=== PATIENT | female | born 1960 | race Two or more races ===

== ENCOUNTER → 2016-12-21 | Outpatient (CLI) | payer OTHER, BC ==
[~2016-12-21] MED LIST: /BUSP5TA OR; /ESCI10TA PO; /FENT25PA; /LAMO10TA OR; /LOR25TA PO; /QUET10TA; /QUET10TA OR; /QUET25TA; AMBI10TA; AMBI10TA OR; AMBI10TA PO; AMBI12.52 PO; AMBI5TAB; AMOX250C3; ARTHROTEC; ARTHROTEC PO; BIOTPOW20 PO; BUPR300T34 PO; BUSP10TA2; BUSP15TA; BUSP30TA PO; COLA50CA; COLA50CA OR; CONC18TA PO; CONC54TA2 PO; DEPA500T; DEPA500T OR; EFFEXOR PO; EFFEXOR XR PO; EMBEDA; ETOD40ERTA PO; Effexor PO; FLUT1LOT; FOLI800T; HYDR-3719 PO; HYDRO50TAB PO; LAMI25TA; LIPI10TA PO; LODINE PO; METF500T PO; METH750T OR; MOBI7.5T10 PO; MULTIVIT; MULTIVIT PO; NABU750T OR; OLAN5TAB PO; OMEP40CA2 PO; PENNSAID; PERC7.5T3 PO; PREG100CA PO; PRIL40CA OR; PRIL40CA PO; PROBCAP4 PO; Probiotic PO; QUET20XRTB; RITA10TA PO; SEROQUEL; SKEL800T5; SOMA350T; SOMA350T PO; TIZA2CAP3 PO; TRAM50TA2 PO; TRAZ100T; TRAZ100T2 PO; TRAZ50TA2 PO; VENL37TA PO; VIACTIV CALCIUM; VICO5TAB OR; VICODINES TAB OR; VOLT1GEL2 TD; WOMECAP2 PO; ZANT150T OR; [UNRECOGNIZED DRUG - CODE] PO; [UNRECOGNIZED DRUG - REMARK] PO
--- NOTE | 2017-01-04 00:22 | ECWPNPC ---
PATIENT NAME: ROSANGELA ISAAC : 1960 GENDER: FEMALE VISIT DATE: 12/21/2016 DISCHARGE DATE: 12/21/16 174 VISIT LOCKED DATE TIME: PHYSICIAN: BLANCA RODRIGUEZ RESOURCE: BLANCA RODRIGUEZ REASON FOR APPOINTMENT 1. W/C DEPOSITION HISTORY OF PRESENT ILLNESS HISTORY OF PRESENT ILLNESS: PAIN THE PATIENT DESCRIBES THE PAIN... 56 YEAR OLD FEMALE PATIENT WITH HISTORY OF CHRONIC RIGHT WRIST, KNEE, SHOULDER, FOOT AND BACK PAIN. PATIENT DESCRIBES THE PAIN ACHING, SHARP, STABBING, TENDER, SORE, SHOOTING, AND IT COMES AND GOES WITH A PAIN SORE OF 7/10 ON TODAY'S VISIT. PATIENT WAS INJURED IN A WORK RELATED INJURED ON 05/21/2002 WORKING FOR [employer], PATIENT WAS CLEANING THE BACK OF A BUS, WHEN SHE FELL OUT THE BACK DOOR INJURING HER RIGHT WRIST, KNEE, SHOULDER, FOOT AND BACK PAIN. PATIENT STATES THAT SHE WORKS ABOUT 3 DAYS A WEEKS FOR ABOUT 5 HOURS OR LESS EACH DAY. PATIENT REPORTS THAT SOMETIMES THE PAIN AT NIGHT DOES WAKE HER UP. SOMETIMES THE PAIN IN THE BACK IS MORE PAINFUL ON THE RIGHT SIDE. PATIENT STATES THAT SOMETIMES HER MUSCLES WILL FREEZE UP AND FEEL LIKE STONES AND THAT TIZANIDINE HELPS TO LOOSEN UP HER MUSCLES. PATIENT REPORTS THAT SHE HAS TRIED PHYSICAL THERAPY IN THE PAST AND IT DID PROVIDE HER WITH SOME PAIN RELIEF. PATIENT REPORTS THAT HER DOES HELP HER WITH SOME PT EXERCISES AT HOME AND THAT SHE TRY'S TO DO SOME BASIC EXERCISES BY HERSELF. PATIENT DENIES UNEXPLAINABLE WEIGHT LOSS, FEVER, CHILLS, NEW CHANGES ON HER URINARY OR BOWEL CONTROL. FALL RISK SCREENING: SCREENING :NO FALLS IN THE PAST YEAR CURRENT MEDICATIONS TAKING RITALIN 10 MG TABLET 2 TABLETS ORALLY ONCE A DAY ([facility]) TAKING AMBIEN 12 MG TABLET 1 TAB(S) ORALLY AT BEDTIME NEEDED ([facility]) TAKING OMEPRAZOLE 40MG 40 MG TABLET 1 TABLET ORALLY TWICE DAILY TAKING LYRICA 100 MG CAPSULE 1 CAPSULE (PAIN CLINIC) ORALLY 3 TIMES DAILY MDD=3 TAKING METFORMIN HCL 1000 MG TABLET 1 TABLET WITH MEALS ORALLY TWICE A DAY TAKING LIPITOR 80 MG TABLET 1 TABLET ORALLY ONCE A DAY TAKING TIZANIDINE HCL 2 MG TABLET 1 TABLET NEEDED ORALLY EVERY 8 HRS (PAIN CLINIC) TAKING NORCO 7.5-325 MG TABLET 1 TABLET ORALLY EVERY 8-12 HRS PRN PAIN MDD=2 TAKING ONDANSETRON HCL 4 MG TABLET 1 TABLET ORALLY THREE TIMES DAILY NEEDED DISCONTINUED OMEPRAZOLE 40 MG CAPSULE DELAYED RELEASE TAKE ONE CAPSULE BY MOUTH EVERY DAY MEDICATION LIST REVIEWED AND RECONCILED WITH THE PATIENT PAST MEDICAL HISTORY FIBROMYALGIA CHRONIC BACK PAIN ICD-9 724.5 POSITIVE LYME TITER MILO ICD-9 715.00 DEPRESSION ICD-9 311.0 SLEEP APNEA/USING C-PAP AT NIGHT ACID REFLUX ENVIROMENTAL ALLERGIES MIXED HYPERLIPIDEMA? IBS CHRONIC DRY EYES HISTORY OF FIBROIDS S/P HYSTERECTOMY ASCVD 10 YR RISK: 15 ALLERGIES BANANAS: RASH SEASONAL SURGICAL HISTORY TUBALIGATION 1983 APPENDECTOMY HYSTERECTOMY/ LAP ASSISTED VAGINAL --- DUE TO ADENOMYOSIS AND FIBROID UTERUS 11/21 COLONOSCOPY 2009 RIGHT BREAST BIOPSY 2010 FAMILY HISTORY NO FAMILY HISTORY DOCUMENTED. SOCIAL HISTORY GENERAL: TOBACCO USE ARE YOU A:NONSMOKER LEARNING BARRIERS / SPECIAL NEEDS ORIENTED TO PLAN OF CARE: PATIENT, PAIN MANAGEMENT PATIENT, ORIENTED TO PLAN OF CARE: PATIENT, PAIN MANAGEMENT PATIENT. NEW PATIENT PAIN DIARY TODAY'S VISITNOTES FROM 0-10, WHAT LEVEL IS YOUR PAIN TODAY?0 PAIN CLINIC PFS, CLERGY, PUBLIC HEALTH REFERRALS PFS REFERRAL NEEDED?NO CLERGY REFERRAL NEEDED?NO PUBLIC HEALTH REFERRAL NEEDED?NO WAS THE PROVIDER NOTIFIED OF ANY PERTINENT INFO?NO PFS REFERRAL NEEDED?NO CLERGY REFERRAL NEEDED?NO PUBLIC HEALTH REFERRAL NEEDED?NO WAS THE PROVIDER NOTIFIED OF ANY PERTINENT INFO?NO , 4 ADULT KIDS. ALL LIVE TOGETHER....UNEMPLOYED...DOES NOT SMOKE OR DRINK. HOSPITALIZATION/MAJOR DIAGNOSTIC PROCEDURE [facility] - DEPRESSION 2012 REVIEW OF SYSTEMS CONSTITUTIONAL: ANY CHANGE IN YOUR MEDICAL CONDITION? NO . CHILLS NO . FEVER NO . INFECTION: DO YOU HAVE NEW INFECTIONS? NO . DO YOU HAVE HISTORY OF MRSA? NO . MUSCULOSKELETAL: ANY NEW PATTERNS OF PAIN OR NUMBNESS? NO . GASTROENTEROLOGY: ANY NEW CHANGE IN BOWEL CONTROL? NO . GENITOURINARY: ANY NEW CHANGE IN BLADDER CONTROL? NO . IS THERE A CHANCE YOU COULD BE ? NO . HEMATOLOGY/LYMPH: DO YOU TAKE ANY BLOOD THINNERS? (FOR EXAMPLE- COUMADIN, PLAVIX, AGGRENOX, PLATEL, PRADAXA, OR XARELTO) NO . WHEN WAS YOUR LAST DOSE? DATE: TIME: . NEUROLOGY: HAVE YOU FALLEN IN THE PAST 6 MONTHS? NO . ANY NEW EXTREMITY NUMBNESS OR WEAKNESS? NO . CARDIOLOGY: DO YOU HAVE A PACEMAKER OR DEFIBRILLATOR? NO . RESPIRATORY: HAVE YOU BEEN SICK IN THE PAST WEEK? YES N/V AND DIARRHEA-RESOLVED NOW . FEVER NO . FLU LIKE SYMPTOMS? NO . COUGH NO . INTEGUMENTARY: DO YOU HAVE ANY RASHES OR OPEN SORES? NO . ALLERGIC/IMMUNO: ARE YOU ALLERGIC TO SHELLFISH OR IV DYE? NO . ANY NEW ALLERGIES? NO . PSYCHIATRIC: DO YOU HAVE THOUGHTS OF HURTING YOURSELF OR SOMEONE ELSE? NO . ARE YOU ABUSED, NEGLECTED, OR IN AN UNSAFE ENVIRONMENT? NO . ENDOCRINOLOGY: ARE YOU DIABETIC? YES . OTHER: DO YOU NEED ANY PRESCRIPTIONS? NO . IF YES, PLEASE LIST: ____ . ANY NEW PROBLEMS WITH YOUR MEDICATIONS? NO . WHEN DID YOU LAST EAT? ____ . WHEN DID YOU LAST DRINK? ____ . WHAT DID YOU LAST DRINK? ____ . NAME OF PERSON DRIVING YOU HOME? ____ . DO YOU HAVE ANY OTHER QUESTIONS OR CONCERNS NO . REVIEWED BY: PROVIDER: BLANCA RODRIGUEZ MD . VITAL SIGNS WT 197.8 LBS, HT 61 IN, BMI 37.37 INDEX, BP 140/87 MM HG, HR 104 /MIN, RR 18 /MIN, TEMP 97.2 F, OXYGEN SAT % 95, NA INITIALS TL 1616, REVIEWED BY: MLF. EXAMINATION : PATIENT IS ALERT O X 3 AND COOPERATIVE. PATIENT IS ABLE TO FLEX HER BACK AT 35 DEGREES AND EXTEND AT 5 DEGREES WITH DIFFICULTIES. PATIENT IS ABLE TO ABDUCT UPPER EXTREMITIES. PATIENT RIGHT LEG IS WEAKER AT FLEXION AND EXTENSION. FOR STRAIGHT LEG RAISING PATIENT IS ONLY ABLE TO DO THE RIGHT LEG AT 60 DEGREES. THERE IS PAIN AND TENDERNESS IN THE LOW BACK AND SACROILIAC AREA. THERE IS RIGHT THORACIC PAIN AND TENDERNESS. THERE IS BANDS OF TISSUES, RESTRICTION OF MOVEMENT, AND PRESENCE OF TRIGGER POINTS IN THE LOW BACK AREA. MRI OF THE LUMBAR SPINE DONE ON 12/22/2014 SHOWS CENTRAL STENOSIS AND DISC BULGES. ASSESSMENTS SPONDYLOSIS WITHOUT MYELOPATHY OR RADICULOPATHY, LUMBAR REGION - M47.816 (PRIMARY) SPONDYLOSIS WITHOUT MYELOPATHY OR RADICULOPATHY, LUMBOSACRAL REGION - M47.817 MYALGIA - M79.1 INTERVERTEBRAL DISC DISORDERS WITH RADICULOPATHY, LUMBAR REGION - M51.16 INTERVERTEBRAL DISC DISORDERS WITH RADICULOPATHY, LUMBOSACRAL REGION - M51.17 TREATMENT SPONDYLOSIS WITHOUT MYELOPATHY OR RADICULOPATHY, LUMBAR REGION NOTES: WE DISCUSSED SEVERAL ISSUES WITH MS. ISAAC'S PAIN MANAGEMENT CASE. PATIENT WILL CONTINUE ON THE SAME MEDICATION REGIMEN BEFORE. PATIENT IS USING LYRICA FOR RADIATING AND NEUROPATHIC PAIN FROM HER BACK AND RADIATING DOWN HER LEG, NORCO FOR THE SOMATIC PAIN IN THE BACK FOR ANALGESIA AND INCREASE OF MOBILITY AND FUNCTIONALITY, AND TIZANIDINE FOR MUSCLE SPASMS. THE PATIENT UNDERSTAND THE RISK OF USING NORCO AN OPIOID. SHE REPORTS USING THIS MEDICATION FOR PAIN CONTROL AND TO INCREASE FUNCTIONALITY. THE PATIENT EXPRESSES THAT IF SHE DOES NOT USE THIS MEDICATION THE SPASTICITY IS SO SEVERE SHE CAN NOT FUNCTION. PATIENT IS A GOOD CANDIDATE FOR A BILATERAL L4-L5 AND L5-S1 FACET BLOCK THERAPEUTIC INJECTION, WE DISCUSSED THE RISK, ALTERNATIVES'S, AND BENEFITS AND THE PATIENT WOULD LIKE TO PROCEED. PATIENT WILL BE BOOKED PENDING APPROVAL. UTOX DONE ON 09/11/2016 SHOWS CONSISTENT RESULTS. INSTRUCTIONS WERE GIVEN, QUESTIONS WERE ANSWERED, PATIENT REPORTS UNDERSTANDING AND AGREES WITH THE PLAN. I, BG SHARIF, DOCUMENTED THE ABOVE INFORMATION ACTING A SCRIBE FOR DR. RODRIGUEZ. I HAVE REVIEWED THE ABOVE DOCUMENT, WRITTEN BY BG SHARIF SCRIBE AND I VERIFY THAT IT IS ACCURATE. OTHERS REFILL LYRICA CAPSULE, 100 MG, 1 CAPSULE (PAIN CLINIC), ORALLY FOR PAIN, 3 TIMES DAILY MDD=3, 30 DAY(S), 90, REFILLS 1 REFILL TIZANIDINE HCL TABLET, 4 MG, 1 TABLET NEEDED, ORALLY FOR SPASMS AND PAIN, EVERY 8 HRS (PAIN CLINIC) MDD3, 30 DAY(S), 90, REFILLS 2 REFILL NORCO TABLET, 7.5-325 MG, 1 TABLET, ORALLY, EVERY 8-12 HRS PRN PAIN MDD=2, 30 DAY(S), 60, REFILLS 0 PROCEDURES PN WORKMANS' COMP OPINION IN YOUR OPINION, WAS THE INCIDENT THAT THE PATIENT DESCRIBED THE COMPETENT MEDICAL CAUSE OF THIS INJURY/ILLNESS? YES ARE THE PATIENT'S COMPLAINTS CONSISTENT WITH HIS/HER HISTORY OF THE INJURY/ILLNESS? YES IS THE PATIENT'S HISTORY OF THE INJURY/ILLNESS CONSISTENT WITH YOUR OBJECTIVE FINDING? YES WHAT IS THE PERCENTAGE OF TEMPORARY IMPAIRMENT? MODERATE TO MARKED = 66.7% IS THE PATIENT WORKING? 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 IT IS NOT A COPY OF THE [facility] [employer] PROGRESS NOTE. MTDD
== END ==
LOC: M PAIN 16:00
PROVIDERS: ATTEND Anesthesiology
DX: Z09 Encounter for follow-up examination after completed treatment for conditions other than malignant neoplasm (principal); G89.29 Other chronic pain; M47.816 Spondylosis without myelopathy or radiculopathy, lumbar region; M47.817 Spondylosis without myelopathy or radiculopathy, lumbosacral region; M79.1 Myalgia; M51.16 Intervertebral disc disorders with radiculopathy, lumbar region; M51.17 Intervertebral disc disorders with radiculopathy, lumbosacral region; E11.9 Type 2 diabetes mellitus without complications; K21.9 Gastro-esophageal reflux disease without esophagitis; J32.9 Chronic sinusitis, unspecified; E78.1 Pure hyperglyceridemia; Z68.37 Body mass index [BMI] 37.0-37.9, adult; Z91.09 Other allergy status, other than to drugs and biological substances; Z91.018 Allergy to other foods; J30.2 Other seasonal allergic rhinitis; Z79.84 Long term (current) use of oral hypoglycemic drugs; Z79.891 Long term (current) use of opiate analgesic; Z79.899 Other long term (current) drug therapy; Z87.891 Personal history of nicotine dependence

== ENCOUNTER → 2017-02-06 | Outpatient (CLI) | payer OTHER, BC ==
[~2017-02-06] MED LIST changes: +BUPIVACAINE HCL 0.25% 30 ML VIAL As Ordered ONE; +ISOVUE-M 300 61% 15ML VIAL (Q9967) As Ordered ONE; +LIDOCAINE 1% SDV INJ 30 ML VIAL As Ordered ONE; +TRIAMCINOLONE ACETONIDE SUSP 40 MG/ML VIAL (J3301) As Ordered ONE; +diazePAM 5 MG TAB As Ordered ONE; +oxyCODONE 5MG TAB As Ordered ONE
--- NOTE | 2017-02-06 15:56 | REP ---
FLUOROSCOPIC GUIDANCE FOR FACET BLOCK: 02/06/2017: Clinical history: Low back pain. Findings: Four images from C-arm fluoroscopy provided to Dr. Webber of the pain clinic for bilateral lumbar facet block. Oblique images show needles at the L4-L5 and L5-S1 facets with contrast adjacent to them on the left side and then the similar appearance for needle tips and contrast on the right side subsequent. Fluoroscopy time: 18 seconds. Signed by Waldo Dunlap MD 02/06/2017 05:10 P
--- NOTE | 2017-02-09 00:06 | ECWPNPC ---
PATIENT NAME: ROSANGELA ISAAC : 1960 GENDER: FEMALE VISIT DATE: 02/06/2017 DISCHARGE DATE: 02/06/17 1431 VISIT LOCKED DATE TIME: PHYSICIAN: BLANCA RODRIGUEZ RESOURCE: BLANCA RODRIGUEZ REASON FOR APPOINTMENT 1. W/C-BILATERAL [id number] BLOCK THERAPEUTIC CURRENT MEDICATIONS TAKING AMBIEN 12 MG TABLET 1 TAB(S) ORALLY AT BEDTIME NEEDED ([facility]), NOTES: 02-05-17 800 TAKING OMEPRAZOLE 40MG 40 MG TABLET 1 TABLET ORALLY TWICE DAILY, NOTES: 02-04-17 TAKING METFORMIN HCL 1000 MG TABLET 1 TABLET WITH MEALS ORALLY TWICE A DAY, NOTES: 02-06-17399 TAKING LIPITOR 80 MG TABLET 1 TABLET ORALLY ONCE A DAY, NOTES: 02-06-17399 TAKING ONDANSETRON HCL 4 MG TABLET 1 TABLET ORALLY THREE TIMES DAILY NEEDED, NOTES: NONE TAKING LYRICA 100 MG CAPSULE 1 CAPSULE (PAIN CLINIC) ORALLY FOR PAIN 3 TIMES DAILY MDD=3, NOTES: 02-06-17399 TAKING TIZANIDINE HCL 4 MG TABLET 1 TABLET NEEDED ORALLY FOR SPASMS AND PAIN EVERY 8 HRS (PAIN CLINIC) MDD3, NOTES: 02-05-17 PM TAKING LOSARTAN POTASSIUM 25 MG TABLET 1 TABLET ORALLY ONCE A DAY, NOTES: 02-06-17399 TAKING PROZAC 40 MG CAPSULE 1 CAPSULE IN THE MORNING ORALLY ONCE A DAY, NOTES: 02-06-17399 TAKING BACID - TABLET DIRECTED ORALLY DAILY, NOTES: 02-06-17399 TAKING NORCO 7.5-325 MG TABLET 1 TABLET ORALLY EVERY 8-12 HRS PRN PAIN MDD=2, NOTES: 02-05-17 PM NOT-TAKING RITALIN 10 MG TABLET 2 TABLETS ORALLY ONCE A DAY ([facility]) MEDICATION LIST REVIEWED AND RECONCILED WITH THE PATIENT PAST MEDICAL HISTORY FIBROMYALGIA CHRONIC BACK PAIN ICD-9 724.5 POSITIVE LYME TITER MILO ICD-9 715.00 DEPRESSION ICD-9 311.0 SLEEP APNEA/USING C-PAP AT NIGHT ACID REFLUX ENVIROMENTAL ALLERGIES MIXED HYPERLIPIDEMA? IBS CHRONIC DRY EYES HISTORY OF FIBROIDS S/P HYSTERECTOMY ASCVD 10 YR RISK: 15 ALLERGIES SEASONAL VITAL SIGNS WT 190.0 LBS, HT 61 IN, BMI 35.90 INDEX, BP 137/66 MM HG, HR 106 /MIN, RR 18 /MIN, TEMP 97.1 F, OXYGEN SAT % 96, NA INITIALS TL 1147, REVIEWED BY: CM. ASSESSMENTS SPONDYLOSIS WITHOUT MYELOPATHY OR RADICULOPATHY, LUMBAR REGION - M47.816 (PRIMARY) SPONDYLOSIS WITHOUT MYELOPATHY OR RADICULOPATHY, LUMBOSACRAL REGION - M47.817 PROCEDURES PN LUMBAR FACET BLOCK THERAPEUTIC PRE PROCEDURE DIAGNOSIS LUMBAR SPONDYLOSIS, LUMBOSACRAL SPONDYLOSIS POST PROCEDURE DIAGNOSIS LUMBAR SPONDYLOSIS, LUMBOSACRAL SPONDYLOSIS PROCEDURE BILATERAL L4-L5 AND BILATERAL L5-S1 LUMBAR FACET THERAPEUTIC BLOCK SURGEON DR. BLANCA RODRIGUEZ REFERENCE LIBRARY ASSISTANT NONE ANESTHESIA LOCAL PRE PROCEDURE NOTE THE PATIENT HAS A HISTORY OF CHRONIC LOW BACK PAIN. I EVALUATE THE PATIENT AND REVIEWED THE CHART. I WENT OVER THE RISKS, ALTERNATIVES, AND BENEFITS ASSOCIATED WITH THIS PROCEDURE. THE PATIENT WOULD LIKE TO PROCEED AND GIVE CONSENT TO PERFORMED THE PROCEDURE. THE PATIENT DENIES UNEXPLAINABLE WEIGHT LOSS, FEVER, CHILLS, OR NEW CHANGES IN URINARY OR BOWEL CONTROL DESCRIPTION OF PROCEDURE THE PATIENT WAS BROUGHT TO THE PROCEDURE ROOM AND PLACED IN THE PRONE POSITION. THE LUMBOSACRAL AREA WAS CLEANED WITH CHLORAPREP SOLUTION AND DRAPED ASEPTICALLY. THE PROCEDURE WAS DONE UNDER STERILE CONDITIONS. I CHECKED LATERALITY AND THE LEVEL WHERE THE PROCEDURE WAS GOING TO BE PERFORMED WITH THE PATIENT AND THE SUPPORTING STAFF AT THE MOMENT OF THE TIME OUT IN THE PROCEDURE ROOM. UNDER FLUOROSCOPIC GUIDANCE, THE TARGET POINT WAS SELECTED AT THE RIGHT AND LEFT L4-L5 AND RIGHT AND LEFT L5-S1 FACET JOINT. TARGET POINT WAS SELECTED AFTER LATERAL ROTATION AND TILT OF THE MAGNIFIER OF THE C-ARM. LIDOCAINE 0.5% WAS USED TO NUMB THE SKIN AND THE SUBCUTANEOUS TISSUE BELOW IT. SPINAL NEEDLES, 22-GAUGE, WERE ADVANCED UNDER FLUOROSCOPIC GUIDANCE AND FOLLOWING PATIENT FEEDBACK UNTIL THE TARGETS WERE TOUCHED. THE POSITION OF THE NEEDLES WAS VERIFIED WITH AP AND LATERAL VIEWS. AFTER PROPER POSITION OF THE NEEDLES WAS ACHIEVED, ISOVUE-M DYE 30% 0.1 ML WAS INJECTED SHOWING ADEQUATE SPREAD OF THE DYE. THEN A SOLUTION OF 1.9 ML OF BUPIVACAINE 0.125% OF KENALOG 10 MG WAS INJECTED AT EACH SITE. THERE WAS NO EVIDENCE OF BLOOD, PARESTHESIA OR CEREBROSPINAL FLUID DURING THE PROCEDURE. THE PATIENT WAS SENT TO THE RECOVERY ROOM. THE PATIENT WAS MOVING THE EXTREMITIES AND DOING WELL. THERE WAS NO COMPLICATION DURING THE PROCEDURE. FLUOROSCOPY TIME WAS 18 SECONDS POST PROCEDURE NOTE THE PATIENT WILL BE SEEN IN A FOLLOW UP IN THE NEXT FEW WEEKS. INSTRUCTIONS WERE GIVEN, QUESTIONS WERE ANSWERED, AND THE PATIENT EXPRESSED UNDERSTANDING AND AGREES WITH THE PLAN. I, JERMAINE TORRES, DOCUMENTED THE ABOVE INFORMATION ACTING A SCRIBE FOR DR. RODRIGUEZ. I, DR. RODRIGUEZ, HAVE REVIEWED THE ABOVE DOCUMENT, SCRIBED BY JERMAINE TORRES, AND I VERIFY THAT IT IS ACCURATE DIAGNOSTIC IMAGING [facility] FACET BLOCK (PAIN)[id number] PROCEDURE CODES 21937 INJ PARAVERT F JNT L/S 1 LEV 69329 INJ PARAVERT F JNT L/S 2 LEV 6045F RADXPS IN END [id number] PXD DISPOSITION & COMMUNICATION FOLLOW UP 3 WEEKS ELECTRONICALLY SIGNED BY BLANCA RODRIGUEZ MD ON 02/08/2017 AT 01:48 PM EDT DISCLAIMER : THIS IS A VISIT SUMMARY EXTRACTED FROM THE [employer] CHART. IT IS NOT A COPY OF THE [employer] PROGRESS NOTE. MTDD
== END ==
LOC: M PAIN 11:40
PROVIDERS: ATTEND Anesthesiology
DX: G89.29 Other chronic pain (principal); M47.816 Spondylosis without myelopathy or radiculopathy, lumbar region; M47.817 Spondylosis without myelopathy or radiculopathy, lumbosacral region; M79.7 Fibromyalgia; G47.33 Obstructive sleep apnea (adult) (pediatric); M54.5 Low back pain; F32.9 Major depressive disorder, single episode, unspecified; K21.9 Gastro-esophageal reflux disease without esophagitis; J30.9 Allergic rhinitis, unspecified; K58.9 Irritable bowel syndrome, unspecified; H04.123 Dry eye syndrome of bilateral lacrimal glands; Z79.84 Long term (current) use of oral hypoglycemic drugs; Z79.891 Long term (current) use of opiate analgesic; Z79.899 Other long term (current) drug therapy
CPT/HCPCS: 64493; 64494; J3301; Q9967

== ENCOUNTER → 2017-02-06 | Outpatient (CLI) | payer OTHER, BC ==
[~2017-02-06] MED LIST changes: -BUPIVACAINE HCL 0.25% 30 ML VIAL As Ordered ONE; -ISOVUE-M 300 61% 15ML VIAL (Q9967) As Ordered ONE; -LIDOCAINE 1% SDV INJ 30 ML VIAL As Ordered ONE; -TRIAMCINOLONE ACETONIDE SUSP 40 MG/ML VIAL (J3301) As Ordered ONE; -diazePAM 5 MG TAB As Ordered ONE; -oxyCODONE 5MG TAB As Ordered ONE
--- NOTE | 2017-02-14 01:54 | ECWPNPC ---
PATIENT NAME: ROSANGELA ISAAC : 1960 GENDER: FEMALE VISIT DATE: 02/06/2017 DISCHARGE DATE: 02/06/17 1632 VISIT LOCKED DATE TIME: PHYSICIAN: BLANCA RODRIGUEZ RESOURCE: BLANCA RODRIGUEZ REASON FOR APPOINTMENT 1. W/C BACK PAIN HISTORY OF PRESENT ILLNESS HISTORY OF PRESENT ILLNESS: PAIN THE PATIENT DESCRIBES THE PAIN... 56 YEAR OLD FEMALE PATIENT WITH HISTORY OF CHRONIC LOW BACK PAIN. PATIENT STATES THAT SHE HAS NO PAIN AT THIS TIME. PATIENT RECEIVED A LUMBAR FACET BLOCK EARLIER THIS MORNING. CURRENTLY THE PATIENT IS USING LYRICA, NORCO, AND TIZANIDINE AND STATES THAT THE MEDICATION KEEPS HER MOBILE AND FUNCTIONAL. 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 PATIENT STATES THAT ANY TYPE OF ACTIVITY INCREASES THE PAIN IN HER LOWER BACK AND AT THIS TIME THE ONLY THING THAT AIDS IN RELIEF IN MEDICATION AND INTERVENTIONS. PATIENT DENIES UNEXPLAINABLE WEIGHT LOSS, FEVER, CHILLS, NEW CHANGES ON HER URINARY OR BOWEL CONTROL. FALL RISK SCREENING: SCREENING :NO FALLS IN THE PAST YEAR CURRENT MEDICATIONS TAKING RITALIN 10 MG TABLET 2 TABLETS ORALLY ONCE A DAY ([facility]) TAKING AMBIEN 12 MG TABLET 1 TAB(S) ORALLY AT BEDTIME NEEDED ([facility]) TAKING OMEPRAZOLE 40MG 40 MG TABLET 1 TABLET ORALLY TWICE DAILY TAKING METFORMIN HCL 1000 MG TABLET 1 TABLET WITH MEALS ORALLY TWICE A DAY TAKING LIPITOR 80 MG TABLET 1 TABLET ORALLY ONCE A DAY TAKING ONDANSETRON HCL 4 MG TABLET 1 TABLET ORALLY THREE TIMES DAILY NEEDED TAKING LYRICA 100 MG CAPSULE 1 CAPSULE (PAIN CLINIC) ORALLY FOR PAIN 3 TIMES DAILY MDD=3 TAKING TIZANIDINE HCL 4 MG TABLET 1 TABLET NEEDED ORALLY FOR SPASMS AND PAIN EVERY 8 HRS (PAIN CLINIC) MDD3 TAKING LOSARTAN POTASSIUM 25 MG TABLET 1 TABLET ORALLY ONCE A DAY TAKING PROZAC 40 MG CAPSULE 1 CAPSULE IN THE MORNING ORALLY ONCE A DAY TAKING BACID - TABLET DIRECTED ORALLY DAILY TAKING NORCO 7.5-325 MG TABLET 1 TABLET ORALLY EVERY 8-12 HRS PRN PAIN MDD=2 MEDICATION LIST REVIEWED AND RECONCILED WITH THE PATIENT PAST MEDICAL HISTORY FIBROMYALGIA CHRONIC BACK PAIN ICD-9 724.5 POSITIVE LYME TITER MILO ICD-9 715.00 DEPRESSION ICD-9 311.0 SLEEP APNEA/USING C-PAP AT NIGHT ACID REFLUX ENVIROMENTAL ALLERGIES MIXED HYPERLIPIDEMA? IBS CHRONIC DRY EYES HISTORY OF FIBROIDS S/P HYSTERECTOMY ASCVD 10 YR RISK: 15 ALLERGIES SEASONAL SURGICAL HISTORY TUBALIGATION 1983 APPENDECTOMY HYSTERECTOMY/ LAP ASSISTED VAGINAL --- DUE TO ADENOMYOSIS AND FIBROID UTERUS 11/21 COLONOSCOPY 2009 RIGHT BREAST BIOPSY 2010 FAMILY HISTORY NO FAMILY HISTORY DOCUMENTED. SOCIAL HISTORY GENERAL: TOBACCO USE ARE YOU A:NONSMOKER BMI CARE GOAL FOLLOW-UP ABOVE NORMAL BMI FOLLOW-UPGIVING ENCOURAGEMENT TO EXERCISE LEARNING BARRIERS / SPECIAL NEEDS BARRIERS TO LEARNING?NO HEARING IMPAIRED?NO VISION IMPAIRED?YES :CORRECTIVE LENSES COGNITIVELY IMPAIRED?NO READINESS TO LEARN?YES LEARNING PREFERENCES?NO LEARNING CAPABILITIES PRESENT?YES EMOTIONAL BARRIERS?NO SPECIAL DEVICES?NO NEW PATIENT PAIN DIARY TODAY'S VISITNOTES FROM 0-10, WHAT LEVEL IS YOUR PAIN TODAY?0 PAIN CLINIC PFS, CLERGY, PUBLIC HEALTH REFERRALS PFS REFERRAL NEEDED?NO CLERGY REFERRAL NEEDED?NO PUBLIC HEALTH REFERRAL NEEDED?NO WAS THE PROVIDER NOTIFIED OF ANY PERTINENT INFO?NO PFS REFERRAL NEEDED?NO CLERGY REFERRAL NEEDED?NO PUBLIC HEALTH REFERRAL NEEDED?NO WAS THE PROVIDER NOTIFIED OF ANY PERTINENT INFO?NO , 4 ADULT KIDS. ALL LIVE TOGETHER....UNEMPLOYED...DOES NOT SMOKE OR DRINK. HOSPITALIZATION/MAJOR DIAGNOSTIC PROCEDURE [facility] - DEPRESSION 2012 REVIEW OF SYSTEMS CONSTITUTIONAL: ANY CHANGE IN YOUR MEDICAL CONDITION? NO . CHILLS NO . FEVER NO . INFECTION: DO YOU HAVE NEW INFECTIONS? NO . DO YOU HAVE HISTORY OF MRSA? NO . MUSCULOSKELETAL: ANY NEW PATTERNS OF PAIN OR NUMBNESS? NO . GASTROENTEROLOGY: ANY NEW CHANGE IN BOWEL CONTROL? NO . GENITOURINARY: ANY NEW CHANGE IN BLADDER CONTROL? NO . IS THERE A CHANCE YOU COULD BE ? NO . HEMATOLOGY/LYMPH: DO YOU TAKE ANY BLOOD THINNERS? (FOR EXAMPLE- COUMADIN, PLAVIX, AGGRENOX, PLATEL, PRADAXA, OR XARELTO) NO . WHEN WAS YOUR LAST DOSE? DATE: TIME: . NEUROLOGY: HAVE YOU FALLEN IN THE PAST 6 MONTHS? NO . ANY NEW EXTREMITY NUMBNESS OR WEAKNESS? NO . CARDIOLOGY: DO YOU HAVE A PACEMAKER OR DEFIBRILLATOR? NO . RESPIRATORY: HAVE YOU BEEN SICK IN THE PAST WEEK? NO . FEVER NO . FLU LIKE SYMPTOMS? NO . COUGH NO . INTEGUMENTARY: DO YOU HAVE ANY RASHES OR OPEN SORES? NO . ALLERGIC/IMMUNO: ARE YOU ALLERGIC TO SHELLFISH OR IV DYE? NO . ANY NEW ALLERGIES? NO . PSYCHIATRIC: DO YOU HAVE THOUGHTS OF HURTING YOURSELF OR SOMEONE ELSE? NO . ARE YOU ABUSED, NEGLECTED, OR IN AN UNSAFE ENVIRONMENT? NO . ENDOCRINOLOGY: ARE YOU DIABETIC? YES . OTHER: DO YOU NEED ANY PRESCRIPTIONS? NO . IF YES, PLEASE LIST: ____ . ANY NEW PROBLEMS WITH YOUR MEDICATIONS? NO . WHEN DID YOU LAST EAT? 02/06/17399 . WHEN DID YOU LAST DRINK? 02-06-17399 . WHAT DID YOU LAST DRINK? COFFEE/ WATER . NAME OF PERSON DRIVING YOU HOME? KATHY . DO YOU HAVE ANY OTHER QUESTIONS OR CONCERNS NO . REVIEWED BY: PROVIDER: BLANCA RODRIGUEZ MD . VITAL SIGNS WT 190.0 LBS, HT 61 IN, BMI 35.90 INDEX, BP 137/66 MM HG, HR 106 /MIN, RR 18 /MIN, TEMP 97.1 F, OXYGEN SAT % 96, NA INITIALS TL 1444, REVIEWED BY: AD. EXAMINATION : PATIENT IS ALERT O X 3 AND COOPERATIVE. PATIENT IS ABLE TO FLEX HER BACK AT 55 DEGREES AND EXTEND AT 10 DEGREES WITH DIFFICULTIES. PATIENT RIGHT LEG IS WEAKER AT FLEXION AND EXTENSION. FOR STRAIGHT LEG RAISING PATIENT IS ONLY ABLE TO DO THE RIGHT LEG AT 60 DEGREES. PATIENT RECEIVED A FACET BLOCK EARLIER THIS MORNING AND REPORTS HAVING NO PAIN AT THIS MOMENT. THERE IS BANDS OF TISSUES, RESTRICTION OF MOVEMENT, AND PRESENCE OF TRIGGER POINTS IN THE LOW BACK AREA. MRI OF THE LUMBAR SPINE DONE ON 12/22/2014 SHOWS CENTRAL STENOSIS AND DISC BULGES. ASSESSMENTS SPONDYLOSIS WITHOUT MYELOPATHY OR RADICULOPATHY, LUMBAR REGION - M47.816 (PRIMARY) SPONDYLOSIS WITHOUT MYELOPATHY OR RADICULOPATHY, LUMBOSACRAL REGION - M47.817 TREATMENT SPONDYLOSIS WITHOUT MYELOPATHY OR RADICULOPATHY, LUMBAR REGION REFILL LYRICA CAPSULE, 100 MG, 1 CAPSULE (PAIN CLINIC), ORALLY FOR PAIN, 3 TIMES DAILY MDD=3, 30 DAY(S), 90, REFILLS 0 REFILL TIZANIDINE HCL TABLET, 4 MG, 1 TABLET NEEDED, ORALLY FOR SPASMS AND PAIN, EVERY 8 HRS (PAIN CLINIC) MDD3, 30 DAY(S), 75, REFILLS 2 REFILL NORCO TABLET, 10-325 MG, 1 TABLET, ORALLY, EVERY 8-12 HRS PRN PAIN MDD=2, 30 DAY(S), 45, REFILLS 0 START IBUPROFEN TABLET, 800 MG, 1 TABLET, ORALLY WITH FOOD, THREE TIMES A DAY PRN FOR PAIN MDD3, 30 DAY(S), 70, REFILLS 1 NOTES: WE DISCUSSED SEVERAL ISSUES WITH MRS. ISAAC'S PAIN MANAGEMENT CASE. AT THIS TIME THE PATIENT WILL START IBUPROFEN AND NORCO WILL BE INCREASED FROM 7.5 MG TO 10 MG TABLETS WITH 65 TABLETS FOR THE MONTH. I WILL PRESCRIBE THE PATIENT IBUPROFEN 800 MG AND PATIENT IS AWARE TO EAT WHEN USING THIS MEDICATION. PATIENT IS AWARE IBUPROFEN CAN CAUSE ISSUES WITH THE KIDNEYS AND THE STOMACH WELL OTHER ORGANS. PATIENT DENIES ABUSE OF ANY MEDICATION, DENIES USE OF ILLEGAL SUBSTANCES AND STATES THAT SHE IS ONLY USING THE MEDICATION FOR PAIN MANAGEMENT. PATIENT URINE TOXICOLOGY REPORT DONE ON 09/11/16 SHOWS CONSISTENT RESULTS WITH THE PATIENTS MEDICATION LIST. PATIENT IS CURRENTLY USING THE TIZANIDINE FOR THE SPASMS, NORCO FOR THE SOMATIC PAIN, AND LYRICA FOR THE NEUROPATHIC PAIN DOWN THE LEGS. PATIENT WILL RETURN TO THE CLINIC IN 3 WEEKS TO DISCUSS HOW THE MEDICATIONS AIDED IN RELIEF AND TO DISCUSS HOW THE FACET BLOCK AIDED THE PATIENT. INSTRUCTIONS WERE GIVEN, QUESTIONS WERE ANSWERED, PATIENT REPORTS UNDERSTANDING AND AGREES WITH THE PLAN. I, JERMAINE TORRES, DOCUMENTED THE ABOVE INFORMATION ACTING A SCRIBE FOR DR. RODRIGUEZ. I HAVE REVIEWED THE ABOVE DOCUMENT, WRITTEN BY JERMAINE BARR AND I VERIFY THAT IT IS ACCURATE. PROCEDURES PN WORKMANS' COMP OPINION IN YOUR OPINION, WAS THE INCIDENT THAT THE PATIENT DESCRIBED THE COMPETENT MEDICAL CAUSE OF THIS INJURY/ILLNESS? YES ARE THE PATIENT'S COMPLAINTS CONSISTENT WITH HIS/HER HISTORY OF THE INJURY/ILLNESS? YES IS THE PATIENT'S HISTORY OF THE INJURY/ILLNESS CONSISTENT WITH YOUR OBJECTIVE FINDING? YES WHAT IS THE PERCENTAGE OF TEMPORARY IMPAIRMENT? MODERATE TO MARKED = 66.7% IS THE PATIENT WORKING? YES DOCTOR ON SITE: BLANCA ALVAREZ MD PREVENT[facility] MEDICINE PAIN CLINIC TEACHING: MEDICATIONS PATIENT DECLINED PRINTED INFORMATION ON IBUPROFEN. CHANGE IN TIZANIDINE REVIEWED WITH PATIENT AND SHE VERBALIZED UNDERSTANDING. PROCEDURE CODES FA211 ESTABILISHED PATIENT [facility] FAC[facility] CHARGE G1137 DOC MEDS VERIFIED W/PT OR RE P4437 PAIN ASSESS POS TOOL F/U PLAN DOC DISPOSITION & COMMUNICATION FOLLOW UP 3 WEEKS ELECTRONICALLY SIGNED BY BLANCA RODRIGUEZ MD ON 02/13/2017 AT 12:53 PM EDT DISCLAIMER : THIS IS A VISIT SUMMARY EXTRACTED FROM THE [employer] CHART. IT IS NOT A COPY OF THE [employer] PROGRESS NOTE. ROVERTO
== END ==
LOC: M PAIN 14:40
PROVIDERS: ATTEND Anesthesiology
DX: Z09 Encounter for follow-up examination after completed treatment for conditions other than malignant neoplasm (principal); G89.29 Other chronic pain; M54.5 Low back pain; M47.816 Spondylosis without myelopathy or radiculopathy, lumbar region; M47.817 Spondylosis without myelopathy or radiculopathy, lumbosacral region; M79.7 Fibromyalgia; G47.33 Obstructive sleep apnea (adult) (pediatric); F32.9 Major depressive disorder, single episode, unspecified; K21.9 Gastro-esophageal reflux disease without esophagitis; J30.9 Allergic rhinitis, unspecified; E78.2 Mixed hyperlipidemia; K58.9 Irritable bowel syndrome, unspecified; H04.123 Dry eye syndrome of bilateral lacrimal glands; Z79.84 Long term (current) use of oral hypoglycemic drugs; Z79.891 Long term (current) use of opiate analgesic; Z79.899 Other long term (current) drug therapy

== ENCOUNTER → 2017-02-07 | Outpatient (CLI) | payer BC ==
[2017-02-07 19:00] LABS: ALKALINE PHOSPHATASE 69 U/L (45-117); ALT/SGPT 38 U/L (12-78); ANION GAP 8 MEQ/L (8-16); AST/SGOT 19 U/L (15-37); BILIRUBIN,TOTAL 0.3 MG/DL (0.2-1.0); BLOOD UREA NITROGEN 16 MG/DL (7-18); CALCIUM LEVEL 9.4 MG/DL (8.5-10.1); CARBON DIOXIDE LEVEL 28 MEQ/L (21-32); CHLORIDE LEVEL 102 MEQ/L (98-107); CHOLESTEROL LEVEL 150 MG/DL (<200); CREATININE FOR GFR 0.64 MG/DL (0.55-1.02); GLOMERULAR FILTRATION RATE > 60.0 (>51); GLUCOSE, FASTING 113 MG/DL (70-105); SODIUM LEVEL 138 MEQ/L (136-145); TRIGLYCERIDES LEVEL 110 MG/DL (<150)
[2017-02-07 19:01] LABS: ALBUMIN 4.3 GM/DL (3.2-5.2); TOTAL PROTEIN 7.6 GM/DL (6.4-8.2)
== END ==
LOC: M WUC 10:40
PROVIDERS: ATTEND Hospitalist
DX: R74.0 Nonspecific elevation of levels of transaminase and lactic acid dehydrogenase [LDH] (principal); E11.9 Type 2 diabetes mellitus without complications; E78.1 Pure hyperglyceridemia

== ENCOUNTER → 2017-03-23 | Outpatient (CLI) | payer BC ==
--- NOTE | 2017-03-31 23:45 | ECWPNPC ---
PATIENT NAME: ROSANGELA ISAAC : 1960 GENDER: FEMALE VISIT DATE: 03/23/2017 DISCHARGE DATE: 03/23/17 1521 VISIT LOCKED DATE TIME: PHYSICIAN: BLANCA RODRIGUEZ RESOURCE: BLANCA RODRIGUEZ REASON FOR APPOINTMENT 1. WC, MEDS HISTORY OF PRESENT ILLNESS HISTORY OF PRESENT ILLNESS: PAIN THE PATIENT DESCRIBES THE PAIN... 56 YEAR OLD FEMALE PATIENT WITH HISTORY OF CHRONIC LOW BACK PAIN. PATIENT DESCRIBES THE PAIN ACHING, STABBING, TENDER, THROBBING, AND SORE WITH A PAIN SCORE OF 6/10. PATIENT RECEIVED A LUMBAR FACET BLOCK ON 02/06/17 AND REPORTS THAT SHE HAD A 50% DECREASE IN PAIN FOR 4 WEEKS AND AN INCREASE IN MOBILITY AND FUNCTIONALITY. CURRENTLY THE PATIENT IS USING LYRICA, NORCO, AND TIZANIDINE AND STATES THAT THE MEDICATION KEEPS HER MOBILE AND FUNCTIONAL. 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 PATIENT STATES THAT ANY TYPE OF ACTIVITY INCREASES THE PAIN IN HER LOWER BACK AND AT THIS TIME THE ONLY THING THAT AIDS IN RELIEF IN MEDICATION AND INTERVENTIONS. PATIENT DENIES UNEXPLAINABLE WEIGHT LOSS, FEVER, CHILLS, NEW CHANGES ON HER URINARY OR BOWEL CONTROL. FALL RISK SCREENING: SCREENING :NO FALLS IN THE PAST YEAR CURRENT MEDICATIONS TAKING TIZANIDINE HCL 4 MG TABLET 1 TABLET NEEDED ORALLY FOR SPASMS AND PAIN EVERY 8 HRS (PAIN CLINIC) MDD3 TAKING LYRICA 100 MG CAPSULE 1 CAPSULE (PAIN CLINIC) ORALLY FOR PAIN 3 TIMES DAILY MDD=3 TAKING NORCO 10-325 MG TABLET 1 TABLET ORALLY EVERY 8-12 HRS PRN PAIN MDD=2 TAKING IBUPROFEN 800 MG TABLET 1 TABLET ORALLY WITH FOOD THREE TIMES A DAY PRN FOR PAIN MDD3 TAKING RITALIN 10 MG TABLET 2 TABLETS ORALLY ONCE A DAY (PECK) TAKING AMBIEN 12 MG TABLET 1 TAB(S) ORALLY AT BEDTIME NEEDED (PECK) TAKING OMEPRAZOLE 40MG 40 MG TABLET 1 TABLET ORALLY TWICE DAILY TAKING METFORMIN HCL 1000 MG TABLET 1 TABLET WITH MEALS ORALLY TWICE A DAY TAKING LIPITOR 80 MG TABLET 1 TABLET ORALLY ONCE A DAY TAKING ONDANSETRON HCL 4 MG TABLET 1 TABLET ORALLY THREE TIMES DAILY NEEDED TAKING LOSARTAN POTASSIUM 25 MG TABLET 1 TABLET ORALLY ONCE A DAY TAKING PROZAC 40 MG CAPSULE 1 CAPSULE IN THE MORNING ORALLY ONCE A DAY TAKING LOMOTIL 2.5-0.025 MG TABLET 1 TABLET NEEDED ORALLY FOUR TIMES A DAY TAKING CARAFATE 1 GM/10ML SUSPENSION 10 ML ORALLY TWICE A DAY TAKING SINGULAIR 10 MG TABLET 1 TABLET IN THE EVENING ORALLY ONCE A DAY NOT-TAKING BACID - TABLET DIRECTED ORALLY DAILY MEDICATION LIST REVIEWED AND RECONCILED WITH THE PATIENT PAST MEDICAL HISTORY FIBROMYALGIA CHRONIC BACK PAIN ICD-9 724.5 POSITIVE LYME TITER DEPRESSION ICD-9 311.0 SLEEP APNEA/USING C-PAP AT NIGHT ACID REFLUX ENVIROMENTAL ALLERGIES MIXED HYPERLIPIDEMA? IBS CHRONIC DRY EYES HISTORY OF FIBROIDS S/P HYSTERECTOMY ASCVD 10 YR RISK: 15 ALLERGIES SEASONAL SURGICAL HISTORY TUBALIGATION 1983 APPENDECTOMY HYSTERECTOMY/ LAP ASSISTED VAGINAL --- DUE TO ADENOMYOSIS AND FIBROID UTERUS 11/21 COLONOSCOPY 2009 RIGHT BREAST BIOPSY 2010 FAMILY HISTORY FATHER: UNKNOWN MOTHER: , INFLUENZA SIBLINGS: ALIVE SON(S): ALIVE DAUGHTER(S): ALIVE, LUPUS, FIBROMYALGIA, ASTHMA, LYME DISEASE 2 BROTHER(S) , 1 SISTER(S) - HEALTHY. 3 SON(S) , 1 DAUGHTER(S) . SOCIAL HISTORY GENERAL: TOBACCO USE ARE YOU A:FORMER SMOKER HOW LONG HAS IT BEEN SINCE YOU LAST SMOKED?3-6 MONTHS BMI CARE GOAL FOLLOW-UP ABOVE NORMAL BMI FOLLOW-UPGIVING ENCOURAGEMENT TO EXERCISE ALCOHOL SCREENING DID YOU HAVE A DRINK CONTAINING ALCOHOL IN THE PAST YEAR?NO POINTS0 INTERPRETATIONNEGATIVE RECREATIONAL DRUG USE DRUG USE?NO CAFFEINE CAFFEINE USE?YES SEXUAL HX HAD SEX IN THE LAST 12 MONTHS (VAGINAL, ORAL, OR ANAL)?YES OCCUPATION: [employer] ST[employer]ENT. DIET: REGULAR. EXERCISE: NO REGULAR EXERCISE. MARITAL STATUS: . OTHERS AT HOME: SPOUSE. PETS: DOG. ORIENTAL ORTHODOX ORIENTAL ORTHODOX NO ANABAPTIST BELIEFS THAT WOULD IMPACT HEALTH CARE. LANGUAGE LANGUAGES SPOKEN:ESTONIAN EDUCATION LEVEL OF EDUCATION:COLLEGE LEARNING BARRIERS / SPECIAL NEEDS CHANGE FROM LAST VISIT?NO BARRIERS TO LEARNING?NO HEARING IMPAIRED?NO VISION IMPAIRED?YES :CORRECTIVE LENSES COGNITIVELY IMPAIRED?NO READINESS TO LEARN?YES LEARNING PREFERENCES?NO LEARNING CAPABILITIES PRESENT?YES EMOTIONAL BARRIERS?NO SPECIAL DEVICES?NO ZOOLOGY TECHNICAL OFFICER NEEDED?NO NEW PATIENT PAIN DIARY TODAY'S VISITNOTES FROM 0-10, WHAT LEVEL IS YOUR PAIN TODAY?0 PAIN CLINIC PFS, CLERGY, PUBLIC HEALTH REFERRALS PFS REFERRAL NEEDED?NO PFS REFERRAL NEEDED?NO CLERGY REFERRAL NEEDED?NO CLERGY REFERRAL NEEDED?NO PUBLIC HEALTH REFERRAL NEEDED?NO PUBLIC HEALTH REFERRAL NEEDED?NO WAS THE PROVIDER NOTIFIED OF ANY PERTINENT INFO?NO WAS THE PROVIDER NOTIFIED OF ANY PERTINENT INFO?NO , 4 ADULT KIDS. ALL LIVE TOGETHER....UNEMPLOYED...DOES NOT SMOKE OR DRINK. HOSPITALIZATION/MAJOR DIAGNOSTIC PROCEDURE [facility] - DEPRESSION 2012 REVIEW OF SYSTEMS CONSTITUTIONAL: ANY CHANGE IN YOUR MEDICAL CONDITION? YES . CHILLS NO . FEVER NO . INFECTION: DO YOU HAVE NEW INFECTIONS? NO . DO YOU HAVE HISTORY OF MRSA? NO . MUSCULOSKELETAL: ANY NEW PATTERNS OF PAIN OR NUMBNESS? NO . GASTROENTEROLOGY: ANY NEW CHANGE IN BOWEL CONTROL? YES , DIARRHEA / REFERRERED TO TERMITE TECHNICIAN . GENITOURINARY: ANY NEW CHANGE IN BLADDER CONTROL? NO . IS THERE A CHANCE YOU COULD BE ? NO . HEMATOLOGY/LYMPH: DO YOU TAKE ANY BLOOD THINNERS? (FOR EXAMPLE- COUMADIN, PLAVIX, AGGRENOX, PLATEL, PRADAXA, OR XARELTO) NO . WHEN WAS YOUR LAST DOSE? DATE: TIME: . NEUROLOGY: HAVE YOU FALLEN IN THE PAST 6 MONTHS? NO . ANY NEW EXTREMITY NUMBNESS OR WEAKNESS? NO . CARDIOLOGY: DO YOU HAVE A PACEMAKER OR DEFIBRILLATOR? NO . RESPIRATORY: HAVE YOU BEEN SICK IN THE PAST WEEK? NO . FEVER NO . FLU LIKE SYMPTOMS? NO . COUGH NO . INTEGUMENTARY: DO YOU HAVE ANY RASHES OR OPEN SORES? NO . ALLERGIC/IMMUNO: ARE YOU ALLERGIC TO SHELLFISH OR IV DYE? NO . ANY NEW ALLERGIES? NO . PSYCHIATRIC: DO YOU HAVE THOUGHTS OF HURTING YOURSELF OR SOMEONE ELSE? NO . ARE YOU ABUSED, NEGLECTED, OR IN AN UNSAFE ENVIRONMENT? NO . ENDOCRINOLOGY: ARE YOU DIABETIC? YES . OTHER: DO YOU NEED ANY PRESCRIPTIONS? YES . IF YES, PLEASE LIST: IBUPROFEN . ANY NEW PROBLEMS WITH YOUR MEDICATIONS? NO . WHEN DID YOU LAST EAT? ____ . WHEN DID YOU LAST DRINK? ____ . WHAT DID YOU LAST DRINK? ____ . NAME OF PERSON DRIVING YOU HOME? ____ . DO YOU HAVE ANY OTHER QUESTIONS OR CONCERNS NO . REVIEWED BY: PROVIDER: BLANCA RODRIGUEZ MD . VITAL SIGNS WT 183.0 LBS, HT 61 IN, BMI 34.57 INDEX, BP 124/84 MM HG, HR 100 /MIN, RR 16 /MIN, TEMP 97.5 F, OXYGEN SAT % 98%, NA INITIALS TL 1419, REVIEWED BY: NL. EXAMINATION : PATIENT IS ALERT O X 3 AND COOPERATIVE. PATIENT IS ABLE TO FLEX HER BACK AT 55 DEGREES AND EXTEND AT 10 DEGREES WITH DIFFICULTIES. PATIENT RIGHT LEG IS WEAKER AT FLEXION AND EXTENSION. FOR STRAIGHT LEG RAISING PATIENT IS ONLY ABLE TO DO THE RIGHT LEG AT 60 DEGREES. TENDERNESS IN THE SACROILIAC JOINT AREA. PATIENT TESTED POSITIVE FOR PAIN IN THE FABERE TEST. MRI OF THE LUMBAR SPINE DONE ON 12/22/2014 SHOWS CENTRAL STENOSIS AND DISC BULGES. ASSESSMENTS SACROILIITIS, NOT ELSEWHERE CLASSIFIED - M46.1 (PRIMARY) SPONDYLOSIS WITHOUT MYELOPATHY OR RADICULOPATHY, LUMBAR REGION - M47.816 MYALGIA - M79.1 TREATMENT SACROILIITIS, NOT ELSEWHERE CLASSIFIED NOTES: WE DISCUSSED SEVERAL ISSUES WITH MRS. ISAAC'S PAIN MANAGEMENT CASE. AT THIS TIME THE PATIENT WILL CONTINUE WITH THE SAME MEDICATION REGIME BEFORE. I WILL PRESCRIBE THE PATIENT IBUPROFEN 800 MG AND PATIENT IS AWARE TO EAT WHEN USING THIS MEDICATION. PATIENT IS AWARE IBUPROFEN CAN CAUSE ISSUES WITH THE KIDNEYS AND THE STOMACH WELL OTHER ORGANS. PATIENT DENIES ABUSE OF ANY MEDICATION, DENIES USE OF ILLEGAL SUBSTANCES AND STATES THAT SHE IS ONLY USING THE MEDICATION FOR PAIN MANAGEMENT. PATIENT URINE TOXICOLOGY REPORT DONE ON 09/11/16 SHOWS CONSISTENT RESULTS WITH THE PATIENTS MEDICATION LIST. PATIENT IS CURRENTLY USING THE TIZANIDINE FOR THE SPASMS, NORCO FOR THE SOMATIC PAIN, IBUPROFEN FOR THE INFLAMMATION, AND LYRICA FOR THE NEUROPATHIC PAIN DOWN THE LEGS. DUE TO THE PAIN IN THE SACROILIAC REGION I WOULD LIKE TO MOVE FORWARD WITH A SACROILIAC JOINT INJECTION. WE DISCUSSED THE RISKS, BENENFITS, AND ALTNERATIVES OF THE INJECTION AND THE PATIENT WOULD LIKE TO PROCEED AT THIS TIME. INSTRUCTIONS WERE GIVEN, QUESTIONS WERE ANSWERED, PATIENT REPORTS UNDERSTANDING AND AGREES WITH THE PLAN. I, JERMAINE TORRES, DOCUMENTED THE ABOVE INFORMATION ACTING A SCRIBE FOR DR. RODRIGUEZ. I HAVE REVIEWED THE ABOVE DOCUMENT, WRITTEN BY JERMAINE BARR AND I VERIFY THAT IT IS ACCURATE. SPONDYLOSIS WITHOUT MYELOPATHY OR RADICULOPATHY, LUMBAR REGION REFILL IBUPROFEN TABLET, 800 MG, 1 TABLET, ORALLY WITH FOOD, THREE TIMES A DAY PRN FOR PAIN MDD3, 30 DAY(S), 70, REFILLS 1 REFILL NORCO TABLET, 10-325 MG, 1 TABLET, ORALLY, EVERY 8-12 HRS PRN PAIN MDD=2, 30 DAY(S), 45, REFILLS 0 REFILL LYRICA CAPSULE, 100 MG, 1 CAPSULE (PAIN CLINIC), ORALLY FOR PAIN, 3 TIMES DAILY MDD=3, 30 DAY(S), 90, REFILLS 0 REFILL TIZANIDINE HCL TABLET, 4 MG, 1 TABLET NEEDED, ORALLY FOR SPASMS AND PAIN, EVERY 8 HRS (PAIN CLINIC) MDD3, 30 DAY(S), 75, REFILLS 2 NOTES: PATIENT EDUCATION WAS PRINTED. PROCEDURES PN WORKMANS' COMP OPINION IN YOUR OPINION, WAS THE INCIDENT THAT THE PATIENT DESCRIBED THE COMPETENT MEDICAL CAUSE OF THIS INJURY/ILLNESS? YES ARE THE PATIENT'S COMPLAINTS CONSISTENT WITH HIS/HER HISTORY OF THE INJURY/ILLNESS? YES IS THE PATIENT'S HISTORY OF THE INJURY/ILLNESS CONSISTENT WITH YOUR OBJECTIVE FINDING? YES WHAT IS THE PERCENTAGE OF TEMPORARY IMPAIRMENT? MODERATE TO MARKED = 66.7% IS THE PATIENT WORKING? YES DOCTOR ON SITE: BLANCA ALVAREZ MD PREVENTIVE MEDICINE DISCUSSED PREPROCEDURE CARE AND INSTRUCTIONS AND PT VOICED UNDERSTANDING. PROCEDURE CODES FA211 ESTABILISHED PATIENT [facility] FACILITY CHARGE G8427 DOC MEDS VERIFIED W/PT OR RE G8730 PAIN ASSESS POS TOOL F/U PLAN DOC DISPOSITION & COMMUNICATION FOLLOW UP [facility] AFTER APPROVAL ELECTRONICALLY SIGNED BY BLANCA RODRIGUEZ MD ON 03/31/2017 AT 07:12 PM EDT DISCLAIMER : THIS IS A VISIT SUMMARY EXTRACTED FROM THE [employer] CHART. IT IS NOT A COPY OF THE [employer] PROGRESS NOTE. ROVERTO
== END | disposition home or self-care (01) ==
LOC: M PAIN 14:00
PROVIDERS: ATTEND Anesthesiology
DX: G89.29 Other chronic pain (principal); M46.1 Sacroiliitis, not elsewhere classified; M47.816 Spondylosis without myelopathy or radiculopathy, lumbar region; M79.1 Myalgia; F33.9 Major depressive disorder, recurrent, unspecified; G47.30 Sleep apnea, unspecified; K21.9 Gastro-esophageal reflux disease without esophagitis; J30.9 Allergic rhinitis, unspecified; E78.2 Mixed hyperlipidemia; K58.9 Irritable bowel syndrome, unspecified; Z79.899 Other long term (current) drug therapy; Z79.84 Long term (current) use of oral hypoglycemic drugs; Z87.891 Personal history of nicotine dependence

== ENCOUNTER → 2017-03-30 | Outpatient (REF) | payer BC | LOC: M SFHCPLAZ 16:00 | PROVIDERS: ATTEND Hospitalist | DX: E11.9 Type 2 diabetes mellitus without complications (principal) ==

== ENCOUNTER → 2017-04-02 | Outpatient (CLI) | payer BC ==
[2017-04-02 17:32] LABS: ANION GAP 5 MEQ/L (8-16); BLOOD UREA NITROGEN 16 MG/DL (7-18); CALCIUM LEVEL 9.3 MG/DL (8.5-10.1); CARBON DIOXIDE LEVEL 31 MEQ/L (21-32); CHLORIDE LEVEL 105 MEQ/L (98-107); GLOMERULAR FILTRATION RATE > 60.0 (>51); GLUCOSE, FASTING 88 MG/DL (70-105); POTASSIUM SERUM 4.2 MEQ/L (3.5-5.1); SODIUM LEVEL 141 MEQ/L (136-145)
== END ==
LOC: M WUC 11:34
PROVIDERS: ATTEND Orthopaedic Surgery
DX: Z01.812 Encounter for preprocedural laboratory examination (principal); E11.9 Type 2 diabetes mellitus without complications

== ENCOUNTER 2017-06-01 14:35 | Emergency (ER) | payer OTHER, BC ==
[~2017-06-01] VITALS: Ht 152.4 cm; Wt 85.0 kg
[~2017-06-01 14:35] MED LIST changes: -METF500T PO; +METF500T13 PO; +MOBI4TAB PO; -MOBI7.5T10 PO; +PERC7.5T11 PO; -PERC7.5T3 PO
[2017-06-01 14:44] VITALS: BP 124/71
[2017-06-01] MEDS ORDERED: ATOR80TA59 (14:55)
[2017-06-01] MEDS ORDERED: FLUO40CA (14:55)
[2017-06-01] MEDS ORDERED: LOSA25TA8 (14:55)
[2017-06-01] MEDS ORDERED: NORCO, ANEXSIA 5/325MG TABLET (HYDROcodone/ACETAMINOPHEN) PO ONE (15:15)
[2017-06-01] MEDS ORDERED: tiZANidine 4 MG TAB PO ONE (15:15)
--- NOTE | 2017-06-01 15:46 | REP ---
Thoracic spine four views: Comparison is 10/24/2016. Vertebral body heights and alignment are normal. No compression deformities or listhesis. There is mild disc space narrowing and osteophytic growth throughout the thoracic spine compatible with multilevel degenerative disc disease, not significantly changed. There are no lytic, blastic or destructive changes. The pedicles are unremarkable. Impression: Mild multilevel degenerative disc disease. Otherwise, negative thoracic spine. Signed by William Bryant MD 06/01/2017 03:38 P
--- NOTE | 2017-06-01 15:49 | REP ---
Lumbar spine five views: Comparisons 10/24 2016. Vertebral body heights and alignment are normal. There is no spondylolysis. There is mild grade 1 spondylolisthesis of L4, likely degenerative. There is mild disc space narrowing and small osteophytic formation at multiple lumbar levels compatible with mild degenerative disc disease. The pedicles, facet articulations and sacroiliac articulations are unremarkable. Impression: No compression deformity. Mild multilevel degenerative disc disease. Mild grade 1 spondylolisthesis of L4, likely degenerative. Signed by William Bryant MD 06/01/2017 03:41 P
--- NOTE | 2017-06-01 15:56 | REP ---
Maxillofacial CT study without contrast: History: Trauma. Comparison study July 11, 2010. Findings: Frontal, ethmoidal, sphenoid, mastoid, and maxillary sinus vaughan are intact. There are mucous retention cysts in the left maxillary sinus. The paranasal sinuses are otherwise clear. Bony nasal septum is in the midline. No nasal bone or orbital margin fracture is seen. Zygomatic arches are intact. The mandible appears intact. Nasal jewelry is noted in the left nostril. There is vascular calcification visible in the carotid siphons bilaterally. Impression: Mucous retention cysts in the left maxillary sinus. These are similar to the findings of the prior study. No facial fracture is seen. Signed by Ortega Rizo MD 06/01/2017 04:34 P
--- NOTE | 2017-06-01 16:08 | REP ---
CT study of the cervical spine without contrast: History: Trauma. Technique: Helical scanning is acquired and overlapping 2 mm high resolution axial images were generated and reviewed at bone and soft tissue window settings. Coronal and sagittal multiplanar re-formations images are generated. CT findings: There is no evidence of cervical spine element fracture. No skull base fracture is seen. Cervical vertebral body heights are preserved. Alignment is normal. Facet joints are normally aligned bilaterally at each cervical level on multiplanar re-formations images. There is no evidence of intraspinal or paraspinal hematoma. No extra vertebral abnormality is seen. There are degenerative disc and osteoarthritic facet changes as on the prior study of 05/13/2012. A levoconvex curvature is seen on coronal reformatted scans. There is straightening of the normal cervical lordosis. 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 There is no evidence of intraspinal or ashley spinal hematoma. Impression: Degenerative spondylosis changes as before. No fracture or other acute bony abnormality. Signed by Ortega Rizo MD 06/01/2017 04:34 P
[2017-06-01] MEDS ORDERED: SKEL800T97 PO (16:26)
[2017-06-01] MEDS ORDERED: IBUP-1022 PO (16:26)
[2017-06-01] MEDS ORDERED: NORCOTAB PO (16:26)
== END 2017-06-01 17:00 | disposition home or self-care (01) ==
LOC: M ED 14:35
DX: M54.9 Dorsalgia, unspecified (principal); V49.9XXA Car occupant (driver) (passenger) injured in unspecified traffic accident, initial encounter; M51.34 Other intervertebral disc degeneration, thoracic region; Y92.410 Unspecified street and highway as the place of occurrence of the external cause; Y93.9 Activity, unspecified; Y99.8 Other external cause status; M43.16 Spondylolisthesis, lumbar region; J34.1 Cyst and mucocele of nose and nasal sinus; F41.9 Anxiety disorder, unspecified; F32.9 Major depressive disorder, single episode, unspecified; F17.200 Nicotine dependence, unspecified, uncomplicated; J30.9 Allergic rhinitis, unspecified; Z79.899 Other long term (current) drug therapy

== ENCOUNTER 2017-06-08 12:48 | Emergency (ER) | payer OTHER, BC ==
[~2017-06-08] VITALS: Ht 152.4 cm; Wt 85.0 kg
[~2017-06-08 12:48] MED LIST changes: +ATOR80TA59; +FLUO40CA; +IBUP-1022 PO; +LOSA25TA8; +NORCOTAB PO; +SKEL800T97 PO
--- NOTE | 2017-06-08 15:03 | REP ---
PA and lateral chest: Comparisons 03/21/2012. The lung wen are clear. The cardiac size is normal The faustino, mediastinum, and bony thorax are unremarkable. Impression: Negative PA and lateral chest. There is no interval change. Signed by William Bryant MD 06/08/2017 02:55 P
[2017-06-08 15:51] VITALS: BP 128/80
--- NOTE | 2017-06-08 16:01 | REP ---
RIGHT HAND SERIES, FOUR VIEWS: There is no evidence of an acute fracture, dislocation or intrinsic bone disease. IMPRESSION: No fracture or dislocation. Signed by William Sim MD 06/08/2017 04:17 P
== END 2017-06-08 15:55 | disposition home or self-care (01) ==
LOC: M ED 12:48
DX: S23.3XXD Sprain of ligaments of thoracic spine, subsequent encounter (principal); S63.91XD Sprain of unspecified part of right wrist and hand, subsequent encounter; V49.40XD Driver injured in collision with unspecified motor vehicles in traffic accident, subsequent encounter; Y92.410 Unspecified street and highway as the place of occurrence of the external cause; Z79.899 Other long term (current) drug therapy; J30.1 Allergic rhinitis due to pollen

== ENCOUNTER → 2017-06-20 | Outpatient (CLI) | payer OTHER ==
[~2017-06-20] MED LIST changes: +BUPIVACAINE HCL 0.25% 30 ML VIAL As Ordered ONE; +ISOVUE-M 300 61% 15ML VIAL (Q9967) As Ordered ONE; +LIDOCAINE 1% SDV INJ 30 ML VIAL As Ordered ONE; +TRIAMCINOLONE ACETONIDE SUSP 40 MG/ML VIAL (J3301) As Ordered ONE; +diazePAM 5 MG TAB As Ordered ONE; +oxyCODONE 5MG TAB As Ordered ONE
--- NOTE | 2017-06-20 17:06 | REP ---
FLUOROSCOPIC GUIDANCE: The images were reviewed with Dr. Sim. The patient has a history of back pain. The portable C-ARM was provided in the OR for Dr. Thomposn for fluoroscopic guidance. 6 intraoperative fluoroscopic spot films were obtained for needle placement verification for bilateral SI joint injection. The films are on the PACS system and are available for review. 23 seconds of fluoroscopic time was utilized for this procedure. Reviewed by BRICE Marquez 06/21/2017 05:29 PEdited and Signed by William Sim MD 06/22/2017 04:56 P
--- NOTE | 2017-07-10 01:50 | ECWPNPC ---
PATIENT NAME: ROSANGELA ISAAC : 1960 GENDER: FEMALE VISIT DATE: 06/20/2017 DISCHARGE DATE: 06/20/17 1049 VISIT LOCKED DATE TIME: PHYSICIAN: BLANCA RODRIGUEZ RESOURCE: BLANCA RODRIGUEZ REASON FOR APPOINTMENT 1. [facility] BILATERAL HISTORY OF PRESENT ILLNESS HISTORY OF PRESENT ILLNESS: PAIN THE PATIENT DESCRIBES THE PAIN... FALL RISK SCREENING: SCREENING :NO FALLS IN THE PAST YEAR CURRENT MEDICATIONS TAKING TIZANIDINE HCL 4 MG TABLET 1 TABLET NEEDED ORALLY FOR SPASMS AND PAIN EVERY 8 HRS (PAIN CLINIC) MDD3 TAKING RITALIN 10 MG TABLET 2 TABLETS ORALLY ONCE A DAY (PECK) TAKING AMBIEN 12 MG TABLET 1 TAB(S) ORALLY AT BEDTIME NEEDED ([facility]) TAKING ONDANSETRON HCL 4 MG TABLET 1 TABLET ORALLY THREE TIMES DAILY NEEDED TAKING PROZAC 40 MG CAPSULE 1 CAPSULE IN THE MORNING ORALLY ONCE A DAY TAKING LOMOTIL 2.5-0.025 MG TABLET 1 TABLET NEEDED ORALLY FOUR TIMES A DAY TAKING CARAFATE 1 GM/10ML SUSPENSION 10 ML ORALLY TWICE A DAY TAKING SINGULAIR 10 MG TABLET 1 TABLET IN THE EVENING ORALLY ONCE A DAY TAKING NICODERM CQ 7 MG/24HR PATCH 24 HOUR 1 PATCH TO SKIN TRANSDERMAL ONCE A DAY TAKING NICODERM CQ 14 MG/24HR PATCH 24 HOUR 1 PATCH TO SKIN TRANSDERMAL ONCE A DAY TAKING NICODERM CQ 21 MG/24HR PATCH 24 HOUR 1 PATCH TO SKIN TRANSDERMAL ONCE A DAY TAKING METFORMIN HCL 1000 MG TABLET 1 TABLET WITH MEALS ORALLY TWICE A DAY TAKING OMEPRAZOLE 40MG 40 MG TABLET 1 TABLET ORALLY TWICE DAILY TAKING LIPITOR 80 MG TABLET 1 TABLET ORALLY ONCE A DAY TAKING IBUPROFEN 800 MG TABLET 1 TABLET ORALLY WITH FOOD THREE TIMES A DAY PRN FOR PAIN MDD3 TAKING NORCO 10-325 MG TABLET 1 TABLET ORALLY EVERY 8-12 HRS PRN PAIN MDD=2 TAKING LYRICA 100 MG CAPSULE 1 CAPSULE (PAIN CLINIC) ORALLY FOR PAIN 3 TIMES DAILY MDD=3 TAKING LOSARTAN POTASSIUM 25 MG TABLET 1 TABLET ORALLY ONCE A DAY NOT-TAKING BACID - TABLET DIRECTED ORALLY DAILY PAST MEDICAL HISTORY FIBROMYALGIA CHRONIC BACK PAIN ICD-9 724.5 POSITIVE LYME TITER DEPRESSION ICD-9 311.0 SLEEP APNEA/USING C-PAP AT NIGHT ACID REFLUX ENVIROMENTAL ALLERGIES MIXED HYPERLIPIDEMA? IBS CHRONIC DRY EYES HISTORY OF FIBROIDS S/P HYSTERECTOMY ASCVD 10 YR RISK: 15 ALLERGIES SEASONAL REVIEW OF SYSTEMS REVIEWED BY: PROVIDER: . CONSTITUTIONAL: ANY CHANGE IN YOUR MEDICAL CONDITION? NO . CHILLS NO . FEVER NO . INFECTION: DO YOU HAVE NEW INFECTIONS? NO . DO YOU HAVE HISTORY OF MRSA? NO . MUSCULOSKELETAL: ANY NEW PATTERNS OF PAIN OR NUMBNESS? NO . GASTROENTEROLOGY: ANY NEW CHANGE IN BOWEL CONTROL? NO . GENITOURINARY: ANY NEW CHANGE IN BLADDER CONTROL? NO . IS THERE A CHANCE YOU COULD BE ? NO . HEMATOLOGY/LYMPH: DO YOU TAKE ANY BLOOD THINNERS? (FOR EXAMPLE- COUMADIN, PLAVIX, AGGRENOX, PLATEL, PRADAXA, OR XARELTO) NO . WHEN WAS YOUR LAST DOSE? DATE: TIME: . NEUROLOGY: HAVE YOU FALLEN IN THE PAST 6 MONTHS? NO . ANY NEW EXTREMITY NUMBNESS OR WEAKNESS? NO . CARDIOLOGY: DO YOU HAVE A PACEMAKER OR DEFIBRILLATOR? NO . RESPIRATORY: HAVE YOU BEEN SICK IN THE PAST WEEK? NO . FEVER NO . FLU LIKE SYMPTOMS? NO . COUGH NO . INTEGUMENTARY: DO YOU HAVE ANY RASHES OR OPEN SORES? NO . ALLERGIC/IMMUNO: ARE YOU ALLERGIC TO SHELLFISH OR IV DYE? NO . ANY NEW ALLERGIES? NO . PSYCHIATRIC: DO YOU HAVE THOUGHTS OF HURTING YOURSELF OR SOMEONE ELSE? NO . ARE YOU ABUSED, NEGLECTED, OR IN AN UNSAFE ENVIRONMENT? NO . ENDOCRINOLOGY: ARE YOU DIABETIC? YES . OTHER: DO YOU NEED ANY PRESCRIPTIONS? NO . IF YES, PLEASE LIST: ____ . ANY NEW PROBLEMS WITH YOUR MEDICATIONS? NO . WHEN DID YOU LAST EAT? 06-19-17 5PM . WHEN DID YOU LAST DRINK? 06-19-17 8- 5PM . WHAT DID YOU LAST DRINK? TEA . NAME OF PERSON DRIVING YOU HOME? TOBIAS . DO YOU HAVE ANY OTHER QUESTIONS OR CONCERNS NO . VITAL SIGNS WT 182 LBS, HT 61 IN, BMI 34.38 INDEX, BP 119/67 MM HG, HR 98 /MIN, RR 18 /MIN, TEMP 97.7 F, OXYGEN SAT % 98%, NA INITIALS AW 0859, REVIEWED BY: CM. 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 BLANCA RODRIGUEZ RACECAR DRIVER NONE ANESTHESIA LOCAL PRE PROCEDURE NOTE PATIENT WITH HISTORY OF CHRONIC LOW BACK PAIN. I EVALUATED THE PATIENT AND REVIEWED THE CHART. I WENT OVER THE RISKS, ALTERNATIVES, AND BENEFITS ASSOCIATED WITH THIS PROCEDURE. THE PATIENT WOULD LIKE TO PROCEED AND GAVE CONSENT TO PERFORM THE PROCEDURE. THE PATIENT DENIES UNEXPLAINABLE WEIGHT LOSS, FEVER, CHILLS, OR NEW CHANGES IN URINARY OR BOWEL CONTROL DESCRIPTION OF PROCEDURE THE PATIENT WAS BROUGHT TO THE PROCEDURE ROOM AND PLACED IN THE PRONE POSITION. THE LUMBOSACRAL AREA WAS CLEANED WITH CHLORAPREP SOLUTION AND DRAPED ASEPTICALLY. THE PROCEDURE WAS DONE UNDER STERILE CONDITIONS. I CHECKED LATERALITY AND THE LEVEL WHERE THE PROCEDURE WAS GOING TO BE PERFORMED WITH THE PATIENT AND THE SUPPORTING STAFF AT THE MOMENT OF THE TIME OUT IN THE PROCEDURE ROOM. UNDER FLUOROSCOPIC GUIDANCE, TARGET POINT WAS SELECTED AT THE LOWER BORDER OF THE RIGHT AND LEFT SACROILIAC JOINT. TARGET POINT WAS SELECTED AFTER MEDIAL ROTATION AND TILT OF THE MAGNIFIER OF THE C-ARM. LIDOCAINE WAS USED TO NUMB THE SKIN AND SUBCUTANEOUS TISSUE BELOW IT. A SPINAL NEEDLE, 22-GAUGE, WAS ADVANCED UNDER FLUOROSCOPIC GUIDANCE AND FOLLOWING PATIENT FEEDBACK UNTIL THE TARGET AREA WAS TOUCHED. THE POSITION OF THE NEEDLE WAS VERIFIED WITH AP AND LATERAL VIEWS. AFTER PROPER POSITION OF THE NEEDLE WAS ACHIEVED, ISOVUE M DYE 30%, 0.25 ML, WAS INJECTED SHOWING SPREAD OF THE DYE. THEN, A SOLUTION OF 20 MG OF KENALOG WAS INJECTED IN RIGHT JOINT WITH 3 ML OF BUPIVACAINE 0.125%. THERE WAS NO EVIDENCE OF BLOOD, PARESTHESIA OR CEREBROSPINAL FLUID DURING THE PROCEDURE. THE PATIENT WAS SENT TO THE RECOVERY ROOM. THE PATIENT WAS MOVING THE EXTREMITIES AND DOING WELL. THERE WAS NO COMPLICATION DURING THE PROCEDURE. FLUOROSCOPY TIME WAS 23 SECONDS POST PROCEDURE NOTE THE PATIENT WILL BE SEEN IN A FOLLOW UP IN THE NEXT FEW WEEKS. INSTRUCTIONS WERE GIVEN, QUESTIONS WERE ANSWERED, AND THE PATIENT EXPRESSED UNDERSTANDING AND AGREED WITH THE PLAN. I, JERMAINE TORRES, DOCUMENTED THE ABOVE INFORMATION ACTING A SCRIBE FOR DR. RODRIGUEZ. I, DR. RODRIGUEZ, HAVE REVIEWED THE ABOVE DOCUMENT, SCRIBED BY JERMAINE TORRES, AND I VERIFY THAT IT IS ACCURATE DIAGNOSTIC IMAGING [facility] FLUORO GUIDANCE (PAIN)[id number] PROCEDURE CODES 35293 INJECT SACROILIAC JOINT 6045F RADXPS IN END [id number] PXD DISPOSITION & COMMUNICATION FOLLOW UP 3 WEEKS ELECTRONICALLY SIGNED BY BLANCA RODRIGUEZ MD ON 07/09/2017 AT 11:20 AM EDT DISCLAIMER : THIS IS A VISIT SUMMARY EXTRACTED FROM THE [employer] CHART. IT IS NOT A COPY OF THE [employer] PROGRESS NOTE. MTDD
== END ==
LOC: M PAIN 08:40
PROVIDERS: ATTEND Anesthesiology
DX: G89.29 Other chronic pain (principal); M46.1 Sacroiliitis, not elsewhere classified; M79.7 Fibromyalgia; F32.9 Major depressive disorder, single episode, unspecified; G47.30 Sleep apnea, unspecified; K21.9 Gastro-esophageal reflux disease without esophagitis; J30.2 Other seasonal allergic rhinitis; E78.2 Mixed hyperlipidemia; H04.123 Dry eye syndrome of bilateral lacrimal glands; Z79.84 Long term (current) use of oral hypoglycemic drugs; Z79.891 Long term (current) use of opiate analgesic; Z79.1 Long term (current) use of non-steroidal anti-inflammatories (NSAID); Z79.899 Other long term (current) drug therapy; E11.9 Type 2 diabetes mellitus without complications
CPT/HCPCS: G0260; J3301; Q9967

== ENCOUNTER → 2017-07-04 | Outpatient (CLI) | payer BC ==
[~2017-07-04] MED LIST changes: -BUPIVACAINE HCL 0.25% 30 ML VIAL As Ordered ONE; -ISOVUE-M 300 61% 15ML VIAL (Q9967) As Ordered ONE; -LIDOCAINE 1% SDV INJ 30 ML VIAL As Ordered ONE; -TRIAMCINOLONE ACETONIDE SUSP 40 MG/ML VIAL (J3301) As Ordered ONE; -diazePAM 5 MG TAB As Ordered ONE; -oxyCODONE 5MG TAB As Ordered ONE
[2017-07-04 14:04] LABS: BASO % 0.8 % (0.0-1.0); EOS # 0.1 K/mm3 (0.0-0.50); LYMPH # 1.8 K/mm3 (1.5-4.5); LYMPH % 30.9 % (24.0-44.0); MEAN CORPUSCULAR HEMOGLOBIN 30.9 pg (27.0-33.0); MEAN CORPUSCULAR HGB CONC 33.1 g/dl (32.0-36.5); MEAN CORPUSCULAR VOLUME 93.3 fl (80.0-96.0); MONO # 0.3 K/mm3 (0.0-0.8); MONO % 6.3 % (0.0-5.0); NEUTROPHILS # 3.2 K/mm3 (1.8-7.7); NEUTROPHILS % 58.1 % (36.0-66.0); RED CELL DISTRIBUTION WIDTH 12.9 % (11.5-14.5); WHITE BLOOD COUNT 5.4 K/mm3 (4.0-10.0)
[2017-07-04 14:24] LABS: ALBUMIN 4.1 GM/DL (3.2-5.2); ALBUMIN/GLOBULIN RATIO 1.32 (1.00-1.93); BILIRUBIN,TOTAL 0.2 MG/DL (0.2-1.0); CALCIUM LEVEL 9.5 MG/DL (8.5-10.1); CREATININE FOR GFR 1.02 MG/DL (0.55-1.02); GLOMERULAR FILTRATION RATE 59.9 (>51); POTASSIUM SERUM 4.3 MEQ/L (3.5-5.1); TOTAL PROTEIN 7.2 GM/DL (6.4-8.2)
== END ==
LOC: M WUC 08:40
PROVIDERS: ATTEND Physician Assistant Medical
DX: E11.9 Type 2 diabetes mellitus without complications (principal)

== ENCOUNTER → 2017-07-27 | Outpatient (CLI) | payer OTHER ==
--- NOTE | 2017-08-02 01:38 | ECWPNPC ---
PATIENT NAME: ROSANGELA ISAAC : 1960 GENDER: FEMALE VISIT DATE: 07/27/2017 DISCHARGE DATE: 07/27/17 1024 VISIT LOCKED DATE TIME: PHYSICIAN: BLANCA RODRIGUEZ PHYSICIAN PAGER NO: INACTIVE 06/2017 RESOURCE: BLANCA RODRIGUEZ REASON FOR APPOINTMENT 1. W/C, LOW BACK PAIN HISTORY OF PRESENT ILLNESS HISTORY OF PRESENT ILLNESS: PAIN THE PATIENT DESCRIBES THE PAIN... 56 YEAR OLD FEMALE PATIENT WITH HISTORY OF CHRONIC LOW BACK PAIN. PATIENT DESCRIBES THE PAIN ACHING, STABBING, TENDER, THROBBING, AND SORE WITH A PAIN SCORE OF 3/10. PATIENT RECEIVED A SACROILIAC JOINT BLOCK ON 06/20/17 AND REPORTS THAT SHE HAD MORE THAN 50% DECREASE IN PAIN AND AN INCREASE IN MOBILITY AND FUNCTIONALITY SINCE THE INJECTION. CURRENTLY THE PATIENT IS USING LYRICA, NORCO, AND TIZANIDINE AND STATES THAT THE MEDICATION KEEPS HER MOBILE AND FUNCTIONAL. 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 PATIENT STATES THAT ANY TYPE OF ACTIVITY INCREASES THE PAIN IN HER LOWER BACK AND AT THIS TIME THE ONLY THING THAT AIDS IN RELIEF IN MEDICATION AND INTERVENTIONS. PATIENT DENIES UNEXPLAINABLE WEIGHT LOSS, FEVER, CHILLS, NEW CHANGES ON HER URINARY OR BOWEL CONTROL. FALL RISK SCREENING: SCREENING :NO FALLS IN THE PAST YEAR CURRENT MEDICATIONS TAKING RITALIN 10 MG TABLET 2 TABLETS ORALLY ONCE A DAY (PECK) TAKING AMBIEN 12 MG TABLET 1 TAB(S) ORALLY AT BEDTIME NEEDED (PECK) TAKING ONDANSETRON HCL 4 MG TABLET 1 TABLET ORALLY THREE TIMES DAILY NEEDED TAKING PROZAC 40 MG CAPSULE 1 CAPSULE IN THE MORNING ORALLY ONCE A DAY TAKING LOMOTIL 2.5-0.025 MG TABLET 1 TABLET NEEDED ORALLY FOUR TIMES A DAY TAKING CARAFATE 1 GM/10ML SUSPENSION 10 ML ORALLY TWICE A DAY TAKING SINGULAIR 10 MG TABLET 1 TABLET IN THE EVENING ORALLY ONCE A DAY TAKING METFORMIN HCL 1000 MG TABLET 1 TABLET WITH MEALS ORALLY TWICE A DAY TAKING OMEPRAZOLE 40MG 40 MG TABLET 1 TABLET ORALLY TWICE DAILY TAKING LIPITOR 80 MG TABLET 1 TABLET ORALLY ONCE A DAY TAKING IBUPROFEN 800 MG TABLET 1 TABLET ORALLY WITH FOOD THREE TIMES A DAY PRN FOR PAIN MDD3 TAKING LOSARTAN POTASSIUM 25 MG TABLET 1 TABLET ORALLY ONCE A DAY TAKING NORCO 10-325 MG TABLET 1 TABLET ORALLY EVERY 8-12 HRS PRN PAIN MDD=2 TAKING TIZANIDINE HCL 4 MG TABLET 1 TABLET NEEDED ORALLY FOR SPASMS AND PAIN EVERY 8 HRS (PAIN CLINIC) MDD3 TAKING LYRICA 100 MG CAPSULE 1 CAPSULE (PAIN CLINIC) ORALLY FOR PAIN 3 TIMES DAILY MDD=3 NOT-TAKING NICODERM CQ 7 MG/24HR PATCH 24 HOUR 1 PATCH TO SKIN TRANSDERMAL ONCE A DAY NOT-TAKING NICODERM CQ 14 MG/24HR PATCH 24 HOUR 1 PATCH TO SKIN TRANSDERMAL ONCE A DAY NOT-TAKING NICODERM CQ 21 MG/24HR PATCH 24 HOUR 1 PATCH TO SKIN TRANSDERMAL ONCE A DAY NOT-TAKING BACID - TABLET DIRECTED ORALLY DAILY MEDICATION LIST REVIEWED AND RECONCILED WITH THE PATIENT PAST MEDICAL HISTORY FIBROMYALGIA CHRONIC BACK PAIN ICD-9 724.5 POSITIVE LYME TITER DEPRESSION ICD-9 311.0 SLEEP APNEA/USING C-PAP AT NIGHT ACID REFLUX ENVIROMENTAL ALLERGIES MIXED HYPERLIPIDEMA? IBS CHRONIC DRY EYES HISTORY OF FIBROIDS S/P HYSTERECTOMY ASCVD 10 YR RISK: 15 ALLERGIES SEASONAL REVIEW OF SYSTEMS REVIEWED BY: PROVIDER: BLANCA RODRIGUEZ MD . CONSTITUTIONAL: ANY CHANGE IN YOUR MEDICAL CONDITION? SITTING AT WORK REALLY IRRITATES HER BACK / NEEDS A BETTER CHAIR TO SIT IN . CHILLS NO . FEVER NO . INFECTION: DO YOU HAVE NEW INFECTIONS? NO . DO YOU HAVE HISTORY OF MRSA? NO . MUSCULOSKELETAL: ANY NEW PATTERNS OF PAIN OR NUMBNESS? NO . GASTROENTEROLOGY: ANY NEW CHANGE IN BOWEL CONTROL? NO . GENITOURINARY: ANY NEW CHANGE IN BLADDER CONTROL? NO . IS THERE A CHANCE YOU COULD BE ? NO . HEMATOLOGY/LYMPH: DO YOU TAKE ANY BLOOD THINNERS? (FOR EXAMPLE- COUMADIN, PLAVIX, AGGRENOX, PLATEL, PRADAXA, OR XARELTO) NO . WHEN WAS YOUR LAST DOSE? DATE: TIME: . NEUROLOGY: HAVE YOU FALLEN IN THE PAST 6 MONTHS? NO . ANY NEW EXTREMITY NUMBNESS OR WEAKNESS? NO . CARDIOLOGY: DO YOU HAVE A PACEMAKER OR DEFIBRILLATOR? NO . RESPIRATORY: HAVE YOU BEEN SICK IN THE PAST WEEK? NO . FEVER NO . FLU LIKE SYMPTOMS? NO . COUGH NO . INTEGUMENTARY: DO YOU HAVE ANY RASHES OR OPEN SORES? NO . ALLERGIC/IMMUNO: ARE YOU ALLERGIC TO SHELLFISH OR IV DYE? NO . ANY NEW ALLERGIES? NO . PSYCHIATRIC: DO YOU HAVE THOUGHTS OF HURTING YOURSELF OR SOMEONE ELSE? NO . ARE YOU ABUSED, NEGLECTED, OR IN AN UNSAFE ENVIRONMENT? NO . ENDOCRINOLOGY: ARE YOU DIABETIC? YES . OTHER: DO YOU NEED ANY PRESCRIPTIONS? NEEDS A NOTE FOR A CHAIR AT WORK . IF YES, PLEASE LIST: ____ . ANY NEW PROBLEMS WITH YOUR MEDICATIONS? NO . WHEN DID YOU LAST EAT? ____ . WHEN DID YOU LAST DRINK? ____ . WHAT DID YOU LAST DRINK? ____ . NAME OF PERSON DRIVING YOU HOME? ____ . DO YOU HAVE ANY OTHER QUESTIONS OR CONCERNS NO . VITAL SIGNS WT 175 LBS, HT 61 IN, BMI 33.06 INDEX, BP 129/80 MM HG, HR 98 /MIN, RR 18 /MIN, TEMP 97.3 F, OXYGEN SAT % 98%, NA INITIALS SC 09:35. EXAMINATION : PATIENT IS ALERT O X 3 AND COOPERATIVE. PATIENT IS ABLE TO FLEX HER BACK AT 55 DEGREES AND EXTEND AT 10 DEGREES WITH DIFFICULTIES. PATIENT RIGHT LEG IS WEAKER AT FLEXION AND EXTENSION. FOR STRAIGHT LEG RAISING PATIENT IS ONLY ABLE TO DO THE RIGHT LEG AT 60 DEGREES. TENDERNESS IN THE SACROILIAC JOINT AREA. PATIENT TESTED POSITIVE FOR PAIN IN THE FABERE TEST. MRI OF THE LUMBAR SPINE DONE ON 12/22/2014 SHOWS CENTRAL STENOSIS AND DISC BULGES. ASSESSMENTS SACROILIITIS, NOT ELSEWHERE CLASSIFIED - M46.1 (PRIMARY) SPONDYLOSIS WITHOUT MYELOPATHY OR RADICULOPATHY, LUMBAR REGION - M47.816 TREATMENT SACROILIITIS, NOT ELSEWHERE CLASSIFIED NOTES: DISCUSSED SEVERAL ISSUES WITH MRS. ISAAC'S PAIN MANAGEMENT CASE. AT THIS TIME THE PATIENT WILL CONTINUE WITH THE SAME MEDICATION REGIME BEFORE. I WILL PRESCRIBE THE PATIENT IBUPROFEN 800 MG AND PATIENT IS AWARE TO EAT WHEN USING THIS MEDICATION. PATIENT IS AWARE IBUPROFEN CAN CAUSE ISSUES WITH THE KIDNEYS AND THE STOMACH WELL OTHER ORGANS. PATIENT DENIES ABUSE OF ANY MEDICATION, DENIES USE OF ILLEGAL SUBSTANCES AND STATES THAT SHE IS ONLY USING THE MEDICATION FOR PAIN MANAGEMENT. PATIENT URINE TOXICOLOGY REPORT DONE ON 09/11/16 SHOWS CONSISTENT RESULTS WITH THE PATIENTS MEDICATION LIST. MRS. ISAAC WILL PERFORM A URINE TOXICOLOGY TODAY. PATIENT IS CURRENTLY USING THE TIZANIDINE FOR THE SPASMS, NORCO FOR THE SOMATIC PAIN, IBUPROFEN FOR THE INFLAMMATION, AND LYRICA FOR THE NEUROPATHIC PAIN DOWN THE LEGS. DUE TO THE PATIENT HAVING GOOD RELIEF FROM THE SACROILIAC JOINT INJECTION NO INJECTIONS WILL BE HELD AT THIS TIME. PATIENT WILL RETURN TO THE CLINIC IN ONE MONTH, INSTRUCTIONS WERE GIVEN, QUESTIONS WERE ANSWERED, PATIENT REPORTS UNDERSTANDING AND AGREES WITH THE PLAN. I, JERMAINE TORRES, DOCUMENTED THE ABOVE INFORMATION ACTING A SCRIBE FOR DR. RODRIGUEZ. I HAVE REVIEWED THE ABOVE DOCUMENT, WRITTEN BY JERMAINE PONCEIBJoslyn AND I VERIFY THAT IT IS ACCURATE. SPONDYLOSIS WITHOUT MYELOPATHY OR RADICULOPATHY, LUMBAR REGION REFILL IBUPROFEN TABLET, 800 MG, 1 TABLET, ORALLY WITH FOOD, THREE TIMES A DAY PRN FOR PAIN MDD3, 30 DAY(S), 70, REFILLS 1 REFILL NORCO TABLET, 10-325 MG, 1 TABLET, ORALLY, EVERY 8-12 HRS PRN PAIN MDD=2, 30 DAY(S), 45, REFILLS 0 REFILL TIZANIDINE HCL TABLET, 4 MG, 1 TABLET NEEDED, ORALLY FOR SPASMS AND PAIN, EVERY 8 HRS (PAIN CLINIC) MDD3, 30 DAY(S), 75, REFILLS 2 REFILL LYRICA CAPSULE, 100 MG, 1 CAPSULE (PAIN CLINIC), ORALLY FOR PAIN, 3 TIMES DAILY MDD=3, 30 DAY(S), 90, REFILLS 0 PROCEDURES PN WORKMANS' COMP OPINION IN YOUR OPINION, WAS THE INCIDENT THAT THE PATIENT DESCRIBED THE COMPETENT MEDICAL CAUSE OF THIS INJURY/ILLNESS? YES ARE THE PATIENT'S COMPLAINTS CONSISTENT WITH HIS/HER HISTORY OF THE INJURY/ILLNESS? YES IS THE PATIENT'S HISTORY OF THE INJURY/ILLNESS CONSISTENT WITH YOUR OBJECTIVE FINDING? YES WHAT IS THE PERCENTAGE OF TEMPORARY IMPAIRMENT? MODERATE TO MARKED = 66.7% IS THE PATIENT WORKING? YES DOCTOR ON SITE: BLANCA ALVAREZ MD PROCEDURE CODES FA211 ESTABILISHED PATIENT [facility] FACILITY CHARGE G8427 DOC MEDS VERIFIED W/PT OR RE G8730 PAIN ASSESS POS TOOL F/U PLAN DOC DISPOSITION & COMMUNICATION FOLLOW UP 3 WEEKS ELECTRONICALLY SIGNED BY BLANCA RODRIGUEZ MD ON 08/01/2017 AT 12:45 PM EDT DISCLAIMER : THIS IS A VISIT SUMMARY EXTRACTED FROM THE [employer] CHART. IT IS NOT A COPY OF THE [employer] PROGRESS NOTE. CANDIDAD
== END ==
LOC: M PAIN 09:15
PROVIDERS: ATTEND Anesthesiology
DX: G89.29 Other chronic pain (principal); M46.1 Sacroiliitis, not elsewhere classified; M47.816 Spondylosis without myelopathy or radiculopathy, lumbar region; M79.7 Fibromyalgia; F32.9 Major depressive disorder, single episode, unspecified; G47.30 Sleep apnea, unspecified; K21.9 Gastro-esophageal reflux disease without esophagitis; J30.2 Other seasonal allergic rhinitis; K58.9 Irritable bowel syndrome, unspecified; H04.123 Dry eye syndrome of bilateral lacrimal glands; Z79.84 Long term (current) use of oral hypoglycemic drugs; Z79.891 Long term (current) use of opiate analgesic; Z79.899 Other long term (current) drug therapy

== ENCOUNTER → 2017-07-31 | Outpatient (CLI) | payer OTHER ==
--- NOTE | 2017-08-01 23:22 | ECWPNPC ---
PATIENT NAME: ROSANGELA ISAAC : 1960 GENDER: FEMALE VISIT DATE: 07/31/2017 DISCHARGE DATE: 07/31/17 1536 VISIT LOCKED DATE TIME: PHYSICIAN: ZANE RAMIRES PHYSICIAN PAGER NO: INACTIVE 06/2017 RESOURCE: ZANE RAMIRES REASON FOR APPOINTMENT 1. NEEDS LETTER WRITTEN HISTORY OF PRESENT ILLNESS HISTORY OF PRESENT ILLNESS: PAIN THE PATIENT DESCRIBES THE PAIN... FALL RISK SCREENING: SCREENING :NO FALLS IN THE PAST YEAR TODAY'S VISIT: NOTES: WC - FOLLOWUP FOR LOW BACK PAIN. RATES PAIN TODAY 03/21. IS HERE TODAY FOR DISCUSSION OF A LETTER FOR HER WORK FOR AN ERGONOMICALLY CORRECT CHAIR. . CURRENT MEDICATIONS TAKING RITALIN 10 MG TABLET 2 TABLETS ORALLY ONCE A DAY (PECK) TAKING AMBIEN 12 MG TABLET 1 TAB(S) ORALLY AT BEDTIME NEEDED (PECK) TAKING ONDANSETRON HCL 4 MG TABLET 1 TABLET ORALLY THREE TIMES DAILY NEEDED TAKING PROZAC 40 MG CAPSULE 1 CAPSULE IN THE MORNING ORALLY TWICE A DAY TAKING LOMOTIL 2.5-0.025 MG TABLET 1 TABLET NEEDED ORALLY FOUR TIMES A DAY TAKING SINGULAIR 10 MG TABLET 1 TABLET IN THE EVENING ORALLY ONCE A DAY TAKING METFORMIN HCL 1000 MG TABLET 1 TABLET WITH MEALS ORALLY TWICE A DAY TAKING OMEPRAZOLE 40MG 40 MG TABLET 1 TABLET ORALLY TWICE DAILY TAKING LIPITOR 80 MG TABLET 1 TABLET ORALLY ONCE A DAY TAKING LOSARTAN POTASSIUM 25 MG TABLET 1 TABLET ORALLY ONCE A DAY TAKING IBUPROFEN 800 MG TABLET 1 TABLET ORALLY WITH FOOD THREE TIMES A DAY PRN FOR PAIN MDD3 TAKING NORCO 10-325 MG TABLET 1 TABLET ORALLY EVERY 8-12 HRS PRN PAIN MDD=2 TAKING TIZANIDINE HCL 4 MG TABLET 1 TABLET NEEDED ORALLY FOR SPASMS AND PAIN EVERY 8 HRS (PAIN CLINIC) MDD3 TAKING LYRICA 100 MG CAPSULE 1 CAPSULE (PAIN CLINIC) ORALLY FOR PAIN 3 TIMES DAILY MDD=3 NOT-TAKING BACID - TABLET DIRECTED ORALLY DAILY DISCONTINUED CARAFATE 1 GM/10ML SUSPENSION 10 ML ORALLY TWICE A DAY DISCONTINUED NICODERM CQ 7 MG/24HR PATCH 24 HOUR 1 PATCH TO SKIN TRANSDERMAL ONCE A DAY DISCONTINUED NICODERM CQ 14 MG/24HR PATCH 24 HOUR 1 PATCH TO SKIN TRANSDERMAL ONCE A DAY DISCONTINUED NICODERM CQ 21 MG/24HR PATCH 24 HOUR 1 PATCH TO SKIN TRANSDERMAL ONCE A DAY MEDICATION LIST REVIEWED AND RECONCILED WITH THE PATIENT PAST MEDICAL HISTORY FIBROMYALGIA CHRONIC BACK PAIN ICD-9 724.5 POSITIVE LYME TITER DEPRESSION ICD-9 311.0 SLEEP APNEA/USING C-PAP AT NIGHT ACID REFLUX ENVIROMENTAL ALLERGIES MIXED HYPERLIPIDEMA? IBS CHRONIC DRY EYES HISTORY OF FIBROIDS S/P HYSTERECTOMY ASCVD 10 YR RISK: 15 ALLERGIES SEASONAL REVIEW OF SYSTEMS REVIEWED BY: PROVIDER: ZANE SALVADORP . CONSTITUTIONAL: ANY CHANGE IN YOUR MEDICAL CONDITION? NO . CHILLS NO . FEVER NO . INFECTION: DO YOU HAVE NEW INFECTIONS? NO . DO YOU HAVE HISTORY OF MRSA? NO . MUSCULOSKELETAL: ANY NEW PATTERNS OF PAIN OR NUMBNESS? NO . GASTROENTEROLOGY: ANY NEW CHANGE IN BOWEL CONTROL? NO . GENITOURINARY: ANY NEW CHANGE IN BLADDER CONTROL? NO . IS THERE A CHANCE YOU COULD BE ? NO . HEMATOLOGY/LYMPH: DO YOU TAKE ANY BLOOD THINNERS? (FOR EXAMPLE- COUMADIN, PLAVIX, AGGRENOX, PLATEL, PRADAXA, OR XARELTO) NO . WHEN WAS YOUR LAST DOSE? DATE: TIME: . NEUROLOGY: HAVE YOU FALLEN IN THE PAST 6 MONTHS? NO . ANY NEW EXTREMITY NUMBNESS OR WEAKNESS? NO . CARDIOLOGY: DO YOU HAVE A PACEMAKER OR DEFIBRILLATOR? NO . RESPIRATORY: HAVE YOU BEEN SICK IN THE PAST WEEK? NO . FEVER NO . FLU LIKE SYMPTOMS? NO . COUGH NO . INTEGUMENTARY: DO YOU HAVE ANY RASHES OR OPEN SORES? NO . ALLERGIC/IMMUNO: ARE YOU ALLERGIC TO SHELLFISH OR IV DYE? NO . ANY NEW ALLERGIES? NO . PSYCHIATRIC: DO YOU HAVE THOUGHTS OF HURTING YOURSELF OR SOMEONE ELSE? NO . ARE YOU ABUSED, NEGLECTED, OR IN AN UNSAFE ENVIRONMENT? NO . ENDOCRINOLOGY: ARE YOU DIABETIC? YES . OTHER: DO YOU NEED ANY PRESCRIPTIONS? NO . IF YES, PLEASE LIST: ____ . ANY NEW PROBLEMS WITH YOUR MEDICATIONS? NO . WHEN DID YOU LAST EAT? ____ . WHEN DID YOU LAST DRINK? ____ . WHAT DID YOU LAST DRINK? ____ . NAME OF PERSON DRIVING YOU HOME? ____ . DO YOU HAVE ANY OTHER QUESTIONS OR CONCERNS NO . VITAL SIGNS WT 175 LBS, HT 61 IN, BMI 33.06 INDEX, BP 109/68 MM HG, HR 109 /MIN, RR 18 /MIN, TEMP 97.6 F, OXYGEN SAT % 95%, NA INITIALS AW 1439, REVIEWED BY: DIONICIO. EXAMINATION GENERAL EXAMINATION: PSYCHALERT , ORIENTED X 3 , APPROPRIATE MOOD AND AFFECT . LUNGS:CLEAR TO AUSCULTATION BILATERALLY. HEART:HEART RATE REGULAR. MUSCULOSKELETAL:MUSCLE STRENGTH TESTING 5/5 BILATERAL LOWER EXTREMITIES. POINT TENDERNESS OVER BILATERAL SIJ. FEW TRIGGER POINTS AND TIGHT FIBEROUS BANDS IDENTIFIED OVER LUMBAR FACET AND LUMBAR PARASPINOUS MUSCLES. RISES EASILY TO UPRIGHT POSITION. GAIT NONANTALGIC. ASSESSMENTS SACROILIITIS, NOT ELSEWHERE CLASSIFIED - M46.1 (PRIMARY) SPONDYLOSIS WITHOUT MYELOPATHY OR RADICULOPATHY, LUMBAR REGION - M47.816 TREATMENT SACROILIITIS, NOT ELSEWHERE CLASSIFIED NOTES: IS NOW WORKING AT [employer] - THIS REQUIRES SITTING FOR PROLONGED PERIODS. WILL NEED AN ERGONOMICALLY CORRECT CHAIR WITH LUMBAR SUPPORT THAT CAN BE ADJUSTED FOR HEIGHT. CLINICAL NOTES: ISTOP REGISTRY REVIEWED AND DEMNOSTRATES COMPLLIANCE. BRINGS IN MEDICATIONS WHICH IS APPROPRIATE FOR WHAT WAS DISPENSED. RECENT URINE TOXICOLOGY REVIEWED. NO UNAUTHORIZED MEDICATIONS. NO ILLICIT SUBSTANCES AND PRESCRIBED MEDICATIONS WERE PRESENT. PROCEDURES PN WORKMANS' COMP OPINION IN YOUR OPINION, WAS THE INCIDENT THAT THE PATIENT DESCRIBED THE COMPETENT MEDICAL CAUSE OF THIS INJURY/ILLNESS? YES ARE THE PATIENT'S COMPLAINTS CONSISTENT WITH HIS/HER HISTORY OF THE INJURY/ILLNESS? YES IS THE PATIENT'S HISTORY OF THE INJURY/ILLNESS CONSISTENT WITH YOUR OBJECTIVE FINDING? YES WHAT IS THE PERCENTAGE OF TEMPORARY IMPAIRMENT? MODERATE TO MARKED = 66.7% IS THE PATIENT WORKING? YES DOCTOR ON SITE: BLANCA ALVAREZ MD PROCEDURE CODES FA211 ESTABILISHED PATIENT [facility] FACILITY CHARGE DISPOSITION & COMMUNICATION FOLLOW UP August (REASON: WC BACK PAIN) ELECTRONICALLY SIGNED BY CARMEN CARLIN ON 08/01/2017 AT 08:59 AM EDT DISCLAIMER : THIS IS A VISIT SUMMARY EXTRACTED FROM THE [employer] CHART. IT IS NOT A COPY OF THE [employer] PROGRESS NOTE. ROVERTO
== END ==
LOC: M PAIN 14:30
PROVIDERS: ATTEND Nurse Practitioner Family
DX: G89.29 Other chronic pain (principal); M46.1 Sacroiliitis, not elsewhere classified; M47.816 Spondylosis without myelopathy or radiculopathy, lumbar region; M79.7 Fibromyalgia; F32.9 Major depressive disorder, single episode, unspecified; G47.30 Sleep apnea, unspecified; K21.9 Gastro-esophageal reflux disease without esophagitis; J30.2 Other seasonal allergic rhinitis; K58.9 Irritable bowel syndrome, unspecified; H04.123 Dry eye syndrome of bilateral lacrimal glands; E11.9 Type 2 diabetes mellitus without complications; Z79.84 Long term (current) use of oral hypoglycemic drugs; Z79.891 Long term (current) use of opiate analgesic; Z79.899 Other long term (current) drug therapy

== ENCOUNTER → 2017-09-28 | Outpatient (CLI) | payer OTHER ==
--- NOTE | 2017-09-30 23:52 | ECWPNPC ---
PATIENT NAME: ROSANGELA ISAAC : 1960 GENDER: FEMALE VISIT DATE: 09/28/2017 DISCHARGE DATE: 09/28/17 1116 VISIT LOCKED DATE TIME: PHYSICIAN: ZANE RAMIRES RESOURCE: ZANE RAMIRES REASON FOR APPOINTMENT 1. , MEDS HISTORY OF PRESENT ILLNESS HISTORY OF PRESENT ILLNESS: PAIN THE PATIENT DESCRIBES THE PAIN... FALL RISK SCREENING: SCREENING :NO FALLS IN THE PAST YEAR TODAY'S VISIT: NOTES: FOLLOW UP FOR LOW BACK PAIN . HAS BEEN HAVING SHARP SHOOTING PAIN IN LOW BACK WITH RADIATION TO RIGHT LEG WITH ONSET 3 DAYS AGO, BUT THIS HAS BEEN IMPROVING. NOTES ACTIVITY INCREASES BACK PAIN. RATES PAIN 04/21. IS STARTING A NEW JOB.. CURRENT MEDICATIONS TAKING RITALIN 10 MG TABLET 2 TABLETS ORALLY ONCE A DAY (PECK) TAKING AMBIEN 12 MG TABLET 1 TAB(S) ORALLY AT BEDTIME NEEDED (PECK) TAKING ONDANSETRON HCL 4 MG TABLET 1 TABLET ORALLY THREE TIMES DAILY NEEDED TAKING PROZAC 40 MG CAPSULE 1 CAPSULE IN THE MORNING ORALLY TWICE A DAY TAKING LOMOTIL 2.5-0.025 MG TABLET 1 TABLET NEEDED ORALLY FOUR TIMES A DAY TAKING SINGULAIR 10 MG TABLET 1 TABLET IN THE EVENING ORALLY ONCE A DAY TAKING METFORMIN HCL 1000 MG TABLET 1 TABLET WITH MEALS ORALLY TWICE A DAY TAKING LIPITOR 80 MG TABLET 1 TABLET ORALLY ONCE A DAY TAKING LOSARTAN POTASSIUM 25 MG TABLET 1 TABLET ORALLY ONCE A DAY TAKING TIZANIDINE HCL 4 MG TABLET 1 TABLET NEEDED ORALLY FOR SPASMS AND PAIN EVERY 8 HRS (PAIN CLINIC) MDD3 TAKING LYRICA 100 MG CAPSULE 1 CAPSULE (PAIN CLINIC) ORALLY FOR PAIN 3 TIMES DAILY MDD=3 TAKING OMEPRAZOLE 40 MG CAPSULE DELAYED RELEASE 1 CAPSULE ORALLY TWICE DAILY TAKING NORCO 10-325 MG TABLET 1 TABLET ORALLY EVERY 8-12 HRS PRN PAIN MDD=2 TAKING IBUPROFEN 800 MG TABLET 1 TABLET ORALLY WITH FOOD THREE TIMES A DAY PRN FOR PAIN MDD3 TAKING BACID - TABLET DIRECTED ORALLY DAILY MEDICATION LIST REVIEWED AND RECONCILED WITH THE PATIENT PAST MEDICAL HISTORY FIBROMYALGIA CHRONIC BACK PAIN ICD-9 724.5 POSITIVE LYME TITER DEPRESSION ICD-9 311.0 SLEEP APNEA/USING C-PAP AT NIGHT ACID REFLUX ENVIROMENTAL ALLERGIES MIXED HYPERLIPIDEMA? IBS CHRONIC DRY EYES HISTORY OF FIBROIDS S/P HYSTERECTOMY ASCVD 10 YR RISK: 15 ALLERGIES SEASONAL SOCIAL HISTORY GENERAL: TOBACCO USE ARE YOU A:FORMER SMOKER HOW LONG HAS IT BEEN SINCE YOU LAST SMOKED?3-6 MONTHS BMI CARE GOAL FOLLOW-UP ABOVE NORMAL BMI FOLLOW-UPGIVING ENCOURAGEMENT TO EXERCISE ALCOHOL SCREENING DID YOU HAVE A DRINK CONTAINING ALCOHOL IN THE PAST YEAR?NO POINTS0 INTERPRETATIONNEGATIVE RECREATIONAL DRUG USE DRUG USE?NO CAFFEINE CAFFEINE USE?YES SEXUAL HX HAD SEX IN THE LAST 12 MONTHS (VAGINAL, ORAL, OR ANAL)?YES OCCUPATION: [employer]. DIET: REGULAR. EXERCISE: NO REGULAR EXERCISE. MARITAL STATUS: . OTHERS AT HOME: SPOUSE. PETS: DOG. CONGREGATION CONGREGATION NO CHRISTIANITY BELIEFS THAT WOULD IMPACT HEALTH CARE. LANGUAGE LANGUAGES SPOKEN:[place] EDUCATION LEVEL OF EDUCATION:COLLEGE LEARNING BARRIERS / SPECIAL NEEDS CHANGE FROM LAST VISIT?NO BARRIERS TO LEARNING?NO HEARING IMPAIRED?NO VISION IMPAIRED?YES :CORRECTIVE LENSES COGNITIVELY IMPAIRED?NO READINESS TO LEARN?YES LEARNING PREFERENCES?NO LEARNING CAPABILITIES PRESENT?YES EMOTIONAL BARRIERS?NO SPECIAL DEVICES?NO MODELING MANAGER NEEDED?NO NEW PATIENT PAIN DIARY TODAY'S VISIT NOTES, FROM 0-10, WHAT LEVEL IS YOUR PAIN TODAY? 0. PAIN CLINIC PFS, CLERGY, PUBLIC HEALTH REFERRALS PFS REFERRAL NEEDED? NO, CLERGY REFERRAL NEEDED? NO, PUBLIC HEALTH REFERRAL NEEDED? NO, WAS THE PROVIDER NOTIFIED OF ANY PERTINENT INFO? NO, PFS REFERRAL NEEDED? NO, CLERGY REFERRAL NEEDED? NO, PUBLIC HEALTH REFERRAL NEEDED? NO, WAS THE PROVIDER NOTIFIED OF ANY PERTINENT INFO? NO. , 4 ADULT KIDS. ALL LIVE TOGETHER....UNEMPLOYED...DOES NOT SMOKE OR DRINK. REVIEW OF SYSTEMS REVIEWED BY: PROVIDER: ZANE HARDEN . CONSTITUTIONAL: ANY CHANGE IN YOUR MEDICAL CONDITION? NO . CHILLS NO . FEVER NO . INFECTION: DO YOU HAVE NEW INFECTIONS? NO . DO YOU HAVE HISTORY OF MRSA? NO . MUSCULOSKELETAL: ANY NEW PATTERNS OF PAIN OR NUMBNESS? YES, PAIN SOMETIMES SHOOTS DOWN INTO BOTH BUTTOCKS ALL THE WAY TO THE CALFSHAVING TROUBLE SLEEPING TOO . GASTROENTEROLOGY: ANY NEW CHANGE IN BOWEL CONTROL? NO . GENITOURINARY: ANY NEW CHANGE IN BLADDER CONTROL? NO . IS THERE A CHANCE YOU COULD BE ? NO . HEMATOLOGY/LYMPH: DO YOU TAKE ANY BLOOD THINNERS? (FOR EXAMPLE- COUMADIN, PLAVIX, AGGRENOX, PLATEL, PRADAXA, OR XARELTO) NO . WHEN WAS YOUR LAST DOSE? DATE: TIME: . NEUROLOGY: HAVE YOU FALLEN IN THE PAST 6 MONTHS? NO . ANY NEW EXTREMITY NUMBNESS OR WEAKNESS? NO . CARDIOLOGY: DO YOU HAVE A PACEMAKER OR DEFIBRILLATOR? NO . RESPIRATORY: HAVE YOU BEEN SICK IN THE PAST WEEK? NO . FEVER NO . FLU LIKE SYMPTOMS? NO . COUGH NO . INTEGUMENTARY: DO YOU HAVE ANY RASHES OR OPEN SORES? NO . ALLERGIC/IMMUNO: ARE YOU ALLERGIC TO SHELLFISH OR IV DYE? NO . ANY NEW ALLERGIES? NO . PSYCHIATRIC: DO YOU HAVE THOUGHTS OF HURTING YOURSELF OR SOMEONE ELSE? NO . ARE YOU ABUSED, NEGLECTED, OR IN AN UNSAFE ENVIRONMENT? NO . ENDOCRINOLOGY: ARE YOU DIABETIC? YES . OTHER: DO YOU NEED ANY PRESCRIPTIONS? NO . IF YES, PLEASE LIST: ____ . ANY NEW PROBLEMS WITH YOUR MEDICATIONS? NO . WHEN DID YOU LAST EAT? ____ . WHEN DID YOU LAST DRINK? ____ . WHAT DID YOU LAST DRINK? ____ . NAME OF PERSON DRIVING YOU HOME? ____ . DO YOU HAVE ANY OTHER QUESTIONS OR CONCERNS NO . VITAL SIGNS WT 179.0 LBS, HT 61 IN, BMI 33.82 INDEX, BP 122/69 MM HG, HR 103 /MIN, RR 18 /MIN, TEMP 98.1 F, OXYGEN SAT % 96%, NA INITIALS [id number], REVIEWED BY: NL. EXAMINATION GENERAL EXAMINATION: PSYCHALERT , ORIENTED X 3 , APPROPRIATE MOOD AND AFFECT . LUNGS:CLEAR TO AUSCULTATION BILATERALLY. HEART:HEART RATE REGULAR. MUSCULOSKELETAL:MUSCLE STRENGTH TESTING 5/5 BILATERAL LOWER EXTREMITIES. POINT TENDERNESS OVER LEFT > RIGHT SIJ. FEW TRIGGER POINTS AND TIGHT FIBEROUS BANDS IDENTIFIED OVER LUMBAR FACET AND LUMBAR PARASPINOUS MUSCLES. RISES EASILY TO UPRIGHT POSITION. GAIT NONANTALGIC. ASSESSMENTS SACROILIITIS, NOT ELSEWHERE CLASSIFIED - M46.1 (PRIMARY) SPONDYLOSIS WITHOUT MYELOPATHY OR RADICULOPATHY, LUMBAR REGION - M47.816 MYALGIA - M79.1 CHRONIC USE OF OPIATE DRUGS THERAPEUTIC PURPOSES - Z79.891 TREATMENT SACROILIITIS, NOT ELSEWHERE CLASSIFIED REFILL NORCO TABLET, 10-325 MG, 1 TABLET, ORALLY, EVERY 8-12 HRS PRN PAIN MDD=2, 30 DAY(S), 45, REFILLS 0 NOTES: USE ICE/HEAT AND DO STRETCHES. CLINICAL NOTES: ISTOP REGISTRY REVIEWED AND DEMNOSTRATES COMPLLIANCE. ((REF # [id number]) BRINGS IN MEDICATIONS WHICH IS APPROPRIATE FOR WHAT WAS DISPENSED. RECENT URINE TOXICOLOGY REVIEWED. NO UNAUTHORIZED MEDICATIONS. NO ILLICIT SUBSTANCES AND PRESCRIBED MEDICATIONS WERE PRESENT. PROCEDURES PN WORKMANS' COMP OPINION IN YOUR OPINION, WAS THE INCIDENT THAT THE PATIENT DESCRIBED THE COMPETENT MEDICAL CAUSE OF THIS INJURY/ILLNESS? YES ARE THE PATIENT'S COMPLAINTS CONSISTENT WITH HIS/HER HISTORY OF THE INJURY/ILLNESS? YES IS THE PATIENT'S HISTORY OF THE INJURY/ILLNESS CONSISTENT WITH YOUR OBJECTIVE FINDING? YES WHAT IS THE PERCENTAGE OF TEMPORARY IMPAIRMENT? MODERATE TO MARKED = 66.7% IS THE PATIENT WORKING? YES DOCTOR ON SITE: BLANCA ALVAREZ MD PROCEDURE CODES FA211 ESTABILISHED PATIENT [facility] CHARGE DISPOSITION & COMMUNICATION FOLLOW UP 2 MONTHS (REASON: WC BACK) ELECTRONICALLY SIGNED BY CARMEN CARLIN ON 09/30/2017 AT 02:28 PM EST DISCLAIMER : THIS IS A VISIT SUMMARY EXTRACTED FROM THE [employer] CHART. IT IS NOT A COPY OF THE [employer] PROGRESS NOTE. ROVERTO
== END ==
LOC: M PAIN 10:45
PROVIDERS: ATTEND Nurse Practitioner Family
DX: G89.29 Other chronic pain (principal); M46.1 Sacroiliitis, not elsewhere classified; M47.816 Spondylosis without myelopathy or radiculopathy, lumbar region; M79.1 Myalgia; E11.9 Type 2 diabetes mellitus without complications; K21.9 Gastro-esophageal reflux disease without esophagitis; J32.9 Chronic sinusitis, unspecified; E78.1 Pure hyperglyceridemia; G47.33 Obstructive sleep apnea (adult) (pediatric); F32.9 Major depressive disorder, single episode, unspecified; J30.2 Other seasonal allergic rhinitis; Z79.84 Long term (current) use of oral hypoglycemic drugs; Z79.891 Long term (current) use of opiate analgesic; Z79.899 Other long term (current) drug therapy; Z87.891 Personal history of nicotine dependence

== ENCOUNTER → 2017-12-18 | Outpatient (CLI) | payer OTHER | LOC: M PAIN 11:00 | DX: M47.817 Spondylosis without myelopathy or radiculopathy, lumbosacral region (principal); M79.1 Myalgia; F32.9 Major depressive disorder, single episode, unspecified; G47.30 Sleep apnea, unspecified; K21.9 Gastro-esophageal reflux disease without esophagitis; J30.2 Other seasonal allergic rhinitis; Z79.1 Long term (current) use of non-steroidal anti-inflammatories (NSAID); Z79.891 Long term (current) use of opiate analgesic; Z79.899 Other long term (current) drug therapy; Z87.891 Personal history of nicotine dependence | CPT/HCPCS: G0463 ==

== ENCOUNTER → 2018-01-10 | Outpatient (CLI) | payer BC ==
[2018-01-10 10:34] LABS: HEMOGLOBIN 11.5 g/dl (12.0-16.0); MEAN CORPUSCULAR HEMOGLOBIN 29.9 pg (27.0-33.0); MEAN CORPUSCULAR HGB CONC 32.9 g/dl (32.0-36.5); MEAN CORPUSCULAR VOLUME 90.9 fl (80.0-96.0); PLATELET COUNT, AUTOMATED 215 10^3/uL (150-450); RED BLOOD COUNT 3.85 10^6/uL (4.00-5.40); RED CELL DISTRIBUTION WIDTH 12.5 % (11.5-14.5); WHITE BLOOD COUNT 3.7 10^3/uL (4.0-10.0)
[2018-01-10 10:50] LABS: TOTAL 25(OH) VITAMIN D 42.2 NG/ML (30.0-100.0)
[2018-01-10 10:51] LABS: ALBUMIN 3.8 GM/DL (3.2-5.2); ALBUMIN/GLOBULIN RATIO 1.23 (1.00-1.93); ALKALINE PHOSPHATASE 67 U/L (45-117); ALT/SGPT 26 U/L (12-78); ANION GAP 7 MEQ/L (8-16); AST/SGOT 19 U/L (7-37); BILIRUBIN,TOTAL 0.2 MG/DL (0.2-1.0); BLOOD UREA NITROGEN 17 MG/DL (7-18); CALCIUM LEVEL 8.7 MG/DL (8.5-10.1); CARBON DIOXIDE LEVEL 27 MEQ/L (21-32); CHLORIDE LEVEL 107 MEQ/L (98-107); CHOLESTEROL LEVEL 264 MG/DL (<200); CHOLESTEROL RISK RATIO 4.474 (<5); CREATININE FOR GFR 0.66 MG/DL (0.55-1.30); ESTIMATED AVERAGE GLUCOSE 128 MG/DL (60-110); GLOMERULAR FILTRATION RATE > 60.0 (>51); GLUCOSE, FASTING 114 MG/DL (70-100); HDL CHOLESTEROL 59 MG/DL (>40); HEMOGLOBIN A1c 6.1 %; NON-HDL-C 205 MG/DL; SODIUM LEVEL 141 MEQ/L (136-145); THYROXINE (T4) 8.4 UG/DL (4.5-12.0); TOTAL PROTEIN 6.9 GM/DL (6.4-8.2); TRIGLYCERIDES LEVEL 145 MG/DL (<150)
== END ==
LOC: M LAB 09:46
DX: D64.9 Anemia, unspecified (principal); I10 Essential (primary) hypertension; E03.9 Hypothyroidism, unspecified
CPT/HCPCS: 71046

== ENCOUNTER → 2018-02-15 | Outpatient (CLI) | payer OTHER | LOC: M PAIN 08:45 | DX: M47.817 Spondylosis without myelopathy or radiculopathy, lumbosacral region (principal); M79.1 Myalgia; F32.9 Major depressive disorder, single episode, unspecified; G47.30 Sleep apnea, unspecified; K21.9 Gastro-esophageal reflux disease without esophagitis; J30.2 Other seasonal allergic rhinitis; E78.5 Hyperlipidemia, unspecified; Z79.891 Long term (current) use of opiate analgesic; Z79.899 Other long term (current) drug therapy; Z87.891 Personal history of nicotine dependence | CPT/HCPCS: G0463 ==

== ENCOUNTER → 2018-03-06 | Outpatient (CLI) | payer BC | LOC: M WUC 18:55 | DX: S92.354A Nondisplaced fracture of fifth metatarsal bone, right foot, initial encounter for closed fracture (principal); X58.XXXA Exposure to other specified factors, initial encounter; Y92.89 Other specified places as the place of occurrence of the external cause | CPT/HCPCS: 73630 ==

== ENCOUNTER → 2018-06-11 | Outpatient (CLI) | payer OTHER | LOC: M PAIN 14:30 | DX: M47.817 Spondylosis without myelopathy or radiculopathy, lumbosacral region (principal); G89.29 Other chronic pain; M79.7 Fibromyalgia; E11.9 Type 2 diabetes mellitus without complications; F32.9 Major depressive disorder, single episode, unspecified; G47.30 Sleep apnea, unspecified; K21.9 Gastro-esophageal reflux disease without esophagitis; J30.2 Other seasonal allergic rhinitis; Z79.891 Long term (current) use of opiate analgesic; Z79.899 Other long term (current) drug therapy; Z87.891 Personal history of nicotine dependence | CPT/HCPCS: G0463 ==

== ENCOUNTER → 2018-08-26 | Outpatient (CLI) | payer OTHER | LOC: M PAIN 15:00 | DX: M47.817 Spondylosis without myelopathy or radiculopathy, lumbosacral region (principal); M79.7 Fibromyalgia; F32.9 Major depressive disorder, single episode, unspecified; G47.30 Sleep apnea, unspecified; K21.9 Gastro-esophageal reflux disease without esophagitis; E78.2 Mixed hyperlipidemia; F41.9 Anxiety disorder, unspecified; J30.2 Other seasonal allergic rhinitis; Z79.84 Long term (current) use of oral hypoglycemic drugs; Z79.891 Long term (current) use of opiate analgesic; Z79.899 Other long term (current) drug therapy; Z87.891 Personal history of nicotine dependence | CPT/HCPCS: G0463 ==

== ENCOUNTER → 2018-11-22 | Outpatient (CLI) | payer BC ==
[~2018-11-22] MED LIST changes: +LOSA25TA14; -LOSA25TA8; +TIZA2CAP PO; -TIZA2CAP3 PO
--- NOTE | 2018-11-26 11:31 | SLEEPCENT ---
DATE OF PROCEDURE: 11/22/2018 ORDERED BY: KAREN Mendieta Nocturnal polysomnography was performed for evaluation of sleep physiology in this patient with a history of excessive somnolence, morning headaches and nonrestorative sleep who has a prior history of sleep apnea and fibromyalgia as well as hypertension and diabetes. 8 hours and 9 minutes of data were reviewed. There were 470 minutes of sleep identified. Sleep latency was short at 4 minutes. Rapid eye movement (REM) latency was normal at 141 minutes. Sleep architecture was fair with 3 REM cycles. Overall sleep efficiency was 97.3%. The patient's electrocardiogram showed a sinus rhythm with an average heart rate of 75 beats per minute. Rate variability was seen surrounding respiratory events. Rate ranged 65-100. Electroencephalogram (EEG) showed some coarsening in background, otherwise normal waveforms for awake and sleep. There were 67 respiratory events identified of 10 seconds in duration or greater for an apnea-hypopnea index of 8.6. The events were primarily obstructive, not exclusive to sleep stage, though REM clustering was noted not exclusive to body posture. Arousals from respiratory events occurred 0.6 times per hour, but oxygen desaturations were seen into the 70s. There was some limb activity, but arousals from limb events were few. IMPRESSION: Obstructive sleep apnea syndrome (G47.33). Apnea-hypopnea index 8.6. RECOMMENDATION: The patient should be encouraged to return to the sleep disorder center for pressure therapy. In the interim, alcohol and sedative avoidance should be practiced and caution exercised during the operation of motor vehicles.
== END ==
LOC: M SLEEP 19:33
PROVIDERS: ATTEND Physician Assistant
DX: G47.33 Obstructive sleep apnea (adult) (pediatric) (principal)

== ENCOUNTER → 2019-01-03 | Outpatient (CLI) | payer BC ==
--- NOTE | 2019-01-06 19:06 | SLEEPCENT ---
DATE OF PROCEDURE: 01/03/2019 ORDERED BY: Jacob Whitley Nocturnal polysomnography was performed for the titration of pressure therapy in this patient with obstructive sleep apnea syndrome. Apnea-hypopnea index 8.6. For testing, a ResMed SoftEdge standard size mask was applied, 4 cm of pressure were added to the circuit and the lights were extinguished. 7 hours and 27 minutes of data were reviewed. There were 356 minutes of sleep identified. Sleep latency was prolonged at 30 minutes. Rapid eye movement (REM) latency was prolonged at 354 minutes. Sleep architecture improved late in the study with optimal pressure therapy. Overall sleep efficiency was 82%. The patient's electrocardiogram showed a sinus rhythm with an average heart rate of 75 beats per minute. EEG showed normal waveforms for awake and sleep stages. Respiratory events and snoring prompted an increase in continuous positive airway pressure (CPAP) pressure. Best sleep was seen on a CPAP pressure of +12. There was little limb activity and remaining measures of sleep physiology were normal. IMPRESSION: Obstructive sleep apnea syndrome (G47.33). RECOMMENDATIONS: Nightly use of pressure therapy 12 cm of water.
== END ==
LOC: M SLEEP 19:55
PROVIDERS: ATTEND Physician Assistant
DX: G47.33 Obstructive sleep apnea (adult) (pediatric) (principal)

== ENCOUNTER → 2019-01-10 | Outpatient (CLI) | payer OTHER ==
--- NOTE | 2019-01-20 00:26 | ECWPNPC ---
PATIENT NAME: ROSANGELA ISAAC : 1960 GENDER: FEMALE VISIT DATE: 01/10/2019 DISCHARGE DATE: 01/10/19 1606 VISIT LOCKED DATE TIME: PHYSICIAN: BLANCA RODRIGUEZ MD RESOURCE: BLANCA RODRIGUEZ MD REASON FOR APPOINTMENT 1. W/C BACK KNEE HISTORY OF PRESENT ILLNESS HISTORY OF PRESENT ILLNESS: PAIN THE PATIENT DESCRIBES THE PAIN... 58 YEAR OLD FEMALE PATIENT WITH A HISTORY OF CHRONIC LOW BACK PAIN. THE PATIENT DESCRIBES THE PAIN ACHING, SORE, TENDER, SHARP, STABBING, SHOOTING, AND CONTINUOUS WITH A PAIN SCORE OF 8-10/10 DEPENDING ON PHYSICAL ACTIVITY. 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 THE PATIENT SAYS THAT SHE RECENTLY STARTED A NEW JOB AND HER PAIN HAS INCREASED SINCE SHE STARTED. THE PATIENT IS CURRENTLY USING HYDROCODONE, LYRICA, AND IBUPROFEN TO AID IN PAIN RELIEF AND SAYS THE USE OF THESE MEDICATIONS HELP HER REMAIN MOBILE AND FUNCTIONAL. PATIENT DENIES UNEXPLAINABLE WEIGHT LOSS, FEVER, CHILLS, NEW CHANGES ON HER URINARY OR BOWEL CONTROL. FALL RISK SCREENING: SCREENING : NO FALLS IN THE PAST YEAR. CURRENT MEDICATIONS TAKING ONDANSETRON HCL 4 MG TABLET 1 TABLET ORALLY THREE TIMES DAILY NEEDED TAKING LIPITOR 80 MG TABLET 1 TABLET ORALLY ONCE A DAY TAKING LOSARTAN POTASSIUM 100 MG TABLET 1 TABLET ORALLY ONCE A DAY TAKING OMEPRAZOLE 40 MG CAPSULE DELAYED RELEASE 1 CAPSULE ORALLY TWICE DAILY TAKING ZOLOFT 50 MG TABLET 1.5 TABLET ORALLY ONCE A DAY TAKING KLONOPIN 1 MG TABLET 1 TABLET ORALLY BID NEEDED TAKING GLIPIZIDE 10 MG TABLET 1 TABLET ORALLY ONCE A DAY, NOTES: UNSURE OF DOSAGE TAKING IBUPROFEN 800 MG TABLET 1 TABLET ORALLY WITH FOOD THREE TIMES A DAY PRN FOR PAIN MDD3 TAKING LYRICA 200 MG CAPSULE 1 CAPSULE ORALLY FOR PAIN BID MDD=2 TAKING NORCO 10-325 MG TABLET 1 TABLET ORALLY EVERY 8-12 HRS PRN PAIN MDD=2 NOT-TAKING TIZANIDINE HCL 4 MG TABLET 1 TABLET NEEDED ORALLY FOR SPASMS AND PAIN EVERY 8 HRS (PAIN CLINIC) MDD3, NOTES: W/C REFUSES TO REFILL NOT-TAKING AMBIEN 5 MG TABLET 1 TAB(S) ORAL AT BEDTIME NEEDED (PECK) NOT-TAKING BUSPIRONE HCL 15 MG TABLET 1 TABLET ORALLY TWICE A DAY MEDICATION LIST REVIEWED AND RECONCILED WITH THE PATIENT PAST MEDICAL HISTORY FIBROMYALGIA CHRONIC BACK PAIN ICD-9 724.5 POSITIVE LYME TITER DEPRESSION ICD-9 311.0 SLEEP APNEA/USING C-PAP AT NIGHT ACID REFLUX ENVIROMENTAL ALLERGIES MIXED HYPERLIPIDEMA? IBS CHRONIC DRY EYES HISTORY OF FIBROIDS S/P HYSTERECTOMY ASCVD 12 YR RISK: 17 ANXIETY HEART MURMUR ALLERGIES SEASONAL SURGICAL HISTORY TUBALIGATION 1983 APPENDECTOMY HYSTERECTOMY/ LAP ASSISTED VAGINAL --- DUE TO ADENOMYOSIS AND FIBROID UTERUS 11/21 COLONOSCOPY 2009 RIGHT BREAST BIOPSY 2010 FAMILY HISTORY FATHER: UNKNOWN MOTHER: , INFLUENZA SIBLINGS: ALIVE SON(S): ALIVE DAUGHTER(S): ALIVE, LUPUS, FIBROMYALGIA, ASTHMA, LYME DISEASE 2 BROTHER(S) , 1 SISTER(S) - HEALTHY. 3 SON(S) , 1 DAUGHTER(S) . SISTER- MSSON - ENLARGED HEART. SOCIAL HISTORY GENERAL: TOBACCO USE ARE YOU A:CURRENT SMOKER E- CIGS ONLY SMOKING CESSATION INFORMATION GIVEN02/15/2018 E-CIGARETTEYES BMI CARE GOAL FOLLOW-UP ABOVE NORMAL BMI FOLLOW-UPGIVING ENCOURAGEMENT TO EXERCISE ALCOHOL SCREENING DID YOU HAVE A DRINK CONTAINING ALCOHOL IN THE PAST YEAR?NO POINTS0 INTERPRETATIONNEGATIVE RECREATIONAL DRUG USE DRUG USE?NO CAFFEINE CAFFEINE USE?YES SEXUAL HX HAD SEX IN THE LAST 12 MONTHS (VAGINAL, ORAL, OR ANAL)?YES RASTAFARI RASTAFARI NO VOODOO BELIEFS THAT WOULD IMPACT HEALTH CARE. 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 DIET: REGULAR. EXERCISE: NO REGULAR EXERCISE. MARITAL STATUS: . OTHERS AT HOME: SPOUSE. NEW PATIENT PAIN DIARY TODAY'S VISIT NOTES, FROM 0-10, WHAT LEVEL IS YOUR PAIN TODAY? 0. PAIN CLINIC PFS, CLERGY, PUBLIC HEALTH REFERRALS HAS THE PATIENT BEEN EDUCATED REGARDING HIS/HER PLAN OF CARE?YES HAS THE PATIENT BEEN EDUCATED REGARDING PAIN, THE RISK FOR PAIN, THE IMPORTANCE OF EFFECTIVE PAIN MANAGEMENT, AND THE PAIN ASSESSMENT PROCESS?YES ADVANCE DIRECTIVE ADVANCE DIRECTIVE DISCUSSED WITH PATIENT:YES DECLINED HCP INFORMATION , 4 ADULT KIDS. ALL LIVE TOGETHER....UNEMPLOYED...DOES NOT SMOKE OR DRINK.REVIEWED WITH PATIENT 08/26/18 1539 JSREVIEWED WITH PATIENT 01/10/19 1355 JS. HOSPITALIZATION/MAJOR DIAGNOSTIC PROCEDURE [facility] - DEPRESSION 2012 REVIEW OF SYSTEMS REVIEWED BY: PROVIDER: BLANCA RODRIGUEZ MD . CONSTITUTIONAL: ANY CHANGE IN YOUR MEDICAL CONDITION? 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 ALSO STATES NEW HEART MURMUR . CHILLS NO . FEVER NO . INFECTION: DO YOU HAVE NEW INFECTIONS? NO . DO YOU HAVE HISTORY OF MRSA? NO . MUSCULOSKELETAL: ANY NEW PATTERNS OF PAIN OR NUMBNESS? YES, STATES NUMBNESS ACROSS BOTH SHOULDERS . GASTROENTEROLOGY: ANY NEW CHANGE IN BOWEL CONTROL? NO . GENITOURINARY: ANY NEW CHANGE IN BLADDER CONTROL? NO . IS THERE A CHANCE YOU COULD BE ? NO . HEMATOLOGY/LYMPH: DO YOU TAKE ANY BLOOD THINNERS? (FOR EXAMPLE- COUMADIN, PLAVIX, AGGRENOX, PLATEL, PRADAXA, OR XARELTO) NO . WHEN WAS YOUR LAST DOSE? DATE: TIME: . NEUROLOGY: HAVE YOU FALLEN IN THE PAST 12 MONTHS? NO . ANY NEW EXTREMITY NUMBNESS OR WEAKNESS? YES, STATES LEFT ARM NUMBNESS . CARDIOLOGY: DO YOU HAVE A PACEMAKER OR DEFIBRILLATOR? NO . RESPIRATORY: HAVE YOU BEEN SICK IN THE PAST WEEK? NO . FEVER NO . FLU LIKE SYMPTOMS? NO . COUGH NO . INTEGUMENTARY: DO YOU HAVE ANY RASHES OR OPEN SORES? NO . ALLERGIC/IMMUNO: ARE YOU ALLERGIC TO IV DYE? NO . ANY NEW ALLERGIES? NO . PSYCHIATRIC: DO YOU HAVE THOUGHTS OF HURTING YOURSELF OR SOMEONE ELSE? NO . ARE YOU ABUSED, NEGLECTED, OR IN AN UNSAFE ENVIRONMENT? NO . ENDOCRINOLOGY: ARE YOU DIABETIC? YES . OTHER: DO YOU NEED ANY PRESCRIPTIONS? YES . IF YES, PLEASE LIST: ____PATIENT WOULD LIKE INCREASED AMOUNT OF HYDROCODONE . ANY NEW PROBLEMS WITH YOUR MEDICATIONS? NO . WHEN DID YOU LAST EAT? ____ . WHEN DID YOU LAST DRINK? ____ . WHAT DID YOU LAST DRINK? ____ . NAME OF PERSON DRIVING YOU HOME? ____ . DO YOU HAVE ANY OTHER QUESTIONS OR CONCERNS NO . VITAL SIGNS WT 212.8 LBS, HT 61 IN, BMI 40.20 INDEX, BP 130/72 MM HG, HR 107 /MIN, RR 18 /MIN, TEMP 97.4 F, OXYGEN SAT % 97%, SAFE IN ENV? (Y/N) YES, NA INITIALS AW 1343, REVIEWED BY: JS. EXAMINATION GENERAL EXAMINATION: PATIENT IS ALERT O X 3 AND COOPERATIVE. TENDERNESS IN THE LOW BACK AREA. PAIN INCREASES OVER THE LUMBAR FACET JOINTS WITH EXTENSION AND LATERAL ROTATION OF THE BACK. MRI OF THE LUMBAR SPINE DONE ON 12/22/2014 SHOWS FACET ARTHROPATHY CHANGES AT MULTIPLE LEVELS. ASSESSMENTS SPONDYLOSIS OF LUMBAR REGION WITHOUT MYELOPATHY OR RADICULOPATHY - M47.816 (PRIMARY) TREATMENT SPONDYLOSIS OF LUMBAR REGION WITHOUT MYELOPATHY OR RADICULOPATHY CLINICAL NOTES: WE DISCUSSED SEVERAL ISSUES WITH MRS. ISAAC'S PAIN MANAGEMENT CASE. DUE TO THE LUMBAR SPONDYLOSIS, I WOULD LIKE TO MOVE FORWARD WITH A BILATERAL L4-L5, L5-S1 THERAPEUTIC LUMBAR FACET BLOCK AT THIS TIME. WE DISCUSSED THE BENEFITS, RISKS, AND ALTERNATIVES OF THE INJECTION AND THE PATIENT WOULD LIKE TO PROCEED. THE PATIENT IS HAVING AN ACUTE EXACERBATION OF HER CHRONIC PAIN CONDITION. I WILL INCREASE THE PATIENT'S HYDROCODONE TO 55 TABLETS PER MONTH FOR THE SOMATIC PAIN. ISTOP _[id number] WAS REVIEWED. THE PATIENT WILL SIGN A NARCOTIC AGREEMENT. URINE TOXICOLOGY DONE ON 12/18/2017 SHOWS CONCURRENT RESULTS AND WE WILL REPEAT IT TODAY. THE PATIENT BROUGHT HER MEDICATIONS WITH HER IN THE ORIGINAL BOTTLE TO TODAY'S VISIT. I ADVISED THE PATIENT TO REDUCE HER IBUPROFEN DUE TO THE POSSIBLE DEVELOPMENT OF GASTRIC PROBLEMS, KIDNEY PROBLEMS, AND CARDIAC EVENTS ASSOCIATED WITH THE USE OF NSAID'S. THE PATIENT WILL FOLLOW UP IN 6 WEEKS. INSTRUCTIONS WERE GIVEN, QUESTIONS WERE ANSWERED, PATIENT REPORTS UNDERSTANDING AND AGREES WITH THE PLAN. I, ALFREDO ELLIS, DOCUMENTED THE ABOVE INFORMATION ACTING A SCRIBE FOR DR. RODRIGUEZ. I HAVE REVIEWED THE ABOVE DOCUMENT, WRITTEN BY ALFREDO BARR AND I VERIFY THAT IT IS ACCURATE. OTHERS REFILL NORCO TABLET, 10-325 MG, 1 TABLET, ORALLY ( TO COMPLATE THE MONTH MAX 55/MONTH), EVERY 8-12 HRS PRN PAIN MDD=2, 30 DAY(S), 10, REFILLS 0 PROCEDURES PN WORKMANS' COMP OPINION IN YOUR OPINION, WAS THE INCIDENT THAT THE PATIENT DESCRIBED THE COMPETENT MEDICAL CAUSE OF THIS INJURY/ILLNESS? YES ARE THE PATIENT'S COMPLAINTS CONSISTENT WITH HIS/HER HISTORY OF THE INJURY/ILLNESS? YES IS THE PATIENT'S HISTORY OF THE INJURY/ILLNESS CONSISTENT WITH YOUR OBJECTIVE FINDING? YES WHAT IS THE PERCENTAGE OF TEMPORARY IMPAIRMENT? MODERATE TO MARKED = 66.7% IS THE PATIENT WORKING? YES DOCTOR ON SITE: BLANCA ALVAREZ MD PREVENTIVE MEDICINE PAIN CLINIC TEACHING: PROCEDURE TEACHING PRE-PROCEDURE INSTRUCTIONS REVIEWED WITH PT. VERBALIZED UNDERSTANDING.. PROCEDURE CODES FA211 ESTABILISHED PATIENT [facility] CHARGE G8427 CURRENT MEDS W/DOSAGES DOCUMENTED G8730 PAIN ASSESS POS TOOL F/U PLAN DOC DISPOSITION & COMMUNICATION FOLLOW UP 6 WEEKS ELECTRONICALLY SIGNED BY BLANCA RODRIGUEZ MD, MD ON 01/19/2019 AT 08:53 AM EDT DISCLAIMER : THIS IS A VISIT SUMMARY EXTRACTED FROM THE [employer] CHART. IT IS NOT A COPY OF THE [employer] PROGRESS NOTE. ROVERTO
== END ==
LOC: M PAIN 13:30
PROVIDERS: ATTEND Anesthesiology
DX: M47.816 Spondylosis without myelopathy or radiculopathy, lumbar region (principal); G89.29 Other chronic pain; M79.7 Fibromyalgia; Z86.59 Personal history of other mental and behavioral disorders; G47.33 Obstructive sleep apnea (adult) (pediatric); K21.9 Gastro-esophageal reflux disease without esophagitis; Z86.79 Personal history of other diseases of the circulatory system; F17.290 Nicotine dependence, other tobacco product, uncomplicated; E11.9 Type 2 diabetes mellitus without complications; E66.01 Morbid (severe) obesity due to excess calories; Z68.41 Body mass index [BMI] 40.0-44.9, adult; Z79.899 Other long term (current) drug therapy

== ENCOUNTER → 2019-01-20 | Outpatient (CLI) | payer BC ==
[2019-01-20 12:46] LABS: INR 0.89; PROTHROMBIN TIME 12.1 SECONDS (12.1-14.4)
[2019-01-20 12:47] LABS: PARTIAL THROMBOPLASTIN TIME 32.6 SECONDS (25.4-37.6)
== END ==
LOC: M WUC 09:38
PROVIDERS: ATTEND Physical Medicine & Rehabilitation
DX: Z01.812 Encounter for preprocedural laboratory examination (principal)

== ENCOUNTER → 2019-02-25 | Outpatient (CLI) | payer OTHER ==
[~2019-02-25] MED LIST changes: -/ESCI10TA PO; -/FENT25PA; -/LAMO10TA OR; -/QUET10TA; -/QUET10TA OR; -/QUET25TA; +BUPIVACAINE HCL 0.25% 30 ML VIAL As Ordered ONE; +FENT1DIS14; +HYDR-3715 PO; +HYDR-4274 PO; -HYDRO50TAB PO; +ISOVUE-M 300 61% 15ML VIAL (Q9967) As Ordered ONE; +LAMI1TAB7 OR; +LEXA1TAB PO; +LIDOCAINE 1% SDV INJ 30 ML VIAL As Ordered ONE; -NORCOTAB PO; -QUET20XRTB; +SERO1TAB; +SERO1TAB OR; +SERO1TAB3; +SERO200T43; +TRIAMCINOLONE ACETONIDE SUSP 40 MG/ML VIAL (J3301) As Ordered ONE; +diazePAM 5 MG TAB As Ordered ONE; +oxyCODONE 5MG TAB As Ordered ONE
--- NOTE | 2019-02-25 14:58 | REP ---
Partial lumbar spine series: Two views . History: Injection procedure for pain. 15 seconds of fluoroscopy time is reported. Findings: A sequence of two fluoroscopically obtained last image hold procedural spot radiographs of the lumbar spine document needle position and contrast injection associated with injection procedure. Electronically Signed by Ortega Rizo MD 02/25/2019 02:49 P
--- NOTE | 2019-03-10 00:24 | ECWPNPC ---
PATIENT NAME: ROSANGELA ISAAC : 1960 GENDER: FEMALE VISIT DATE: 02/25/2019 DISCHARGE DATE: 02/25/19 1300 VISIT LOCKED DATE TIME: PHYSICIAN: BLANCA RODRIGUEZ MD RESOURCE: BLANCA RODRIGUEZ MD REASON FOR APPOINTMENT 1. BILATERAL L4-L5, L5-S1 LFBT HISTORY OF PRESENT ILLNESS HISTORY OF PRESENT ILLNESS: PAIN THE PATIENT DESCRIBES THE PAIN... FALL RISK SCREENING: SCREENING :NO FALLS REPORTED IN THE LAST YEAR CURRENT MEDICATIONS TAKING ONDANSETRON HCL 4 MG TABLET 1 TABLET ORALLY THREE TIMES DAILY NEEDED, NOTES: NONE RECENTLY TAKING LIPITOR 80 MG TABLET 1 TABLET ORALLY ONCE A DAY, NOTES: 02/24/19799 TAKING LOSARTAN POTASSIUM 100 MG TABLET 1 TABLET ORALLY ONCE A DAY, NOTES: 02/24/19799 TAKING OMEPRAZOLE 40 MG CAPSULE DELAYED RELEASE 1 CAPSULE ORALLY TWICE DAILY NEEDED, NOTES: 2 DAYS AGO TAKING ZOLOFT 100 MG TABLET 1 TABLET ORALLY ONCE A DAY, NOTES: 02/24/19799 TAKING KLONOPIN 1 MG TABLET 1 TABLET ORALLY BID NEEDED, NOTES: 02/24/191999 TAKING GLIPIZIDE 10 MG TABLET 1/2 TABLET ORALLY ONCE A DAY, NOTES: 02/24/19799 TAKING IBUPROFEN 800 MG TABLET 1 TABLET ORALLY WITH FOOD THREE TIMES A DAY PRN FOR PAIN MDD3, NOTES: 02/24/191999 TAKING LYRICA 200 MG CAPSULE 1 CAPSULE ORALLY FOR PAIN BID MDD=2, NOTES: 02/24/191999 TAKING NORCO 10-325 MG TABLET 1 TABLET ORALLY EVERY 8-12 HRS PRN PAIN MDD=2, NOTES: 02/24/191999 TAKING VITAMIN D (ERGOCALCIFEROL) 07372 UNIT CAPSULE 1 CAPSULE ORALLY WEEKLY, NOTES: 02/18/19 NOT-TAKING TIZANIDINE HCL 4 MG TABLET 1 TABLET NEEDED ORALLY FOR SPASMS AND PAIN EVERY 8 HRS (PAIN CLINIC) MDD3, NOTES: W/C REFUSES TO REFILL NOT-TAKING AMBIEN 5 MG TABLET 1 TAB(S) ORAL AT BEDTIME NEEDED (PECK) NOT-TAKING BUSPIRONE HCL 15 MG TABLET 1 TABLET ORALLY TWICE A DAY MEDICATION LIST REVIEWED AND RECONCILED WITH THE PATIENT PAST MEDICAL HISTORY FIBROMYALGIA CHRONIC BACK PAIN ICD-9 724.5 POSITIVE LYME TITER DEPRESSION ICD-9 311.0 SLEEP APNEA/USING C-PAP AT NIGHT ACID REFLUX ENVIROMENTAL ALLERGIES MIXED HYPERLIPIDEMA? IBS CHRONIC DRY EYES HISTORY OF FIBROIDS S/P HYSTERECTOMY ASCVD 12 YR RISK: 17 ANXIETY HEART MURMUR ALLERGIES SEASONAL SURGICAL HISTORY TUBALIGATION 1983 APPENDECTOMY HYSTERECTOMY/ LAP ASSISTED VAGINAL --- DUE TO ADENOMYOSIS AND FIBROID UTERUS 11/21 COLONOSCOPY 2009 RIGHT BREAST BIOPSY 2010 FAMILY HISTORY FATHER: UNKNOWN MOTHER: , INFLUENZA SIBLINGS: ALIVE SON(S): ALIVE DAUGHTER(S): , LUPUS, FIBROMYALGIA, ASTHMA, LYME DISEASE, DUE TO MVA 2 BROTHER(S) , 1 SISTER(S) - HEALTHY. 3 SON(S) , 1 DAUGHTER(S) . SISTER- MS\\NSON - ENLARGED HEART. SOCIAL HISTORY GENERAL: TOBACCO USE ARE YOU A:CURRENT SMOKER E- CIGS ONLY SMOKING CESSATION INFORMATION GIVEN02/15/2018 E-CIGARETTEYES BMI CARE GOAL FOLLOW-UP ABOVE NORMAL BMI FOLLOW-UPGIVING ENCOURAGEMENT TO EXERCISE ALCOHOL SCREENING DID YOU HAVE A DRINK CONTAINING ALCOHOL IN THE PAST YEAR?NO POINTS0 INTERPRETATIONNEGATIVE RECREATIONAL DRUG USE DRUG USE?NO CAFFEINE CAFFEINE USE?YES COFFEE 2 CUPS A DAY SEXUAL HX HAD SEX IN THE LAST 12 MONTHS (VAGINAL, ORAL, OR ANAL)?YES ADVENTIST [id number] ISLAM NO SIKHISM BELIEFS THAT WOULD IMPACT HEALTH CARE. 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 DIET: REGULAR. EXERCISE: NO REGULAR EXERCISE. MARITAL STATUS: . OTHERS AT HOME: SPOUSE. NEW PATIENT PAIN DIARY FROM 0-10, WHAT LEVEL IS YOUR PAIN TODAY?10 PAIN CLINIC PFS, CLERGY, PUBLIC HEALTH REFERRALS HAS THE PATIENT BEEN EDUCATED REGARDING HIS/HER PLAN OF CARE?YES HAS THE PATIENT BEEN EDUCATED REGARDING PAIN, THE RISK FOR PAIN, THE IMPORTANCE OF EFFECTIVE PAIN MANAGEMENT, AND THE PAIN ASSESSMENT PROCESS?YES ADVANCE DIRECTIVE ADVANCE DIRECTIVE DISCUSSED WITH PATIENT:YES DECLINED HCP INFORMATION , 4 ADULT KIDS. ALL LIVE TOGETHER....UNEMPLOYED...DOES NOT SMOKE OR DRINK.REVIEWED WITH PATIENT 08/26/18 3087 JSREVIEWED WITH PATIENT 01/10/19 6236 JS. HOSPITALIZATION/MAJOR DIAGNOSTIC PROCEDURE [facility] - DEPRESSION 2012 CHILDBIRTH X 4 REVIEW OF SYSTEMS REVIEWED BY: PROVIDER: . CONSTITUTIONAL: ANY CHANGE IN YOUR MEDICAL CONDITION? NO . CHILLS NO . FEVER NO . INFECTION: DO YOU HAVE NEW INFECTIONS? NO . DO YOU HAVE HISTORY OF MRSA? NO . MUSCULOSKELETAL: ANY NEW PATTERNS OF PAIN OR NUMBNESS? YES - RIGHT LEG GIVES OUT . GASTROENTEROLOGY: ANY NEW CHANGE IN BOWEL CONTROL? NO . GENITOURINARY: ANY NEW CHANGE IN BLADDER CONTROL? YES, URGENCY AND STRESS INCONTINENCE FOR MORE THAN 1 MONTH. [facility] HAS APPT WITH PRIMARY CARE PROVIDER 02-27-19 TO DISCUSS. . IS THERE A CHANCE YOU COULD BE ? NO . HEMATOLOGY/LYMPH: DO YOU TAKE ANY BLOOD THINNERS? (FOR EXAMPLE- COUMADIN, PLAVIX, AGGRENOX, PLATEL, PRADAXA, OR XARELTO) NO . WHEN WAS YOUR LAST DOSE? DATE: TIME: . NEUROLOGY: HAVE YOU FALLEN IN THE PAST 12 MONTHS? NO . ANY NEW EXTREMITY NUMBNESS OR WEAKNESS? YES - RIGHT LEG GIVES OUT FOR PAST FEW MONTHS . CARDIOLOGY: DO YOU HAVE A PACEMAKER OR DEFIBRILLATOR? NO . RESPIRATORY: HAVE YOU BEEN SICK IN THE PAST WEEK? NO . FEVER NO . FLU LIKE SYMPTOMS? NO . COUGH NO . INTEGUMENTARY: DO YOU HAVE ANY RASHES OR OPEN SORES? NO . ALLERGIC/IMMUNO: ARE YOU ALLERGIC TO IV DYE? NO . ANY NEW ALLERGIES? NO . PSYCHIATRIC: DO YOU HAVE THOUGHTS OF HURTING YOURSELF OR SOMEONE ELSE? NO . ARE YOU ABUSED, NEGLECTED, OR IN AN UNSAFE ENVIRONMENT? NO . ENDOCRINOLOGY: ARE YOU DIABETIC? YES . OTHER: DO YOU NEED ANY PRESCRIPTIONS? NO . IF YES, PLEASE LIST: ____ . ANY NEW PROBLEMS WITH YOUR MEDICATIONS? NO . WHEN DID YOU LAST EAT? [id number] . WHEN DID YOU LAST DRINK? [id number] . WHAT DID YOU LAST DRINK? ____ . NAME OF PERSON DRIVING YOU HOME? ____ . DO YOU HAVE ANY OTHER QUESTIONS OR CONCERNS NO . VITAL SIGNS WT 212.8 LBS, HT 61 IN, BMI 40.20 INDEX, BP 136/81 MM HG, HR 95 /MIN, RR 18 /MIN, TEMP 97.7 F, OXYGEN SAT % 96%, NA INITIALS SC 11:05, REVIEWED BY: CORNELL. ASSESSMENTS SPONDYLOSIS WITHOUT MYELOPATHY OR RADICULOPATHY, LUMBAR REGION - M47.816 (PRIMARY) SPONDYLOSIS OF LUMBOSACRAL REGION WITHOUT MYELOPATHY OR RADICULOPATHY - M47.817 TREATMENT SPONDYLOSIS WITHOUT MYELOPATHY OR RADICULOPATHY, LUMBAR REGION [facility] FACET BLOCK (PAIN)[id number] PROCEDURES PN WORKMANS' COMP OPINION IN YOUR OPINION, WAS THE INCIDENT THAT THE PATIENT DESCRIBED THE COMPETENT MEDICAL CAUSE OF THIS INJURY/ILLNESS? YES ARE THE PATIENT'S COMPLAINTS CONSISTENT WITH HIS/HER HISTORY OF THE INJURY/ILLNESS? YES IS THE PATIENT'S HISTORY OF THE INJURY/ILLNESS CONSISTENT WITH YOUR OBJECTIVE FINDING? YES WHAT IS THE PERCENTAGE OF TEMPORARY IMPAIRMENT? MODERATE TO MARKED = 66.7% IS THE PATIENT WORKING? YES DOCTOR ON SITE: BLANCA ALVAREZ MD PN LUMBAR FACET BLOCK THERAPEUTIC PRE PROCEDURE DIAGNOSIS LUMBAR SPONDYLOSIS, LUMBOSACRAL SPONDYLOSIS POST PROCEDURE DIAGNOSIS LUMBAR SPONDYLOSIS, LUMBOSACRAL SPONDYLOSIS PROCEDURE BILATERAL L4-L5 AND BILATERAL L5-S1 LUMBAR FACET THERAPEUTIC BLOCK SURGEON DR. BLANCA RODRIGUEZ DISASTER RECOVERY ANALYST NONE ANESTHESIA LOCAL PRE PROCEDURE NOTE THE PATIENT HAS A HISTORY OF CHRONIC LOW BACK PAIN. I EVALUATE THE PATIENT AND REVIEWED THE CHART. I WENT OVER THE RISKS, ALTERNATIVES, AND BENEFITS ASSOCIATED WITH THIS PROCEDURE. THE PATIENT WOULD LIKE TO PROCEED AND GIVE CONSENT TO PERFORMED THE PROCEDURE. THE PATIENT DENIES UNEXPLAINABLE WEIGHT LOSS, FEVER, CHILLS, OR NEW CHANGES IN URINARY OR BOWEL CONTROL DESCRIPTION OF PROCEDURE THE PATIENT WAS BROUGHT TO THE PROCEDURE ROOM AND PLACED IN THE PRONE POSITION. THE LUMBOSACRAL AREA WAS CLEANED WITH CHLORAPREP SOLUTION AND DRAPED ASEPTICALLY. THE PROCEDURE WAS DONE UNDER STERILE CONDITIONS. I CHECKED LATERALITY AND THE LEVEL WHERE THE PROCEDURE WAS GOING TO BE PERFORMED WITH THE PATIENT AND THE SUPPORTING STAFF AT THE MOMENT OF THE TIME OUT IN THE PROCEDURE ROOM. UNDER FLUOROSCOPIC GUIDANCE, THE TARGET POINT WAS SELECTED AT THE RIGHT AND LEFT L4-L5 AND RIGHT AND LEFT L5-S1 FACET JOINT. TARGET POINT WAS SELECTED AFTER LATERAL ROTATION AND TILT OF THE MAGNIFIER OF THE C-ARM. LIDOCAINE 0.5% WAS USED TO NUMB THE SKIN AND THE SUBCUTANEOUS TISSUE BELOW IT. SPINAL NEEDLES, 22-GAUGE, WERE ADVANCED UNDER FLUOROSCOPIC GUIDANCE AND FOLLOWING PATIENT FEEDBACK UNTIL THE TARGETS WERE TOUCHED. THE POSITION OF THE NEEDLES WAS VERIFIED WITH AP AND LATERAL VIEWS. AFTER PROPER POSITION OF THE NEEDLES WAS ACHIEVED, ISOVUE-M DYE 30% 0.1 ML WAS INJECTED SHOWING ADEQUATE SPREAD OF THE DYE. THEN A SOLUTION OF 1.9 ML OF BUPIVACAINE 0.125% OF KENALOG 10 MG WAS INJECTED AT EACH SITE. THERE WAS NO EVIDENCE OF BLOOD, PARESTHESIA OR CEREBROSPINAL FLUID DURING THE PROCEDURE. THE PATIENT WAS SENT TO THE RECOVERY ROOM. THE PATIENT WAS MOVING THE EXTREMITIES AND DOING WELL. THERE WAS NO COMPLICATION DURING THE PROCEDURE. FLUOROSCOPY TIME WAS 15 SECONDS POST PROCEDURE NOTE THE PATIENT WILL BE SEEN IN A FOLLOW UP IN THE NEXT FEW WEEKS. INSTRUCTIONS WERE GIVEN, QUESTIONS WERE ANSWERED, AND THE PATIENT EXPRESSED UNDERSTANDING AND AGREES WITH THE PLAN. I, ALFREDO ELLIS, DOCUMENTED THE ABOVE INFORMATION ACTING A SCRIBE FOR DR. RODRIGUEZ. I HAVE REVIEWED THE ABOVE DOCUMENT, WRITTEN BY ALFREDO PONCEIBJoslyn AND I VERIFY THAT IT IS ACCURATE. PROCEDURE CODES 6045F RADXPS IN END [id number] PXD 55183 INJ PARAVERT F JNT L/S 1 LEV, MODIFIERS: 50 [id number] INJ PARAVERT F JNT L/S 2 LEV, MODIFIERS: 50 DISPOSITION & COMMUNICATION FOLLOW UP 3 WEEKS ELECTRONICALLY SIGNED BY BLANCA RODRIGUEZ MD, MD ON 03/09/2019 AT 08:03 PM EDT DISCLAIMER : THIS IS A VISIT SUMMARY EXTRACTED FROM THE [employer] CHART. IT IS NOT A COPY OF THE [employer] PROGRESS NOTE. MTDD
== END ==
LOC: M PAIN 11:30
PROVIDERS: ATTEND Anesthesiology
DX: M47.816 Spondylosis without myelopathy or radiculopathy, lumbar region (principal); M47.817 Spondylosis without myelopathy or radiculopathy, lumbosacral region; M79.7 Fibromyalgia; F32.9 Major depressive disorder, single episode, unspecified; G47.30 Sleep apnea, unspecified; K21.9 Gastro-esophageal reflux disease without esophagitis; E78.2 Mixed hyperlipidemia; J30.2 Other seasonal allergic rhinitis; K58.9 Irritable bowel syndrome, unspecified; H04.123 Dry eye syndrome of bilateral lacrimal glands; E11.9 Type 2 diabetes mellitus without complications; F17.290 Nicotine dependence, other tobacco product, uncomplicated; F41.9 Anxiety disorder, unspecified; Z90.710 Acquired absence of both cervix and uterus; Z79.891 Long term (current) use of opiate analgesic; Z79.899 Other long term (current) drug therapy; Z79.84 Long term (current) use of oral hypoglycemic drugs; Z79.1 Long term (current) use of non-steroidal anti-inflammatories (NSAID)
CPT/HCPCS: 64493; 64494; J3301; Q9967

== ENCOUNTER → 2019-04-08 | Outpatient (CLI) | payer BC ==
[~2019-04-08] MED LIST changes: -BUPIVACAINE HCL 0.25% 30 ML VIAL As Ordered ONE; -ISOVUE-M 300 61% 15ML VIAL (Q9967) As Ordered ONE; -LIDOCAINE 1% SDV INJ 30 ML VIAL As Ordered ONE; -TRIAMCINOLONE ACETONIDE SUSP 40 MG/ML VIAL (J3301) As Ordered ONE; -diazePAM 5 MG TAB As Ordered ONE; -oxyCODONE 5MG TAB As Ordered ONE
[2019-04-08 15:30] LABS: HEMATOCRIT 37.9 % (36.0-47.0); HEMOGLOBIN 12.6 g/dl (12.0-15.5); MEAN CORPUSCULAR HEMOGLOBIN 30.1 pg (27.0-33.0); MEAN CORPUSCULAR HGB CONC 33.2 g/dl (32.0-36.5); MEAN CORPUSCULAR VOLUME 90.7 fl (80.0-96.0); PLATELET COUNT, AUTOMATED 243 10^3/uL (150-450); RED BLOOD COUNT 4.18 10^6/uL (4.00-5.40); WHITE BLOOD COUNT 5.1 10^3/uL (4.0-10.0)
[2019-04-08 15:40] LABS: INR 0.93; PROTHROMBIN TIME 12.5 SECONDS (12.1-14.4)
[2019-04-08 15:52] LABS: HEMOGLOBIN A1c 6.6 %
--- NOTE | 2019-04-08 15:54 | REP ---
Clinical: Hypertension. Preoperative assessment . Comparison: 01/10/2018 . Technique: PA and lateral. Findings: The mediastinum and cardiac silhouette are normal. The lung wen are clear and without acute consolidation, effusion, or pneumothorax. The skeletal structures are intact and normal. Impression: 1. No acute cardiopulmonary process. Electronically Signed by Tate Pascual MD 04/08/2019 03:46 P
[2019-04-08 16:19] LABS: ALBUMIN 4.5 GM/DL (3.2-5.2); ALT/SGPT 30 U/L (12-78); BILIRUBIN,TOTAL 0.3 MG/DL (0.2-1.0); BLOOD UREA NITROGEN 17 MG/DL (7-18); CALCIUM LEVEL 9.9 MG/DL (8.5-10.1); CARBON DIOXIDE LEVEL 29 MEQ/L (21-32); CHLORIDE LEVEL 105 MEQ/L (98-107); CHOLESTEROL LEVEL 173 MG/DL (<200); CHOLESTEROL RISK RATIO 2.932 (<5); GLOMERULAR FILTRATION RATE > 60.0 (>51); GLUCOSE, FASTING 74 MG/DL (70-100); HDL CHOLESTEROL 59 MG/DL (>40); LDL CHOLESTEROL 92 MG/DL (<100); NON-HDL-C 114 MG/DL; SODIUM LEVEL 140 MEQ/L (136-145); THYROID STIMULATING HORMONE 0.384 uIU/ML (0.358-3.740); TOTAL 25(OH) VITAMIN D 58.4 NG/ML (30.0-100.0); TOTAL PROTEIN 7.8 GM/DL (6.4-8.2); TRIGLYCERIDES LEVEL 108 MG/DL (<150)
--- NOTE | 2019-04-09 09:42 | ECGEPIP ---
[facility] Test Date: 2019-04-08 Pat Name: ROSANGELA ISAAC Department: Room: - Gender: Female Knocker Off: YAMILEX : 1960 Requested By: Michael Aguilar Order Number: [id number] Reading MD: Tommy Szymanski Measurements Intervals [place] Rate: 96 P: 49 MA: 153 QRS: 42 QRSD: 95 T: QT: 327 QTc: 414 Interpretive Statements SINUS RHYTHM NONSPECIFIC T-WAVE ABNORMALITY No significant change compared with 01/10/2018. Electronically Signed on 04-09-2019 9:42:00 EDT by Tommy Szymanski
== END ==
LOC: M LAB 14:27
PROVIDERS: ATTEND Family Medicine
DX: Z01.812 Encounter for preprocedural laboratory examination (principal); I10 Essential (primary) hypertension

== ENCOUNTER → 2019-05-12 | Outpatient (CLI) | payer OTHER ==
--- NOTE | 2019-05-23 01:11 | ECWPNPC ---
PATIENT NAME: ROSANGELA ISAAC : 1960 GENDER: FEMALE VISIT DATE: 05/12/2019 DISCHARGE DATE: 05/12/19 1239 VISIT LOCKED DATE TIME: PHYSICIAN: BLANCA RODRIGUEZ MD RESOURCE: BLANCA RODRIGUEZ MD REASON FOR APPOINTMENT 1. W/C BACK/KNEE HISTORY OF PRESENT ILLNESS HISTORY OF PRESENT ILLNESS: PAIN THE PATIENT DESCRIBES THE PAIN... 59 YEAR OLD FEMALE PATIENT WITH A HISTORY OF CHRONIC LOW BACK PAIN. THE PATIENT DESCRIBES THE PAIN ACHING, STABBING, SORE, CONTINUOUS, AND DAILY WITH A PAIN SCORE OF 6-8/10 DEPENDING ON PHYSICAL ACTIVITY. 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 THE PATIENT RECEIVED A BILATERAL L4-L5, L5-S1 THERAPEUTIC FACET BLOCK ON 02/25/2019, WHICH SHE STATES IS STILL WORKING FOR HER. THE PATIENT SAYS THE LUMBAR FACET BLOCK HAS DECREASED HER PAIN BY MORE THAN 50 PERCENT AND IS ALLOWING HER TO BE MORE MOBILE AND FUNCTIONAL, HOWEVER SHE STILL NEEDS HER MEDICATION TO COVER THE REST OF HER PAIN. THE PATIENT STATES SHE IS USING UP TO 2 TABLETS DAILY OF HYDROCODONE TO LOAD OUT PERSON IN PAIN RELIEF. THE PATIENT SAYS SHE FEELS SHE DOES NOT NEED ANY INTERVENTION FOR THE MOMENT. PATIENT DENIES UNEXPLAINABLE WEIGHT LOSS, FEVER, CHILLS, NEW CHANGES ON HER URINARY OR BOWEL CONTROL. FALL RISK SCREENING: SCREENING :NO FALLS REPORTED IN THE LAST YEAR CURRENT MEDICATIONS TAKING ONDANSETRON HCL 4 MG TABLET 1 TABLET ORALLY THREE TIMES DAILY NEEDED TAKING LIPITOR 80 MG TABLET 1 TABLET ORALLY ONCE A DAY TAKING OMEPRAZOLE 40 MG CAPSULE DELAYED RELEASE 1 CAPSULE ORALLY TWICE DAILY NEEDED TAKING ZOLOFT 100 MG TABLET 1 TABLET ORALLY ONCE A DAY TAKING KLONOPIN 1 MG TABLET 1 TABLET ORALLY BID NEEDED TAKING GLIPIZIDE 10 MG TABLET 1/2 TABLET ORALLY ONCE A DAY, NOTES: ON HOLD TAKING VITAMIN D (ERGOCALCIFEROL) 28130 UNIT CAPSULE 1 CAPSULE ORALLY WEEKLY TAKING LYRICA 200 MG CAPSULE 1 CAPSULE ORALLY FOR PAIN BID MDD=2 TAKING NORCO 10-325 MG TABLET 1 TABLET ORALLY EVERY 8-12 HRS PRN PAIN MDD=2 TAKING GABAPENTIN 100 MG CAPSULE 1 CAPSULE ORALLY TID, NOTES: 1 MONTH PRESCRIPTION TAKING CHILDRENS CHEWABLE VITAMINS - TABLET CHEWABLE 2 TABLETS ORALLY DAILY TAKING VITAMIN B-12 500 MCG TABLET 1 TABLET ORALLY ONCE A DAY NOT-TAKING LOSARTAN POTASSIUM 100 MG TABLET 1 TABLET ORALLY ONCE A DAY NOT-TAKING IBUPROFEN 800 MG TABLET 1 TABLET ORALLY WITH FOOD THREE TIMES A DAY PRN FOR PAIN MDD3 NOT-TAKING TIZANIDINE HCL 4 MG TABLET 1 TABLET NEEDED ORALLY FOR SPASMS AND PAIN EVERY 8 HRS (PAIN CLINIC) MDD3, NOTES: W/C REFUSES TO REFILL NOT-TAKING AMBIEN 5 MG TABLET 1 TAB(S) ORAL AT BEDTIME NEEDED (PECK) NOT-TAKING BUSPIRONE HCL 15 MG TABLET 1 TABLET ORALLY TWICE A DAY MEDICATION LIST REVIEWED AND RECONCILED WITH THE PATIENT PAST MEDICAL HISTORY FIBROMYALGIA CHRONIC BACK PAIN ICD-9 724.5 POSITIVE LYME TITER DEPRESSION ICD-9 311.0 SLEEP APNEA/USING C-PAP AT NIGHT ACID REFLUX ENVIROMENTAL ALLERGIES MIXED HYPERLIPIDEMA? IBS CHRONIC DRY EYES HISTORY OF FIBROIDS S/P HYSTERECTOMY ASCVD 12 YR RISK: 17 ANXIETY HEART MURMUR ALLERGIES SEASONAL SURGICAL HISTORY TUBALIGATION 1983 APPENDECTOMY HYSTERECTOMY/ LAP ASSISTED VAGINAL --- DUE TO ADENOMYOSIS AND FIBROID UTERUS 11/21 COLONOSCOPY 2009 RIGHT BREAST BIOPSY 2010 GASTRIC BYPASS 04/2019 FAMILY HISTORY FATHER: UNKNOWN MOTHER: , INFLUENZA SIBLINGS: ALIVE SON(S): ALIVE DAUGHTER(S): , LUPUS, FIBROMYALGIA, ASTHMA, LYME DISEASE, DUE TO MVA 2 BROTHER(S) , 1 SISTER(S) - HEALTHY. 3 SON(S) , 1 DAUGHTER(S) . SISTER- MS\\NSON - ENLARGED HEART. SOCIAL HISTORY GENERAL: TOBACCO USE ARE YOU A:CURRENT SMOKER E- CIGS ONLY SMOKING CESSATION INFORMATION GIVEN02/15/2018 E-CIGARETTEYES OTHERS AT HOME: SPOUSE. EDUCATION LEVEL OF EDUCATION:COLLEGE DIET: REGULAR. LANGUAGE LANGUAGES SPOKEN:GAMBIAN NEW PATIENT PAIN DIARY FROM 0-10, WHAT LEVEL IS YOUR PAIN TODAY?10 BMI CARE GOAL FOLLOW-UP ABOVE NORMAL BMI FOLLOW-UPGIVING ENCOURAGEMENT TO EXERCISE RECREATIONAL DRUG USE DRUG USE?NO EXERCISE: NO REGULAR EXERCISE. LEARNING BARRIERS / SPECIAL NEEDS CHANGE FROM LAST VISIT?NO BARRIERS TO LEARNING?NO HEARING IMPAIRED?NO VISION IMPAIRED?YES :CORRECTIVE LENSES COGNITIVELY IMPAIRED?NO READINESS TO LEARN?YES LEARNING PREFERENCES?NO LEARNING CAPABILITIES PRESENT?YES EMOTIONAL BARRIERS?NO SPECIAL DEVICES?NO SPEECH PROFESSOR NEEDED?NO PAIN CLINIC PFS, CLERGY, PUBLIC HEALTH REFERRALS HAS THE PATIENT BEEN EDUCATED REGARDING HIS/HER PLAN OF CARE?YES HAS THE PATIENT BEEN EDUCATED REGARDING PAIN, THE RISK FOR PAIN, THE IMPORTANCE OF EFFECTIVE PAIN MANAGEMENT, AND THE PAIN ASSESSMENT PROCESS?YES LATEX QUESTIONNAIRE LATEX ALLERGY : HAVE YOU EVER DEVELOPED ANY TYPE OF REACTION AFTER HANDLING LATEX PRODUCTS SUCH RUBBER GLOVES, CONDOMS, DIAPHRAGMS, BALLOONS, SOCKS, OR UNDERWEAR?NO LATEX ALLERGY : HAVE YOU EVER DEVELOPED ANY TYPE OF REACTION DURING OR AFTER DENTAL APPOINTMENT, VAGINAL/RECTAL EXAMINATION, SURGICAL PROCEDURE, OR ANY OTHER EXPOSURE?NO LATEX RISK : HAVE YOU EVER HAD ANY DIFFICULTY BREATHING OR HIVES AFTER EATING OR HANDLING ANY FRUITS, OR VEGETABLES; SUCH KIWI, BANANAS, STONE FRUITS, OR CHESTNUTSYES - PLEASE INDICATE : BANANAS LATEX RISK : DO YOU HAVE A PREVIOUS PERSONAL HISTORY OF MORE THAN NINE SURGERIES, SPINA BIFIDA, OR REPEATED CATHERTIZATIONS? NO LATEX RISK : ARE YOU FREQUENTLY EXPOSED TO LATEX PRODUCTS IN YOUR OCCUPATION?NO DATE ASKED : 05/12/2019 CAFFEINE CAFFEINE USE?YES COFFEE 2 CUPS A DAY ADVANCE DIRECTIVE ADVANCE DIRECTIVE DISCUSSED WITH PATIENT:YES DECLINED HCP INFORMATION AT THIS TIME. MANDAEISM [id number] WORSHIP NO PENTECOSTAL BELIEFS THAT WOULD IMPACT HEALTH CARE. MARITAL STATUS: . ALCOHOL SCREENING DID YOU HAVE A DRINK CONTAINING ALCOHOL IN THE PAST YEAR?NO POINTS0 INTERPRETATIONNEGATIVE OCCUPATION: [employer]. SEXUAL HX HAD SEX IN THE LAST 12 MONTHS (VAGINAL, ORAL, OR ANAL)?YES , 4 ADULT KIDS. ALL LIVE TOGETHER....UNEMPLOYED...DOES NOT SMOKE OR DRINK.REVIEWED WITH PATIENT 08/26/18 1539 JSREVIEWED WITH PATIENT 01/10/19 1355 JSREVIEWED WITH PATIENT 05/12/19 1207 JS. HOSPITALIZATION/MAJOR DIAGNOSTIC PROCEDURE [facility] - DEPRESSION 2012 CHILDBIRTH X 4 SURGERY RELATED 04/2019 REVIEW OF SYSTEMS REVIEWED BY: PROVIDER: BLANCA RODRIGUEZ MD . CONSTITUTIONAL: ANY CHANGE IN YOUR MEDICAL CONDITION? NO . CHILLS NO . FEVER NO . INFECTION: DO YOU HAVE NEW INFECTIONS? NO . DO YOU HAVE HISTORY OF MRSA? NO . MUSCULOSKELETAL: ANY NEW PATTERNS OF PAIN OR NUMBNESS? YES, PATIENT HAS NOTICED PAIN STARTING TO GO UP TO THE THORACIC REGION OF HER ABCK SINCE HAVING HER GASTRIC BYPASS SURGERY A FEW WEEKS AGO AND SINCE STARTING TO LOSE WEIGHT . GASTROENTEROLOGY: ANY NEW CHANGE IN BOWEL CONTROL? NO . GENITOURINARY: ANY NEW CHANGE IN BLADDER CONTROL? NO . IS THERE A CHANCE YOU COULD BE ? NO . HEMATOLOGY/LYMPH: DO YOU TAKE ANY BLOOD THINNERS? (FOR EXAMPLE- COUMADIN, PLAVIX, AGGRENOX, PLATEL, PRADAXA, OR XARELTO) NO . WHEN WAS YOUR LAST DOSE? DATE: TIME: . NEUROLOGY: HAVE YOU FALLEN IN THE PAST 12 MONTHS? NO . ANY NEW EXTREMITY NUMBNESS OR WEAKNESS? NO . CARDIOLOGY: DO YOU HAVE A PACEMAKER OR DEFIBRILLATOR? NO . RESPIRATORY: HAVE YOU BEEN SICK IN THE PAST WEEK? NO . FEVER NO . FLU LIKE SYMPTOMS? NO . COUGH NO . INTEGUMENTARY: DO YOU HAVE ANY RASHES OR OPEN SORES? NO . ALLERGIC/IMMUNO: ARE YOU ALLERGIC TO IV DYE? NO . ANY NEW ALLERGIES? NO . PSYCHIATRIC: DO YOU HAVE THOUGHTS OF HURTING YOURSELF OR SOMEONE ELSE? NO . ARE YOU ABUSED, NEGLECTED, OR IN AN UNSAFE ENVIRONMENT? NO . ENDOCRINOLOGY: ARE YOU DIABETIC? YES . OTHER: DO YOU NEED ANY PRESCRIPTIONS? YES . IF YES, PLEASE LIST: ____LYRICA . ANY NEW PROBLEMS WITH YOUR MEDICATIONS? NO . WHEN DID YOU LAST EAT? ____ . WHEN DID YOU LAST DRINK? ____ . WHAT DID YOU LAST DRINK? ____ . NAME OF PERSON DRIVING YOU HOME? ____ . DO YOU HAVE ANY OTHER QUESTIONS OR CONCERNS NO . VITAL SIGNS WT 192.0 LBS, HT 61 IN, BMI 36.27 INDEX, BP 125/61 MM HG, HR 104 /MIN, RR 18 /MIN, TEMP 96.0 F, OXYGEN SAT % 99%, SAFE IN ENV? (Y/N) YES, NA INITIALS AW 1154, REVIEWED BY: JS. EXAMINATION GENERAL EXAMINATION: PATIENT IS ALERT O X 3 AND COOPERATIVE. MRI OF THE LUMBAR SPINE DONE ON 12/22/2014 SHOWS FACET ARTHROPATHY CHANGES. ASSESSMENTS SPONDYLOSIS OF LUMBAR REGION WITHOUT MYELOPATHY OR RADICULOPATHY - M47.816 (PRIMARY) SPONDYLOSIS OF LUMBOSACRAL REGION WITHOUT MYELOPATHY OR RADICULOPATHY - M47.817 TREATMENT SPONDYLOSIS OF LUMBAR REGION WITHOUT MYELOPATHY OR RADICULOPATHY CLINICAL NOTES: WE DISCUSSED SEVERAL ISSUES WITH MS. ISAAC'S PAIN MANAGEMENT CASE. DUE TO THE PATIENT RECEIVING MORE THAN 50 PERCENT OF GOOD PAIN RELIEF FROM THE BILATERAL THERAPEUTIC LUMBAR FACET BLOCK DONE ON 02/25/2019, THE PATIENT SAYS SHE DOES NOT NEED ANY FURTHER INTERVENTION AT THIS TIME. THE PATIENT IS ADVISED TO BRING HER MEDICATION IN THEIR ORIGINAL BOTTLES TO EACH VISIT. URINE TOXICOLOGY DONE ON 01/10/2019 SHOWS CONCURRENT RESULTS. THE PATIENT WILL CONTINUE WITH HER CURRENT MEDICATION REGIMEN AND I REFILLED THE LYRICA AND NORCO TABLETS AT TODAY'S VISIT. THE PATIENT WILL FOLLOW UP IN 3 MONTHS WITH SAMMIE, NURSE PRACTITIONER, AND WAS ADVISED TO CALL IF SHE NEEDED TO BE SEEN SOONER. INSTRUCTIONS WERE GIVEN, QUESTIONS WERE ANSWERED, PATIENT REPORTS UNDERSTANDING AND AGREES WITH THE PLAN. I, SALEEM ROCHA, DOCUMENTED THE ABOVE INFORMATION ACTING A SCRIBE FOR DR. RODRIGUEZ. I HAVE REVIEWED THE ABOVE DOCUMENT, WRITTEN BY SALEEM PONCEIBJoslyn AND I VERIFY THAT IT IS ACCURATE. . OTHERS REFILL LYRICA CAPSULE, 200 MG, 1 CAPSULE, ORALLY FOR PAIN, BID MDD=2, 30 DAY(S), 60, REFILLS 0 REFILL NORCO TABLET, 10-325 MG, 1 TABLET, ORALLY, EVERY 8-12 HRS PRN PAIN MDD=2, 30 DAY(S), 55, REFILLS 0 PROCEDURES PN WORKMANS' COMP OPINION IN YOUR OPINION, WAS THE INCIDENT THAT THE PATIENT DESCRIBED THE COMPETENT MEDICAL CAUSE OF THIS INJURY/ILLNESS? YES ARE THE PATIENT'S COMPLAINTS CONSISTENT WITH HIS/HER HISTORY OF THE INJURY/ILLNESS? YES IS THE PATIENT'S HISTORY OF THE INJURY/ILLNESS CONSISTENT WITH YOUR OBJECTIVE FINDING? YES WHAT IS THE PERCENTAGE OF TEMPORARY IMPAIRMENT? MODERATE TO MARKED = 66.7% IS THE PATIENT WORKING? NO DOCTOR ON SITE: BLANCA ALVAREZ MD PROCEDURE CODES FA211 ESTABILISHED PATIENT [facility] CHARGE G8427 CURRENT MEDS W/DOSAGES DOCUMENTED G8730 PAIN ASSESS POS TOOL F/U PLAN DOC DISPOSITION & COMMUNICATION FOLLOW UP 3 MONTHS (REASON: W/ SUBWAY GUARD ) ELECTRONICALLY SIGNED BY BLANCA RODRIGUEZ MD, MD ON 05/22/2019 AT 01:40 PM EDT DISCLAIMER : THIS IS A VISIT SUMMARY EXTRACTED FROM THE [employer] CHART. IT IS NOT A COPY OF THE [employer] PROGRESS NOTE. ROVERTO
== END ==
LOC: M PAIN 11:45
PROVIDERS: ATTEND Anesthesiology
DX: M47.816 Spondylosis without myelopathy or radiculopathy, lumbar region (principal); M47.817 Spondylosis without myelopathy or radiculopathy, lumbosacral region; M79.7 Fibromyalgia; F32.9 Major depressive disorder, single episode, unspecified; G47.30 Sleep apnea, unspecified; E11.9 Type 2 diabetes mellitus without complications; K21.9 Gastro-esophageal reflux disease without esophagitis; J30.2 Other seasonal allergic rhinitis; K58.9 Irritable bowel syndrome, unspecified; H04.123 Dry eye syndrome of bilateral lacrimal glands; F41.9 Anxiety disorder, unspecified; F17.290 Nicotine dependence, other tobacco product, uncomplicated; Z98.84 Bariatric surgery status; Z90.710 Acquired absence of both cervix and uterus; Z90.49 Acquired absence of other specified parts of digestive tract; Z79.891 Long term (current) use of opiate analgesic; Z79.899 Other long term (current) drug therapy

== ENCOUNTER → 2019-05-27 | Outpatient (CLI) | payer BC ==
[~2019-05-27] MED LIST changes: +CLON1TAB8 PO; +HYDR-4517 PO; +NICO14PA TD; +NITR-67 PO; +OMEP-221 PO; +ONDA4TAB6 PO; +PRAV20TA2 PO; +SERT-138 PO; +TIZA4TAB4 PO; +VALS1TAB66 PO; +VITA50005 PO; +ZOFR4TAB16 PO
[2019-05-27 16:46] LABS: BASO % 0.6 % (0.0-1.0); EOS # 0.1 10^3/uL (0.0-0.50); EOS % 1.5 % (0.0-3.0); HEMATOCRIT 39.8 % (36.0-47.0); HEMOGLOBIN 12.7 g/dl (12.0-15.5); LYMPH # 1.8 10^3/uL (1.5-4.5); MEAN CORPUSCULAR HEMOGLOBIN 29.6 pg (27.0-33.0); MEAN CORPUSCULAR HGB CONC 31.9 g/dl (32.0-36.5); MEAN CORPUSCULAR VOLUME 92.8 fl (80.0-96.0); MONO # 0.4 10^3/uL (0.0-0.8); MONO % 7.9 % (0.0-5.0); NEUTROPHILS % 56.6 % (36.0-66.0); PLATELET COUNT, AUTOMATED 194 10^3/uL (150-450); RED BLOOD COUNT 4.29 10^6/uL (4.00-5.40); WHITE BLOOD COUNT 5.3 10^3/uL (4.0-10.0)
[2019-05-27 16:48] LABS: HEMATOCRIT 39.8 % (36.0-47.0)
[2019-05-27 17:10] LABS: ALBUMIN 4.2 GM/DL (3.2-5.2); ALT/SGPT 30 U/L (12-78); BILIRUBIN,TOTAL 0.3 MG/DL (0.2-1.0); BLOOD UREA NITROGEN 9 MG/DL (7-18); CALCIUM LEVEL 9.6 MG/DL (8.5-10.1); CARBON DIOXIDE LEVEL 24 MEQ/L (21-32); CHLORIDE LEVEL 105 MEQ/L (98-107); CREATININE FOR GFR 0.87 MG/DL (0.55-1.30); FERRITIN 112 NG/ML (8-252); GLOMERULAR FILTRATION RATE > 60.0 (>51); GLUCOSE, FASTING 83 MG/DL (70-100); IRON (FE) 40 UG/DL (50-170); MAGNESIUM LEVEL 1.9 MG/DL (1.8-2.4); PERCENT SATURATION 13.5 % (13.2-45.0); PHOSPHORUS LEVEL 3.1 MG/DL (2.5-4.9); POTASSIUM SERUM 3.6 MEQ/L (3.5-5.1); SODIUM LEVEL 141 MEQ/L (136-145); TOTAL IRON BINDING CAPACITY 296 UG/DL (250-450); TOTAL PROTEIN 7.5 GM/DL (6.4-8.2)
[2019-05-27 17:50] LABS: TOTAL 25(OH) VITAMIN D 74.4 NG/ML (30.0-100.0); VITAMIN B12 LEVEL > 2000 PG/ML (247-911)
[2019-05-27 18:17] LABS: HEMOGLOBIN A1c 5.4 %
== END ==
LOC: M WUC 14:19
PROVIDERS: ATTEND Physician Assistant
DX: K91.2 Postsurgical malabsorption, not elsewhere classified (principal); E55.9 Vitamin D deficiency, unspecified; Z98.84 Bariatric surgery status

== ENCOUNTER → 2019-06-12 | Outpatient (CLI) | payer BC ==
[~2019-06-12] MED LIST changes: -CLON1TAB8 PO; +E-Z-HD 98% w/w 340GM SUSP BTL As Ordered ONE; +E-Z-PAQUE 96% w/w SUSP 176GM BTL As Ordered ONE; -HYDR-4517 PO; -NICO14PA TD; -OMEP-221 PO; -ONDA4TAB6 PO; -PRAV20TA2 PO; -SERT-138 PO; -TIZA4TAB4 PO; -VALS1TAB66 PO; -VITA50005 PO; -ZOFR4TAB16 PO
--- NOTE | 2019-06-12 17:12 | REP ---
UPPER GI SINGLE CONTRAST AND SMALL BOWEL FOLLOW-THROUGH The procedure was performed under the direct supervision of Dr. Bryant. The images were reviewed with Dr. Bryant The scoop driver film shows no organomegaly or pathological masses. The intestinal gas pattern is non-specific. Liquid barium was given in the erect and prone oblique positions in order to perform a single contrast upper GI and small bowel follow-through examination. The oral and pharyngeal stages of deglutition are unremarkable. Esophageal transport is prompt and efficient and there is no esophagitis, stricture, mucosal ring or hiatal hernia. The patient is status post gastric bypass. The stomach vaughan are normally outlined . The rugal folds are smooth and regular. There is no evidence of gastritis neoplasm or ulcer disease. There is free flow of contrast through the anastomosis. There is no evidence of stricture or obstruction. The visualized portion of the proximal small bowel appears normal in course and caliber. The barium column was followed through the small bowel to the terminal ileum. Small bowel transit time is rapid as there is contrast seen in the right colon by the end of the upper GI examination. During fluoroscopy gentle palpation shows all loops are freely movable and pliable. There are no fixed or angulated loops. The small bowel mucosal pattern is normal in course and caliber. There is no transition to suggest a partial small-bowel obstruction. Spot filming of the terminal ileum shows it to be unremarkable. Impression: Postsurgical changes consistent with the patient's history of gastric bypass. Otherwise, unremarkable single contrast upper GI examination. Small bowel follow-through examination shows rapid transit time as there is contrast seen in the right colon by the end of the upper GI examination. 2.3 minutes of fluoro time was utilized for this procedure. Reviewed by BRICE Marquez 06/12/2019 04:54 P Electronically Signed by William Bryant MD 06/12/2019 05:03 P
== END ==
LOC: M RAD 08:18
PROVIDERS: ATTEND Physician Assistant
DX: R10.13 Epigastric pain (principal); R13.10 Dysphagia, unspecified

== ENCOUNTER 2019-06-13 19:30 | Emergency (ER) | payer BC ==
[~2019-06-13] VITALS: Ht 154.9 cm; Wt 81.4 kg
[~2019-06-13 19:30] MED LIST changes: -E-Z-HD 98% w/w 340GM SUSP BTL As Ordered ONE; -E-Z-PAQUE 96% w/w SUSP 176GM BTL As Ordered ONE; -NITR-67 PO
[2019-06-13 20:04] LABS: APPEARANCE, URINE HAZY (CLEAR); BACTERIA, URINE AUTO 2+ (NEGATIVE); BILIRUBIN, URINE AUTO NEGATIVE (NEGATIVE); BLOOD, URINE BLOOD NEGATIVE (NEGATIVE); COLOR, URINE YELLOW (YELLOW); GLUCOSE, URINE (UA) AUTO NEGATIVE (NEGATIVE); KETONE, URINE AUTO 2+ mg/dL (NEGATIVE); LEUKOCYTE ESTERASE, URINE AUTO 2+ (NEGATIVE); MUCUS, URINE SMALL (NEGATIVE); NITRITE, URINE AUTO NEGATIVE (NEGATIVE); PROTEIN, URINE AUTO NEGATIVE (NEGATIVE); RBC, URINE AUTO 11 /HPF (0-3); SPECIFIC GRAVITY URINE AUTO 1.015 (1.002-1.035); SQUAMOUS EPITHELIAL CELL UR AU 0 /HPF (0-6); UROBILINOGEN, URINE AUTO 0.2 mg/dL (0.0-2.0); WBC, URINE AUTO 28 /HPF (0-3)
[2019-06-13 20:23] LABS: HEMATOCRIT 34.1 % (36.0-47.0); HEMOGLOBIN 11.5 g/dl (12.0-15.5); MEAN CORPUSCULAR HEMOGLOBIN 29.3 pg (27.0-33.0); MEAN CORPUSCULAR HGB CONC 33.7 g/dl (32.0-36.5); MEAN CORPUSCULAR VOLUME 86.8 fl (80.0-96.0); PLATELET COUNT, AUTOMATED 208 10^3/uL (150-450); RED BLOOD COUNT 3.93 10^6/uL (4.00-5.40); WHITE BLOOD COUNT 5.2 10^3/uL (4.0-10.0)
[2019-06-13] MEDS ORDERED: NS 1,000 ML IV ONE (21:00)
[2019-06-13] MEDS ORDERED: MORPHINE 2 MG/ML 1ML VIAL (J2270) IV ONE ×2 (21:00→22:00)
[2019-06-13 21:12] LABS: BASO % 0.6 % (0.0-1.0); EOS # 0.1 10^3/uL (0.0-0.50); EOS % 2.5 % (0.0-3.0); LYMPH # 1.7 10^3/uL (1.5-4.5); LYMPH % 33.4 % (24.0-44.0); MONO # 0.3 10^3/uL (0.0-0.8); MONO % 6.2 % (0.0-5.0); NEUTROPHILS # 2.9 10^3/uL (1.8-7.7); NEUTROPHILS % 56.7 % (36.0-66.0)
[2019-06-13 21:17] LABS: ALBUMIN 3.7 GM/DL (3.2-5.2); ALT/SGPT 51 U/L (12-78); BILIRUBIN,TOTAL 0.3 MG/DL (0.2-1.0); BLOOD UREA NITROGEN 10 MG/DL (7-18); CALCIUM LEVEL 9.4 MG/DL (8.5-10.1); CARBON DIOXIDE LEVEL 22 MEQ/L (21-32); CHLORIDE LEVEL 109 MEQ/L (98-107); CREATININE FOR GFR 0.86 MG/DL (0.55-1.30); GLOMERULAR FILTRATION RATE > 60.0 (>51); GLUCOSE, FASTING 107 MG/DL (70-100); POTASSIUM SERUM 3.5 MEQ/L (3.5-5.1); SODIUM LEVEL 142 MEQ/L (136-145); TOTAL PROTEIN 6.5 GM/DL (6.4-8.2)
[2019-06-13] MEDS: GASTROGRAFIN SOLUTION 30ML PO SCH ×2 (21:43→22:20)
[2019-06-13] MEDS ORDERED: ISOVUE-370 76% 100ML VIAL (Q9967) As Ordered ONE (22:11)
--- NOTE | 2019-06-13 23:42 | REPVR ---
EXAM: CT Abdomen and Pelvis With Contrast EXAM DATE/TIME: 06/13/2019 10:41 PM CLINICAL HISTORY: 59 years old, female; Abdominal pain; Localized; Left lower quadrant (llq); Additional info: Left lower quadrant abdominal pain left flank pain TECHNIQUE: Imaging protocol: Axial computed tomography images of the abdomen and pelvis with intravenous contrast. Coronal and sagittal reformatted images were created and reviewed. Radiation optimization: All CT scans at this facility use at least one of these dose optimization techniques: automated exposure control; mA and/or kV adjustment per patient size (includes targeted exams where dose is matched to clinical indication); or iterative reconstruction. Contrast material: ISOVUE 370;Contrast volume: 100 ml;Contrast route: IV; COMPARISON: XA Upper G.I. with small bowel 06/12/2019 8:34 AM FINDINGS: Lungs: Minimal dependent atelectasis in the lung bases. Liver: There is fatty infiltration of the liver. The liver attenuation is 80 Hounsfield units and the spleen is 139 Hounsfield units. Gallbladder and bile ducts: Normal. No calcified stones. No ductal dilation. Pancreas: Normal. No ductal dilation. Spleen: Normal. No splenomegaly. Adrenals: Normal. No mass. Kidneys and ureters: There is a right renal cyst measuring 32 mm. Stomach and bowel: Residual colonic barium with prominent beam hardening artifact. Status post gastric bypass with trace fluid in the bypassed stomach. There is left upper quadrant Alfonso-en-Y. Appendix: There are no changes of appendicitis. A normal appendix is not seen. Intraperitoneal space: See Stomach And Bowel Finding. Vasculature: Normal. No abdominal aortic aneurysm. Lymph nodes: Normal. No enlarged lymph nodes. Bladder: Unremarkable as visualized. Reproductive: Status post hysterectomy. Bones/joints: Lower lumbar facet arthropathy with anterolisthesis of L4-L5 and moderate spinal stenosis L3-L4. Soft tissues: Unremarkable. IMPRESSION: 1. Residual colonic barium with beam hardening artifact. 2. Fatty infiltration of the liver. 3. Status post gastric bypass. 4. Status post hysterectomy. 5. Lower lumbar degenerative changes with moderate spinal stenosis at L3-L4. 6. [address] abdomen/pelvis. No renal or ureteral calculi are evident and there is no evidence of obstructive uropathy. Electronically signed by: Efra Hyatt On 06/13/2019 23:42:03 PM
[2019-06-14] MEDS ORDERED: NITR-67 PO (00:08)
[2019-06-14 00:10] VITALS: BP 111/76
[2019-06-14] MEDS ORDERED: NITROFURANTOIN (MACROBID) 100 MG CAP As Ordered ONE (00:12)
[2019-06-14] MEDS ORDERED: NITROFURANTOIN (MACROBID) 100 MG CAP PO ONE (00:15)
== END 2019-06-14 00:18 | disposition home or self-care (01) ==
LOC: M ED 19:30
DX: N30.00 Acute cystitis without hematuria (principal); K76.0 Fatty (change of) liver, not elsewhere classified; N28.1 Cyst of kidney, acquired; E11.9 Type 2 diabetes mellitus without complications; K21.9 Gastro-esophageal reflux disease without esophagitis; Z87.42 Personal history of other diseases of the female genital tract; Z98.84 Bariatric surgery status; J30.1 Allergic rhinitis due to pollen; Z79.899 Other long term (current) drug therapy; Z79.84 Long term (current) use of oral hypoglycemic drugs
CPT/HCPCS: 74177; 80053; 81001; 83605; 85027; 87088; 87186; 96374; 96376; 99284; J2270; Q9963; Q9967

== ENCOUNTER → 2019-06-17 | Outpatient (CLI) | payer BC ==
[~2019-06-17] MED LIST changes: +NITR-67 PO
[2019-06-17 12:24] LABS: HEMOGLOBIN A1c 5.6 %
[2019-06-17 12:40] LABS: CHOLESTEROL RISK RATIO 4.153 (<5); THYROID STIMULATING HORMONE 0.794 uIU/ML (0.358-3.740)
== END ==
LOC: M LAB 11:42
PROVIDERS: ATTEND Family Medicine
DX: E03.9 Hypothyroidism, unspecified (principal); R53.83 Other fatigue; E11.9 Type 2 diabetes mellitus without complications

== ENCOUNTER → 2019-06-30 | Outpatient (CLI) | payer BC ==
--- NOTE | 2019-06-30 10:53 | REPMRS ---
Patient History The patient states she has not had a clinical breast exam in over a year. Family history of endometrial cancer at age 55 in mother, colorectal cancer in maternal aunt. Benign stereotactic core biopsy of the right breast, December 26, 2010. Patient had gastric bypass on 04/30- 35 pound weight loss. Digital Mammo Screening Bilat: June 30, 2019 - Exam #: [id number] Bilateral CC and MLO view(s) were taken. Technologist: Ana Laura Alvarez, Technologist Prior study comparison: September 29, 2016, digital woman screen mammo, performed at [facility]. July 10, 2012, bilateral digital mammo screening bilat performed at [facility]. May 23, 2011, bilateral digital mammo screening bilat performed at [facility]. FINDINGS: There are scattered fibroglandular densities. There is a needle biopsy marker again noted in the upper outer quadrant of the right breast. There is a moderate amount of residual fibroglandular tissue which is fairly symmetric. There is no interval development of dominant mass, architectural distortion, or grouped microcalcification typical of malignancy. There has been no change in the appearance of the mammogram from the prior studies. 3-D tomosynthesis shows no additional findings. Assessment: BI-RADS/ACR category 2 mammogram. Benign Findings. Recommendation Routine screening mammogram of both breasts in 1 year (for women over age 40). This patient's Lifetime Breast Cancer RIsk is estimated at 7.1 %. This mammogram was interpreted with the aid of an FDA-approved computer-aided dectection system. Electronically Signed By: Vincent Rizo MD 06/30/19 5241
== END ==
LOC: M RAD 09:37
PROVIDERS: ATTEND Family Medicine
DX: Z12.31 Encounter for screening mammogram for malignant neoplasm of breast (principal); Z80.49 Family history of malignant neoplasm of other genital organs; Z86.018 Personal history of other benign neoplasm; Z98.84 Bariatric surgery status

== ENCOUNTER → 2019-07-07 | Outpatient (CLI) | payer BC | LOC: M OUTALCOH 11:09 | PROVIDERS: ATTEND Psychiatry & Neurology Psychiatry | DX: F13.10 Sedative, hypnotic or anxiolytic abuse, uncomplicated (principal) ==

== ENCOUNTER → 2019-08-11 | Outpatient (REF) | payer BC ==
[~2019-08-11] MED LIST changes: +CLON1TAB8 PO; +HYDR-4517 PO; +NICO14PA TD; +OMEP-221 PO; +ONDA4TAB6 PO; +PRAV20TA2 PO; +SERT-138 PO; +TIZA4TAB4 PO; +VALS1TAB66 PO; +VITA50005 PO; +ZOFR4TAB16 PO
== END ==
LOC: M LAB REF 09:03
PROVIDERS: ATTEND Physician Assistant
DX: N39.0 Urinary tract infection, site not specified (principal)

== ENCOUNTER → 2019-08-12 | Outpatient (CLI) | payer OTHER ==
[~2019-08-12] MED LIST changes: -CLON1TAB8 PO; -HYDR-4517 PO; -NICO14PA TD; -OMEP-221 PO; -ONDA4TAB6 PO; -PRAV20TA2 PO; -SERT-138 PO; -TIZA4TAB4 PO; -VALS1TAB66 PO; -VITA50005 PO; -ZOFR4TAB16 PO
--- NOTE | 2019-08-14 00:32 | ECWPNPC ---
PATIENT NAME: ROSANGELA ISAAC : 1960 GENDER: FEMALE VISIT DATE: 08/12/2019 DISCHARGE DATE: 08/12/19 1222 VISIT LOCKED DATE TIME: PHYSICIAN: SAMMIE MURILLO RESOURCE: SAMMIE MURILLO REASON FOR APPOINTMENT 1. W/C BACK/KNEE HISTORY OF PRESENT ILLNESS HISTORY OF PRESENT ILLNESS: PAIN THE PATIENT DESCRIBES THE PAIN... THE PATIENT DESCRIBES THE PAIN... 59 YEAR OLD FEMALE PATIENT WITH A HISTORY OF CHRONIC LOW BACK PAIN. THE PATIENT DESCRIBES THE PAIN ACHING, STABBING, SORE, SHOOTING, TENDER, AND CONTINUOUS WITH A PAIN SCORE OF 8/10 DEPENDING ON PHYSICAL ACTIVITY. 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 THE PATIENT RECEIVED A BILATERAL L4-L5, L5-S1 THERAPEUTIC FACET BLOCK ON 02/25/2019, WHICH SHE STATES HAD HELPED MANAGE HER PAIN UP UNTIL RECENTLY WHEN IT STARTED TO RETURN. THE PATIENT SAYS THE LUMBAR FACET BLOCK HAS DECREASED HER PAIN BY MORE THAN 50 PERCENT AND IS ALLOWING HER TO BE MORE MOBILE AND FUNCTIONAL, HOWEVER SHE STILL NEEDS HER MEDICATION TO COVER THE REST OF HER PAIN. 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 THE PATIENT WOULD LIKE TO DISCUSS THE ADDITION OF TIZANIDINE TO HELP MANAGE PAIN. FALL RISK SCREENING: SCREENING :NO FALLS REPORTED IN THE LAST YEAR CURRENT MEDICATIONS TAKING ONDANSETRON HCL 4 MG TABLET 1 TABLET ORALLY THREE TIMES DAILY NEEDED TAKING LIPITOR 80 MG TABLET 1 TABLET ORALLY ONCE A DAY TAKING OMEPRAZOLE 40 MG CAPSULE DELAYED RELEASE 1 CAPSULE ORALLY TWICE DAILY NEEDED TAKING ZOLOFT 100 MG TABLET 1 TABLET ORALLY ONCE A DAY TAKING KLONOPIN 1 MG TABLET 1 TABLET ORALLY BID NEEDED TAKING VITAMIN D (ERGOCALCIFEROL) 58270 UNIT CAPSULE 1 CAPSULE ORALLY WEEKLY TAKING VITAMIN B-12 500 MCG TABLET 1 TABLET ORALLY ONCE A DAY TAKING LYRICA 200 MG CAPSULE 1 CAPSULE ORALLY FOR PAIN BID MDD=2 TAKING NORCO 10-325 MG TABLET 1 TABLET ORALLY EVERY 8-12 HRS PRN PAIN MDD=2 TAKING CITRACAL PLUS - TABLET DIRECTED ORALLY TAKING MULTIVITAMIN ADULT - TABLET DIRECTED ORALLY NOT-TAKING GLIPIZIDE 10 MG TABLET 1/2 TABLET ORALLY ONCE A DAY, NOTES: ON HOLD NOT-TAKING GABAPENTIN 100 MG CAPSULE 1 CAPSULE ORALLY TID, NOTES: 1 MONTH PRESCRIPTION NOT-TAKING CHILDRENS CHEWABLE VITAMINS - TABLET CHEWABLE 2 TABLETS ORALLY DAILY NOT-TAKING LOSARTAN POTASSIUM 100 MG TABLET 1 TABLET ORALLY ONCE A DAY NOT-TAKING IBUPROFEN 800 MG TABLET 1 TABLET ORALLY WITH FOOD THREE TIMES A DAY PRN FOR PAIN MDD3 NOT-TAKING TIZANIDINE HCL 4 MG TABLET 1 TABLET NEEDED ORALLY FOR SPASMS AND PAIN EVERY 8 HRS (PAIN CLINIC) MDD3, NOTES: W/C REFUSES TO REFILL NOT-TAKING AMBIEN 5 MG TABLET 1 TAB(S) ORAL AT BEDTIME NEEDED (PECK) NOT-TAKING BUSPIRONE HCL 15 MG TABLET 1 TABLET ORALLY TWICE A DAY MEDICATION LIST REVIEWED AND RECONCILED WITH THE PATIENT PAST MEDICAL HISTORY FIBROMYALGIA CHRONIC BACK PAIN ICD-9 724.5 POSITIVE LYME TITER DEPRESSION ICD-9 311.0 SLEEP APNEA/USING C-PAP AT NIGHT ACID REFLUX ENVIROMENTAL ALLERGIES MIXED HYPERLIPIDEMA? IBS CHRONIC DRY EYES HISTORY OF FIBROIDS S/P HYSTERECTOMY ASCVD 12 YR RISK: 17 ANXIETY HEART MURMUR ALLERGIES SEASONAL SURGICAL HISTORY TUBALIGATION 1983 APPENDECTOMY HYSTERECTOMY/ LAP ASSISTED VAGINAL --- DUE TO ADENOMYOSIS AND FIBROID UTERUS 11/21 COLONOSCOPY 2009 RIGHT BREAST BIOPSY 2010 GASTRIC BYPASS 04/2019 FAMILY HISTORY FATHER: UNKNOWN MOTHER: , INFLUENZA SIBLINGS: ALIVE SON(S): ALIVE DAUGHTER(S): , LUPUS, FIBROMYALGIA, ASTHMA, LYME DISEASE, DUE TO MVA 2 BROTHER(S) , 1 SISTER(S) - HEALTHY. 3 SON(S) , 1 DAUGHTER(S) . SISTER- MS\\NSON - ENLARGED HEART. SOCIAL HISTORY GENERAL: TOBACCO USE ARE YOU A:CURRENT SMOKER E- CIGS ONLY E-CIGARETTEYES SMOKING CESSATION INFORMATION GIVEN02/15/2018 OTHERS AT HOME: SPOUSE. EDUCATION LEVEL OF EDUCATION:COLLEGE DIET: REGULAR. LANGUAGE LANGUAGES SPOKEN:GHANAIAN NEW PATIENT PAIN DIARY FROM 0-10, WHAT LEVEL IS YOUR PAIN TODAY?10 BMI CARE GOAL FOLLOW-UP ABOVE NORMAL BMI FOLLOW-UPGIVING ENCOURAGEMENT TO EXERCISE RECREATIONAL DRUG USE DRUG USE?NO EXERCISE: NO REGULAR EXERCISE. LEARNING BARRIERS / SPECIAL NEEDS CHANGE FROM LAST VISIT?NO BARRIERS TO LEARNING?NO HEARING IMPAIRED?NO VISION IMPAIRED?YES COGNITIVELY IMPAIRED?NO :CORRECTIVE LENSES READINESS TO LEARN?YES LEARNING PREFERENCES?NO LEARNING CAPABILITIES PRESENT?YES EMOTIONAL BARRIERS?NO SPECIAL DEVICES?NO GARAGEMAN NEEDED?NO PAIN CLINIC PFS, CLERGY, PUBLIC HEALTH REFERRALS HAS THE PATIENT BEEN EDUCATED REGARDING HIS/HER PLAN OF CARE?YES HAS THE PATIENT BEEN EDUCATED REGARDING PAIN, THE RISK FOR PAIN, THE IMPORTANCE OF EFFECTIVE PAIN MANAGEMENT, AND THE PAIN ASSESSMENT PROCESS?YES LATEX QUESTIONNAIRE LATEX ALLERGY : HAVE YOU EVER DEVELOPED ANY TYPE OF REACTION AFTER HANDLING LATEX PRODUCTS SUCH RUBBER GLOVES, CONDOMS, DIAPHRAGMS, BALLOONS, SOCKS, OR UNDERWEAR?NO LATEX ALLERGY : HAVE YOU EVER DEVELOPED ANY TYPE OF REACTION DURING OR AFTER DENTAL APPOINTMENT, VAGINAL/RECTAL EXAMINATION, SURGICAL PROCEDURE, OR ANY OTHER EXPOSURE?NO DATE ASKED : 05/12/2019 LATEX RISK : HAVE YOU EVER HAD ANY DIFFICULTY BREATHING OR HIVES AFTER EATING OR HANDLING ANY FRUITS, OR VEGETABLES; SUCH KIWI, BANANAS, STONE FRUITS, OR CHESTNUTSYES - PLEASE INDICATE : BANANAS LATEX RISK : DO YOU HAVE A PREVIOUS PERSONAL HISTORY OF MORE THAN NINE SURGERIES, SPINA BIFIDA, OR REPEATED CATHERIZATIONS? NO LATEX RISK : ARE YOU FREQUENTLY EXPOSED TO LATEX PRODUCTS IN YOUR OCCUPATION?NO CAFFEINE CAFFEINE USE?YES COFFEE 2 CUPS A DAY ADVANCE DIRECTIVE ADVANCE DIRECTIVE DISCUSSED WITH PATIENT:YES DECLINED HCP INFORMATION OR ASSISTANCE AT THIS TIME. EPISCOPAL [id number] ANABAPTISM NO ADVENTIST BELIEFS THAT WOULD IMPACT HEALTH CARE. MARITAL STATUS: . ALCOHOL SCREENING DID YOU HAVE A DRINK CONTAINING ALCOHOL IN THE PAST YEAR?NO POINTS0 INTERPRETATIONNEGATIVE OCCUPATION: [employer]. SEXUAL HX HAD SEX IN THE LAST 12 MONTHS (VAGINAL, ORAL, OR ANAL)?YES , 4 ADULT KIDS. ALL LIVE TOGETHER....UNEMPLOYED...DOES NOT SMOKE OR DRINK.REVIEWED WITH PATIENT 08/26/18 1539 JSREVIEWED WITH PATIENT 01/10/19 1355 JSREVIEWED WITH PATIENT 05/12/19 1207 JSREVIEWED WITH PATIENT 08/12/2019 LAS. HOSPITALIZATION/MAJOR DIAGNOSTIC PROCEDURE HU - DEPRESSION 2012 CHILDBIRTH X 4 SURGERY RELATED 04/2019 REVIEW OF SYSTEMS REVIEWED BY: PROVIDER: MARTÍN MORALES . CONSTITUTIONAL: ANY CHANGE IN YOUR MEDICAL CONDITION? NO . CHILLS NO . FEVER NO . INFECTION: DO YOU HAVE NEW INFECTIONS? YES URINARY TRACT INFECTION, TREATED WITH ANTIBIOTICS . DO YOU HAVE HISTORY OF MRSA? NO . MUSCULOSKELETAL: ANY NEW PATTERNS OF PAIN OR NUMBNESS? YES PT REPORTS HER PAIN IN HER LOW BACK HAS RETURNED. . GASTROENTEROLOGY: ANY NEW CHANGE IN BOWEL CONTROL? NO . GENITOURINARY: ANY NEW CHANGE IN BLADDER CONTROL? NO . IS THERE A CHANCE YOU COULD BE ? NO . HEMATOLOGY/LYMPH: DO YOU TAKE ANY BLOOD THINNERS? (FOR EXAMPLE- COUMADIN, PLAVIX, AGGRENOX, PLATEL, PRADAXA, OR XARELTO) NO . WHEN WAS YOUR LAST DOSE? DATE: TIME: . NEUROLOGY: HAVE YOU FALLEN IN THE PAST 12 MONTHS? NO . ANY NEW EXTREMITY NUMBNESS OR WEAKNESS? NO . CARDIOLOGY: DO YOU HAVE A PACEMAKER OR DEFIBRILLATOR? NO . RESPIRATORY: HAVE YOU BEEN SICK IN THE PAST WEEK? NO . FEVER NO . FLU LIKE SYMPTOMS? NO . COUGH NO . INTEGUMENTARY: DO YOU HAVE ANY RASHES OR OPEN SORES? NO . ALLERGIC/IMMUNO: ARE YOU ALLERGIC TO IV DYE? NO . ANY NEW ALLERGIES? NO . PSYCHIATRIC: DO YOU HAVE THOUGHTS OF HURTING YOURSELF OR SOMEONE ELSE? NO . ARE YOU ABUSED, NEGLECTED, OR IN AN UNSAFE ENVIRONMENT? NO . ENDOCRINOLOGY: ARE YOU DIABETIC? NO . OTHER: DO YOU NEED ANY PRESCRIPTIONS? NO . IF YES, PLEASE LIST: ____ . ANY NEW PROBLEMS WITH YOUR MEDICATIONS? NO . WHEN DID YOU LAST EAT? ____ . WHEN DID YOU LAST DRINK? ____ . WHAT DID YOU LAST DRINK? ____ . NAME OF PERSON DRIVING YOU HOME? ____ . DO YOU HAVE ANY OTHER QUESTIONS OR CONCERNS YES PT HAD BILATERAL LUMBAR FACET BLOCKS DONE 02/25/19, WOULD LIKE TO GET THESE DONE AGAIN. WOULD ALSO LIKE TO DISCUSS TIZANIDINE. . VITAL SIGNS WT 161.6 LBS, HT 61 IN, BMI 30.53 INDEX, BP 120/72 MM HG, HR 90 /MIN, RR 18 /MIN, TEMP 97.8 F, OXYGEN SAT % 95%, SAFE IN ENV? (Y/N) YES, NA INITIALS VA 11:20, REVIEWED BY: DREA. EXAMINATION GENERAL EXAMINATION: GENERALNO ACUTE DISTRESS, WELL NOURISHED AND HYDRATED. PSYCHAPPROPRIATE MOOD AND AFFECT . LUNGS:CLEAR TO AUSCULTATION BILATERALLY, NO WHEEZES, RHONCHI, RALES. HEART:NO MURMURS, REGULAR RATE AND RHYTHM. ABDOMEN:POINT TENDER OVER LUMBAR REGION SURROUNDING SKIN SHOWS NO ERYTHEMA, ECCHYMOSIS, INCREASED WARMTH, AND/OR SKIN ERUPTIONS NOTED. PATIENT DOES ENDORSE INCREASED PAIN WITH FACET LOADING. . ASSESSMENTS SPONDYLOSIS WITHOUT MYELOPATHY OR RADICULOPATHY, LUMBAR REGION - M47.816 (PRIMARY) TREATMENT SPONDYLOSIS WITHOUT MYELOPATHY OR RADICULOPATHY, LUMBAR REGION CONTINUE TIZANIDINE HCL TABLET, 4 MG, 1 TABLET NEEDED, ORALLY FOR SPASMS AND PAIN, EVERY 8 HRS NEEDED (PAIN CLINIC) MDD3, 30 DAYS, 90, NOTES: W/C REFUSES TO REFILL [facility] MRI LUMBAR W/O CONTRAST (CPT 13635)[id number] NOTES: BILATERAL THERAPEUTIC FACET L4-L5 L5-S1. CLINICAL NOTES: WORKMEN'S COMP. CHRONIC PAIN FOLLOW-UP. GIVEN PRESENTING SYMPTOMS AND RESULTS OF PHYSICAL EXAMINATION RECOMMENDED TIZANIDINE 4 MG 3 TIMES A DAY NEEDED FOR MUSCLE SPASM, AND THERAPEUTIC FACET BLOCK BILATERALLY. WE WILL FOLLOW-UP POST PROCEDURE. UPDATED MRI WILL BE NEEDED PRIOR TO PROCEDURE. DISCUSS POTENTIAL SEDATION FROM TIZANIDINE WITH PATIENT. PATIENT HAS EXPRESSED UNDERSTANDING OF AND WAS IN AGREEMENT WITH TREATMENT PLAN. GIVEN TIME TO ASK QUESTIONS AND EXPRESS CONCERNS., ISTOP REGISTRY REVIEWED AND DEMONSTRATES COMPLLIANCE. (REF # [id number] ) BRINGS IN MEDICATIONS WHICH IS APPROPRIATE FOR WHAT WAS DISPENSED. RECENT URINE TOXICOLOGY REVIEWED. NO UNAUTHORIZED MEDICATIONS. NO ILLICIT SUBSTANCES AND PRESCRIBED MEDICATIONS WERE PRESENT. OTHERS NOTES: TIZANIDINE MATERIAL WAS PRINTED. PROCEDURES PN WORKMANS' COMP OPINION IN YOUR OPINION, WAS THE INCIDENT THAT THE PATIENT DESCRIBED THE COMPETENT MEDICAL CAUSE OF THIS INJURY/ILLNESS? YES ARE THE PATIENT'S COMPLAINTS CONSISTENT WITH HIS/HER HISTORY OF THE INJURY/ILLNESS? YES IS THE PATIENT'S HISTORY OF THE INJURY/ILLNESS CONSISTENT WITH YOUR OBJECTIVE FINDING? YES WHAT IS THE PERCENTAGE OF TEMPORARY IMPAIRMENT? MODERATE TO MARKED = 66.7% IS THE PATIENT WORKING? NO DOCTOR ON SITE: BLANCA ALVAREZ MD PREVENTIVE MEDICINE PAIN CLINIC TEACHING: MEDICATIONS PRINTED AND REVIEWED INFORMATION ON NEW MEDICATION, TIZANIDINE. PATIENT VERBALIZED AN UNDERSTANDING. HALEIGH LAMB 08/12/2019 12:13:37 PM > . PROCEDURE TEACHING REVIEWED INFORMATION ON THERAPEUTIC FACET BLOCK WITH PATIENT. ALSO REVIEWED PRE-PROCEDURE INSTRUCTIONS. PATIENT VERBALIZED AN UNDERSTANDING. HALEGIH LAMB 08/12/2019 12:14:31 PM > . PROCEDURE CODES FA211 ESTABILISHED PATIENT ORIENTAL [facility]ODOX FACILITY CHARGE DISPOSITION & COMMUNICATION FOLLOW UP POST PROCEDURE (REASON: BILATERAL THERAPEUTIC FACET L4-L5 L5-S1) ELECTRONICALLY SIGNED BY FINA MEYER ON 08/13/2019 AT 10:59 AM EDT DISCLAIMER : THIS IS A VISIT SUMMARY EXTRACTED FROM THE [employer] CHART. IT IS NOT A COPY OF THE [employer] PROGRESS NOTE. ROVERTO
== END ==
LOC: M PAIN 11:15
PROVIDERS: ATTEND Family Medicine
DX: M47.816 Spondylosis without myelopathy or radiculopathy, lumbar region (principal); G89.29 Other chronic pain; M79.7 Fibromyalgia; Z86.59 Personal history of other mental and behavioral disorders; G47.30 Sleep apnea, unspecified; K21.9 Gastro-esophageal reflux disease without esophagitis; Z98.84 Bariatric surgery status; F17.290 Nicotine dependence, other tobacco product, uncomplicated; Z79.891 Long term (current) use of opiate analgesic; Z79.899 Other long term (current) drug therapy

== ENCOUNTER 2019-08-25 15:13 | Observation (INO) | payer BC, OTHER ==
[~2019-08-25] VITALS: Ht 152.4 cm; Wt 69.8 kg
[2019-08-25] MEDS ORDERED: CLON1TAB8 PO ×2 (15:21→21:56)
[2019-08-25] MEDS ORDERED: TIZA4TAB4 PO (15:21)
[2019-08-25 19:43] LABS: INFLUENZA A AMPLIFICATION NEGATIVE (NEGATIVE); INFLUENZA B AMPLIFICATION NEGATIVE (NEGATIVE)
[2019-08-25 19:55] LABS: BASO % 0.4 % (0.0-1.0); EOS % 0.3 % (0.0-3.0); HEMATOCRIT 35.4 % (36.0-47.0); HEMOGLOBIN 11.8 g/dl (12.0-15.5); LYMPH # 1.6 10^3/uL (1.5-5.0); LYMPH % 23.1 % (24.0-44.0); MEAN CORPUSCULAR HEMOGLOBIN 30.3 pg (27.0-33.0); MEAN CORPUSCULAR HGB CONC 33.3 g/dl (32.0-36.5); MEAN CORPUSCULAR VOLUME 90.8 fl (80.0-96.0); MONO # 0.6 10^3/uL (0.0-0.8); MONO % 8.2 % (0.0-5.0); NEUTROPHILS # 4.6 10^3/uL (1.5-8.5); NEUTROPHILS % 67.4 % (36.0-66.0); PLATELET COUNT, AUTOMATED 233 10^3/uL (150-450); WHITE BLOOD COUNT 6.8 10^3/uL (4.0-10.0)
[2019-08-25 20:05] LABS: INR 1.06; PROTHROMBIN TIME 13.6 SECONDS (11.8-14.0)
[2019-08-25 20:06] LABS: PARTIAL THROMBOPLASTIN TIME 37.4 SECONDS (25.0-38.4)
[2019-08-25] MEDS ORDERED: NS 1,000 ML IV ONE (20:15)
[2019-08-25 20:34] LABS: ALBUMIN 3.1 GM/DL (3.2-5.2); ALT/SGPT 46 U/L (12-78); BILIRUBIN,DIRECT 0.2 MG/DL (0.0-0.2); BILIRUBIN,TOTAL 0.4 MG/DL (0.2-1.0); BLOOD UREA NITROGEN 8 MG/DL (7-18); CALCIUM LEVEL 9.1 MG/DL (8.5-10.1); CARBON DIOXIDE LEVEL 29 MEQ/L (21-32); CHLORIDE LEVEL 104 MEQ/L (98-107); CK-MB VALUE MASS < 1.0 NG/ML (<3.6); CPK CREATINE PHOSPHOKINASE 31 U/L (26-192); FREE T4 3.35 NG/DL (0.76-1.46); GLOMERULAR FILTRATION RATE > 60.0 (>51); GLUCOSE, FASTING 97 MG/DL (70-100); LIPASE 41 U/L (73-393); MB/CK RELATIVE INDEX 3.23 (< OR =4); POTASSIUM SERUM 2.7 MEQ/L (3.5-5.1); SODIUM LEVEL 140 MEQ/L (136-145); THYROID STIMULATING HORMONE 0.298 uIU/ML (0.358-3.740); TOTAL PROTEIN 6.7 GM/DL (6.4-8.2); TROPONIN I < 0.02 NG/ML (< 0.10)
[2019-08-25] MEDS: GASTROGRAFIN SOLUTION 30ML PO SCH ×2 (20:45→21:15)
[2019-08-25] MEDS ORDERED: KCL 10MEQ/100ML SWI (KRUN) 10 MEQ in IV 1 EA IV ONE (20:45)
[2019-08-25] MEDS ORDERED: POTASSIUM CHLORIDE 10 MEQ SR TABLET PO ONE (21:00)
[2019-08-25] MEDS ORDERED: POTASSIUM CHLORIDE 10% LIQ 20 MEQ/15 ML UDC PO ONE (21:30)
[2019-08-25] MEDS ORDERED: ONDA4TAB6 PO (21:52)
[2019-08-25] MEDS ORDERED: HYDR-4517 PO (21:52)
[2019-08-25] MEDS ORDERED: VITA50005 PO (21:52)
[2019-08-25] MEDS ORDERED: VALS1TAB66 PO (21:52)
[2019-08-25] MEDS ORDERED: OMEP-221 PO (21:52)
[2019-08-25] MEDS ORDERED: SERT-138 PO (21:52)
[2019-08-25] MEDS ORDERED: PRAV20TA2 PO (21:52)
[2019-08-25] MEDS ORDERED: ISOVUE-370 76% 100ML VIAL (Q9967) As Ordered ONE (22:06)
--- NOTE | 2019-08-25 22:58 | REPVR ---
PROCEDURE INFORMATION: Exam: CT Abdomen And Pelvis With Contrast Exam date and time: 08/25/2019 10:10 PM Clinical history: 59 years old, female; Abdominal pain; Generalized; Additional info: Gen abd pain, vomiting TECHNIQUE: Imaging protocol: Computed tomography of the abdomen and pelvis with intravenous contrast. Radiation optimization: All CT scans at this facility use at least one of these dose optimization techniques: automated exposure control; mA and/or kV adjustment per patient size (includes targeted exams where dose is matched to clinical indication); or iterative reconstruction. Contrast material: ISOVUE 370; Contrast volume: 100 ml; Contrast route: IV; COMPARISON: CT ABD/PEL W/IV ORAL CONTRAS 06/13/2019 10:15 PM FINDINGS: Liver: Normal. No mass. Gallbladder and bile ducts: Normal. No calcified stones. No ductal dilation. Pancreas: 3 mm tiny hypodense focus in the pancreatic uncinate process is unchanged, could be intercalated fat, or a small IPMN. Spleen: Normal. No splenomegaly. Adrenals: Normal. No mass. Kidneys and ureters: 3.4 cm right superior renal pole cyst. Stomach and bowel: Alfonso-en-Y gastric bypass surgical changes in the left upper abdomen. Numerous small bowel loops with excess fluid and fluid levels without discernible transition point, question mild antritis or viral illness. Appendix: no appendix is visualized. Intraperitoneal space: Unremarkable. No free air. No significant fluid collection. Vasculature: Unremarkable. No abdominal aortic aneurysm. Lymph nodes: Unremarkable. No enlarged lymph nodes. Bladder: Unremarkable as visualized. Reproductive: Hysterectomy. Bones/joints: Grade one L4-5 anterolisthesis. Mild/moderate L3-S1 spinal and foraminal stenosis. Soft tissues: Unremarkable. IMPRESSION: Numerous small bowel loops with excess fluid and fluid levels without discernible transition point, question mild antritis or viral illness. Electronically signed by: Tommy Tsai On 08/25/2019 22:58:03 PM
[2019-08-25] MEDS ORDERED: PERCOCET 5MG/325MG TAB PO ONE (23:45)
[2019-08-26] MEDS ORDERED: clonazePAM 1 MG TAB PO PRN (01:30)
[2019-08-26] MEDS ORDERED: MOM 30ML SUSPENSION UDC PO PRN (01:30)
[2019-08-26] MEDS ORDERED: clonazePAM 0.5 MG TAB PO PRN (01:30)
[2019-08-26] MEDS ORDERED: ACETAMINOPHEN TAB 650MG DOSE (2X325MG) PO PRN (01:30)
[2019-08-26] MEDS ORDERED: HYDROcodone/APAP LIQUID 7.5-325MG 15ML UDC (LORTAB ELIXIR) PO PRN (01:30)
--- NOTE | 2019-08-26 01:37 | HPEPDOC ---
General Date of Admission 08/26/19 Date of Service: Aug 26, 2019 Primary Care Physician: Michael Salcedo Chief Complaint The patient is a 59-year-old female admitted with a reason for visit of Flu Sx, Back Pain. Source: Patient Exam Limitations: No limitations Timing/Duration: Other Severity: Moderate (5 days) Associated Symptoms: Nausea, Vomiting History of Present Illness This is a 59 years old female with past medical history of gastric bypass surge ry, anxiety, vitamin D deficiency, depression, was in her usual state of health until about 4-5 days ago when she developed body aches and pains and is started nausea and vomiting which was progressively getting worse and yesterday she had a near syncopal episode for a few seconds without any headache, a lot of loss of consciousness and patient decided to come to ED, where she was found to be hy pokalemic and we were asked to admit patient for possible syncope and hypokalemia. Patient denies abdominal pain, shortness of breath or chest pain Home Medications Scheduled Ergocalciferol (Vitamin D2) (Vitamin D2) 50,000 Unit Capsule, 50,000 UNIT PO 1XWK, (Reported) SATURDAYS Omeprazole (Omeprazole) 40 Mg Capsule.dr, 40 MG PO DAILY, (Reported) Pravastatin Sodium (Pravastatin Sodium) 20 Mg Tablet, 20 MG PO DAILY, (Reported) Sertraline HCl (Sertraline HCl) 100 Mg Tablet, 100 MG PO DAILY, (Reported) Valsartan (Valsartan) 80 Mg Tablet, 80 MG PO DAILY, (Reported) Scheduled PRN Clonazepam (Clonazepam) 1 Mg Tablet, 1 MG PO QHS PRN for ANXIETY, (Reported) Clonazepam (Clonazepam) 1 Mg Tablet, 0.5 MG PO DAILY PRN for ANXIETY, (Reported) Hydrocodone/Acetaminophen (Hydrocodone-Acetamin 10-325 mg) 1 Each Tablet, 1 TAB PO BID PRN for PAIN, (Reported) Ondansetron (Ondansetron Odt) 4 Mg Tab.rapdis, 4 MG PO Q6H PRN for NAUSEA OR VOMITING, (Reported) Tizanidine HCl (Tizanidine HCl) 4 Mg Tablet, 4 MG PO Q8H PRN for MUSCLE SPASMS, (Reported) Allergies Coded Allergies: POLLEN (Verified Allergy, Unknown, 09/17/12) No Known Allergies (Unverified , 04/17/05) Past Medical History Medical History Anxiety, depression, GERD, vitamin D deficiency Surgical History History of gastric bypass surgery, tubal ligation, partial hysterectomy Family History Significant Family History: No pertinent family hx Social History * Smoker: Denies Alcohol: Denies Drugs: denies A-FIB/CHADSVASC A-FIB History Current/History of A-Fib/PAF?: No Review of Systems Constitutional: Denies: Chills, Fever, Malaise, Night Sweats, Weakness, Fatigue, Weight Loss, Lethargy, Other Eyes: Denies: Pain, Vision change, Conjunctivae inflammation, Eyelid inflamma tion, Redness, Other ENT: Denies: Head Aches, Ear Pain, Dysphagia, Sinus Congestion, Post Nasal Drip, Sore Throat, Epistaxis, Other Symptoms Skin: Denies: Rash, Lesions, Jaundice, Bruising, Itching, Dry, Breakdown, Nail Changes, Other Pulmonary: Denies: Dyspnea, Cough, Pleuritic Chest Pain, Other Symptoms Cardiovascular: Denies: Chest Pain, Palpitations, Orthopnea, Paroxysmal Noc. Dyspnea, Edema, Lt Headedness, Other Symptoms Gastrointestinal: Reports: Nausea, Vomiting Genitourinary: Denies: Dysuria, Frequency, Incontinence, Hematuria, Retention, Other Symptoms Hematologic: Denies: Bruising, Bleeding Excessively, Petecchia, Purpura, Enlar ged Lymph Nodes, Other Hematologic Endocrine: Denies: Polydipsia, Polyphagia, Polyuria, Heat Intolerance, Cold Intolerance, Other Endocrine Sx Musculoskeletal: Denies: Neck Pain, Back Pain, Shoulder Pain, Arm Pain, Hand Pain, Leg Pain, Foot Pain, Joint Pain, Muscle Pain, Spasms, Other Symptoms Neurological: Denies: Weakness, Numbness, Incoordination, Change in speech, Confusion, Seizures, Other Symptoms Psych: Denies: Mood Normal, Anxiety, Depression, Memory Issues, Thoughts of Self Harm, Anger, Thoughts of Harming Other, Other Psych Physical Examination General Exam: Positive: Alert, Cooperative Eye Exam: Positive: PERRLA, Conjunctiva & lids normal ENT Exam: Positive: Atraumatic, Mucous membr. moist/pink Neck Exam: Positive: Supple, JVD Chest Exam: Positive: Clear to auscultation, Normal air movement Heart Exam: Positive: Rate Normal, Normal S1, Normal S2 Abdomen Exam: Positive: Normal bowel sounds, Soft Skin Exam: Positive: Nl turgor and temperature Neuro Exam: Positive: Normal Gait, Normal Speech, Strength at 5/5 X4 ext, Sensation Intact Psych Exam: Positive: Mental status NL, Mood NL, Oriented x 3 Vital Signs Vital Signs Date Time Temp Pulse Resp B/P (MAP) Pulse Ox O2 Delivery O2 Flow Rate FiO2 08/25/19 23:57 19 94 08/25/19 22:15 98.9 94 155/95 (115) Room Air Laboratory Data Labs 24H Laboratory Tests 2 08/25/19 18:41: Influenza Type A (RT-PCR) NEGATIVE, Influenza Type B (RT-PCR) NEGATIVE 08/25/19 19:41: Immature Granulocyte % (Auto) 0.6, White Blood Count 6.8, Red Blood Count 3.90L, Hemoglobin 11.8L, Hematocrit 35.4L, Mean Corpuscular Volume 90.8, Mean Corpuscular Hemoglobin 30.3, Mean Corpuscular Hemoglobin Concent 33.3, Red Cell Distribution Width 13.3, Platelet Count 233, Neutrophils (%) (Auto) 67.4H, Lymphocytes (%) (Auto) 23.1L, Monocytes (%) (Auto) 8.2H, Eosinophils (%) (Auto) 0.3, Basophils (%) (Auto) 0.4, Neutrophils # (Auto) 4.6, Lymphocytes # (Auto) 1.6, Monocytes # (Auto) 0.6, Eosinophils # (Auto) 0.0, Basophils # (Auto) 0.0, Nucleated Red Blood Cells % (auto) 0.0, Prothrombin Time 13.6, Prothromb Time International Ratio 1.06, Activated Partial Thromboplast Time 37.4, Anion Gap 7L, Glomerular Filtration Rate > 60.0, Calcium Level 9.1, Aspartate Amino Transf (AST/SGOT) 23, Alanine Aminotransferase (ALT/SGPT) 46, Alkaline Phosphatase 100, Total Bilirubin 0.4, Direct Bilirubin 0.2, Total Creatine Kinase 31, Creatine Kinase MB < 1.0, Creatine Kinase MB Relative Index 3.23, Troponin I < 0.02, Total Protein 6.7, Albumin 3.1L, Albumin/Globulin Ratio 0.86L, Lipase 41L, Thyroid Stimulating Hormone (TSH) 0.298L, Free Thyroxine 3.35H CBC/BMP Laboratory Tests 08/25/19 19:41 Red Blood Count 3.90 L, Mean Corpuscular Volume 90.8, Mean Corpuscular Hemoglobin 30.3, Mean Corpuscular Hemoglobin Concent 33.3, Red Cell Distribution Width 13.3, Neutrophils (%) (Auto) 67.4 H, Lymphocytes (%) (Auto) 23.1 L, Monocytes (%) (Auto) 8.2 H, Eosinophils (%) (Auto) 0.3, Basophils (%) (Auto) 0.4, Neutrophils # (Auto) 4.6, Lymphocytes # (Auto) 1.6, Monocytes # (Auto) 0.6, Eosinophils # (Auto) 0.0, Basophils # (Auto) 0.0 Problems (1) Viral gastroenteritis Status: Acute Problem Text: Patient's symptoms are consistent with viral gastroenteritis CT abdominal pelvis consistent with mild antritis [facility] secondary to hyperkalemia IV fluids normal saline at 70 mL per hour Friend 4 mg IV every 4 hours when necessary for nausea, vomiting Repeat labs in a.m. including magnesium level GI panel has been requested Continue medical management depending on the lab work DVT prophylaxis with Lovenox Regular diet Continue home meds (2) Syncope Status: Acute Problem Text: Patient had an episode of near syncope as per history with no loss of consciousness ,lasted only a few seconds. Most likely secondary to volume loss and acute viral infection Patient does not need any extensive workup of workup for is her syncope as it most likely secondary to recent . She is been placed on alarm security or surveillance monitor didn't to watch her rhythm for 24 hour till patient is discharged (3) Hypokalemia Status: Acute Problem Text: Hypokalemia, most likely secondary to vomiting since last few days Potassium was corrected by the ED physician Repeat lab work at 6 AM has been ordered Corrected magnesium and potassium. If the levels are still low in the morning level work Plan / VTE VTE Prophylaxis Ordered?: Yes KELLIE PEACOCK MD Aug 26, 2019 01:37
[2019-08-26] MEDS: tiZANidine 4 MG TAB PO PRN ×2 (01:49→10:24)
[2019-08-26 02:15] VITALS: BP 121/78
[2019-08-26] MEDS: NS 1,000 ML IV SCH ×2 (02:38→16:06)
[2019-08-26 06:00] VITALS: BP 110/65
--- NOTE | 2019-08-26 07:44 | ECGEPIP ---
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
[2019-08-26 08:18] LABS: ALBUMIN 2.8 GM/DL (3.2-5.2); ALT/SGPT 40 U/L (12-78); BILIRUBIN,TOTAL 0.3 MG/DL (0.2-1.0); BLOOD UREA NITROGEN 6 MG/DL (7-18); CALCIUM LEVEL 8.6 MG/DL (8.5-10.1); CARBON DIOXIDE LEVEL 28 MEQ/L (21-32); CHLORIDE LEVEL 110 MEQ/L (98-107); CREATININE FOR GFR 0.55 MG/DL (0.55-1.30); GLOMERULAR FILTRATION RATE > 60.0 (>51); GLUCOSE, FASTING 93 MG/DL (70-100); MAGNESIUM LEVEL 1.9 MG/DL (1.8-2.4); POTASSIUM SERUM 3.2 MEQ/L (3.5-5.1); SODIUM LEVEL 144 MEQ/L (136-145); TOTAL PROTEIN 6.2 GM/DL (6.4-8.2)
[2019-08-26] MEDS: SERTRALINE 100 MG TAB PO SCH (08:18)
[2019-08-26] MEDS: PRAVASTATIN 20 MG TAB PO SCH (08:18)
[2019-08-26] MEDS: ENOXAPARIN 40 MG/0.4 ML SYRINGE (J1650) SC SCH (08:18)
[2019-08-26] MEDS: VALSARTAN 80 MG TAB (DIOVAN) PO SCH (08:22)
[2019-08-26] MEDS: ANEXSIA, NORCO 7.5MG/325MG TABLET(HYDROCODONE/APAP) PO PRN ×2 (08:24→18:45)
[2019-08-26] MEDS ORDERED: POTASSIUM CHLORIDE 10 MEQ SR TABLET PO SCH (09:00)
[2019-08-26] MEDS ORDERED: POTASSIUM CHLORIDE 10% LIQ 20 MEQ/15 ML UDC PO ONE (13:00)
[2019-08-26 14:00] VITALS: BP 144/81
--- NOTE | 2019-08-26 16:47 | REPVR ---
PROCEDURE INFORMATION: Exam: CT Head Without Contrast Exam date and time: 08/25/2019 7:04 PM Clinical history: 59 years old, female; Injury or trauma; Fall; Initial encounter; Blunt trauma (contusions or hematomas) TECHNIQUE: Imaging protocol: Computed tomography of the head without contrast. Radiation optimization: All CT scans at this facility use at least one of these dose optimization techniques: automated exposure control; mA and/or kV adjustment per patient size (includes targeted exams where dose is matched to clinical indication); or iterative reconstruction. COMPARISON: MRI-Brain without Contrast 10/15/2015 9:11 AM FINDINGS: Brain: Normal. No hemorrhage. Unremarkable white matter. No mass effect. Ventricles: Normal. No ventriculomegaly. Bones/joints: Unremarkable. No acute fracture. Sinuses: Visualized sinuses are unremarkable. No fluid levels. Mastoid air cells: Visualized mastoid air cells are well aerated. Soft tissues: Unremarkable. IMPRESSION: No acute intracranial abnormality. Electronically signed by: Jessica Ham On 08/26/2019 16:46:54 PM
--- NOTE | 2019-08-26 17:06 | REPVR ---
PROCEDURE INFORMATION: Exam: CT Cervical Spine Without Contrast Exam date and time: 08/25/2019 7:04 PM Clinical history: 59 years old, female; Injury or trauma; Fall; Initial encounter; Blunt trauma TECHNIQUE: Imaging protocol: Computed tomography images of the cervical spine without contrast. Radiation optimization: All CT scans at this facility use at least one of these dose optimization techniques: automated exposure control; mA and/or kV adjustment per patient size (includes targeted exams where dose is matched to clinical indication); or iterative reconstruction. COMPARISON: CT Spine,cervical w/o contrast 06/01/2017 3:15 PM FINDINGS: Vertebrae: There is straightening of the normal cervical lordosis. No acute fracture. Normal alignment. Discs/Spinal canal/Neural foramina: There is moderate to severe intervertebral disc space loss at C4/5 and C5/6. There is multilevel facet hypertrophy. At C4/5, diffuse disc osteophyte complex and mild facet hypertrophy contributes to severe right neural foraminal narrowing. At C5-C6, diffuse disc osteophyte complex and mild facet hypertrophy contributes to moderate bilateral neural foraminal narrowing. Soft tissues: The prevertebral soft tissues are within normal limits. There is a 6 mm hypodensity within the left thyroid lobe. Lungs: Lung apices are normal. IMPRESSION: No acute findings. Electronically signed by: Jessica Ham On 08/26/2019 17:05:37 PM
--- NOTE | 2019-08-26 17:07 | REPVR ---
PROCEDURE INFORMATION: Exam: CT Thoracic Spine Without Contrast Exam date and time: 08/25/2019 7:04 PM Clinical history: 59 years old, female; Injury or trauma; Fall; Initial encounter; Blunt trauma (contusions or hematomas) TECHNIQUE: Imaging protocol: Computed tomography images of the thoracic spine without contrast. Radiation optimization: All CT scans at this facility use at least one of these dose optimization techniques: automated exposure control; mA and/or kV adjustment per patient size (includes targeted exams where dose is matched to clinical indication); or iterative reconstruction. COMPARISON: No relevant prior studies available. FINDINGS: Vertebrae: No acute fracture. Normal alignment. Discs/Spinal canal/Neural foramina: There is no significant degenerative disc disease or spondylosis. The spinal canal and neural foramina are patent. Soft tissues: Unremarkable. IMPRESSION: No acute fracture. Electronically signed by: Jessica Ham On 08/26/2019 17:06:59 PM
--- NOTE | 2019-08-26 17:21 | REPVR ---
PROCEDURE INFORMATION: Exam: CT Lumbar Spine Without Contrast Exam date and time: 08/25/2019 7:04 PM Clinical history: 59 years old, female; Injury or trauma; Fall; Initial encounter; Blunt trauma (contusions or hematomas) TECHNIQUE: Imaging protocol: Computed tomography images of the lumbar spine without contrast. Radiation optimization: All CT scans at this facility use at least one of these dose optimization techniques: automated exposure control; mA and/or kV adjustment per patient size (includes targeted exams where dose is matched to clinical indication); or iterative reconstruction. COMPARISON: No relevant prior studies available. FINDINGS: Vertebrae: There is 3 mm of grade 1 anterolisthesis of L3 with respect to L4 and L4 with respect to L5. Normal vertebral body alignment is otherwise preserved. Discs/Spinal canal/Neural foramina: At L3/4, diffuse disc bulging/uncovering related to listhesis and moderate facet hypertrophy contribute to mild to moderate bilateral neural foraminal narrowing. At L4/5, diffuse disc bulging/uncovering related to listhesis and moderate facet hypertrophy contribute to mild to moderate bilateral neural foraminal narrowing. At L5/S1, diffuse disc bulging and mild facet hypertrophy contribute to mild left neural foraminal narrowing. Soft tissues: Unremarkable. Other: There is a 2.5 cm hypodensity arising from the upper pole of the right kidney, likely a cyst. IMPRESSION: No acute fracture. Chronic changes. Electronically signed by: Jessica Ham On 08/26/2019 17:20:34 PM
--- NOTE | 2019-08-26 17:22 | REPVR ---
PROCEDURE INFORMATION: Exam: CT Chest Without Contrast Exam date and time: 08/25/2019 7:04 PM Clinical history: 59 years old, female; Injury or trauma; Fall; Initial encounter; Blunt trauma (contusions or hematomas) TECHNIQUE: Imaging protocol: Computed tomography of the chest without contrast. Radiation optimization: All CT scans at this facility use at least one of these dose optimization techniques: automated exposure control; mA and/or kV adjustment per patient size (includes targeted exams where dose is matched to clinical indication); or iterative reconstruction. COMPARISON: CR Chest, 2 view PA, Lat 04/08/2019 2:52 PM FINDINGS: Lungs: Unremarkable. No consolidation. No masses. Pleural space: Unremarkable. No pneumothorax. No pleural effusion. Heart: There is trace pericardial fluid, likely within normal limits. Aorta: Unremarkable. No aortic aneurysm. Lymph nodes: There are calcified right hilar lymph nodes. Kidneys and ureters: There is a 2.7 cm cyst arising from the upper pole of the right kidney, incompletely characterized without contrast. Bones/joints: Unremarkable. No acute fracture. Soft tissues: Unremarkable. IMPRESSION: No acute abnormality. Electronically signed by: Jessica Ham On 08/26/2019 17:22:27 PM
[2019-08-26] MEDS: PANTOPRAZOLE 40MG TAB (PROTONIX) PO SCH (20:37)
[2019-08-26 22:00] VITALS: BP 142/79
[2019-08-27] MEDS: NS 1,000 ML IV SCH ×2 (03:33→19:40)
[2019-08-27 06:00] VITALS: BP 133/82
[2019-08-27 06:34] LABS: HEMATOCRIT 30.7 % (36.0-47.0); MEAN CORPUSCULAR HEMOGLOBIN 30.2 pg (27.0-33.0); MEAN CORPUSCULAR HGB CONC 32.6 g/dl (32.0-36.5); MEAN CORPUSCULAR VOLUME 92.7 fl (80.0-96.0); PLATELET COUNT, AUTOMATED 230 10^3/uL (150-450); RED BLOOD COUNT 3.31 10^6/uL (4.00-5.40); WHITE BLOOD COUNT 7.1 10^3/uL (4.0-10.0)
[2019-08-27 07:01] LABS: ALBUMIN 2.5 GM/DL (3.2-5.2); ALT/SGPT 29 U/L (12-78); BILIRUBIN,TOTAL 0.5 MG/DL (0.2-1.0); BLOOD UREA NITROGEN 5 MG/DL (7-18); CALCIUM LEVEL 8.3 MG/DL (8.5-10.1); CARBON DIOXIDE LEVEL 23 MEQ/L (21-32); CHLORIDE LEVEL 109 MEQ/L (98-107); CREATININE FOR GFR 0.58 MG/DL (0.55-1.30); GLOMERULAR FILTRATION RATE > 60.0 (>51); GLUCOSE, FASTING 180 MG/DL (70-100); MAGNESIUM LEVEL 1.6 MG/DL (1.8-2.4); POTASSIUM SERUM 3.3 MEQ/L (3.5-5.1); SODIUM LEVEL 139 MEQ/L (136-145); TOTAL PROTEIN 6.1 GM/DL (6.4-8.2)
[2019-08-27] MEDS ORDERED: KCL 10MEQ/100ML SWI (KRUN) 10 MEQ in IV 1 EA IV SCH (09:00)
[2019-08-27] MEDS ORDERED: POTASSIUM CHLORIDE 10 MEQ SR TABLET PO ONE ×2 (09:00→13:30)
[2019-08-27] MEDS: PRAVASTATIN 20 MG TAB PO SCH (09:24)
[2019-08-27] MEDS: ONDANSETRON 4MG/2ML VIAL (J2405) IV PRN (09:24)
[2019-08-27] MEDS: SERTRALINE 100 MG TAB PO SCH (09:26)
[2019-08-27] MEDS: VALSARTAN 80 MG TAB (DIOVAN) PO SCH (09:26)
[2019-08-27] MEDS: ENOXAPARIN 40 MG/0.4 ML SYRINGE (J1650) SC SCH (09:27)
[2019-08-27] MEDS: tiZANidine 4 MG TAB PO PRN (09:45)
[2019-08-27] MEDS: MAG SULF 1GM/100ML (MAG RUN) 1 GM in IV 1 EA IV SCH ×4 (10:58→14:57)
[2019-08-27] MEDS: ANEXSIA, NORCO 7.5MG/325MG TABLET(HYDROCODONE/APAP) PO PRN (12:19)
[2019-08-27] MEDS ORDERED: MAG SULF 1GM/100ML (MAG RUN) 1 GM in IV 1 EA IV SCH (13:00)
[2019-08-27 14:00] VITALS: BP 118/76
--- NOTE | 2019-08-27 16:15 | IPNPDOC ---
Date Seen The patient was seen on 08/27/19. Progress Note SUBJECTIVE: A 79-year-old female with past medical history of gastric bypass surgery, depression, anxiety, vitamin D deficiency, was admitted for viral gastroenteritis. She has had improvement in vomiting but continues to be nauseous with loose stool, GI panel was negative. She is tolerating oral intake, but reports significant nausea when she does eat. She has no other place at this time, she denies any chest pain, short of breath, or urinary difficulties. 10 point review of system was negative except for above PHYSICAL EXAMINATION: VITAL SIGNS: Please see below. GENERAL: No distress HEENT: Normocephalic, atraumatic, moist mucous membranes NECK: Supple CARDIOVASCULAR EXAMINATION: S1, S2, no murmurs RESPIRATORY EXAMINATION: Clear to auscultation, no wheezing ABDOMINAL EXAMINATION: Soft, mild tenderness to palpation, mostly epigastric, nondistended, positive bowel sounds EXTREMITIES: Range of motion intact SKIN: No rash NEUROLOGICAL EXAMINATION: Alert and oriented 3, no focal deficits PSYCHIATRIC EXAMINATION: Calm and cooperative LABORATORY DATA, IMAGING STUDIES, MICROBIOLOGY: Please see below. DVT prophylaxis ordered?: Yes ASSESSMENT AND PLAN: 59 year old female with past medical history gastric bypass surgery, depression, anxiety, vitamin D deficiency, admitted for viral gastroenteritis. PROBLEMS: 1. Viral gastroenteritis: . GI panel negative. Tolerating oral intake, remains significantly nauseous, having multiple loose stools, anxious about going home. Electrolyte abnormalities related to vomiting and diarrhea, repleting IV. Continue maintenance IV fluids 2. Depression/anxiety: . Continue home meds. DVT prophylaxis: Lovenox GI prophylaxis: Protonix VS, I&O, 24H, Fishbone Vital Signs/I&O Vital Signs Date Time Temp Pulse Resp B/P (MAP) Pulse Ox O2 Delivery O2 Flow Rate FiO2 08/27/19 14:00 98.1 78 17 118/76 (90) 98 08/25/19 22:15 Room Air I&O- Last 24 Hours up to 6 AM 08/27/19 06:00 Intake Total 3340 ml Output Total 500 ml Balance 2840 ml Laboratory Data 24H LABS Laboratory Tests 2 08/27/19 06:09: Nucleated Red Blood Cells % (auto) 0.0 08/27/19 06:10: Anion Gap 7L, Glomerular Filtration Rate > 60.0, Calcium Level 8.3L, Magnesium Level 1.6L, Total Bilirubin 0.5#, Aspartate Amino Transf (AST/SGOT) 15, Alanine Aminotransferase (ALT/SGPT) 29, Alkaline Phosphatase 84, Total Protein 6.1L, Albumin 2.5L, Albumin/Globulin Ratio 0.69L CBC/BMP Laboratory Tests 08/27/19 06:09 08/27/19 06:10 Microbiology Microbiology 08/27/19 Gastrointestinal Tract Panel (PCR) - Final, Complete SUSANNAH PEREZ MD Aug 27, 2019 16:15
[2019-08-27 18:11] LABS: MAGNESIUM LEVEL 2.7 MG/DL (1.8-2.4); PHOSPHORUS LEVEL 2.4 MG/DL (2.5-4.9)
[2019-08-27] MEDS: PANTOPRAZOLE 40MG TAB (PROTONIX) PO SCH (19:39)
[2019-08-27 22:00] VITALS: BP 127/77
[2019-08-28] MEDS: ANEXSIA, NORCO 7.5MG/325MG TABLET(HYDROCODONE/APAP) PO PRN ×3 (00:35→21:20)
[2019-08-28 06:00] VITALS: BP 129/79
[2019-08-28 06:33] LABS: HEMATOCRIT 30.3 % (36.0-47.0); HEMOGLOBIN 9.7 g/dl (12.0-15.5); MEAN CORPUSCULAR HEMOGLOBIN 29.8 pg (27.0-33.0); MEAN CORPUSCULAR VOLUME 92.9 fl (80.0-96.0); PLATELET COUNT, AUTOMATED 268 10^3/uL (150-450); RED BLOOD COUNT 3.26 10^6/uL (4.00-5.40); WHITE BLOOD COUNT 5.4 10^3/uL (4.0-10.0)
[2019-08-28 07:01] LABS: ALBUMIN 2.5 GM/DL (3.2-5.2); ALT/SGPT 25 U/L (12-78); BILIRUBIN,TOTAL 0.4 MG/DL (0.2-1.0); BLOOD UREA NITROGEN 5 MG/DL (7-18); CALCIUM LEVEL 8.5 MG/DL (8.5-10.1); CARBON DIOXIDE LEVEL 26 MEQ/L (21-32); CHLORIDE LEVEL 113 MEQ/L (98-107); CREATININE FOR GFR 0.52 MG/DL (0.55-1.30); GLOMERULAR FILTRATION RATE > 60.0 (>51); GLUCOSE, FASTING 82 MG/DL (70-100); SODIUM LEVEL 142 MEQ/L (136-145); TOTAL PROTEIN 6.1 GM/DL (6.4-8.2)
[2019-08-28] MEDS: PRAVASTATIN 20 MG TAB PO SCH (07:47)
[2019-08-28] MEDS: SERTRALINE 100 MG TAB PO SCH (07:47)
[2019-08-28] MEDS: VALSARTAN 80 MG TAB (DIOVAN) PO SCH (07:47)
[2019-08-28] MEDS: ENOXAPARIN 40 MG/0.4 ML SYRINGE (J1650) SC SCH (07:48)
[2019-08-28] MEDS: K-PHOS NEUTRAL 250MG TABLET (SOD.PHOSPHATE/POT.PHOSPHATE) PO SCH ×2 (09:58→13:51)
[2019-08-28] MEDS: NICOTINE 14 MG/24 HR TRANSDERMAL TD SCH (11:02)
[2019-08-28] MEDS: tiZANidine 4 MG TAB PO PRN (13:53)
[2019-08-28 14:00] VITALS: BP 158/80
--- NOTE | 2019-08-28 14:33 | IPNPDOC ---
Date Seen The patient was seen on 08/28/19. Progress Note SUBJECTIVE: A 59-year-old female with past medical history of gastric bypass surgery, depression, anxiety, vitamin D deficiency, was admitted for viral gastroenteritis. She has had improvement in vomiting but continues to be nauseous with loose stool, GI panel was negative. She is tolerating oral intake, but reports significant nausea when she does eat. She has no other place at this time, she denies any chest pain, short of breath, or urinary difficulties. 08/28/2019 Patient continues to be nauseous with significant abdominal pain, mostly epigastric. She reports resolution of diarrhea, last bowel movement was yesterday, no vomiting since yesterday. She is tolerating by mouth but reports significant nausea and abdominal pain every time she eats. She denies any chest pain, dizziness, or urinary difficulties at this time. 10 point review of system was negative except for above PHYSICAL EXAMINATION: VITAL SIGNS: Please see below. GENERAL: No distress HEENT: Normocephalic, atraumatic, moist mucous membranes NECK: Supple CARDIOVASCULAR EXAMINATION: S1, S2, no murmurs RESPIRATORY EXAMINATION: Clear to auscultation, no wheezing ABDOMINAL EXAMINATION: Soft, mild to moderate epigastric tenderness, no rebound or guarding, positive bowel sounds. EXTREMITIES: Range of motion intact SKIN: No rash NEUROLOGICAL EXAMINATION: Alert and oriented 3, no focal deficits PSYCHIATRIC EXAMINATION: Calm and cooperative LABORATORY DATA, IMAGING STUDIES, MICROBIOLOGY: Please see below. DVT prophylaxis ordered?: Yes ASSESSMENT AND PLAN: 59 year old female with past medical history gastric bypass surgery, depression, anxiety, vitamin D deficiency, admitted for viral gastroenteritis. PROBLEMS: 1. Viral gastroenteritis: . GI panel negative. Tolerating oral intake, remains significantly nauseous with mild to moderate abdominal pain. Will reassess with an abdominal x-ray, low threshold for repeat CAT scan given history of gastric bypass surgery and persistent moderate epigastric pain. Continue electrolyte replacement as needed Discontinue IV fluids 2. Depression/anxiety: . Continue home meds. DVT prophylaxis: Lovenox GI prophylaxis: Protonix VS, I&O, 24H, Fishbone Vital Signs/I&O Vital Signs Date Time Temp Pulse Resp B/P (MAP) Pulse Ox O2 Delivery O2 Flow Rate FiO2 08/28/19 14:00 98.1 115 17 158/80 (106) 100 Room Air I&O- Last 24 Hours up to 6 AM 08/28/19 06:00 Intake Total 3110 ml Output Total 2000 ml Balance 1110 ml Laboratory Data 24H LABS Laboratory Tests 2 08/27/19 17:37: Phosphorus Level 2.4L, Magnesium Level 2.7H 08/28/19 06:16: Nucleated Red Blood Cells % (auto) 0.0, Anion Gap 3L, Glomerular Filtration Rate > 60.0, Calcium Level 8.5, Total Bilirubin 0.4, Aspartate Amino Transf (AST/SGOT) 16, Alanine Aminotransferase (ALT/SGPT) 25, Alkaline Phosphatase 78, Total Protein 6.1L, Albumin 2.5L, Albumin/Globulin Ratio 0.69L CBC/BMP Laboratory Tests 08/28/19 06:16 Microbiology Microbiology 08/27/19 Gastrointestinal Tract Panel (PCR) - Final, Complete SUSANNAH PEREZ MD Aug 28, 2019 14:33
[2019-08-28 14:41] VITALS: BP 148/68
--- NOTE | 2019-08-28 18:10 | REP ---
KUB: Single view. History: Abdomen pain. Comparison KUB study October 12, 2016. Findings: There are suture lines visible in the true pelvis bilaterally and in the left upper quadrant of the abdomen. The bowel gas pattern is normal. No mass, organomegaly, or pathologic calcification is seen. Impression: Postoperative changes. Otherwise negative KUB. Electronically Signed by Ortega Rizo MD 08/28/2019 06:01 P
[2019-08-28] MEDS: ONDANSETRON 4MG/2ML VIAL (J2405) IV PRN (20:52)
[2019-08-28] MEDS: PANTOPRAZOLE 40MG TAB (PROTONIX) PO SCH (20:52)
[2019-08-28 22:00] VITALS: BP 138/78
[2019-08-29] MEDS: ONDANSETRON 4MG/2ML VIAL (J2405) IV PRN (05:12)
[2019-08-29 06:00] VITALS: BP 135/83
[2019-08-29 07:08] LABS: HEMATOCRIT 31.9 % (36.0-47.0); HEMOGLOBIN 10.4 g/dl (12.0-15.5); MEAN CORPUSCULAR HEMOGLOBIN 29.5 pg (27.0-33.0); MEAN CORPUSCULAR HGB CONC 32.6 g/dl (32.0-36.5); MEAN CORPUSCULAR VOLUME 90.4 fl (80.0-96.0); PLATELET COUNT, AUTOMATED 361 10^3/uL (150-450); RED BLOOD COUNT 3.53 10^6/uL (4.00-5.40); WHITE BLOOD COUNT 4.9 10^3/uL (4.0-10.0)
[2019-08-29 07:42] LABS: ALBUMIN 2.9 GM/DL (3.2-5.2); ALT/SGPT 25 U/L (12-78); BILIRUBIN,TOTAL 0.3 MG/DL (0.2-1.0); BLOOD UREA NITROGEN 6 MG/DL (7-18); CALCIUM LEVEL 9.1 MG/DL (8.5-10.1); CARBON DIOXIDE LEVEL 28 MEQ/L (21-32); CHLORIDE LEVEL 109 MEQ/L (98-107); CREATININE FOR GFR 0.54 MG/DL (0.55-1.30); GLOMERULAR FILTRATION RATE > 60.0 (>51); GLUCOSE, FASTING 82 MG/DL (70-100); MAGNESIUM LEVEL 1.8 MG/DL (1.8-2.4); PHOSPHORUS LEVEL 3.7 MG/DL (2.5-4.9); POTASSIUM SERUM 3.3 MEQ/L (3.5-5.1); SODIUM LEVEL 143 MEQ/L (136-145); TOTAL PROTEIN 6.9 GM/DL (6.4-8.2)
[2019-08-29] MEDS: PRAVASTATIN 20 MG TAB PO SCH (08:00)
[2019-08-29] MEDS: SERTRALINE 100 MG TAB PO SCH (08:00)
[2019-08-29] MEDS: ENOXAPARIN 40 MG/0.4 ML SYRINGE (J1650) SC SCH (08:01)
[2019-08-29] MEDS: NICOTINE 14 MG/24 HR TRANSDERMAL TD SCH (08:01)
[2019-08-29 08:02] VITALS: BP 149/94
[2019-08-29] MEDS: VALSARTAN 80 MG TAB (DIOVAN) PO SCH (08:02)
[2019-08-29] MEDS ORDERED: MAG SULF 1GM/100ML (MAG RUN) 1 GM in IV 1 EA IV ONE (09:00)
[2019-08-29] MEDS: POTASSIUM CHLORIDE 10 MEQ SR TABLET PO SCH ×2 (09:48→12:11)
--- NOTE | 2019-08-29 11:24 | DS.PDOC ---
Discharge Summary General Date of Admission Aug 25, 2019 at 15:14 Date of Discharge 08/29/2019 Attending Physician: SUSANNAH PEREZ MD Discharge Summary PROCEDURES PERFORMED DURING STAY: None. ADMITTING DIAGNOSES: 1. Viral gastroenteritis. DISCHARGE DIAGNOSES: 1. Viral gastroenteritis. COMPLICATIONS/CHIEF COMPLAINT: Enteritis, presyncope. HISTORY OF PRESENT ILLNESS: 59-year-old female with past medical history of gastric bypass, anxiety, depression, was admitted for viral gastroenteritis. She has experienced significant nausea, vomiting and diarrhea, which has significant ly improved during her stay. Her last episode of vomiting was over 48 hours ago, stool consistency has improved significantly. Her GI panel was negative; and CAT scan of the abdomen showed gastroenteritis. She required significant electrolyte replenishment due to GI loss, electrolytes now stabilized. Patient is tolerating by mouth without any difficulty, minimal nausea, mild abdominal pain, diarrhea resolved. She is hemodynamically stable for discharge home with outpatient follow with PCP. Patient understands, agrees with discharge planning. HOSPITAL COURSE: As above. DISCHARGE MEDICATIONS: Please see below. ALLERGIES: Please see below. PHYSICAL EXAMINATION: VITAL SIGNS: Please see below. GENERAL: No distress HEENT: Normocephalic, atraumatic, moist mucous membranes NECK: Supple CARDIOVASCULAR EXAMINATION: S1, S2, no murmurs RESPIRATORY EXAMINATION: Clear to auscultation, no wheezing ABDOMINAL EXAMINATION: Soft, mild epigastric tenderness, nondistended, positive bowel sounds EXTREMITIES: Range of motion intact SKIN: No rash NEUROLOGICAL EXAMINATION: Alert and oriented 3, no focal deficits PSYCHIATRIC EXAMINATION: Calm and cooperative LABORATORY DATA: Please see below. IMAGING: CT scan of the abdomen and pelvis with gastroenteritis PROGNOSIS: Good ACTIVITY: As tolerated. DIET: Regular DISCHARGE PLAN: Patient is to follow-up with PCP in 1-2 weeks DISPOSITION: . DISCHARGE INSTRUCTIONS: 1. As above. DISCHARGE CONDITION: Stable. TIME SPENT ON DISCHARGE: Greater than 26 minutes. Vital Signs/I&Os Vital Signs Date Time Temp Pulse Resp B/P (MAP) Pulse Ox O2 Delivery O2 Flow Rate FiO2 08/29/19 08:02 149/94 08/29/19 06:00 98.5 65 18 96 Room Air I&O- Last 24 Hours up to 6 AM 08/29/19 06:00 Intake Total 1238 ml Output Total 1750 ml Balance -512 ml Laboratory Data Labs 24H Laboratory Tests 2 08/29/19 06:30: Nucleated Red Blood Cells % (auto) 0.0, Anion Gap 6L, Glomerular Filtration Rate > 60.0, Calcium Level 9.1, Phosphorus Level 3.7#, Magnesium Level 1.8, Total Bilirubin 0.3, Aspartate Amino Transf (AST/SGOT) 16, Alanine Aminotransferase (ALT/SGPT) 25, Alkaline Phosphatase 90, Total Protein 6.9, Albumin 2.9L, Albumin/Globulin Ratio 0.73L CBC/BMP Laboratory Tests 08/29/19 06:30 Microbiology Microbiology 08/27/19 Gastrointestinal Tract Panel (PCR) - Final, Complete Discharge Medications Scheduled Ergocalciferol (Vitamin D2) (Vitamin D2) 50,000 Unit Capsule, 50,000 UNIT PO 1XWK, (Reported) SATURDAYS Omeprazole (Omeprazole) 40 Mg Capsule.dr, 40 MG PO DAILY, (Reported) Pravastatin Sodium (Pravastatin Sodium) 20 Mg Tablet, 20 MG PO DAILY, (Reported) Sertraline HCl (Sertraline HCl) 100 Mg Tablet, 100 MG PO DAILY, (Reported) Valsartan (Valsartan) 80 Mg Tablet, 80 MG PO DAILY, (Reported) Scheduled PRN Clonazepam (Clonazepam) 1 Mg Tablet, 1 MG PO QHS PRN for ANXIETY, (Reported) Clonazepam (Clonazepam) 1 Mg Tablet, 0.5 MG PO DAILY PRN for ANXIETY, (Reported) Hydrocodone/Acetaminophen (Hydrocodone-Acetamin 10-325 mg) 1 Each Tablet, 1 TAB PO BID PRN for PAIN, (Reported) Ondansetron (Ondansetron Odt) 4 Mg Tab.rapdis, 4 MG PO Q6H PRN for NAUSEA OR VOMITING, (Reported) Tizanidine HCl (Tizanidine HCl) 4 Mg Tablet, 4 MG PO Q8H PRN for MUSCLE SPASMS, (Reported) Allergies Coded Allergies: POLLEN (Verified Allergy, Unknown, 09/17/12) No Known Allergies (Unverified , 04/17/05) SUSANNAH PEREZ MD Aug 29, 2019 11:24
[2019-08-29] MEDS ORDERED: NICO14PA TD (11:47)
[2019-08-29] MEDS ORDERED: ZOFR4TAB16 PO (11:47)
== END 2019-08-29 12:30 | disposition home or self-care (01) ==
LOC: M ED 15:13 → M ED INP 15:14 → M MSPAV 08-26 02:11
PROVIDERS: ADMIT Internal Medicine; ATTEND Internal Medicine
DX: A08.4 Viral intestinal infection, unspecified (principal); R55 Syncope and collapse; E55.9 Vitamin D deficiency, unspecified; E87.6 Hypokalemia; K21.9 Gastro-esophageal reflux disease without esophagitis; F41.9 Anxiety disorder, unspecified; F32.9 Major depressive disorder, single episode, unspecified; Z98.84 Bariatric surgery status; Z79.899 Other long term (current) drug therapy
CPT/HCPCS: 36415; 70450; 71250; 72125; 72128; 72131; 74018; 74177; 80048; 80053; 80076; 82550; 82553; 83690; 83735; 84100; 84439; 84443; 84484; 85025; 85027; 85610; 85730; 87502; 87507; 93005; 93041; 94760; 96361; 96372; 96374; 96375; 96376; 99285; J1650; J2405; J3475; Q9963; Q9967

== ENCOUNTER → 2019-09-02 | Outpatient (CLI) | payer BC ==
[~2019-09-02] MED LIST changes: +CLON1TAB8 PO; +HYDR-4517 PO; +NICO14PA TD; +OMEP-221 PO; +ONDA4TAB6 PO; +PRAV20TA2 PO; +SERT-138 PO; +TIZA4TAB4 PO; +VALS1TAB66 PO; +VITA50005 PO; +ZOFR4TAB16 PO
[2019-09-02 15:37] LABS: HEMATOCRIT 37.8 % (36.0-47.0); HEMOGLOBIN 12.1 g/dl (12.0-15.5); MEAN CORPUSCULAR HEMOGLOBIN 29.9 pg (27.0-33.0); MEAN CORPUSCULAR VOLUME 93.3 fl (80.0-96.0); PLATELET COUNT, AUTOMATED 485 10^3/uL (150-450); RED BLOOD COUNT 4.05 10^6/uL (4.00-5.40)
[2019-09-02 16:19] LABS: ALBUMIN 3.6 GM/DL (3.2-5.2); ALT/SGPT 26 U/L (12-78); BILIRUBIN,TOTAL 0.2 MG/DL (0.2-1.0); BLOOD UREA NITROGEN 15 MG/DL (7-18); CALCIUM LEVEL 9.3 MG/DL (8.5-10.1); CARBON DIOXIDE LEVEL 26 MEQ/L (21-32); CHLORIDE LEVEL 107 MEQ/L (98-107); GLOMERULAR FILTRATION RATE > 60.0 (>51); GLUCOSE, FASTING 89 MG/DL (70-100); POTASSIUM SERUM 4.6 MEQ/L (3.5-5.1); SODIUM LEVEL 140 MEQ/L (136-145); THYROID STIMULATING HORMONE 0.536 uIU/ML (0.358-3.740); TOTAL PROTEIN 7.3 GM/DL (6.4-8.2)
== END ==
LOC: M LAB 14:28
PROVIDERS: ATTEND Family Medicine
DX: E03.9 Hypothyroidism, unspecified (principal); R53.83 Other fatigue; D64.9 Anemia, unspecified

== ENCOUNTER → 2019-10-16 | Outpatient (CLI) | payer BC ==
[2019-10-16 20:05] LABS: BASO % 0.6 % (0.0-1.0); EOS # 0.2 10^3/uL (0.0-0.5); EOS % 4.9 % (0.0-3.0); HEMATOCRIT 39.1 % (36.0-47.0); HEMOGLOBIN 12.2 g/dl (12.0-15.5); LYMPH % 40.3 % (24.0-44.0); MEAN CORPUSCULAR HEMOGLOBIN 29.2 pg (27.0-33.0); MEAN CORPUSCULAR HGB CONC 31.2 g/dl (32.0-36.5); MEAN CORPUSCULAR VOLUME 93.5 fl (80.0-96.0); MONO # 0.4 10^3/uL (0.0-0.8); MONO % 7.5 % (0.0-5.0); NEUTROPHILS # 2.3 10^3/uL (1.5-8.5); NEUTROPHILS % 46.5 % (36.0-66.0); PLATELET COUNT, AUTOMATED 186 10^3/uL (150-450); RED BLOOD COUNT 4.18 10^6/uL (4.00-5.40); WHITE BLOOD COUNT 4.9 10^3/uL (4.0-10.0)
[2019-10-16 20:07] LABS: HEMATOCRIT 39.1 % (36.0-47.0)
[2019-10-16 20:16] LABS: ALBUMIN 4.1 GM/DL (3.2-5.2); ALT/SGPT 24 U/L (12-78); BILIRUBIN,TOTAL 0.3 MG/DL (0.2-1.0); BLOOD UREA NITROGEN 12 MG/DL (7-18); CALCIUM LEVEL 9.2 MG/DL (8.5-10.1); CARBON DIOXIDE LEVEL 25 MEQ/L (21-32); CHLORIDE LEVEL 110 MEQ/L (98-107); CREATININE FOR GFR 0.67 MG/DL (0.55-1.30); FERRITIN 34 NG/ML (8-252); GLOMERULAR FILTRATION RATE > 60.0 (>51); GLUCOSE, FASTING 107 MG/DL (70-100); IRON (FE) 53 UG/DL (50-170); MAGNESIUM LEVEL 1.9 MG/DL (1.8-2.4); PERCENT SATURATION 15.1 % (13.2-45.0); PHOSPHORUS LEVEL 3.5 MG/DL (2.5-4.9); POTASSIUM SERUM 3.8 MEQ/L (3.5-5.1); SODIUM LEVEL 143 MEQ/L (136-145); TOTAL IRON BINDING CAPACITY 350 UG/DL (250-450)
[2019-10-16 20:20] LABS: HEMOGLOBIN A1c 5.2 %
[2019-10-16 20:23] LABS: TOTAL 25(OH) VITAMIN D 66.5 NG/ML (30.0-100.0); VITAMIN B12 LEVEL 749 PG/ML (247-911)
== END ==
LOC: M WUC 15:34
PROVIDERS: ATTEND Physician Assistant
DX: K91.2 Postsurgical malabsorption, not elsewhere classified (principal); E55.9 Vitamin D deficiency, unspecified; Z98.84 Bariatric surgery status

== ENCOUNTER → 2019-10-20 | Outpatient (CLI) | payer OTHER ==
--- NOTE | 2019-10-23 02:09 | ECWPNPC ---
PATIENT NAME: ROSANGELA CARUSO : 1960 GENDER: FEMALE VISIT DATE: 10/20/2019 DISCHARGE DATE: 10/20/19 1503 VISIT LOCKED DATE TIME: PHYSICIAN: SAMMIE MURILLO RESOURCE: SAMMIE MURILLO REASON FOR APPOINTMENT 1. BACK/KNEE HISTORY OF PRESENT ILLNESS HISTORY OF PRESENT ILLNESS: PAIN THE PATIENT DESCRIBES THE PAIN... 59-YEAR-OLD FEMALE IN FOR CHRONIC PAIN FOLLOW-UP. AT LAST CLINIC VISIT AN MRI WAS ORDERED HOWEVER PATIENT DID NOT GET MRI DONE PRIOR TO THIS VISIT. SHE RATES HER PAIN CURRENTLY AT AN 8 OUT OF 10 AND DESCRIBES IT ACHING, SHARP, STABBING, SORE, SHOOTING, AND TENDER. FALL RISK SCREENING: SCREENING :NO FALLS REPORTED IN THE LAST YEAR CURRENT MEDICATIONS TAKING ONDANSETRON HCL 4 MG TABLET 1 TABLET ORALLY THREE TIMES DAILY NEEDED TAKING OMEPRAZOLE 40 MG CAPSULE DELAYED RELEASE 1 CAPSULE ORALLY TWICE DAILY NEEDED TAKING ZOLOFT 100 MG TABLET 1 TABLET ORALLY ONCE A DAY TAKING KLONOPIN 1 MG TABLET 1 TABLET ORALLY BID NEEDED TAKING VITAMIN D (ERGOCALCIFEROL) 62204 UNIT CAPSULE 1 CAPSULE ORALLY WEEKLY TAKING VITAMIN B-12 500 MCG TABLET 1 TABLET ORALLY ONCE A DAY TAKING CITRACAL PLUS - TABLET DIRECTED ORALLY TAKING MULTIVITAMIN ADULT - TABLET DIRECTED ORALLY TAKING TIZANIDINE HCL 4 MG TABLET 1 TABLET NEEDED ORALLY FOR SPASMS AND PAIN EVERY 8 HRS NEEDED (PAIN CLINIC) MDD3, NOTES: W/C REFUSES TO REFILL TAKING LYRICA 200 MG CAPSULE 1 CAPSULE ORALLY FOR PAIN BID MDD=2 TAKING NORCO 10-325 MG TABLET 1 TABLET ORALLY EVERY 8-12 HRS PRN PAIN MDD=2 TAKING POTASSIUM & MAGNESIUM ASPARTAT 250-250 MG CAPSULE 1 CAPSULE WITH A MEAL ORALLY ONCE A DAY TAKING BIOTENE DRY MOUTH - LIQUID DIRECTED MOUTH/THROAT NOT-TAKING GLIPIZIDE 10 MG TABLET 1/2 TABLET ORALLY ONCE A DAY, NOTES: ON HOLD NOT-TAKING GABAPENTIN 100 MG CAPSULE 1 CAPSULE ORALLY TID, NOTES: 1 MONTH PRESCRIPTION NOT-TAKING CHILDRENS CHEWABLE VITAMINS - TABLET CHEWABLE 2 TABLETS ORALLY DAILY NOT-TAKING LOSARTAN POTASSIUM 100 MG TABLET 1 TABLET ORALLY ONCE A DAY NOT-TAKING IBUPROFEN 800 MG TABLET 1 TABLET ORALLY WITH FOOD THREE TIMES A DAY PRN FOR PAIN MDD3 NOT-TAKING AMBIEN 5 MG TABLET 1 TAB(S) ORAL AT BEDTIME NEEDED (PECK) NOT-TAKING BUSPIRONE HCL 15 MG TABLET 1 TABLET ORALLY TWICE A DAY DISCONTINUED LIPITOR 80 MG TABLET 1 TABLET ORALLY ONCE A DAY DISCONTINUED VALIUM 5 MG TABLET 1 TABLET NEEDED PRIOR TO MRI ORALLY X1 MEDICATION LIST REVIEWED AND RECONCILED WITH THE PATIENT PAST MEDICAL HISTORY FIBROMYALGIA CHRONIC BACK PAIN ICD-9 724.5 POSITIVE LYME TITER DEPRESSION ICD-9 311.0 SLEEP APNEA/USING C-PAP AT NIGHT ACID REFLUX ENVIROMENTAL ALLERGIES MIXED HYPERLIPIDEMA? IBS CHRONIC DRY EYES HISTORY OF FIBROIDS S/P HYSTERECTOMY ASCVD 12 YR RISK: 17 ANXIETY HEART MURMUR ALLERGIES SEASONAL SURGICAL HISTORY TUBALIGATION 1983 APPENDECTOMY HYSTERECTOMY/ LAP ASSISTED VAGINAL --- DUE TO ADENOMYOSIS AND FIBROID UTERUS 11/21 COLONOSCOPY 2009 RIGHT BREAST BIOPSY 2010 GASTRIC BYPASS 04/2019 FAMILY HISTORY FATHER: UNKNOWN MOTHER: , INFLUENZA SIBLINGS: ALIVE SON(S): ALIVE DAUGHTER(S): , LUPUS, FIBROMYALGIA, ASTHMA, LYME DISEASE, DUE TO MVA 2 BROTHER(S) , 1 SISTER(S) - HEALTHY. 3 SON(S) , 1 DAUGHTER(S) . SISTER- MS\\NSON - ENLARGED HEART. SOCIAL HISTORY GENERAL: TOBACCO USE ARE YOU A:CURRENT SMOKER E- CIGS ONLY SMOKING CESSATION INFORMATION GIVEN02/15/2018 E-CIGARETTEYES OTHERS AT HOME: SPOUSE. EDUCATION LEVEL OF EDUCATION:COLLEGE DIET: REGULAR. LANGUAGE LANGUAGES SPOKEN:[place]GI[place] NEW PATIENT PAIN DIARY FROM 0-10, WHAT LEVEL IS YOUR PAIN TODAY?10 BMI CARE GOAL FOLLOW-UP ABOVE NORMAL BMI FOLLOW-UPGIVING ENCOURAGEMENT TO EXERCISE RECREATIONAL DRUG USE DRUG USE?NO EXERCISE: NO REGULAR EXERCISE. LEARNING BARRIERS / SPECIAL NEEDS CHANGE FROM LAST VISIT?NO BARRIERS TO LEARNING?NO HEARING IMPAIRED?NO VISION IMPAIRED?YES COGNITIVELY IMPAIRED?NO :CORRECTIVE LENSES READINESS TO LEARN?YES LEARNING PREFERENCES?NO LEARNING CAPABILITIES PRESENT?YES EMOTIONAL BARRIERS?NO SPECIAL DEVICES?NO FLEET MAINTENANCE MANAGER NEEDED?NO PAIN CLINIC PFS, CLERGY, PUBLIC HEALTH REFERRALS HAS THE PATIENT BEEN EDUCATED REGARDING HIS/HER PLAN OF CARE?YES HAS THE PATIENT BEEN EDUCATED REGARDING PAIN, THE RISK FOR PAIN, THE IMPORTANCE OF EFFECTIVE PAIN MANAGEMENT, AND THE PAIN ASSESSMENT PROCESS?YES LATEX QUESTIONNAIRE LATEX ALLERGY : HAVE YOU EVER DEVELOPED ANY TYPE OF REACTION AFTER HANDLING LATEX PRODUCTS SUCH RUBBER GLOVES, CONDOMS, DIAPHRAGMS, BALLOONS, SOCKS, OR UNDERWEAR?NO LATEX ALLERGY : HAVE YOU EVER DEVELOPED ANY TYPE OF REACTION DURING OR AFTER DENTAL APPOINTMENT, VAGINAL/RECTAL EXAMINATION, SURGICAL PROCEDURE, OR ANY OTHER EXPOSURE?NO DATE ASKED : 05/12/2019 LATEX RISK : HAVE YOU EVER HAD ANY DIFFICULTY BREATHING OR HIVES AFTER EATING OR HANDLING ANY FRUITS, OR VEGETABLES; SUCH KIWI, BANANAS, STONE FRUITS, OR CHESTNUTSYES - PLEASE INDICATE : BANANAS LATEX RISK : DO YOU HAVE A PREVIOUS PERSONAL HISTORY OF MORE THAN NINE SURGERIES, SPINA BIFIDA, OR REPEATED CATHERIZATIONS? NO LATEX RISK : ARE YOU FREQUENTLY EXPOSED TO LATEX PRODUCTS IN YOUR OCCUPATION?NO CAFFEINE CAFFEINE USE?YES COFFEE 2 CUPS A DAY ADVANCE DIRECTIVE ADVANCE DIRECTIVE DISCUSSED WITH PATIENT:YES DECLINED HCP INFORMATION OR ASSISTANCE AT THIS TIME. LUTHERAN [id number] HOLINESS NO UATSDIN BELIEFS THAT WOULD IMPACT HEALTH CARE. MARITAL STATUS: . ALCOHOL SCREENING DID YOU HAVE A DRINK CONTAINING ALCOHOL IN THE PAST YEAR?NO POINTS0 INTERPRETATIONNEGATIVE OCCUPATION: [employer] [facility] [employer]NAG[employer]. SEXUAL HX HAD SEX IN THE LAST 12 MONTHS (VAGINAL, ORAL, OR ANAL)?YES , 4 ADULT KIDS. ALL LIVE TOGETHER....UNEMPLOYED...DOES NOT SMOKE OR DRINK.REVIEWED WITH PATIENT 08/26/18 1539 JSREVIEWED WITH PATIENT 01/10/19 1355 JSREVIEWED WITH PATIENT 05/12/19 1207 JSREVIEWED WITH PATIENT 08/12/2019 LAS. HOSPITALIZATION/MAJOR DIAGNOSTIC PROCEDURE [facility] - DEPRESSION 2012 CHILDBIRTH X 4 SURGERY RELATED 04/2019 REVIEW OF SYSTEMS REVIEWED BY: PROVIDER: MARTÍN MORALES . CONSTITUTIONAL: ANY CHANGE IN YOUR MEDICAL CONDITION? NO . CHILLS NO . FEVER NO . INFECTION: DO YOU HAVE NEW INFECTIONS? NO . DO YOU HAVE HISTORY OF MRSA? NO . MUSCULOSKELETAL: ANY NEW PATTERNS OF PAIN OR NUMBNESS? YES, PAIN IS WORSE . GASTROENTEROLOGY: ANY NEW CHANGE IN BOWEL CONTROL? NO . GENITOURINARY: ANY NEW CHANGE IN BLADDER CONTROL? NO . IS THERE A CHANCE YOU COULD BE ? NO . HEMATOLOGY/LYMPH: DO YOU TAKE ANY BLOOD THINNERS? (FOR EXAMPLE- COUMADIN, PLAVIX, AGGRENOX, PLATEL, PRADAXA, OR XARELTO) NO . WHEN WAS YOUR LAST DOSE? DATE: TIME: . NEUROLOGY: HAVE YOU FALLEN IN THE PAST 12 MONTHS? YES, FELL WHEN SHE WAS SICK. PT INJURED TAILBONE, IMAGING WAS DONE, NO FX NOTED . ANY NEW EXTREMITY NUMBNESS OR WEAKNESS? NO . CARDIOLOGY: DO YOU HAVE A PACEMAKER OR DEFIBRILLATOR? NO . RESPIRATORY: HAVE YOU BEEN SICK IN THE PAST WEEK? NO . FEVER NO . FLU LIKE SYMPTOMS? NO . COUGH NO . INTEGUMENTARY: DO YOU HAVE ANY RASHES OR OPEN SORES? NO . ALLERGIC/IMMUNO: ARE YOU ALLERGIC TO IV DYE? NO . ANY NEW ALLERGIES? NO . PSYCHIATRIC: DO YOU HAVE THOUGHTS OF HURTING YOURSELF OR SOMEONE ELSE? NO . ARE YOU ABUSED, NEGLECTED, OR IN AN UNSAFE ENVIRONMENT? NO . ENDOCRINOLOGY: ARE YOU DIABETIC? NO . OTHER: DO YOU NEED ANY PRESCRIPTIONS? NO . IF YES, PLEASE LIST: ____ . ANY NEW PROBLEMS WITH YOUR MEDICATIONS? NO . WHEN DID YOU LAST EAT? ____ . WHEN DID YOU LAST DRINK? ____ . WHAT DID YOU LAST DRINK? ____ . NAME OF PERSON DRIVING YOU HOME? ____ . DO YOU HAVE ANY OTHER QUESTIONS OR CONCERNS NO . VITAL SIGNS WT 143.7 LBS, HT 61 IN, BMI 27.15 INDEX, BP 116/62 MM HG, HR 87 /MIN, RR 18 /MIN, TEMP 97.8 F, OXYGEN SAT % 96%, NA INITIALS AW 1436, REVIEWED BY: JE. EXAMINATION GENERAL EXAMINATION: GENERALNO ACUTE DISTRESS, WELL NOURISHED AND HYDRATED. PSYCHAPPROPRIATE MOOD AND AFFECT . LUNGS:CLEAR TO AUSCULTATION BILATERALLY, NO WHEEZES, RHONCHI, RALES. HEART:NO MURMURS, REGULAR RATE AND RHYTHM. BACK:POINT TENDER ALONG LUMBAR SPINE, SURROUNDING SKIN SHOWS NO ERYTHEMA, ECCHYMOSIS, INCREASED WARMTH, AND/OR SKIN ERUPTIONS NOTED. POSITIVE MODIFIED SLR BILATERALLY . MUSCULOSKELETAL:NOTABLE WEAKNESS IN THE RIGHT LOWER EXTREMITY, LEFT LOWER EXTREMITY WITHIN NORMAL LIMITS . ASSESSMENTS INTERVERTEBRAL DISC DISORDERS WITH RADICULOPATHY, LUMBAR REGION - M51.16 (PRIMARY) TREATMENT INTERVERTEBRAL DISC DISORDERS WITH RADICULOPATHY, LUMBAR REGION CLINICAL NOTES: 59-YEAR-OLD FEMALE IN FOR CHRONIC PAIN FOLLOW-UP. GIVEN PRESENTING SYMPTOMS AND RESULTS OF PHYSICAL EXAMINATION RECOMMENDED MRI OF THE LUMBAR SPINE WITH FOLLOW-UP AFTER. PATIENT HAS EXPRESSED UNDERSTANDING OF AND WAS IN AGREEMENT WITH TREATMENT PLAN. GIVEN TIME TO ASK QUESTIONS AND EXPRESS CONCERNS., ISTOP REGISTRY REVIEWED AND DEMONSTRATES COMPLLIANCE. (REF #[id number] ) BRINGS IN MEDICATIONS WHICH IS APPROPRIATE FOR WHAT WAS DISPENSED. RECENT URINE TOXICOLOGY REVIEWED. NO UNAUTHORIZED MEDICATIONS. NO ILLICIT SUBSTANCES AND PRESCRIBED MEDICATIONS WERE PRESENT. PROCEDURE CODES FA211 ESTABILISHED PATIENT [facility] CHARGE DISPOSITION & COMMUNICATION FOLLOW UP AFTER DIAGNOSTIC IMAGING (REASON: MRI LUMBAR SPINE) ELECTRONICALLY SIGNED BY FINA MEYER ON 10/22/2019 AT 09:25 AM EST DISCLAIMER : THIS IS A VISIT SUMMARY EXTRACTED FROM THE [employer] CHART. IT IS NOT A COPY OF THE [employer] PROGRESS NOTE. CANDIDAD
== END ==
LOC: M PAIN 14:15
PROVIDERS: ATTEND Family Medicine
DX: M51.16 Intervertebral disc disorders with radiculopathy, lumbar region (principal); G89.29 Other chronic pain; M79.7 Fibromyalgia; Z86.59 Personal history of other mental and behavioral disorders; G47.30 Sleep apnea, unspecified; K21.9 Gastro-esophageal reflux disease without esophagitis; Z98.84 Bariatric surgery status; F17.290 Nicotine dependence, other tobacco product, uncomplicated; Z79.899 Other long term (current) drug therapy

== ENCOUNTER → 2019-11-18 | Outpatient (CLI) | payer BC, OTHER | LOC: M PAIN 11:15 | PROVIDERS: ATTEND Anesthesiology | DX: Z53.21 Procedure and treatment not carried out due to patient leaving prior to being seen by health care provider (principal) ==

== ENCOUNTER → 2019-11-19 | Outpatient (CLI) | payer BC, OTHER ==
[~2019-11-19] MED LIST changes: +BUPIVACAINE HCL 0.25% 30 ML VIAL As Ordered ONE; +ISOVUE-M 300 61% 15ML VIAL (Q9967) As Ordered ONE; +LIDOCAINE 1% SDV INJ 30 ML VIAL As Ordered ONE; +TRIAMCINOLONE ACETONIDE SUSP 40 MG/ML VIAL (J3301) As Ordered ONE; +diazePAM 5 MG TAB As Ordered ONE
--- NOTE | 2019-11-19 14:54 | REP ---
Partial lumbar spine series: To views . History: Injection procedure for pain. 11 seconds of fluoroscopy time is reported. Findings: A sequence of two fluoroscopically obtained last image hold procedural spot radiographs of the lumbar spine document needle position and contrast injection associated with injection procedure. Electronically Signed by Ortega Rizo MD 11/19/2019 02:45 P
--- NOTE | 2019-11-26 23:27 | ECWPNPC ---
PATIENT NAME: ROSANGELA CARUSO : 1960 GENDER: FEMALE VISIT DATE: 11/19/2019 DISCHARGE DATE: 11/19/19 1437 VISIT LOCKED DATE TIME: PHYSICIAN: BLANCA RODRIGUEZ MD RESOURCE: BLANCA RODRIGUEZ MD REASON FOR APPOINTMENT 1. BILATERAL THERAPEUTIC FB L4-L5 L5-S1 HISTORY OF PRESENT ILLNESS HISTORY OF PRESENT ILLNESS: PAIN THE PATIENT DESCRIBES THE PAIN... FALL RISK SCREENING: SCREENING :NO FALLS REPORTED IN THE LAST YEAR CURRENT MEDICATIONS TAKING ONDANSETRON HCL 4 MG TABLET 1 TABLET ORALLY THREE TIMES DAILY NEEDED TAKING OMEPRAZOLE 40 MG CAPSULE DELAYED RELEASE 1 CAPSULE ORALLY TWICE DAILY NEEDED TAKING ZOLOFT 100 MG TABLET 1 TABLET ORALLY ONCE A DAY TAKING KLONOPIN 1 MG TABLET 1 TABLET ORALLY BID NEEDED TAKING VITAMIN D (ERGOCALCIFEROL) 08667 UNIT CAPSULE 1 CAPSULE ORALLY WEEKLY TAKING VITAMIN B-12 500 MCG TABLET 1 TABLET ORALLY ONCE A DAY TAKING CITRACAL PLUS - TABLET DIRECTED ORALLY TAKING MULTIVITAMIN ADULT - TABLET DIRECTED ORALLY TAKING POTASSIUM & MAGNESIUM ASPARTAT 250-250 MG CAPSULE 1 CAPSULE WITH A MEAL ORALLY ONCE A DAY TAKING BIOTENE DRY MOUTH - LIQUID DIRECTED MOUTH/THROAT TAKING TIZANIDINE HCL 4 MG TABLET 1 TABLET NEEDED ORALLY FOR SPASMS AND PAIN EVERY 8 HRS NEEDED (PAIN CLINIC) MDD3, NOTES: W/C REFUSES TO REFILL TAKING LYRICA 200 MG CAPSULE 1 CAPSULE ORALLY FOR PAIN BID MDD=2 TAKING NORCO 10-325 MG TABLET 1 TABLET ORALLY EVERY 8-12 HRS PRN PAIN MDD=2 TAKING BUSPIRONE HCL 15 MG TABLET 1 TABLET ORALLY TWICE A DAY NOT-TAKING GLIPIZIDE 10 MG TABLET 1/2 TABLET ORALLY ONCE A DAY, NOTES: ON HOLD NOT-TAKING GABAPENTIN 100 MG CAPSULE 1 CAPSULE ORALLY TID, NOTES: 1 MONTH PRESCRIPTION NOT-TAKING CHILDRENS CHEWABLE VITAMINS - TABLET CHEWABLE 2 TABLETS ORALLY DAILY NOT-TAKING LOSARTAN POTASSIUM 100 MG TABLET 1 TABLET ORALLY ONCE A DAY NOT-TAKING IBUPROFEN 800 MG TABLET 1 TABLET ORALLY WITH FOOD THREE TIMES A DAY PRN FOR PAIN MDD3 NOT-TAKING AMBIEN 5 MG TABLET 1 TAB(S) ORAL AT BEDTIME NEEDED (PECK) MEDICATION LIST REVIEWED AND RECONCILED WITH THE PATIENT PAST MEDICAL HISTORY FIBROMYALGIA CHRONIC BACK PAIN ICD-9 724.5 POSITIVE LYME TITER DEPRESSION ICD-9 311.0 SLEEP APNEA- NO LONGER USES CPAP ACID REFLUX ENVIROMENTAL ALLERGIES MIXED HYPERLIPIDEMA? IBS CHRONIC DRY EYES HISTORY OF FIBROIDS S/P HYSTERECTOMY ASCVD 12 YR RISK: 17 ANXIETY HEART MURMUR ALLERGIES SEASONAL SURGICAL HISTORY TUBAL LIGATION 1983 APPENDECTOMY HYSTERECTOMY/ LAP ASSISTED VAGINAL --- DUE TO ADENOMYOSIS AND FIBROID UTERUS 11/21 COLONOSCOPY 2009 RIGHT BREAST BIOPSY 2010 GASTRIC BYPASS 04/2019 FAMILY HISTORY FATHER: UNKNOWN MOTHER: , INFLUENZA SIBLINGS: ALIVE SON(S): ALIVE DAUGHTER(S): , LUPUS, FIBROMYALGIA, ASTHMA, LYME DISEASE, DUE TO MVA 2 BROTHER(S) , 1 SISTER(S) - HEALTHY. 3 SON(S) , 1 DAUGHTER(S) . SISTER- MS\\NSON - ENLARGED HEART. HOSPITALIZATION/MAJOR DIAGNOSTIC PROCEDURE [facility] - DEPRESSION 2012 CHILDBIRTH X 4 SURGERY RELATED 04/2019 REVIEW OF SYSTEMS REVIEWED BY: PROVIDER: . CONSTITUTIONAL: ANY CHANGE IN YOUR MEDICAL CONDITION? NO . CHILLS NO . FEVER NO . INFECTION: DO YOU HAVE NEW INFECTIONS? NO . DO YOU HAVE HISTORY OF MRSA? NO . MUSCULOSKELETAL: ANY NEW PATTERNS OF PAIN OR NUMBNESS? NO . GASTROENTEROLOGY: ANY NEW CHANGE IN BOWEL CONTROL? NO . GENITOURINARY: ANY NEW CHANGE IN BLADDER CONTROL? NO . IS THERE A CHANCE YOU COULD BE ? NO . HEMATOLOGY/LYMPH: DO YOU TAKE ANY BLOOD THINNERS? (FOR EXAMPLE- COUMADIN, PLAVIX, AGGRENOX, PLATEL, PRADAXA, OR XARELTO) NO . WHEN WAS YOUR LAST DOSE? DATE: TIME: . NEUROLOGY: HAVE YOU FALLEN IN THE PAST 12 MONTHS? NO . ANY NEW EXTREMITY NUMBNESS OR WEAKNESS? NO . CARDIOLOGY: DO YOU HAVE A PACEMAKER OR DEFIBRILLATOR? NO . RESPIRATORY: HAVE YOU BEEN SICK IN THE PAST WEEK? NO . FEVER NO . FLU LIKE SYMPTOMS? NO . COUGH NO . INTEGUMENTARY: DO YOU HAVE ANY RASHES OR OPEN SORES? NO . ALLERGIC/IMMUNO: ARE YOU ALLERGIC TO IV DYE? NO . ANY NEW ALLERGIES? NO . PSYCHIATRIC: DO YOU HAVE THOUGHTS OF HURTING YOURSELF OR SOMEONE ELSE? NO . ARE YOU ABUSED, NEGLECTED, OR IN AN UNSAFE ENVIRONMENT? NO . ENDOCRINOLOGY: ARE YOU DIABETIC? NO . OTHER: DO YOU NEED ANY PRESCRIPTIONS? NO . IF YES, PLEASE LIST: ____ . ANY NEW PROBLEMS WITH YOUR MEDICATIONS? NO . WHEN DID YOU LAST EAT? ____-05-31 . WHEN DID YOU LAST DRINK? ____11-18-19 12 AM . WHAT DID YOU LAST DRINK? ____WATER . NAME OF PERSON DRIVING YOU HOME? ____GREG . DO YOU HAVE ANY OTHER QUESTIONS OR CONCERNS NO . VITAL SIGNS WT 139.8 LBS, HT 61 IN, BMI 26.41 INDEX, BP 109/56 MM HG, HR 62 /MIN, RR 18 /MIN, TEMP 96.6 F, OXYGEN SAT % 98%, SAFE IN ENV? (Y/N) YES, NA INITIALS SC 13:29, REVIEWED BY: KG. ASSESSMENTS SPONDYLOSIS WITHOUT MYELOPATHY OR RADICULOPATHY, LUMBAR REGION - M47.816 (PRIMARY) SPONDYLOSIS WITHOUT MYELOPATHY OR RADICULOPATHY, LUMBOSACRAL REGION - M47.817 PROCEDURES PN LUMBAR FACET BLOCK THERAPEUTIC PRE PROCEDURE DIAGNOSIS LUMBAR SPONDYLOSIS, LUMBOSACRAL SPONDYLOSIS POST PROCEDURE DIAGNOSIS LUMBAR SPONDYLOSIS, LUMBOSACRAL SPONDYLOSIS PROCEDURE BILATERAL L4 - L5 AND L5 - S1 LUMBAR FACET THERAPEUTIC BLOCK SURGEON DR. BLANCA RODRIGUEZ DIRECTOR OF RECREATION THERAPY NONE ANESTHESIA LOCAL PRE PROCEDURE NOTE THE PATIENT HAS A HISTORY OF CHRONIC LOW BACK PAIN. I EVALUATED THE PATIENT AND REVIEWED THE CHART. I WENT OVER THE RISKS, ALTERNATIVES, AND BENEFITS ASSOCIATED WITH THIS PROCEDURE. THE PATIENT WOULD LIKE TO PROCEED AND GIVES CONSENT TO PERFORM THE PROCEDURE. THE PATIENT DENIES UNEXPLAINABLE WEIGHT LOSS, FEVER, CHILLS, OR NEW CHANGES IN URINARY OR BOWEL CONTROL DESCRIPTION OF PROCEDURE THE PATIENT WAS BROUGHT TO THE PROCEDURE ROOM AND PLACED IN THE PRONE POSITION. THE LUMBOSACRAL AREA WAS CLEANED WITH CHLORAPREP SOLUTION AND DRAPED ASEPTICALLY. THE PROCEDURE WAS DONE UNDER STERILE CONDITIONS. I CHECKED LATERALITY AND THE LEVEL WHERE THE PROCEDURE WAS GOING TO BE PERFORMED WITH THE PATIENT AND THE SUPPORTING STAFF AT THE MOMENT OF THE TIME OUT IN THE PROCEDURE ROOM. UNDER FLUOROSCOPIC GUIDANCE, THE TARGET POINT WAS SELECTED AT THE RIGHT AND LEFT L4-5 AND RIGHT AND LEFT L5-S1 FACET JOINTS. TARGET POINT WAS SELECTED AFTER LATERAL ROTATION AND TILT OF THE MAGNIFIER OF THE C-ARM. LIDOCAINE 0.5% WAS USED TO NUMB THE SKIN AND THE SUBCUTANEOUS TISSUE BELOW IT. SPINAL NEEDLES, 22-GAUGE, WERE ADVANCED UNDER FLUOROSCOPIC GUIDANCE AND FOLLOWING PATIENT FEEDBACK UNTIL THE TARGETS WERE TOUCHED. THE POSITION OF THE NEEDLES WAS VERIFIED WITH AP AND LATERAL VIEWS. AFTER PROPER POSITION OF THE NEEDLES WAS ACHIEVED, ISOVUE-M DYE 30% 0.1 ML WAS INJECTED SHOWING ADEQUATE SPREAD OF THE DYE. THEN A SOLUTION OF 1.9 ML OF BUPIVACAINE 0.125% OF KENALOG 10 MG WAS INJECTED AT EACH SITE. THERE WAS NO EVIDENCE OF BLOOD, PARESTHESIA OR CEREBROSPINAL FLUID DURING THE PROCEDURE. THE PATIENT WAS SENT TO THE RECOVERY ROOM. THE PATIENT WAS MOVING THE EXTREMITIES AND DOING WELL. THERE WAS NO COMPLICATION DURING THE PROCEDURE. FLUOROSCOPY TIME WAS 11 SECONDS POST PROCEDURE NOTE THE PATIENT WILL BE SEEN IN A FOLLOWUP IN THE NEXT FEW WEEKS. I AM LOOKING FOR LONG-LASTING PAIN RELIEF WITH THIS INTERVENTION. INSTRUCTIONS WERE GIVEN, QUESTIONS WERE ANSWERED, AND THE PATIENT EXPRESSED UNDERSTANDING AND AGREES WITH THE PLAN. I, TERRELL BLAIR, DOCUMENTED THE ABOVE INFORMATION ACTING A SCRIBE FOR DR. RODRIGUEZ. I HAVE REVIEWED THE ABOVE DOCUMENT, WRITTEN BY MOMO GEORGES, AND I VERIFY THAT IT IS ACCURATE DIAGNOSTIC IMAGING [facility] FACET BLOCK (PAIN)[id number] PROCEDURE CODES 54131 INJ PARAVERT F JNT L/S 1 LEV, MODIFIERS: 50 [id number] INJ PARAVERT F JNT L/S 2 LEV, MODIFIERS: 50 [id number] RADXPS IN END [id number] PXD DISPOSITION & COMMUNICATION FOLLOW UP 3 WEEKS ELECTRONICALLY SIGNED BY BLANCA RODRIGUEZ MD, MD ON 11/26/2019 AT 10:59 AM EST DISCLAIMER : THIS IS A VISIT SUMMARY EXTRACTED FROM THE [employer] CHART. IT IS NOT A COPY OF THE [employer] PROGRESS NOTE. MTDD
== END ==
LOC: M PAIN 13:00
PROVIDERS: ATTEND Anesthesiology
DX: M47.816 Spondylosis without myelopathy or radiculopathy, lumbar region (principal); M47.817 Spondylosis without myelopathy or radiculopathy, lumbosacral region; M79.7 Fibromyalgia; Z86.59 Personal history of other mental and behavioral disorders; G47.30 Sleep apnea, unspecified; K21.9 Gastro-esophageal reflux disease without esophagitis; Z98.84 Bariatric surgery status; Z79.891 Long term (current) use of opiate analgesic; Z79.899 Other long term (current) drug therapy
CPT/HCPCS: 64493; 64494; J3301; Q9967

== ENCOUNTER → 2019-11-25 | Outpatient (CLI) | payer OTHER ==
[~2019-11-25] MED LIST changes: -BUPIVACAINE HCL 0.25% 30 ML VIAL As Ordered ONE; -ISOVUE-M 300 61% 15ML VIAL (Q9967) As Ordered ONE; -LIDOCAINE 1% SDV INJ 30 ML VIAL As Ordered ONE; -TRIAMCINOLONE ACETONIDE SUSP 40 MG/ML VIAL (J3301) As Ordered ONE; -diazePAM 5 MG TAB As Ordered ONE
--- NOTE | 2019-11-25 14:31 | REP ---
INDICATION: Spondylosis PROCEDURE: MR lumbar spine without contrast. Sagittal T1-T2 and STIR images, axial T1 and T2-weighted images obtained. COMPARISON STUDIES: None FINDINGS: There is bixp-oo-kcpfdwqz multilevel degenerative disc disease loss of disc height and disc desiccation seen diffusely throughout the lumbar spine. Vertebral heights are well preserved. There is a superior endplate depression at T12 anteriorly. On the sagittal T2-weighted images, no limiting canal stenosis. Conus ends normally at L1 level. On review of axial images At L1-2 and L2-3 no significant canal or foraminal narrowing At L3-4 facet hypertrophic degenerative changes. There is fyvp-zw-[id number] canal narrowing and ajlf-jz-nhwybvta bilateral foraminal narrowing At L4-5 mild canal narrowing and pqin-xe-crojmurt bilateral foraminal narrowing At L5 S1 no significant canal or foraminal narrowing. IMPRESSION: 1. Qpdd-un-dvxvguqo multilevel degenerative disc disease. 2. No limiting canal or foraminal stenosis. 3. Focal superior endplate depression at T12. Electronically Signed by Sam Salazar MD 11/25/2019 02:23 P
== END ==
LOC: M RAD 12:46
PROVIDERS: ATTEND Family Medicine
DX: M47.816 Spondylosis without myelopathy or radiculopathy, lumbar region (principal)

== ENCOUNTER → 2019-12-02 | Outpatient (CLI) | payer OTHER ==
--- NOTE | 2019-12-04 03:20 | ECWPNPC ---
PATIENT NAME: ROSANGELA ISAAC : 1960 GENDER: FEMALE VISIT DATE: 12/02/2019 DISCHARGE DATE: 12/02/19 1424 VISIT LOCKED DATE TIME: PHYSICIAN: SAMMIE MURILLO RESOURCE: SAMMIE MURILLO REASON FOR APPOINTMENT 1. POST PROCEDURE/ REVIEW MRI HISTORY OF PRESENT ILLNESS HISTORY OF PRESENT ILLNESS: PAIN THE PATIENT DESCRIBES THE PAIN... 59-YEAR-OLD FEMALE IN FOR POST BILATERAL LUMBAR FACET BLOCK FOLLOW-UP. SHE IS ALSO IN TO REVIEW A RECENT MRI. SHE RATES HER PAIN CURRENTLY AT A 6 OUT OF 10 AND DESCRIBES IT SHARP, STABBING, AND SHOOTING. SHE RATES HER PAIN PREPROCEDURE AT A 8-9 OUT OF 10 AND POSTPROCEDURE AT A 8-9 OUT OF 10 INITIALLY HOWEVER SHE ADMITS THE PAIN IS STARTING TO DECREASE AND HAS GONE DOWN TO A 6 OUT OF 10 TODAY. FALL RISK SCREENING: SCREENING :NO FALLS REPORTED IN THE LAST YEAR CURRENT MEDICATIONS TAKING ONDANSETRON HCL 4 MG TABLET 1 TABLET ORALLY THREE TIMES DAILY NEEDED TAKING OMEPRAZOLE 40 MG CAPSULE DELAYED RELEASE 1 CAPSULE ORALLY TWICE DAILY NEEDED TAKING ZOLOFT 100 MG TABLET 1 TABLET ORALLY ONCE A DAY TAKING KLONOPIN 1 MG TABLET 1 TABLET ORALLY BID NEEDED TAKING VITAMIN D (ERGOCALCIFEROL) 07420 UNIT CAPSULE 1 CAPSULE ORALLY WEEKLY TAKING VITAMIN B-12 500 MCG TABLET 1 TABLET ORALLY ONCE A DAY TAKING CITRACAL PLUS - TABLET DIRECTED ORALLY TAKING MULTIVITAMIN ADULT - TABLET DIRECTED ORALLY TAKING POTASSIUM & MAGNESIUM ASPARTAT 250-250 MG CAPSULE 1 CAPSULE WITH A MEAL ORALLY ONCE A DAY TAKING BIOTENE DRY MOUTH - LIQUID DIRECTED MOUTH/THROAT TAKING LYRICA 200 MG CAPSULE 1 CAPSULE ORALLY FOR PAIN BID MDD=2 TAKING TIZANIDINE HCL 4 MG TABLET 1 TABLET NEEDED ORALLY FOR SPASMS AND PAIN EVERY 8 HRS NEEDED (PAIN CLINIC) MDD3, NOTES: W/C REFUSES TO REFILL TAKING NORCO 10-325 MG TABLET 1 TABLET ORALLY EVERY 8-12 HRS PRN PAIN MDD=2 NOT-TAKING BUSPIRONE HCL 15 MG TABLET 1 TABLET ORALLY TWICE A DAY NOT-TAKING GLIPIZIDE 10 MG TABLET 1/2 TABLET ORALLY ONCE A DAY, NOTES: ON HOLD NOT-TAKING GABAPENTIN 100 MG CAPSULE 1 CAPSULE ORALLY TID, NOTES: 1 MONTH PRESCRIPTION NOT-TAKING CHILDRENS CHEWABLE VITAMINS - TABLET CHEWABLE 2 TABLETS ORALLY DAILY NOT-TAKING LOSARTAN POTASSIUM 100 MG TABLET 1 TABLET ORALLY ONCE A DAY NOT-TAKING IBUPROFEN 800 MG TABLET 1 TABLET ORALLY WITH FOOD THREE TIMES A DAY PRN FOR PAIN MDD3 NOT-TAKING AMBIEN 5 MG TABLET 1 TAB(S) ORAL AT BEDTIME NEEDED (PECK) MEDICATION LIST REVIEWED AND RECONCILED WITH THE PATIENT PAST MEDICAL HISTORY FIBROMYALGIA CHRONIC BACK PAIN ICD-9 724.5 POSITIVE LYME TITER DEPRESSION ICD-9 311.0 SLEEP APNEA- NO LONGER USES CPAP ACID REFLUX ENVIROMENTAL ALLERGIES MIXED HYPERLIPIDEMA? IBS CHRONIC DRY EYES HISTORY OF FIBROIDS S/P HYSTERECTOMY ASCVD 10 YR RISK: 17 ANXIETY HEART MURMUR ALLERGIES SEASONAL SURGICAL HISTORY TUBAL LIGATION 1983 APPENDECTOMY HYSTERECTOMY/ LAP ASSISTED VAGINAL --- DUE TO ADENOMYOSIS AND FIBROID UTERUS 11/21 COLONOSCOPY 2009 RIGHT BREAST BIOPSY 2010 GASTRIC BYPASS 04/2019 FAMILY HISTORY FATHER: UNKNOWN MOTHER: , INFLUENZA SIBLINGS: ALIVE SON(S): ALIVE DAUGHTER(S): , LUPUS, FIBROMYALGIA, ASTHMA, LYME DISEASE, DUE TO MVA 2 BROTHER(S) , 1 SISTER(S) - HEALTHY. 3 SON(S) , 1 DAUGHTER(S) . SISTER- MS\\NSON - ENLARGED HEART. SOCIAL HISTORY GENERAL: TOBACCO USE ARE YOU A:CURRENT SMOKER ARE YOU INTERESTED IN QUITTING?READY TO QUIT COUNSELED THE PATIENT ON TOBACCO USE, CESSATION [id number]/21/2020 HOW MANY CIGARETTES A DAY DO YOU SMOKE?- SMOKING CESSATION INFORMATION GIVEN11/14/2019 E-CIGARETTENO OTHERS AT HOME: SPOUSE. EDUCATION LEVEL OF EDUCATION:COLLEGE DIET: REGULAR. LANGUAGE LANGUAGES SPOKEN:CHINESE NEW PATIENT PAIN DIARY FROM 0-10, WHAT LEVEL IS YOUR PAIN TODAY?10 BMI CARE GOAL FOLLOW-UP ABOVE NORMAL BMI FOLLOW-UPGIVING ENCOURAGEMENT TO EXERCISE RECREATIONAL DRUG USE DRUG USE?NO EXERCISE: NO REGULAR EXERCISE. LEARNING BARRIERS / SPECIAL NEEDS CHANGE FROM LAST VISIT?NO BARRIERS TO LEARNING?NO HEARING IMPAIRED?NO VISION IMPAIRED?YES COGNITIVELY IMPAIRED?NO :CORRECTIVE LENSES READINESS TO LEARN?YES LEARNING PREFERENCES?NO LEARNING CAPABILITIES PRESENT?YES EMOTIONAL BARRIERS?NO SPECIAL DEVICES?NO IMAGE PROCESSING ENGINEER NEEDED?NO PAIN CLINIC PFS, CLERGY, PUBLIC HEALTH REFERRALS HAS THE PATIENT BEEN EDUCATED REGARDING HIS/HER PLAN OF CARE?YES HAS THE PATIENT BEEN EDUCATED REGARDING PAIN, THE RISK FOR PAIN, THE IMPORTANCE OF EFFECTIVE PAIN MANAGEMENT, AND THE PAIN ASSESSMENT PROCESS?YES LATEX QUESTIONNAIRE LATEX ALLERGY : HAVE YOU EVER DEVELOPED ANY TYPE OF REACTION AFTER HANDLING LATEX PRODUCTS SUCH RUBBER GLOVES, CONDOMS, DIAPHRAGMS, BALLOONS, SOCKS, OR UNDERWEAR?NO LATEX ALLERGY : HAVE YOU EVER DEVELOPED ANY TYPE OF REACTION DURING OR AFTER DENTAL APPOINTMENT, VAGINAL/RECTAL EXAMINATION, SURGICAL PROCEDURE, OR ANY OTHER EXPOSURE?NO DATE ASKED : 05/12/2019 LATEX RISK : HAVE YOU EVER HAD ANY DIFFICULTY BREATHING OR HIVES AFTER EATING OR HANDLING ANY FRUITS, OR VEGETABLES; SUCH KIWI, BANANAS, STONE FRUITS, OR CHESTNUTSYES - PLEASE INDICATE : BANANAS LATEX RISK : DO YOU HAVE A PREVIOUS PERSONAL HISTORY OF MORE THAN NINE SURGERIES, SPINA BIFIDA, OR REPEATED CATHERIZATIONS? NO LATEX RISK : ARE YOU FREQUENTLY EXPOSED TO LATEX PRODUCTS IN YOUR OCCUPATION?NO CAFFEINE CAFFEINE USE?YES COFFEE 2 CUPS A DAY ADVANCE DIRECTIVE ADVANCE DIRECTIVE DISCUSSED WITH PATIENT:YES DECLINED HCP INFORMATION OR ASSISTANCE AT THIS TIME. SHINTO [id number] ZOROASTRIAN NO CHRISTIAN BELIEFS THAT WOULD IMPACT HEALTH CARE. MARITAL STATUS: . ALCOHOL SCREENING DID YOU HAVE A DRINK CONTAINING ALCOHOL IN THE PAST YEAR?NO POINTS0 INTERPRETATIONNEGATIVE OCCUPATION: [employer]. SEXUAL HX HAD SEX IN THE LAST 12 MONTHS (VAGINAL, ORAL, OR ANAL)?YES , 4 ADULT KIDS. ALL LIVE TOGETHER....UNEMPLOYED...DOES NOT SMOKE OR DRINK.REVIEWED WITH PATIENT 08/26/18 1539 JSREVIEWED WITH PATIENT 01/10/19 1355 JSREVIEWED WITH PATIENT 05/12/19 1207 JSREVIEWED WITH PATIENT 08/12/2019 LAS. HOSPITALIZATION/MAJOR DIAGNOSTIC PROCEDURE HU - DEPRESSION 2012 CHILDBIRTH X 4 SURGERY RELATED 04/2019 REVIEW OF SYSTEMS REVIEWED BY: PROVIDER: MARTÍN HARDEN-C . CONSTITUTIONAL: ANY CHANGE IN YOUR MEDICAL CONDITION? NO . CHILLS NO . FEVER NO . INFECTION: DO YOU HAVE NEW INFECTIONS? NO . DO YOU HAVE HISTORY OF MRSA? NO . MUSCULOSKELETAL: ANY NEW PATTERNS OF PAIN OR NUMBNESS? NO . GASTROENTEROLOGY: ANY NEW CHANGE IN BOWEL CONTROL? NO . GENITOURINARY: ANY NEW CHANGE IN BLADDER CONTROL? NO . IS THERE A CHANCE YOU COULD BE ? NO . HEMATOLOGY/LYMPH: DO YOU TAKE ANY BLOOD THINNERS? (FOR EXAMPLE- COUMADIN, PLAVIX, AGGRENOX, PLATEL, PRADAXA, OR XARELTO) NO . WHEN WAS YOUR LAST DOSE? DATE: TIME: . NEUROLOGY: HAVE YOU FALLEN IN THE PAST 12 MONTHS? NO . ANY NEW EXTREMITY NUMBNESS OR WEAKNESS? NO . CARDIOLOGY: DO YOU HAVE A PACEMAKER OR DEFIBRILLATOR? NO . RESPIRATORY: HAVE YOU BEEN SICK IN THE PAST WEEK? NO . FEVER NO . FLU LIKE SYMPTOMS? NO . COUGH NO . INTEGUMENTARY: DO YOU HAVE ANY RASHES OR OPEN SORES? NO . ALLERGIC/IMMUNO: ARE YOU ALLERGIC TO IV DYE? NO . ANY NEW ALLERGIES? NO . PSYCHIATRIC: DO YOU HAVE THOUGHTS OF HURTING YOURSELF OR SOMEONE ELSE? NO . ARE YOU ABUSED, NEGLECTED, OR IN AN UNSAFE ENVIRONMENT? NO . ENDOCRINOLOGY: ARE YOU DIABETIC? NO . OTHER: DO YOU NEED ANY PRESCRIPTIONS? NO . IF YES, PLEASE LIST: ____ . ANY NEW PROBLEMS WITH YOUR MEDICATIONS? NO . WHEN DID YOU LAST EAT? ____ . WHEN DID YOU LAST DRINK? ____ . WHAT DID YOU LAST DRINK? ____ . NAME OF PERSON DRIVING YOU HOME? ____ . DO YOU HAVE ANY OTHER QUESTIONS OR CONCERNS NO . VITAL SIGNS WT 135 LBS, HT 61 IN, BMI 25.51 INDEX, BP 139/89 MM HG, HR 76 /MIN, RR 16 /MIN, TEMP 98.8 F, OXYGEN SAT % 100, REVIEWED BY: EM. EXAMINATION GENERAL EXAMINATION: GENERALNO ACUTE DISTRESS, WELL NOURISHED AND HYDRATED. PSYCHAPPROPRIATE MOOD AND AFFECT . LUNGS:CLEAR TO AUSCULTATION BILATERALLY, NO WHEEZES, RHONCHI, RALES. HEART:NO MURMURS, REGULAR RATE AND RHYTHM. ASSESSMENTS SPONDYLOSIS WITHOUT MYELOPATHY OR RADICULOPATHY, LUMBOSACRAL REGION - M47.817 (PRIMARY) TREATMENT SPONDYLOSIS WITHOUT MYELOPATHY OR RADICULOPATHY, LUMBOSACRAL REGION CLINICAL NOTES: 59-YEAR-OLD FEMALE IN FOR LUMBAR FACET BLOCK FOLLOW-UP. GIVEN PRESENTING SYMPTOMS AND RESULTS OF PHYSICAL EXAMINATION RECOMMEND FOLLOW-UP IN ONE MONTH. MRI RESULTS WERE REVIEWED WITH PATIENT TODAY. PATIENT HAS EXPRESSED UNDERSTANDING OF AND WAS IN AGREEMENT WITH TREATMENT PLAN. GIVEN TIME TO ASK QUESTIONS AND EXPRESS CONCERNS., ISTOP REGISTRY REVIEWED AND DEMONSTRATES COMPLLIANCE. (REF # [id number] ) BRINGS IN MEDICATIONS WHICH IS APPROPRIATE FOR WHAT WAS DISPENSED. RECENT URINE TOXICOLOGY REVIEWED. NO UNAUTHORIZED MEDICATIONS. NO ILLICIT SUBSTANCES AND PRESCRIBED MEDICATIONS WERE PRESENT. PROCEDURE CODES FA211 ESTABILISHED PATIENT [facility] CHARGE DISPOSITION & COMMUNICATION FOLLOW UP 4 WEEKS (REASON: LOW BACK PAIN) ELECTRONICALLY SIGNED BY FINA MEYER ON 12/03/2019 AT 08:50 AM EST DISCLAIMER : THIS IS A VISIT SUMMARY EXTRACTED FROM THE ECLINICALWORKS CHART. IT IS NOT A COPY OF THE E[employer]ICALWORKS PROGRESS NOTE. ROVERTO
== END ==
LOC: M PAIN 13:45
PROVIDERS: ATTEND Family Medicine
DX: M47.817 Spondylosis without myelopathy or radiculopathy, lumbosacral region (principal); M79.7 Fibromyalgia; Z86.59 Personal history of other mental and behavioral disorders; G47.30 Sleep apnea, unspecified; K21.9 Gastro-esophageal reflux disease without esophagitis; Z98.84 Bariatric surgery status; F17.210 Nicotine dependence, cigarettes, uncomplicated; Z79.891 Long term (current) use of opiate analgesic; Z79.899 Other long term (current) drug therapy

== ENCOUNTER 2020-01-01 11:22 | Inpatient (IN) | payer BC, OTHER ==
[~2020-01-01] VITALS: Ht 152.4 cm; Wt 61.5 kg
[2020-01-01] VITALS (13 sets, daily range): BP systolic 83–100; BP diastolic 53–63
[2020-01-01] MEDS ORDERED: PREG200C PO (11:55)
[2020-01-01] MEDS ORDERED: ZOLO100T PO (11:55)
[2020-01-01] MEDS ORDERED: LIDO1ADH10 TOP (11:55)
[2020-01-01] MEDS ORDERED: MULTCAP PO (11:56)
[2020-01-01] MEDS ORDERED: POTA10808 PO (11:56)
[2020-01-01 12:24] LABS: BASO % 0.3 % (0.0-1.0); EOS % 0.1 % (0.0-3.0); HEMATOCRIT 38.4 % (36.0-47.0); HEMOGLOBIN 12.6 g/dl (12.0-15.5); LYMPH % 3.1 % (24.0-44.0); MEAN CORPUSCULAR HEMOGLOBIN 29.2 pg (27.0-33.0); MEAN CORPUSCULAR HGB CONC 32.8 g/dl (32.0-36.5); MEAN CORPUSCULAR VOLUME 89.1 fl (80.0-96.0); MONO # 0.1 10^3/uL (0.0-0.8); MONO % 0.8 % (0.0-5.0); NEUTROPHILS # 7.2 10^3/uL (1.5-8.5); NEUTROPHILS % 95.6 % (36.0-66.0); PLATELET COUNT, AUTOMATED 170 10^3/uL (150-450); RED BLOOD COUNT 4.31 10^6/uL (4.00-5.40); WHITE BLOOD COUNT 7.5 10^3/uL (4.0-10.0)
[2020-01-01] MEDS ORDERED: NS 1,000 ML IV ONE ×2 (12:30→13:30)
[2020-01-01] MEDS ORDERED: ONDANSETRON 4MG/2ML VIAL (J2405) IV ONE (12:30)
[2020-01-01] MEDS ORDERED: MORPHINE 2 MG/ML 1ML VIAL (J2270) IV PRN ×2 (12:30→22:15)
[2020-01-01] MEDS ORDERED: KCL 10MEQ/100ML SWI (KRUN) 10 MEQ in IV 1 EA IV ONE (12:30)
[2020-01-01] MEDS ORDERED: KETOROLAC 30 MG/ML VIAL (J1885) IV ONE (12:30)
[2020-01-01 12:52] LABS: ALBUMIN 3.7 GM/DL (3.2-5.2); BILIRUBIN,DIRECT 0.1 MG/DL (0.0-0.2); BILIRUBIN,TOTAL 0.3 MG/DL (0.2-1.0); MAGNESIUM LEVEL 1.6 MG/DL (1.8-2.4); TOTAL PROTEIN 6.2 GM/DL (6.4-8.2)
[2020-01-01] MEDS ORDERED: MAG SULF 1GM/100ML (MAG RUN) 1 GM in IV 1 EA IV ONE (13:00)
--- NOTE | 2020-01-01 13:00 | REP ---
Clinical: Left flank pain. Technique: Axial noncontrast images from the lung bases to the pubic symphysis with coronal and sagittal re-formations. Comparison: 08/25/2019. Findings: Moderate acute left-sided obstructive uropathy with edematous enlargement to the kidney, perinephric stranding, and hydroureteronephrosis is secondary to a 2.0 mm calculus at the ureterovesical junction (image 130). No further left urinary calcifications are identified. The right kidney demonstrates two punctate nonobstructing calculi and 3 cm upper pole cyst without acute perinephric stranding or hydroureteronephrosis. Liver, spleen, pancreas, gallbladder, and bilateral adrenal glands are normal. Evidence of prior gastric bypass surgery noted. No bowel obstruction or acute inflammatory process. Further evaluation of the pelvis demonstrates prior hysterectomy. No ascites. No free air. No adenopathy. Musculoskeletal structures demonstrate degenerative changes without acute abnormality. Lung bases are clear. Impression: 1. Moderate acute left-sided obstructive uropathy with a 2.0 mm obstructing calculus at the ureterovesical junction. 2. Right kidney includes punctate nonobstructing calculi and 3 cm upper pole cyst. Electronically Signed by Tate Pascual MD 01/01/2020 12:52 P
[2020-01-01 13:01] LABS: LYMPH # 0.2 10^3/uL (1.5-5.0)
[2020-01-01] MEDS ORDERED: cefTRIAXone SOD 1 GM in D5W MINI-BAG PLUS 50 ML IV ONE ×2 (14:00→18:45)
[2020-01-01] MEDS ORDERED: TAMSULOSIN 0.4 MG CAP PO ONE (14:00)
[2020-01-01] MEDS ORDERED: OMEP-218 PO (14:13)
[2020-01-01] MEDS ORDERED: BIOT10009 PO (14:13)
[2020-01-01] MEDS ORDERED: SM P99TA PO (14:13)
[2020-01-01] MEDS ORDERED: CITRTAB13 PO (14:13)
[2020-01-01] MEDS ORDERED: APPLTAB2 PO (14:13)
[2020-01-01] MEDS ORDERED: CVS1CAP5 PO (14:13)
[2020-01-01] MEDS ORDERED: B-12100010 PO (14:13)
[2020-01-01] MEDS ORDERED: VITA50005 PO (14:13)
[2020-01-01] MEDS ORDERED: cefTRIAXone SOD 2 GM in D5W MINI-BAG PLUS 50 ML IV ONE (15:00)
[2020-01-01] MEDS ORDERED: LIDOCAINE 5% (LIDODERM) PATCH TD ONE (15:00)
[2020-01-01] MEDS ORDERED: SODIUM CHLORIDE 0.9% 1000ML IV SCH (15:00)
[2020-01-01] MEDS ORDERED: NOREPINEPHRINE 4 MG/4 ML AMP As Ordered ONE (17:38)
[2020-01-01] MEDS: NOREPINEPHRINE BITARTRATE 8 MG in D5W 492 ML IV SCH (17:45)
--- NOTE | 2020-01-01 17:48 | REP ---
Portable chest x-ray: Single view. History: Central venous catheter placement. Comparison study: April 08, 2019. Findings: Monitoring electrodes are seen. A right internal jugular central venous line is inserted with its tip in the expected location of the superior vena cava. There is no evidence of pneumothorax or hydrothorax. Mediastinum is not widened. Heart size is normal. Impression: No acute disease. Central line in place on the right. No complication seen. Electronically Signed by Ortega Rizo MD 01/01/2020 05:39 P
[2020-01-01] MEDS ORDERED: KETAMINE HCL 200 MG/20 ML VIAL As Ordered ONE (18:24)
[2020-01-01] MEDS ORDERED: fentaNYL 100 MCG/2 ML INJECTION (J3010) As Ordered ONE ×2 (18:25→20:13)
[2020-01-01] MEDS ORDERED: MIDAZOLAM INJ 2 MG/2 ML VIAL (J2250) As Ordered ONE (18:25)
[2020-01-01] MEDS ORDERED: LIDOCAINE 2% 5ML JELLY UROJET As Ordered ONE (18:29)
[2020-01-01] MEDS ORDERED: CONRAY-60 60% 50ML VIAL (Q9961) As Ordered ONE (18:29)
[2020-01-01] MEDS ORDERED: MORPHINE 2 MG/ML 1ML VIAL (J2270) As Ordered ONE (18:31)
[2020-01-01] MEDS ORDERED: LIDOCAINE 2% INJ 100 MG/5 ML SDV (FOR ANES.) As Ordered ONE (18:32)
[2020-01-01] MEDS ORDERED: propofoL 200 MG/20 ML VIAL As Ordered ONE (18:32)
--- NOTE | 2020-01-01 18:33 | SMCUROLCON ---
Urology Consultation General Date of Consultation 01/01/20 Reason For Consultation This patient is seen for Hypomagnesemia Obstructive Uropathy. History of Present Illness This is a 59 y/o F w/ a PMH significant for HL, presenting to the ER w/ increasing left flank pain, fevers, and n/v. She notes that she has been having dysuria for a week or so. This worsened today and became associated w/ left flank pain and n/v. Per report she was also febrile to 105 earlier today. At this time she notes that she feels very weak and the flank pain has gotten worse. On CT A/P she was found to have a 2mm stone at the left UPV and moderate left hydronephrosis w/ perinephric stranding. Her UA is positive for nitrites and bacteria. Past Medical History Medical History HL Surgical Hstory gastric bypass, partial hysterectomy, appendectomy Medications Current Medications Current Medications Medications (Trade) Dose Ordered Sig/Felton Route PRN Reason Start Time Stop Time Status Last Admin Dose Admin Calcium/Vitamin D (Oscal D) 500 mg BID PO 01/01/20 21:00 Clonazepam (KlonoPIN) 0.5 mg DAILY PRN PO ANXIETY 01/02/20 09:00 Clonazepam (KlonoPIN) 1 mg QHS PRN PO ANXIETY 01/02/20 09:00 Cyanocobalamin (Vitamin B12) 1,000 mcg DAILY PO 01/02/20 09:00 Home Med (Med Rec Complete!) ASDIRECTED XX 01/01/20 14:15 01/01/20 14:16 DC Lactobacillus Acidophilus (Bacid) 1 ea DAILY PO 01/02/20 09:00 Morphine Sulfate (Morphine Sulfate Inj) 2 mg Q30M PRN IV MODERATE PAIN (PS 5-7) 01/01/20 12:30 Non-Formulary Medication ( See Comment Field Below ) REMOVE LIDODERM PATCH DAILY@21 XX 01/01/20 21:00 Norepinephrine Bitartrate 8 mg/ Dextrose 500 ml @ 1 mls/hr Q24H IV 01/01/20 18:00 01/01/20 17:45 Omeprazole (PriLOSEC) 20 mg DAILY PO 01/02/20 09:00 Pravastatin Sodium (Pravachol) 20 mg DAILY PO 01/02/20 09:00 Sertraline HCl (Zoloft) 150 mg DAILY PO 01/02/20 09:00 Sodium Chloride (Nacl 0.9%) 1,000 ml BOLUS IV 01/01/20 15:00 01/01/20 15:16 DC 01/01/20 15:21 Tizanidine HCl (Zanaflex) 4 mg Q8H PRN PO MUSCLE SPASMS 01/01/20 15:00 Vitamin B Complex/ Vit C/Folic Acid (Nephro-[place] Rx) 1 tab DAILY PO 01/02/20 09:00 Vitamin D (Drisdol) 50,000 units Q7D PO 01/03/20 09:00 Allergies Allergies: Coded Allergies: POLLEN (Verified Allergy, Unknown, 09/17/12) No Known Allergies (Unverified , 04/17/05) Review of Systems Constitutional: Reports: Fever, Chills, Weakness Pulmonary: Denies: Dyspnea, Cough Cardiovascular: Denies Chest Pain, Denies Palpitations Gastrointestinal: Reports: Nausea, Vomiting, Abdominal Pain Genitourinary: Reports: Dysuria Musculoskeletal: Reports: Back Pain (left flank pain) Psych: Reports: Mood Normal Physical Examination General Exam: Alert, Cooperative, No Acute Distress Chest Exam: Normal air movement Heart Exam: Regular Rhythm Abdomen Exam: Soft, Tenderness (LLQ tenderness) Skin Exam: Nl turgor and temperature Neuro Exam: Normal Speech Vital Signs/I&O Vital Signs Date Time Temp Pulse Resp B/P (MAP) Pulse Ox O2 Delivery O2 Flow Rate FiO2 01/01/20 17:45 81/40 01/01/20 17:30 108 20 98 Room Air 01/01/20 17:10 99.5 Laboratory Data 24H Labs Laboratory Tests 2 01/01/20 12:05: Immature Granulocyte % (Auto) 0.1, Neutrophils (%) (Auto) 95.6H, Lymphocytes (%) (Auto) 3.1L, Monocytes (%) (Auto) 0.8, Eosinophils (%) (Auto) 0.1, Basophils (%) (Auto) 0.3, Neutrophils # (Auto) 7.2, Lymphocytes # (Auto) 0.2L, Monocytes # (Auto) 0.1, Eosinophils # (Auto) 0.0, Basophils # (Auto) 0.0, Nucleated Red Blood Cells % (auto) 0.0, Lactic Acid Level 2.5*H, Magnesium Level 1.6L, Total Bilirubin 0.3, Direct Bilirubin 0.1, Aspartate Amino Transf (AST/SGOT) 20, Alanine Aminotransferase (ALT/SGPT) 26, Alkaline Phosphatase 68, Total Protein 6.2L, Albumin 3.7, Albumin/Globulin Ratio 1.48, Lipase 57L 01/01/20 12:12: POC Glucose (Misc Panel) 111H, POC Sodium (Misc Panel) 140, POC Potassium (Misc Panel) 2.9*L, POC Chloride (Misc Panel) 104, POC Total CO2 (Misc Panel) 24.0, POC Blood Urea Nitrogen (Misc Panel 13, POC Ionized Calcium (Misc Panel) 4.8, POC Creatinine (Misc Panel) 1.0, POC Hematocrit (Misc Panel) 39.0 01/01/20 14:52: Urine Color YELLOW, Urine Appearance HAZY, Urine pH 5.0, Urine Specific [place] 1.017, Urine Protein NEGATIVE, Urine Glucose (UA) 1+H, Urine Ketones NEGATIVE, Urine Blood NEGATIVE, Urine Nitrite POSITIVEH, Urine Bilirubin NEGATIVE, Urine Urobilinogen 0.2, Urine Leukocyte Esterase 1+H, Urine WBC (Auto) 21H, Urine RBC (Auto) 6H, Urine Hyaline Casts (Auto) 0, Urine Bacteria (Auto) 1+H, Urine Squamous Epithelial Cells 0, Urine Mucus (Auto) SMALL, Urine Sperm (Auto) 01/01/20 17:19: Lactic Acid Followup at 4 Hours 2.9*H CBC/BMP Laboratory Tests 01/01/20 12:05 Microbiology Microbiology 01/01/20 Urine Culture, Received Pending 01/01/20 Blood Culture, Received Pending 01/01/20 Blood Culture, Received Pending Assessment This is a 59 y/o F w/ likely sepsis due to a UTI and an obstructing 2mm distal left UVJ stone. I recommended that we take her to the OR as soon as possible for cystoscopy, left ureteroscopy w/ basket extraction of stone, and left ureteral stent placement. Plan - informed consent signed - cultures obtained - broad spectrum abx started - NPO - to OR now GIULIA KYLE MD Jan 01, 2020 18:33
[2020-01-01] MEDS ORDERED: MORPHINE 2 MG/ML 1ML VIAL (J2270) IV SCH (18:45)
[2020-01-01] MEDS ORDERED: cefTRIAXone SOD 1 GM VIAL (J0696) As Ordered ONE (18:49)
[2020-01-01] MEDS ORDERED: ONDANSETRON 4MG/2ML VIAL (J2405) As Ordered ONE (19:25)
[2020-01-01] MEDS: fentaNYL 100 MCG/2 ML INJECTION (J3010) IV PRN ×3 (20:15→20:36)
[2020-01-01] MEDS ORDERED: LR 1,000 ML IV SCH (20:30)
[2020-01-01] MEDS ORDERED: ONDANSETRON 4MG/2ML VIAL (J2405) IV PRN (20:30)
[2020-01-01] MEDS: oxyBUTYnin 5 MG TAB PO PRN (20:53)
[2020-01-01] MEDS: CALCIUM/VITAMIN D 500 MG TAB PO SCH (21:00)
[2020-01-01] MEDS: **NOTE PATIENT COMMENT** MISC XX SCH (21:00)
[2020-01-01] MEDS ORDERED: PREGABALIN 100 MG CAP (LYRICA) PO ONE (21:00)
[2020-01-01] MEDS: KCL 20MEQ IN 100ML SWI (KRUN) 20 MEQ in IV 1 EA IV SCH ×4 (22:19→23:53)
--- NOTE | 2020-01-01 22:19 | HPEPDOC ---
General Date of Admission Jan 01, 2020 at 14:51 Date of Service: Jan 01, 2020 Attending Physician: EDGAR CROOKS MD Chief Complaint The patient is a 59-year-old female admitted with a reason for visit of Hypomagnesemia Obstructive Uropathy. Source: Patient, Family Exam Limitations: No limitations Timing/Duration: Week(s) (1 month) Severity: Severe History of Present Illness 59 y/o W w/ HTN, HLD, smoker, anemia who presented to the ED reporting worsening left flank pain, fevers, nausea and emesis in the setting of 1 month of dysuria and difficulty urinating for which she was told by her PCP to increase fluids and drink cranberry juice. In the ED, she was initially normotensive but febrile to 104 with tachycardia, and shortly after became hypotensive despite 3L of NS such that I placed a R IJ TLC to start levophed for septic shock 2/2 a UTI after UA was positive for nitrites and bacteria. Of note, WBC was 7.5, hgb 12.6, K 2.9, Cr 1, mag 1.[address] A/P noted a 2mm stone at the left UPV and moderate left hydronephrosis w/ perinephric stranding. While in the ED, urology was called and plan was for stone retrieval tonight and so she was made NPO. While in the Ed, she was given 3L NS, 1g ceftriaxone to which I added 1 more gram, zofran, toradol, morphine, 10meq of KCl, 1g Mag, flomax and I started her on levophed to a MAP >65. Home Medications Scheduled Biotin (Biotin) 1,000 Mcg Tab.chew, 2,000 MCG PO DAILY, (Reported) Calcium Citrate/Vitamin D3 (Citracal + D Maximum Caplet) 1 Each Tablet, 1 TAB PO BID, (Reported) Cider Vinegar (Apple Cider Vinegar) 500 Mg Tablet, 500 MG PO DAILY, (Reported) Cyanocobalamin (Vitamin B-12) (Vitamin B-12) 1,000 Mcg Capsule, 1,000 MCG PO DAILY, (Reported) Ergocalciferol (Vitamin D2) (Vitamin D2) 50,000 Units Cap, 50,000 UNITS PO QWEEK, (Reported) takes on sunday Lactobacillus Combination No.4 (Probiotic) 1 Each Capsule, 1 CAP PO DAILY, (Reported) Multivitamin (Multivitamins) 1 Each Capsule, 1 CAP PO DAILY, (Reported) Omeprazole (Omeprazole) 20 Mg Capsule.dr, 20 MG PO DAILY, (Reported) Potassium Gluconate (Potassium) 99 Mg Tablet, 595 MG PO DAILY, (Reported) Pravastatin Sodium (Pravastatin Sodium) 20 Mg Tablet, 20 MG PO DAILY, (Reported) Pregabalin (Pregabalin) 200 Mg Capsule, 200 MG PO BID, (Reported) Sertraline Hcl (Zoloft) 100 Mg Tablet, 150 MG PO DAILY, (Reported) Scheduled PRN Clonazepam (Clonazepam) 1 Mg Tablet, 1 MG PO QHS PRN for ANXIETY, (Reported) Clonazepam (Clonazepam) 1 Mg Tablet, 0.5 MG PO DAILY PRN for ANXIETY, (Reported) Hydrocodone/Acetaminophen (Hydrocodone-Acetamin 10-325 mg) 1 Each Tablet, 1 TAB PO BID PRN for PAIN, (Reported) Lidocaine (Lidocaine Pain Relief) 1 Each Adh..patch, 1 PATCH TOP DAILY PRN for PAIN, (Reported) applies 1-2 patches prn, applied to upper and lower back Ondansetron (Ondansetron Odt) 4 Mg Tab.rapdis, 4 MG PO Q6H PRN for NAUSEA OR VOMITING, (Reported) Tizanidine HCl (Tizanidine HCl) 4 Mg Tablet, 4 MG PO Q8H PRN for MUSCLE SPASMS, (Reported) Allergies Coded Allergies: POLLEN (Verified Allergy, Unknown, 09/17/12) No Known Allergies (Unverified , 04/17/05) Past Medical History Medical History smoker anemia anxiety depression HTN HLD prior DM s/p gastric bypass Surgical History Gastric bypass Partial hysterectomy tubal ligation appendectomy Social History * Smoker: current smoker Alcohol: Denies Drugs: denies Recent Travel/Sick Contacts: Denies: Recent travel, Recent sick contacts Psychosocial History: Anxiety, Depression A-FIB/CHADSVASC A-FIB History Current/History of A-Fib/PAF?: No Current PO Anticoag Therapy: No Age/Risk Factor Scoring CHADSVASC: CHADSVASC Response (Comments) Value Age Risk Factor Age < 65 years old 0 Gender Risk Factor Female 1 Hx of CHF No 0 Hx of HTN Yes 1 Hx of Stroke/TIA/or VTE No 0 Hx of Diabetes Yes 1 Hx of Vascular Disease No 0 Total 3 Treatment Treatment ordered: NONE Reason Anticoagulant not given: Not indicated/[id number] Review of Systems Constitutional: Reports: Chills, Fever; Denies: Weight Loss Eyes: Denies: Pain, Vision change ENT: Denies: Head Aches, Ear Pain, Dysphagia Skin: Denies: Rash, Lesions, Breakdown Pulmonary: Denies: Dyspnea, Cough Cardiovascular: Denies: Chest Pain, Palpitations, Orthopnea, Paroxysmal Noc. Dyspnea, Lt Headedness Gastrointestinal: Reports: Nausea, Vomiting, Abdominal Pain; Denies: Diarrhea, Constipation, Melena, Hematochezia Genitourinary: Reports: Dysuria, Frequency, Retention (difficulty urinating); Denies: Incontinence, Hematuria Hematologic: Denies: Bruising, Bleeding Excessively Endocrine: Denies: Polydipsia, Polyphagia, Polyuria, Heat Intolerance, Cold Intolerance, Other Endocrine Sx Musculoskeletal: Denies: Neck Pain, Back Pain, Joint Pain, Muscle Pain, Spasms Neurological: Denies: Weakness, Numbness, Change in speech, Confusion Psych: Reports: Anxiety, Depression Physical Examination General Exam: Positive: Alert, Mild Distress, Other (ill appearing, in mild distress) Eye Exam: Positive: PERRLA, Conjunctiva & lids normal, EOMI; Negative: Sclera icteric ENT Exam: Positive: Atraumatic, Mucous membr. moist/pink, Pharynx Normal Neck Exam: Positive: Supple; Negative: JVD, thyromegaly Chest Exam: Positive: Clear to auscultation, Normal air movement Heart Exam: Positive: Tachycardic, Regular Rhythm, Normal S1, Normal S2; Negative: Murmurs, Rubs Telemetry: Positive: No significant arrhythmia Abdomen Exam: Positive: Normal bowel sounds, Soft, Tenderness (at this point she is tender throughout on palpation ), Other (L>R flank pain) Skin Exam: Positive: Nl turgor and temperature, Other skin issue (flushed); Negative: Breakdown, Lesion Neuro Exam: Positive: Normal Speech, Strength at 5/5 X4 ext, Normal Tone, Sensation Intact, Cranial Nerves 3-12 NL, Reflexes 2+ Psych Exam: Positive: Mental status NL, Memory Intact, Oriented x 3 Vital Signs Vital Signs Date Time Temp Pulse Resp B/P (MAP) Pulse Ox O2 Delivery O2 Flow Rate FiO2 01/01/20 21:25 98.4 102 18 91/56 (68) 99 Nasal Cannula 2 Laboratory Data Labs 24H Laboratory Tests 2 01/01/20 12:05: Immature Granulocyte % (Auto) 0.1, Neutrophils (%) (Auto) 95.6H, Lymphocytes (%) (Auto) 3.1L, Monocytes (%) (Auto) 0.8, Eosinophils (%) (Auto) 0.1, Basophils (%) (Auto) 0.3, Neutrophils # (Auto) 7.2, Lymphocytes # (Auto) 0.2L, Monocytes # (Auto) 0.1, Eosinophils # (Auto) 0.0, Basophils # (Auto) 0.0, Nucleated Red Blood Cells % (auto) 0.0, Lactic Acid Level 2.5*H, Magnesium Level 1.6L, Total Bilirubin 0.3, Direct Bilirubin 0.1, Aspartate Amino Transf (AST/SGOT) 20, Alanine Aminotransferase (ALT/SGPT) 26, Alkaline Phosphatase 68, Total Protein 6.2L, Albumin 3.7, Albumin/Globulin Ratio 1.48, Lipase 57L 01/01/20 12:12: POC Glucose (Misc Panel) 111H, POC Sodium (Misc Panel) 140, POC Potassium (Misc Panel) 2.9*L, POC Chloride (Misc Panel) 104, POC Total CO2 (Misc Panel) 24.0, POC Blood Urea Nitrogen (Misc Panel 13, POC Ionized Calcium (Misc Panel) 4.8, POC Creatinine (Misc Panel) 1.0, POC Hematocrit (Misc Panel) 39.0 01/01/20 14:52: Urine Color YELLOW, Urine Appearance HAZY, Urine pH 5.0, Urine Specific [place] 1.017, Urine Protein NEGATIVE, Urine Glucose (UA) 1+H, Urine Ketones NEGATIVE, Urine Blood NEGATIVE, Urine Nitrite POSITIVEH, Urine Bilirubin NEGATIVE, Urine Urobilinogen 0.2, Urine Leukocyte Esterase 1+H, Urine WBC (Auto) 21H, Urine RBC (Auto) 6H, Urine Hyaline Casts (Auto) 0, Urine Bacteria (Auto) 1+H, Urine Squamous Epithelial Cells 0, Urine Mucus (Auto) SMALL, Urine Sperm (Auto) 01/01/20 17:19: Lactic Acid Followup at 4 Hours 2.9*H CBC/BMP Laboratory Tests 01/01/20 12:05 Microbiology Microbiology 2/20/20 Urine Culture, Received Pending 01/01/20 Blood Culture, Received Pending 01/01/20 Blood Culture, Received Pending Assessment/Plan 59 y/o W w/ HTN, HLD, smoker, anemia who presented to the ED reporting worsening left flank pain, fevers, nausea and emesis in the setting of 1 month of dysuria and difficulty urinating and found to have a UTI and 2mm stone at the left UPV with moderate left hydronephrosis and perinephric stranding c/b septic shock. Septic shock 2/2 urinary tract infection with UVJ stone: Fever, tachycardia, hypotension, lethargy (AMS) -continue empiric ceftriaxone 2g Q 24h -UCx -BCx -Urology consulted and planning stone removal -s/p 3L fluids -hold all antihypertensives -levophed, for MAP >65 UVJ stone: -urology consulted, planning to go to OR tonight -NPO for OR -s/p flomax -getting fluids as above -pain control with morphine -oxybutynin per urology Psych meds: -continue home klonopin, zoloft HLD: -pravastatin Chronic pain: -lyrica HypoK to 2.9: -only got 10meq in ED, give 40 meq now that she has TLC Hypomag: -s/p 1g Mag sulfate x 1 DVT ppx: TEDs till OR, then can start heparin tomorrow Plan / VTE VTE Prophylaxis Ordered?: Yes EDGAR CROOKS MD Jan 01, 2020 22:18
[2020-01-01] MEDS: LR 1,000 ML IV SCH (22:20)
[2020-01-01 22:42] LABS: ALBUMIN 2.6 GM/DL (3.2-5.2); BILIRUBIN,TOTAL 0.2 MG/DL (0.2-1.0); CALCIUM LEVEL 7.5 MG/DL (8.5-10.1); CREATININE FOR GFR 1.31 MG/DL (0.55-1.30); GLOMERULAR FILTRATION RATE 44.6 (>51); MAGNESIUM LEVEL 1.6 MG/DL (1.8-2.4); POTASSIUM SERUM 3.6 MEQ/L (3.5-5.1); TOTAL PROTEIN 5.4 GM/DL (6.4-8.2)
[2020-01-02] VITALS (62 sets, daily range): BP systolic 74–113; BP diastolic 45–67
[2020-01-02 05:34] LABS: HEMATOCRIT 35.1 % (36.0-47.0); HEMOGLOBIN 11.3 g/dl (12.0-15.5); MEAN CORPUSCULAR HEMOGLOBIN 29.2 pg (27.0-33.0); MEAN CORPUSCULAR HGB CONC 32.2 g/dl (32.0-36.5); MEAN CORPUSCULAR VOLUME 90.7 fl (80.0-96.0); PLATELET COUNT, AUTOMATED 174 10^3/uL (150-450); RED BLOOD COUNT 3.87 10^6/uL (4.00-5.40); WHITE BLOOD COUNT 22.4 10^3/uL (4.0-10.0)
[2020-01-02 06:07] LABS: ALBUMIN 2.5 GM/DL (3.2-5.2); BILIRUBIN,TOTAL 0.1 MG/DL (0.2-1.0); CALCIUM LEVEL 7.4 MG/DL (8.5-10.1); CREATININE FOR GFR 1.4 MG/DL (0.55-1.30); GLOMERULAR FILTRATION RATE 41.3 (>51); MAGNESIUM LEVEL 1.5 MG/DL (1.8-2.4); POTASSIUM SERUM 4.2 MEQ/L (3.5-5.1); TOTAL PROTEIN 5.3 GM/DL (6.4-8.2)
[2020-01-02] MEDS: NOREPINEPHRINE BITARTRATE 8 MG in D5W 492 ML IV SCH ×3 (06:19→23:46)
--- NOTE | 2020-01-02 06:41 | IPNPDOC ---
Text Note Date of Service The patient was seen on 01/02/20. NOTE TRANSFER TO [facility]: 59 y/o W w/ HTN, HLD, smoker, anemia who presented to the ED reporting worsening left flank pain, fevers, nausea and emesis in the setting of 1 month of dysuria and difficulty urinating. In the ED, she was initially normotensive but febrile to 104 with tachycardia, and went into samantha septic shock despite 3L of NS and R IJ TLC was placed and levophed started for uroseptic shock with CT A/P noting a 2mm stone at the left UPV and moderate left hydronephrosis w/ perinephric stranding. Urology was consulted and extracted the stone last night and she remains on empiric ceftriaxone. Of note, prior micro shows 2 episodes of ceftriaxone sensitive e.coli while one of them was zosyn resistant. This morning has significant leukocytosis to the 20s from 7s at presentation. She remains on levophed at this time. Am now transferring care to [facility] [place] [facility] and will resume care when she de-escalates from the ICU. VS,Fishbone, I+O VS, Fishbone, I+O Laboratory Tests 01/01/20 12:05 01/01/20 21:59 01/02/20 05:16 Vital Signs Date Time Temp Pulse Resp B/P (MAP) Pulse Ox O2 Delivery O2 Flow Rate FiO2 01/02/20 03:46 88 99/61 (74) 98 Nasal Cannula 0.5 01/02/20 00:00 99.8 20 I&O- Last 24 Hours up to 6 AM 01/02/20 06:00 Intake Total 4070 ml Output Total 100 ml Balance 3970 ml EDGAR CROOKS MD Jan 02, 2020 06:41
--- NOTE | 2020-01-02 07:49 | REP ---
Clinical: Ureteral stent placement. Technique: Two portable views of the abdomen and pelvis. Findings: A left ureteral stent appears to be in satisfactory position extending from the renal silhouette into the pelvis. No obvious urinary tract calcifications are identified. The bowel gas pattern is nonspecific. Skeletal structures demonstrate age-related changes. Impression: Left ureteral stent in seemingly satisfactory position. Electronically Signed by Tate Pascual MD 01/02/2020 07:41 A
[2020-01-02] MEDS: PRAVASTATIN 20 MG TAB PO SCH (08:10)
[2020-01-02] MEDS: LACTOBACILLUS ACIDOPHILUS CAP (BACID) PO SCH (08:11)
[2020-01-02] MEDS: OMEPRAZOLE 20 MG CAP PO SCH (08:11)
[2020-01-02] MEDS: CALCIUM/VITAMIN D 500 MG TAB PO SCH ×2 (08:11→21:20)
[2020-01-02] MEDS: CYANOCOBALAMIN 500 MCG TAB PO SCH (08:11)
[2020-01-02] MEDS: SERTRALINE 100 MG TAB PO SCH (08:12)
[2020-01-02] MEDS: LR 1,000 ML IV SCH ×3 (08:19→21:19)
--- NOTE | 2020-01-02 08:28 | REP ---
Clinical: Crackles. Hypoxemia. Comparison: 01/01/2020. Findings: Right IJ line with tip in the right atrium. Mediastinum and cardiac silhouette are normal. Lung wen are clear without consolidation, effusion, or pneumothorax. Skeletal structures are intact. Impression: No focal consolidation or effusion. Electronically Signed by Tate Pascual MD 01/02/2020 08:19 A
[2020-01-02] MEDS ORDERED: clonazePAM 1 MG TAB PO PRN (09:00)
[2020-01-02] MEDS ORDERED: MULTIVITAMINS/MINERALS THERAP 1 TAB PO ONE (09:00)
--- NOTE | 2020-01-02 09:09 | IPNPDOC ---
Subjective Review oF Systems Chief Complaint The patient is a 59-year-old female admitted with a reason for visit of Hypomagnesemia Obstructive Uropathy. Events since Last Encounter Patient notes that she feels much better today. Her left flank pain is pretty much gone. No n/v. No f/c/ns. Objective Physical Examination General Exam: Alert, Cooperative, No Acute Distress ABDOMEN EXAM: Soft; No: Tenderness Skin Exam: Nl turgor and temperature Neuro Exam: Normal Speech Psych Exam: Mental status NL, Mood NL Other physical findings catheter draining clear urine Vital Signs/I&O Vital Signs Date Time Temp Pulse Resp B/P (MAP) Pulse Ox O2 Delivery O2 Flow Rate FiO2 01/02/20 08:30 98 89/54 (66) 96 Room Air 01/02/20 08:00 100.5 18 01/02/20 07:00 0.5 I&O- Last 24 Hours up to 6 AM 01/02/20 06:00 Intake Total 5510 ml Output Total 950 ml Balance 4560 ml Laboratory Data Labs 24H Laboratory Tests 2 01/01/20 12:05: Immature Granulocyte % (Auto) 0.1, Neutrophils (%) (Auto) 95.6H, Lymphocytes (%) (Auto) 3.1L, Monocytes (%) (Auto) 0.8, Eosinophils (%) (Auto) 0.1, Basophils (%) (Auto) 0.3, Neutrophils # (Auto) 7.2, Lymphocytes # (Auto) 0.2L, Monocytes # (Auto) 0.1, Eosinophils # (Auto) 0.0, Basophils # (Auto) 0.0, Nucleated Red Blood Cells % (auto) 0.0, Lactic Acid Level 2.5*H, Magnesium Level 1.6L, Total Bilirubin 0.3, Direct Bilirubin 0.1, Aspartate Amino Transf (AST/SGOT) 20, Alanine Aminotransferase (ALT/SGPT) 26, Alkaline Phosphatase 68, Total Protein 6.2L, Albumin 3.7, Albumin/Globulin Ratio 1.48, Lipase 57L 01/01/20 12:12: POC Glucose (Misc Panel) 111H, POC Sodium (Misc Panel) 140, POC Potassium (Misc Panel) 2.9*L, POC Chloride (Misc Panel) 104, POC Total CO2 (Misc Panel) 24.0, POC Blood Urea Nitrogen (Misc Panel 13, POC Ionized Calcium (Misc Panel) 4.8, POC Creatinine (Misc Panel) 1.0, POC Hematocrit (Misc Panel) 39.0 01/01/20 14:52: Urine Color YELLOW, Urine Appearance HAZY, Urine pH 5.0, Urine Specific [place] 1.017, Urine Protein NEGATIVE, Urine Glucose (UA) 1+H, Urine Ketones NEGATIVE, Urine Blood NEGATIVE, Urine Nitrite POSITIVEH, Urine Bilirubin NEGATIVE, Urine Urobilinogen 0.2, Urine Leukocyte Esterase 1+H, Urine WBC (Auto) 21H, Urine RBC (Auto) 6H, Urine Hyaline Casts (Auto) 0, Urine Bacteria (Auto) 1+H, Urine Squamous Epithelial Cells 0, Urine Mucus (Auto) SMALL, Urine Sperm (Auto) 01/01/20 17:19: Lactic Acid Followup at 4 Hours 2.9*H 01/01/20 19:25: 01/01/20 21:59: Anion Gap 6L, Glomerular Filtration Rate 44.6L, Lactic Acid Level 1.3, Calcium Level 7.5L, Magnesium Level 1.6L, Total Bilirubin 0.2, Aspartate Amino Transf (AST/SGOT) 23, Alanine Aminotransferase (ALT/SGPT) 22, Alkaline Phosphatase 52, Total Protein 5.4L, Albumin 2.6#L, Albumin/Globulin Ratio 0.93L 01/02/20 05:16: Anion Gap 5L, Glomerular Filtration Rate 41.3L, Calcium Level 7.4L, Magnesium Level 1.5L, Total Bilirubin 0.1L, Aspartate Amino Transf (AST/SGOT) 25, Alanine Aminotransferase (ALT/SGPT) 24, Alkaline Phosphatase 60, Total Protein 5.3L, Albumin 2.5L, Albumin/Globulin Ratio 0.89L, Nucleated Red Blood Cells % (auto) 0.0 CBC/BMP Laboratory Tests 01/01/20 12:05 01/01/20 21:59 01/02/20 05:16 Microbiology Microbiology 01/01/20 Urine Culture, Received Pending 01/01/20 Blood Culture - Preliminary, Resulted 01/01/20 Blood Culture - Preliminary, Resulted Assessment/Plan Date Seen The patient was seen on 01/02/20. Patient Summary This is a 59 y/o F w/ likely sepsis due to a UTI and an obstructing 2mm distal left UVJ stone, POD1 s/p cysto, left ureteroscopy w/ basket extraction of stone, and left ureteral stent placement. She is improving. Pain is much better. No fevers o/n. Plan/VTE VTE Prophylaxis Ordered?: Yes Plan - continue close monitoring and treatment of sepsis by primary team - ok to d/c Nella from urologic standpoint - patient's stent can be removed on an outpatient basis in a few wks - my office will schedule this GIULIA KYLE MD Jan 02, 2020 09:09
[2020-01-02] MEDS ORDERED: LR 1,000 ML IV ONE ×2 (09:30→20:45)
[2020-01-02] MEDS: MAG SULF 1GM/100ML (MAG RUN) 1 GM in IV 1 EA IV SCH ×2 (09:49→11:26)
[2020-01-02] MEDS: NEPHRO-VIT TAB (NEPHROCAPS) PO SCH (11:26)
--- NOTE | 2020-01-02 12:29 | IPNPDOC ---
Text Note Date of Service The patient was seen on 01/01/20. NOTE PROCEDURE NOTE FOR 01/01/2020: INDICATION: Septic Shock PROCEDURE CHUCKING LATHE OPERATOR: Edgar Crooks ATTENDING PHYSICIAN: Edgar Crooks CONSENT: Consent was obtained from Felecia SalazarYasemincarina prior to the procedure. Indications, risks, and benefits were explained at length. PROCEDURE SUMMARY: My hands were washed immediately prior to the procedure. I wore a surgical cap, mask with protective eyewear, full gown and sterile gloves throughout the procedure. The patient was placed in Trendelenburg position. RIGHT chest region was prepped using chlorhexidine scrub and draped in sterile fashion using a full drape and sterile probe cover employed. The medial and lateral heads of the sternocleidomastoid muscle were identified as was the carotid pulse. The Internal Jugular vein was identified using the ultrasound. Anesthesia was achieved over the vein using 1% lidocaine. Using real-time out of plane guidance, the introducer needle was inserted into the Internal Jugular vein under direct ultrasound visualization. Venous blood was withdrawn. The syringe was removed and a guidewire was advanced into the introducer needle. The guidewire was visualized in the Internal Jugular Vein by ultrasound. A small incision was made at the skin surface with a scalpel and the introducer needle was exchanged for a dilator over the guidewire. After appropriate dilation was obtained, the dilator was exchanged over the wire for a 20cm central venous catheter. The wire was removed and the catheter was sutured in place at 15 cm. A sterile sorbaview shield was placed over the catheter at the insertion site. The patient tolerated the procedure without any hemodynamic compromise. At time of procedure completion, all ports aspirated and flushed properly. Post-procedure chest x-ray confirmed placement. Estimated blood loss <5mL. VS,Fishbone, I+O VS, Fishbone, I+O Laboratory Tests 01/01/20 21:59 01/02/20 05:16 Vital Signs Date Time Temp Pulse Resp B/P (MAP) Pulse Ox O2 Delivery O2 Flow Rate FiO2 01/02/20 10:00 96 91/58 (69) 98 01/02/20 09:45 Room Air 01/02/20 09:00 18 01/02/20 08:00 100.5 01/02/20 07:00 0.5 I&O- Last 24 Hours up to 6 AM 01/02/20 05:59 Intake Total 5190 ml Output Total 850 ml Balance 4340 ml EDGAR CROOKS MD Jan 02, 2020 12:28
[2020-01-02] MEDS: ACETAMINOPHEN TAB 650MG DOSE (2X325MG) PO PRN ×2 (12:38→17:25)
[2020-01-02] MEDS: cefTRIAXone SOD 2 GM in D5W MINI-BAG PLUS 50 ML IV SCH (17:24)
--- NOTE | 2020-01-02 18:23 | RO ---
DATE OF PROCEDURE: 01/01/2020 PREPROCEDURE DIAGNOSIS: Left ureteral stone. POSTPROCEDURE DIAGNOSIS: Left ureteral stone. PROCEDURE: Cystoscopy, left ureteroscopy with basket extraction of stone, left ureteral stent placement. SURGEON: Dr. Angel Shafer SUPPLY TECH: None. ANESTHESIA: Monitored anesthesia care (MAC). OPERATIVE INDICATIONS: This is a 59-year-old female who appears to be septic due to urinary tract infection and an obstructing distal left ureteral stone. She was brought to the operating room today for treatment. DESCRIPTION OF PROCEDURE: The patient was brought to the operating room and MAC anesthesia was administered. Broad-spectrum antibiotics were infused. She was placed in the dorsal lithotomy position and prepped and draped in the usual sterile fashion. A rigid cystoscope was inserted into the urethral meatus and advanced into the bladder. Of note, prior to getting the cystoscope in, the urethral meatus was noted to be very edematous. I did have to dilate her urethral meatus using curved metal sounds to 26-[place]. Once the scope was in, the bladder was examined and her left ureteral orifice also appeared to be edematous. I advanced a guidewire up the left collecting system and then went up the left collecting system with a short semi-rigid ureteroscope. I then utilized a basket to retrieve the small 2 mm stone. Once that was done, the wire was utilized to advance a 7- [place] x 22-32 cm JJ ureteral stent up into the left collecting system. The wire was removed, and there was an adequate curl of the stent in the bladder. Of note, a moderate amount of purulent fluid appeared to drain out of the stent. At this point, the cystoscope was removed and an 18-[place] Carmen catheter inserted into the bladder. The balloon was filled with 10 mL of sterile water and then the catheter was connected to gravity drainage. This marked the conclusion of the procedure. The patient was taken out of the dorsal lithotomy position, awakened from anesthesia, and transported to the recovery room in stable condition. Estimated blood loss: 5 mL. Complications: None. Specimens: Left ureteral stone. PLAN: The patient will be monitored closely and treated for likely sepsis. Once she is improves, she will be discharged home and then we will take her stent out in the office in a few weeks. ROVERTO
[2020-01-02] MEDS: **NOTE PATIENT COMMENT** MISC XX SCH (21:00)
[2020-01-02] MEDS: tiZANidine 4 MG TAB PO PRN (21:19)
[2020-01-02] MEDS: clonazePAM 1 MG TAB PO PRN (21:19)
[2020-01-02] MEDS: PREGABALIN 75 MG CAP(LYRICA) PO SCH (21:20)
--- NOTE | 2020-01-02 23:01 | CR.PDOC ---
General Date of Consultation: Jan 02, 2020 Referring Provider: EDGAR CROOKS MD Attending Physician: JAMILAH CAN DO Consultation REASON FOR CONSULTATION/CHIEF COMPLAINT: Septic shock. HISTORY OF PRESENT ILLNESS: Patient is a 59-year-old female who presented to the emergency department on 01/01/2020 because of fevers. Patient reports for the last 5 days she's felt discomfort with urination. It was recommended the patient drink cranberry juice which she did the pain persisted. She reports increased generalized weakness and dizziness. She also reports significant back pain and nausea. She states she "tried to tough it out "but felt progressively worse and therefore went to an urgent care. It was noted that her temperature was 105 and she was sent to the emergency department. During initial evaluation patient was hypotensive. IV fluid resuscitation and central line was placed. Evaluation revealed an obstructing stone of the left kidney. Patient was taken emergently to the OR for stone removal. Patient presented to the ICU following stone removal on the beside. Critical care consult was made for septic shock. Patient seen and examined this morning +. She reports that she is feeling significantly better compared to prior. She denies dizziness but states she has not been able to get out of bed so is unsure. She reports tolerating this well without nausea vomiting. She states pain is controlled. ALLERGIES: Please see below. HOME MEDICATIONS: Please see below. PAST MEDICAL HISTORY: 1. Hypertension. 2. Depression. PAST SURGICAL HISTORY: 1. Gastric bypass 2. Partial hysterectomy 3. tubal ligation 4. appendectomy FAMILY HISTORY: She denies any significant medical history in her family SOCIAL HISTORY: Current every day smoker REVIEW OF SYSTEMS: CONSTITUTIONAL: Reports much improvement HEENT: Denies headache or dizziness. CARDIOVASCULAR: Denies chest pain or palpitations. RESPIRATORY: Denies shortness breath. GENITOURINARY: Reports discomfort with Carmen and is anxious to have it removed MUSCULOSKELETAL: Denies generalized weakness. GASTROINTESTINAL: Denies abdominal pain nausea or vomiting. PSYCHIATRIC: Reports depression which is well-controlled with current medications. PHYSICAL EXAMINATION: VITAL SIGNS: Please see below. GENERAL: Alert and oriented in no acute distress HENT: Normocephalic, atraumatic EYES: Pupils equal round and reactive to light, no scleral icterus CARDIOVASCULAR: Regular rate and rhythm, no lower extremity edema RESPIRATORY: Clear to auscultation bilaterally ABDOMINAL: Soft, nontender, nondistended, positive bowel sounds Carmen in place with clear yellow urine EXTREMITIES: Normal range of motion and strength of all 4 extremities NEUROLOGICAL: Alert and oriented 3 without focal deficits noted SKIN: Warm and dry, right IJ central line in place LABORATORY DATA: Please see below. ASSESSMENT/PLAN: #Septic shock secondary to urinary tract infection with bacteremia - Patient currently on Levophed however actively titrating medication down to maintain a map greater than 65 - Positive blood cultures 2 ordered yesterday with gram-negative rods. We'll repeat blood cultures tomorrow and every 24-48 hours until negative cultures - We'll continue Rocephin (day 2) pending ID and sensitivities - We'll monitor in the ICU however anticipate improvement and we'll consider downgraded to telemetry if blood pressure improves #Obstructive nephrolithiasis on left - Status post cystoscopy with stone extraction and left ureteral stent placement, post op 1 - Stone analysis pending - Plan to discontinue Carmen - Urology following #Clinical dehydration - Patient with complaint of thirst and appears clinically dry -We'll give an additional 1 L LR and encourage by mouth intake #Hyperlipidemia - Continue pravastatin #Hypokalemia, hypomagnesemia - Replace, goal K > 4.0, Mag > 2.0 #Depression - Continue Klonopin, Zoloft Diet: Regular diet DVT/GI ppx: SCDs, early ambulation, GI ppx not indicated at this time L/T/D: Right IJ Central (01/01), Carmen (01/01 -) Drips: LR @100cc/hr Code Status: Full Code Dispo: We'll continue to monitor in the ICU while on levothyroid. However patient clinically improving and anticipate discontinuation of Levaquin bed. We'll consider downgraded to telemetry if remains normotensive. Critical care time: 35 minutes time spent immediately at bedside evaluating the patient monitoring vitals while titrating vasoactive drips. [id number] Vital Signs/I&O Vital Signs Date Time Temp Pulse Resp B/P (MAP) Pulse Ox O2 Delivery O2 Flow Rate FiO2 01/02/20 21:12 98.0 94 18 90/56 (67) 96 Room Air 01/02/20 07:00 0.5 I&O- Last 24 Hours up to 6 AM 01/02/20 05:59 Intake Total 5190 ml Output Total 850 ml Balance 4340 ml Laboratory Data Labs 24H Laboratory Tests 2 01/02/20 05:16: Nucleated Red Blood Cells % (auto) 0.0, Anion Gap 5L, Glomerular Filtration Rate 41.3L, Calcium Level 7.4L, Magnesium Level 1.5L, Total Bilirubin 0.1L, Aspartate Amino Transf (AST/SGOT) 25, Alanine Aminotransferase (ALT/SGPT) 24, Alkaline Phosphatase 60, Total Protein 5.3L, Albumin 2.5L, Albumin/Globulin Ratio 0.89L CBC/BMP Laboratory Tests 01/02/20 05:16 Microbiology Microbiology 01/01/20 Urine Culture, Received Pending 01/01/20 Blood Culture - Preliminary, Resulted 01/01/20 Blood Culture - Preliminary, Resulted Allergies Coded Allergies: POLLEN (Verified Allergy, Unknown, 09/17/12) No Known Allergies (Unverified , 04/17/05) Home Medications Scheduled Biotin (Biotin) 1,000 Mcg Tab.chew, 2,000 MCG PO DAILY, (Reported) Calcium Citrate/Vitamin D3 (Citracal + D Maximum Caplet) 1 Each Tablet, 1 TAB PO BID, (Reported) Cider Vinegar (Apple Cider Vinegar) 500 Mg Tablet, 500 MG PO DAILY, (Reported) Cyanocobalamin (Vitamin B-12) (Vitamin B-12) 1,000 Mcg Capsule, 1,000 MCG PO DAILY, (Reported) Ergocalciferol (Vitamin D2) (Vitamin D2) 50,000 Units Cap, 50,000 UNITS PO QWEEK, (Reported) takes on sunday Lactobacillus Combination No.4 (Probiotic) 1 Each Capsule, 1 CAP PO DAILY, (Reported) Multivitamin (Multivitamins) 1 Each Capsule, 1 CAP PO DAILY, (Reported) Omeprazole (Omeprazole) 20 Mg Capsule.dr, 20 MG PO DAILY, (Reported) Potassium Gluconate (Potassium) 99 Mg Tablet, 595 MG PO DAILY, (Reported) Pravastatin Sodium (Pravastatin Sodium) 20 Mg Tablet, 20 MG PO DAILY, (Reported) Pregabalin (Pregabalin) 200 Mg Capsule, 200 MG PO BID, (Reported) Sertraline Hcl (Zoloft) 100 Mg Tablet, 150 MG PO DAILY, (Reported) Scheduled PRN Clonazepam (Clonazepam) 1 Mg Tablet, 1 MG PO QHS PRN for ANXIETY, (Reported) Clonazepam (Clonazepam) 1 Mg Tablet, 0.5 MG PO DAILY PRN for ANXIETY, (Reported) Hydrocodone/Acetaminophen (Hydrocodone-Acetamin 10-325 mg) 1 Each Tablet, 1 TAB PO BID PRN for PAIN, (Reported) Lidocaine (Lidocaine Pain Relief) 1 Each Adh..patch, 1 PATCH TOP DAILY PRN for PAIN, (Reported) applies 1-2 patches prn, applied to upper and lower back Ondansetron (Ondansetron Odt) 4 Mg Tab.rapdis, 4 MG PO Q6H PRN for NAUSEA OR VOMITING, (Reported) Tizanidine HCl (Tizanidine HCl) 4 Mg Tablet, 4 MG PO Q8H PRN for MUSCLE SPASMS, (Reported) JAMILAH CAN DO Jan 02, 2020 22:53
[2020-01-03] VITALS (17 sets, daily range): BP systolic 97–143; BP diastolic 55–84
[2020-01-03] MEDS: ACETAMINOPHEN TAB 650MG DOSE (2X325MG) PO PRN ×3 (02:29→16:49)
[2020-01-03 05:26] LABS: HEMATOCRIT 30.9 % (36.0-47.0); HEMOGLOBIN 10.2 g/dl (12.0-15.5); MEAN CORPUSCULAR HEMOGLOBIN 29.4 pg (27.0-33.0); PLATELET COUNT, AUTOMATED 108 10^3/uL (150-450); RED BLOOD COUNT 3.47 10^6/uL (4.00-5.40); WHITE BLOOD COUNT 18.1 10^3/uL (4.0-10.0)
[2020-01-03] MEDS: LR 1,000 ML IV SCH (05:46)
[2020-01-03 05:47] LABS: ALBUMIN 2.3 GM/DL (3.2-5.2); BLOOD UREA NITROGEN 15 MG/DL (7-18); CALCIUM LEVEL 7.7 MG/DL (8.5-10.1); CARBON DIOXIDE LEVEL 24 MEQ/L (21-32); CHLORIDE LEVEL 114 MEQ/L (98-107); CREATININE FOR GFR 0.81 MG/DL (0.55-1.30); GLOMERULAR FILTRATION RATE > 60.0 (>51); GLUCOSE, FASTING 104 MG/DL (70-100); MAGNESIUM LEVEL 2.2 MG/DL (1.8-2.4); PHOSPHORUS LEVEL 2.1 MG/DL (2.5-4.9); POTASSIUM SERUM 3.5 MEQ/L (3.5-5.1); SODIUM LEVEL 143 MEQ/L (136-145)
[2020-01-03] MEDS: LACTOBACILLUS ACIDOPHILUS CAP (BACID) PO SCH (08:35)
[2020-01-03] MEDS: NEPHRO-VIT TAB (NEPHROCAPS) PO SCH (08:35)
[2020-01-03] MEDS: PREGABALIN 75 MG CAP(LYRICA) PO SCH ×2 (08:35→20:17)
[2020-01-03] MEDS: OMEPRAZOLE 20 MG CAP PO SCH (08:35)
[2020-01-03] MEDS: SERTRALINE 100 MG TAB PO SCH (08:36)
[2020-01-03] MEDS: CYANOCOBALAMIN 500 MCG TAB PO SCH (08:36)
[2020-01-03] MEDS: PRAVASTATIN 20 MG TAB PO SCH (08:36)
[2020-01-03] MEDS: CALCIUM/VITAMIN D 500 MG TAB PO SCH ×2 (08:36→20:17)
[2020-01-03] MEDS ORDERED: VITAMIN D 50,000 UNITS CAPSULE (ERGOCALCIFEROL 1.25MG) PO SCH (09:00)
--- NOTE | 2020-01-03 12:19 | IPNPDOC ---
Date Seen The patient was seen on 01/03/20. Progress Note SUBJECTIVE: Patient seen and examined. Overnight patient required Levophed drip to be restarted, despite additional bolus of IV fluid hydration. Patient remained on a low-dose Levophed drip until 6 AM this morning at which time it was discontinued. Patient reports feeling much better and asked questions regarding potential discharge. She denies headache or dizziness, fevers or chills, chest pain shortness of breath, abdominal pain nausea vomiting. Patient reports she is voiding well without hematuria. Brief Hospital Course: Patient is a 59-year-old female who presented to the emergency department on 01/01/2020 because of fevers. Patient reports for the last 5 days she's felt discomfort with urination. It was recommended the patient drink cranberry juice which she did the pain persisted. She reports increased generalized weakness and dizziness. She also reports significant back pain and nausea. She states she "tried to tough it out "but felt progressively worse and therefore went to an urgent care. It was noted that her temperature was 105 and she was sent to the emergency department. During initial evaluation patient was hypotensive. IV fl uid resuscitation and central line was placed. Evaluation revealed an obstructing stone of the left kidney. Patient was taken emergently to the OR for stone removal. Patient presented to the ICU following stone removal on the beside. Critical care consult was made for septic shock. Patient was found to have E.Coli bacteremia from UTI. She was treated with IVF hydration, Rocephin. Levophed was initially titrated off, but required re- initiation on 01/02/2020. It was discontinued on 01/03/2020 and central line removed. LABORATORY DATA, IMAGING STUDIES, MICROBIOLOGY: Please see below. PHYSICAL EXAMINATION: VITAL SIGNS: Please see below. GENERAL: Alert and oriented in no acute distress HENT: Normocephalic, atraumatic EYES: Pupils equal round and reactive to light, no scleral icterus CARDIOVASCULAR: Regular rate and rhythm, no lower extremity edema RESPIRATORY: Clear to auscultation bilaterally ABDOMINAL: Soft, nontender, nondistended, positive bowel sounds EXTREMITIES: Normal range of motion and strength of all 4 extremities NEUROLOGICAL: Alert and oriented 3 without focal deficits noted SKIN: Warm and dr ASSESSMENT/PLAN: #Septic shock secondary to urinary tract infection with bacteremia - Levison discontinued this morning. Patient noted to have low blood pressures overnight. Will give Midodrine in the evening if systolic blood pressure is less than 120 - Blood cultures (01/01/2020) 2 = E coli sensitive to Rocephin. - Repeat blood cultures from today pending. We'll repeat blood cultures tomorrow and every 24-48 hours until negative cultures - Continue Rocephin (01/01/2020 - present) -Patient now hemodynamically stable we'll discontinue the Levophed and remove central line. #Obstructive nephrolithiasis on left - Status post cystoscopy with stone extraction and left ureteral stent placement, 01/01/2020, POD#2 - Stone analysis pending - Oxybutynin 5mg q8h PRN for bladder spasm - Urology following #Hyperlipidemia - Continue pravastatin 20mg daily #Hypokalemia - Replace with 20mEq, goal K > 4.0 #Hyperchloremia - Avoid NS if fluids are needed in the setting of recently resolved MALINDA. Recommend balanced solution such as LR or plasmalyte/normo-olivia if IVF needed #Depression - Continue Klonopin 0.5mg daily PRN and 1mg nightly PRN, Zoloft 150mg daily, Lyrica 75mg BID #Chronic Pain - Continue home Zanaflex 4mg every 8 hours PRN Resolved Hospital Problems: -Clinical dehydration -Hypomagnesemia -MALINDA -Lactic acidosis Diet: Regular diet DVT/GI ppx: SCDs, early ambulation, GI ppx not indicated at this time L/T/D: Right IJ Central (01/01-01/03), Carmen (01/01 - 01/02) Drips: None Code Status: Full Code, would be surrogate decision maker if needed. Dispo: Levophed titrated off this morning. SBP monitord closely throughout the morning and patient re-evaluated without signs of hypotension. Levophed disconti nued and central line removed. Will plan to downgrade to med/surg. Further care per hospitalist service. Verbal handoff given to Hospitalist team. [place] VS, I&O, 24H, Fishbone Vital Signs/I&O Vital Signs Date Time Temp Pulse Resp B/P (MAP) Pulse Ox O2 Delivery O2 Flow Rate FiO2 01/03/20 07:43 98.4 93 16 117/77 (90) 98 Room Air 01/02/20 07:00 0.5 I&O- Last 24 Hours up to 6 AM 01/03/20 06:00 Intake Total 5747.4 ml Output Total 3850 ml Balance 1897.4 ml Laboratory Data 24H LABS Laboratory Tests 2 01/03/20 05:01: Nucleated Red Blood Cells % (auto) 0.0, Anion Gap 5L, Glomerular Filtration Rate > 60.0, Calcium Level 7.7L, Phosphorus Level 2.1L, Magnesium Level 2.2, Albumin 2.3L CBC/BMP Laboratory Tests 01/03/20 05:01 Microbiology Microbiology 01/03/20 Blood Culture, Received Pending 01/01/20 Urine Culture - Final, Complete Escherichia Coli 01/01/20 Blood Culture - Final, Complete Escherichia Coli 01/01/20 Blood Culture - Final, Complete Escherichia Coli JAMILAH CAN DO Jan 03, 2020 12:19
[2020-01-03] MEDS ORDERED: POTASSIUM CHLORIDE 10 MEQ SR TABLET PO ONE (13:00)
[2020-01-03] MEDS: MIDODRINE 5 MG TAB PO SCH (18:00)
[2020-01-03] MEDS: cefTRIAXone SOD 2 GM in D5W MINI-BAG PLUS 50 ML IV SCH (18:02)
[2020-01-03] MEDS: **NOTE PATIENT COMMENT** MISC XX SCH (20:17)
[2020-01-03] MEDS: ANEXSIA, NORCO 7.5MG/325MG TABLET(HYDROCODONE/APAP) PO PRN (20:19)
[2020-01-03] MEDS: tiZANidine 4 MG TAB PO PRN (20:24)
[2020-01-04 06:00] VITALS: BP 123/77
[2020-01-04 06:07] LABS: HEMATOCRIT 31.7 % (36.0-47.0); HEMOGLOBIN 10.5 g/dl (12.0-15.5); MEAN CORPUSCULAR HEMOGLOBIN 29.4 pg (27.0-33.0); MEAN CORPUSCULAR HGB CONC 33.1 g/dl (32.0-36.5); MEAN CORPUSCULAR VOLUME 88.8 fl (80.0-96.0); PLATELET COUNT, AUTOMATED 126 10^3/uL (150-450); RED BLOOD COUNT 3.57 10^6/uL (4.00-5.40); WHITE BLOOD COUNT 14.3 10^3/uL (4.0-10.0)
[2020-01-04 06:34] LABS: BLOOD UREA NITROGEN 10 MG/DL (7-18); CALCIUM LEVEL 8.4 MG/DL (8.5-10.1); CARBON DIOXIDE LEVEL 26 MEQ/L (21-32); CHLORIDE LEVEL 113 MEQ/L (98-107); CREATININE FOR GFR 0.57 MG/DL (0.55-1.30); GLOMERULAR FILTRATION RATE > 60.0 (>51); GLUCOSE, FASTING 79 MG/DL (70-100); POTASSIUM SERUM 3.6 MEQ/L (3.5-5.1); SODIUM LEVEL 142 MEQ/L (136-145)
[2020-01-04] MEDS: PRAVASTATIN 20 MG TAB PO SCH (08:04)
[2020-01-04] MEDS: PREGABALIN 75 MG CAP(LYRICA) PO SCH ×2 (08:04→20:42)
[2020-01-04] MEDS: OMEPRAZOLE 20 MG CAP PO SCH (08:04)
[2020-01-04] MEDS: SERTRALINE 100 MG TAB PO SCH (08:04)
[2020-01-04] MEDS: CALCIUM/VITAMIN D 500 MG TAB PO SCH ×2 (08:04→20:42)
[2020-01-04] MEDS: NEPHRO-VIT TAB (NEPHROCAPS) PO SCH (08:04)
[2020-01-04] MEDS: ACETAMINOPHEN TAB 650MG DOSE (2X325MG) PO PRN ×2 (08:04→17:34)
[2020-01-04] MEDS: LACTOBACILLUS ACIDOPHILUS CAP (BACID) PO SCH (08:05)
[2020-01-04] MEDS: CYANOCOBALAMIN 500 MCG TAB PO SCH (08:05)
--- NOTE | 2020-01-04 12:33 | IPNPDOC ---
Text Note Date of Service The patient was seen on 01/04/20. NOTE SUBJECTIVE: -Feels well this morning -has sinus headache and has new vesicle on lip SUBJECTIVE: VITAL SIGNS: Please see below. GENERAL: Alert and oriented in no acute distress HEENT: Normocephalic, atraumatic, PERRLA, EOMI EYES: Pupils equal round and reactive to light, no scleral icterus CARDIOVASCULAR: Regular rate and rhythm, no lower extremity edema RESPIRATORY: Clear to auscultation bilaterally ABDOMINAL: Soft, nontender, nondistended, positive bowel sounds EXTREMITIES: Normal range of motion and strength of all 4 extremities NEUROLOGICAL: Alert and oriented 3 without focal deficits noted SKIN: has large vesicle on R bottom lip Labs: Reviewed ASSESSMENT/PLAN: #Septic shock secondary to urinary tract infection with bacteremia - Blood cultures (01/01/2020) 2 growing E coli sensitive to Ceftriaxone - Repeat blood cultures NGTD. -On ceftriaxone 01/01 - -Patient now hemodynamically stable, was placed for midodrine for 3d or until BP is consistently above SBP 120 #Obstructive nephrolithiasis on left - Status post cystoscopy with stone extraction and left ureteral stent placement, 01/01/2020, POD#3 - Stone analysis pending - Oxybutynin 5mg q8h PRN for bladder spasm - Urology following #Active lip HSV -2g BID for 1 day acyclovir, then 500mg daily thereafter #Hyperlipidemia - Continue pravastatin 20mg daily #Hypokalemia - Replace with 20mEq, goal K > 4.0 #Hyperchloremia - Avoid NS if fluids are needed in the setting of recently resolved MALINDA. R ecommend balanced solution such as LR or plasmalyte/normo-olivia if IVF needed #Depression - Continue Klonopin 0.5mg daily PRN and 1mg nightly PRN, Zoloft 150mg daily, Lyrica 75mg BID #Chronic Pain - Continue home Zanaflex 4mg every 8 hours PRN Resolved Hospital Problems: -Clinical dehydration -Hypomagnesemia -MALINDA -Lactic acidosis Diet: Regular diet DVT/GI ppx: SCDs, early ambulation, GI ppx not indicated at this time VS,Fishbone, I+O VS, Fishbone, I+O Laboratory Tests 01/04/20 05:51 Vital Signs Date Time Temp Pulse Resp B/P (MAP) Pulse Ox O2 Delivery O2 Flow Rate FiO2 01/04/20 06:00 98.0 96 20 123/77 (92) 96 01/03/20 17:30 Room Air 01/02/20 07:00 0.5 I&O- Last 24 Hours up to 6 AM 01/04/20 05:59 Intake Total 2367.4 ml Output Total 1000 ml Balance 1367.4 ml EDGAR CROOKS MD Jan 04, 2020 12:33
[2020-01-04] MEDS: valACYclovir HCL 500 MG TAB PO SCH ×2 (12:55→20:42)
[2020-01-04 14:00] VITALS: BP 139/87
[2020-01-04] MEDS: cefTRIAXone SOD 2 GM in D5W MINI-BAG PLUS 50 ML IV SCH (17:37)
[2020-01-04] MEDS: MIDODRINE 5 MG TAB PO SCH (17:58)
[2020-01-04] MEDS ORDERED: LORATADINE 10 MG TAB PO ONE (18:00)
[2020-01-04] MEDS: **NOTE PATIENT COMMENT** MISC XX SCH (20:41)
[2020-01-04 22:00] VITALS: BP 130/94
[2020-01-04] MEDS: clonazePAM 1 MG TAB PO PRN (22:09)
[2020-01-05] MEDS: ANEXSIA, NORCO 7.5MG/325MG TABLET(HYDROCODONE/APAP) PO PRN ×2 (00:30→21:35)
[2020-01-05 06:00] VITALS: BP 129/76
[2020-01-05] MEDS: ACETAMINOPHEN TAB 650MG DOSE (2X325MG) PO PRN (09:37)
[2020-01-05] MEDS: SERTRALINE 100 MG TAB PO SCH (09:37)
[2020-01-05] MEDS: CALCIUM/VITAMIN D 500 MG TAB PO SCH ×2 (09:38→20:07)
[2020-01-05] MEDS: OMEPRAZOLE 20 MG CAP PO SCH (09:38)
[2020-01-05] MEDS: valACYclovir HCL 500 MG TAB PO SCH (09:38)
[2020-01-05] MEDS: LACTOBACILLUS ACIDOPHILUS CAP (BACID) PO SCH (09:38)
[2020-01-05] MEDS: CYANOCOBALAMIN 500 MCG TAB PO SCH (09:38)
[2020-01-05] MEDS: NEPHRO-VIT TAB (NEPHROCAPS) PO SCH (09:38)
[2020-01-05] MEDS: PREGABALIN 75 MG CAP(LYRICA) PO SCH ×2 (09:38→20:07)
[2020-01-05] MEDS: PRAVASTATIN 20 MG TAB PO SCH (09:38)
[2020-01-05 14:00] VITALS: BP 137/84
[2020-01-05] MEDS: oxyBUTYnin 5 MG TAB PO PRN (14:41)
[2020-01-05] MEDS: tiZANidine 4 MG TAB PO PRN (14:41)
[2020-01-05] MEDS: clonazePAM 1 MG TAB PO PRN (14:43)
--- NOTE | 2020-01-05 16:42 | IPNPDOC ---
Text Note Date of Service The patient was seen on 01/05/20. NOTE Patient was seen and examined this morning. She is currently clinically stable, sitting on the bed comfortably. States that she has some nasal congestion but denies any other complaints. PHYSICAL EXAMINATION: GENERAL: Alert and oriented in no acute distress HENT: Normocephalic, atraumatic EYES: Pupils equal round and reactive to light, no scleral icterus CARDIOVASCULAR: Regular rate and rhythm, no lower extremity edema RESPIRATORY: Clear to auscultation bilaterally ABDOMINAL: Soft, nontender, nondistended, positive bowel sounds EXTREMITIES: Normal range of motion and strength of all 4 extremities NEUROLOGICAL: Alert and oriented 3 without focal deficits noted SKIN: Warm and dr ASSESSMENT/PLAN: Patient is a 59-year-old female who presented to the emergency department on 01/01/2020 because of fevers. Patient reports for the last 5 days she's felt discomfort with urination. It was recommended the patient drink cranberry juice which she did the pain persisted. She reports increased generalized weakness and dizziness. She also reports significant back pain and nausea. She states she "tried to tough it out "but felt progressively worse and therefore went to an urgent care. It was noted that her temperature was 105 and she was sent to the emergency department. During initial evaluation patient was hypotensive. IV fluid resuscitation and central line was placed. Evaluation revealed an obstruct ing stone of the left kidney. Patient was taken emergently to the OR for stone removal. Patient presented to the ICU following stone removal on the beside and at that time she was in septic shock. Patient was found to have E.Coli bacteremia from UTI. She was treated with IVF hydration, Rocephin. Levophed was initially titrated off, but required re-initiation on 01/02/2020. It was di scontinued on 01/03/2020 and central line removed. 1. Septic shock secondary to urinary tract infection with bacteremia: Resolved. The patient's bacteremia with Escherichia coli is likely secondary to the UTI. Repeat blood cultures which were done on 01/04 have been negative so far. Escherichia coli is pansensitive, but the patient will require 10-14 days of antibiotics after the negative blood cultures. 2. Obstructive nephrolithiasis on left: Status post cystoscopy with stone extraction and left ureteral stent placement, 01/01/2020. Stone analysis pending with the patient will follow up with urology as an outpatient. Urology following 3. Hyperlipidemia . Continue pravastatin 20mg daily 4. Chronic Pain Continue home Zanaflex 4mg every 8 hours PRN The patient probably will require a PICC line with IV antibiotics for bacteremia. Once the blood cultures are finally negative. Disposition likely given the next 24-48 hours VS,Fishbone, I+O VS, Fishbone, I+O Vital Signs Date Time Temp Pulse Resp B/P (MAP) Pulse Ox O2 Delivery O2 Flow Rate FiO2 01/05/20 14:00 98.4 88 18 137/84 (101) 96 01/03/20 17:30 Room Air 01/02/20 07:00 0.5 I&O- Last 24 Hours up to 6 AM 01/05/20 06:00 Intake Total 1705 ml Output Total 3300 ml Balance -1595 ml DANISH LOO MD Jan 05, 2020 16:42
[2020-01-05] MEDS: MIDODRINE 5 MG TAB PO SCH (18:00)
[2020-01-05] MEDS: cefTRIAXone SOD 2 GM in D5W MINI-BAG PLUS 50 ML IV SCH (18:37)
[2020-01-05 18:44] VITALS: BP 133/72
[2020-01-05] MEDS: **NOTE PATIENT COMMENT** MISC XX SCH (20:08)
[2020-01-05 22:00] VITALS: BP 136/89
[2020-01-06] MEDS: oxyBUTYnin 5 MG TAB PO PRN (04:58)
[2020-01-06 06:00] VITALS: BP 123/77
[2020-01-06] MEDS ORDERED: LevoFLOXacin 750 MG TABLET PO SCH (06:00)
[2020-01-06] MEDS: SERTRALINE 100 MG TAB PO SCH (09:07)
[2020-01-06] MEDS: LACTOBACILLUS ACIDOPHILUS CAP (BACID) PO SCH (09:07)
[2020-01-06] MEDS: CALCIUM/VITAMIN D 500 MG TAB PO SCH (09:07)
[2020-01-06] MEDS: NEPHRO-VIT TAB (NEPHROCAPS) PO SCH (09:07)
[2020-01-06] MEDS: OMEPRAZOLE 20 MG CAP PO SCH (09:07)
[2020-01-06] MEDS: PRAVASTATIN 20 MG TAB PO SCH (09:07)
[2020-01-06] MEDS: PREGABALIN 75 MG CAP(LYRICA) PO SCH (09:07)
[2020-01-06] MEDS: valACYclovir HCL 500 MG TAB PO SCH (09:07)
[2020-01-06] MEDS: CYANOCOBALAMIN 500 MCG TAB PO SCH (09:08)
[2020-01-06] MEDS ORDERED: LORATADINE 5 MG HALF-TAB PO SCH (10:00)
[2020-01-06] MEDS ORDERED: LEVA750T7 PO (10:34)
[2020-01-06] MEDS ORDERED: CLAR10TA7 PO (10:34)
[2020-01-06] MEDS ORDERED: DICY1CAP8 PO (10:35)
--- NOTE | 2020-01-06 10:36 | DS.PDOC ---
Discharge Summary General Date of Admission Jan 01, 2020 at 14:51 Date of Discharge 01/06/20 Discharge Summary Chief Complaint The patient is a 59-year-old female admitted with a reason for visit of Hypomagnesemia Obstructive Uropathy. Final diagnosis Septic shock related to UTI Nephrolithiasis Escherichia coli bacteremia History of Present Illness 59 y/o W w/ HTN, HLD, smoker, anemia who presented to the ED reporting worsening left flank pain, fevers, nausea and emesis in the setting of 1 month of dysuria and difficulty urinating for which she was told by her PCP to increase fluids and drink cranberry juice. Patient reports for the last 5 days she's felt discomfort with urination. It was recommended the patient drink cranberry juice which she did the pain persisted. She reports increased generalized weakness and dizziness. She also reports significant back pain and nausea. She states she "tried to tough it out "but felt progressively worse and therefore went to an urgent care. It was noted that her temperature was 105 and she was sent to the emergency department. During initial evaluation patient was hypotensive. IV fluid resuscitation and central line was placed. Evaluation revealed an obstructing stone of the left kidney. Patient was taken emergently to the OR for stone removal and a stent was placed as well. Patient presented to the ICU following stone removal on the beside and at that time she was in septic shock. Patient was found to have E.Coli bacteremia from UTI. She was treated with IVF hydration, Rocephin. Levophed was initially titrated off, but required re- initiation on 01/02/2020. It was discontinued on 01/03/2020 and central line removed. The patient improved and was initially put on midodrine. The patient's blood pressure has been stable. The bacteremia was initially with Escherichia coli pansensitive and after that repeat cultures have been negative and the bacteremia has cleared. The patient will be sent on 11 days of Levaquin 750 for bacteremia and has been advised to follow with urology to get the stent removal. She has been emphasized the importance of following with urology for stent removal. Also been advised that in case she does any flank pain, not in the urine, she should report to urology as soon as possible. She is currently stable for discharge. PHYSICAL EXAMINATION: GENERAL: Alert and oriented in no acute distress HENT: Normocephalic, atraumatic EYES: Pupils equal round and reactive to light, no scleral icterus CARDIOVASCULAR: Regular rate and rhythm, no lower extremity edema RESPIRATORY: Clear to auscultation bilaterally ABDOMINAL: Soft, nontender, nondistended, positive bowel sounds EXTREMITIES: Normal range of motion and strength of all 4 extremities NEUROLOGICAL: Alert and oriented 3 without focal deficits noted SKIN: Warm Medications. As per discharge reconciliation medication list. Levaquin for 11 more days. Has been admitted for bacteremia Activity as tolerated Diet. 2 g sodium diet Follow-up appointments. PCP in 1 week, urology in 1 week. Condition on discharge. Patient is medically optimized for discharge Discharge disposition: Home Total time spent on this discharge including coordination of care, review of chart documentation and actual contact is around 35 minutes Vital Signs/I&Os Vital Signs Date Time Temp Pulse Resp B/P (MAP) Pulse Ox O2 Delivery O2 Flow Rate FiO2 01/06/20 06:00 99.0 79 17 123/77 (92) 95 Room Air 01/02/20 07:00 0.5 I&O- Last 24 Hours up to 6 AM 01/06/20 06:00 Intake Total 905 ml Output Total 3725 ml Balance -2820 ml Microbiology Microbiology 01/04/20 Urine Culture - Final, Complete 01/04/20 Blood Culture - Preliminary, Resulted No Growth after 48 hours. All Specime... 01/04/20 Blood Culture - Preliminary, Resulted No Growth after 48 hours. All Specime... 01/03/20 Blood Culture - Preliminary, Resulted No Growth after 72 hours. All specime... 01/01/20 Urine Culture - Final, Complete Escherichia Coli 01/01/20 Blood Culture - Final, Complete Escherichia Coli 01/01/20 Blood Culture - Final, Complete Escherichia Coli Discharge Medications Scheduled Biotin (Biotin) 1,000 Mcg Tab.chew, 2,000 MCG PO DAILY, (Reported) Calcium Citrate/Vitamin D3 (Citracal + D Maximum Caplet) 1 Each Tablet, 1 TAB PO BID, (Reported) Cider Vinegar (Apple Cider Vinegar) 500 Mg Tablet, 500 MG PO DAILY, (Reported) Cyanocobalamin (Vitamin B-12) (Vitamin B-12) 1,000 Mcg Capsule, 1,000 MCG PO DAILY, (Reported) Dicyclomine HCl (Dicyclomine HCl) 10 Mg Capsule, 1 CAP PO TID for irritable bowel symptoms Ergocalciferol (Vitamin D2) (Vitamin D2) 50,000 Units Cap, 50,000 UNITS PO QWEEK, (Reported) takes on sunday Lactobacillus Combination No.4 (Probiotic) 1 Each Capsule, 1 CAP PO DAILY, ( Reported) Levofloxacin (Levaquin) 750 Mg Tablet, 750 MG PO DAILY Loratadine (Claritin) 10 Mg Tablet, 5 MG PO DAILY Multivitamin (Multivitamins) 1 Each Capsule, 1 CAP PO DAILY, (Reported) Omeprazole (Omeprazole) 20 Mg Capsule.dr, 20 MG PO DAILY, (Reported) Potassium Gluconate (Potassium) 99 Mg Tablet, 595 MG PO DAILY, (Reported) Pravastatin Sodium (Pravastatin Sodium) 20 Mg Tablet, 20 MG PO DAILY, (Reported) Pregabalin (Pregabalin) 200 Mg Capsule, 200 MG PO BID, (Reported) Sertraline Hcl (Zoloft) 100 Mg Tablet, 150 MG PO DAILY, (Reported) Scheduled PRN Clonazepam (Clonazepam) 1 Mg Tablet, 1 MG PO QHS PRN for ANXIETY, (Reported) Clonazepam (Clonazepam) 1 Mg Tablet, 0.5 MG PO DAILY PRN for ANXIETY, (Reported) Hydrocodone/Acetaminophen (Hydrocodone-Acetamin 10-325 mg) 1 Each Tablet, 1 TAB PO BID PRN for PAIN, (Reported) Lidocaine (Lidocaine Pain Relief) 1 Each Adh..patch, 1 PATCH TOP DAILY PRN for PAIN, (Reported) applies 1-2 patches prn, applied to upper and lower back Ondansetron (Ondansetron Odt) 4 Mg Tab.rapdis, 4 MG PO Q6H PRN for NAUSEA OR VOMITING, (Reported) Tizanidine HCl (Tizanidine HCl) 4 Mg Tablet, 4 MG PO Q8H PRN for MUSCLE SPASMS, (Reported) Allergies Coded Allergies: POLLEN (Verified Allergy, Unknown, 09/17/12) No Known Allergies (Unverified , 04/17/05) DANISH LOO MD Jan 06, 2020 10:36
[2020-01-06] MEDS ORDERED: VALA500T5 PO (13:37)
== END 2020-01-06 14:15 | disposition home or self-care (01) | DRG 710 ==
LOC: M ED 11:22 → EDBD 11:22 → M ED INP 14:51 → ENRESERV 15:36 → M ICU 21:46 → M MSPAV 01-03 17:28
PROVIDERS: ADMIT Internal Medicine; ATTEND Internal Medicine
PROC: 0T778DZ Dilation of Left Ureter with Intraluminal Device, Via Natural or Artificial Opening Endoscopic (ICD-10-PCS; 2020-01-01)
PROC: 02H633Z Insertion of Infusion Device into Right Atrium, Percutaneous Approach (ICD-10-PCS; 2020-01-01)
PROC: 0TC78ZZ Extirpation of Matter from Left Ureter, Via Natural or Artificial Opening Endoscopic (ICD-10-PCS; principal; 2020-01-01 14:46)
DX: A41.51 Sepsis due to Escherichia coli [E. coli] (principal); R65.21 Severe sepsis with septic shock; E87.2 Acidosis; N17.9 Acute kidney failure, unspecified; E83.42 Hypomagnesemia; I10 Essential (primary) hypertension; E78.5 Hyperlipidemia, unspecified; N20.1 Calculus of ureter; F17.200 Nicotine dependence, unspecified, uncomplicated; D64.9 Anemia, unspecified; B00.9 Herpesviral infection, unspecified; J30.1 Allergic rhinitis due to pollen; E86.0 Dehydration; E87.6 Hypokalemia; N39.0 Urinary tract infection, site not specified; Z79.899 Other long term (current) drug therapy; F41.9 Anxiety disorder, unspecified; F32.9 Major depressive disorder, single episode, unspecified; Z98.84 Bariatric surgery status; Z90.49 Acquired absence of other specified parts of digestive tract

== ENCOUNTER → 2020-01-08 | Outpatient (CLI) | payer OTHER ==
[~2020-01-08] MED LIST changes: +APPLTAB2 PO; +B-12100010 PO; +BIOT10009 PO; +CITRTAB13 PO; +CLAR10TA7 PO; +CVS1CAP5 PO; +DICY1CAP8 PO; +LEVA750T7 PO; +LIDO1ADH10 TOP; +MULTCAP PO; +OMEP-218 PO; +POTA10808 PO; +PREG200C PO; +SM P99TA PO; +VALA500T5 PO; +ZOLO100T PO
--- NOTE | 2020-01-13 02:32 | ECWPNPC ---
PATIENT NAME: ROSANGELA CARUSO : 1960 GENDER: FEMALE VISIT DATE: 01/08/2020 DISCHARGE DATE: 01/08/20 1139 VISIT LOCKED DATE TIME: PHYSICIAN: SAMMIE MURILLO RESOURCE: SAMMIE MURILLO REASON FOR APPOINTMENT 1. LOW BACK PAIN HISTORY OF PRESENT ILLNESS HISTORY OF PRESENT ILLNESS: PAIN THE PATIENT DESCRIBES THE PAIN... 59-YEAR-OLD FEMALE IN FOR CHRONIC PAIN FOLLOW-UP. SHE RATES HER PAIN CURRENTLY AT A 10 OUT OF 10 AND DESCRIBES IT ACHING, SHARP, STABBING, AND SORE. FALL RISK SCREENING: SCREENING :NO FALLS REPORTED IN THE LAST YEAR CURRENT MEDICATIONS TAKING ONDANSETRON HCL 4 MG TABLET 1 TABLET ORALLY THREE TIMES DAILY NEEDED TAKING OMEPRAZOLE 40 MG CAPSULE DELAYED RELEASE 1 CAPSULE ORALLY TWICE DAILY NEEDED TAKING ZOLOFT 100 MG TABLET 1 1/2 TABLETS ORALLY ONCE A DAY TAKING KLONOPIN 1 MG TABLET 1 TABLET ORALLY BID NEEDED TAKING VITAMIN D (ERGOCALCIFEROL) 62652 UNIT CAPSULE 1 CAPSULE ORALLY WEEKLY TAKING VITAMIN B-12 500 MCG TABLET 1 TABLET ORALLY ONCE A DAY TAKING CITRACAL PLUS - TABLET 1 TAB ORALLY TWICE DAILY TAKING MULTIVITAMIN ADULT - TABLET 1 TAB ORALLY DAILY TAKING NORCO 10-325 MG TABLET 1 TABLET ORALLY EVERY 8-12 HRS PRN PAIN MDD=2 TAKING TIZANIDINE HCL 4 MG TABLET 1 TABLET NEEDED ORALLY FOR SPASMS AND PAIN EVERY 8 HRS NEEDED (PAIN CLINIC) MDD3, NOTES: W/C REFUSES TO REFILL TAKING LYRICA 200 MG CAPSULE 1 CAPSULE ORALLY FOR PAIN BID MDD=2 TAKING POTASSIUM 99 MG TABLET 1 TABLET ORALLY ONCE A DAY TAKING BIOTIN 5 MG CAPSULE 1 CAPSULE ORALLY DAILY TAKING PRAVASTATIN SODIUM 20 MG TABLET 1 TABLET ORALLY ONCE A DAY NOT-TAKING POTASSIUM & MAGNESIUM ASPARTAT 250-250 MG CAPSULE 1 CAPSULE WITH A MEAL ORALLY ONCE A DAY NOT-TAKING BUSPIRONE HCL 15 MG TABLET 1 TABLET ORALLY TWICE A DAY NOT-TAKING GLIPIZIDE 10 MG TABLET 1/2 TABLET ORALLY ONCE A DAY, NOTES: ON HOLD NOT-TAKING GABAPENTIN 100 MG CAPSULE 1 CAPSULE ORALLY TID, NOTES: 1 MONTH PRESCRIPTION NOT-TAKING CHILDRENS CHEWABLE VITAMINS - TABLET CHEWABLE 2 TABLETS ORALLY DAILY NOT-TAKING LOSARTAN POTASSIUM 100 MG TABLET 1 TABLET ORALLY ONCE A DAY NOT-TAKING IBUPROFEN 800 MG TABLET 1 TABLET ORALLY WITH FOOD THREE TIMES A DAY PRN FOR PAIN MDD3 NOT-TAKING AMBIEN 5 MG TABLET 1 TAB(S) ORAL AT BEDTIME NEEDED (PECK) DISCONTINUED BIOTENE DRY MOUTH - LIQUID DIRECTED MOUTH/THROAT MEDICATION LIST REVIEWED AND RECONCILED WITH THE PATIENT PAST MEDICAL HISTORY FIBROMYALGIA CHRONIC BACK PAIN ICD-9 724.5 POSITIVE LYME TITER DEPRESSION ICD-9 311.0 SLEEP APNEA- NO LONGER USES CPAP ACID REFLUX ENVIROMENTAL ALLERGIES MIXED HYPERLIPIDEMA? IBS CHRONIC DRY EYES HISTORY OF FIBROIDS S/P HYSTERECTOMY ASCVD 12 YR RISK: 17 ANXIETY HEART MURMUR KIDNEY STONE/KIDNEY AND BLADDER INFECTION WITH SEPSIS OBESITY ALLERGIES SEASONAL SURGICAL HISTORY TUBAL LIGATION 1983 APPENDECTOMY HYSTERECTOMY/ LAP ASSISTED VAGINAL --- DUE TO ADENOMYOSIS AND FIBROID UTERUS 11/21 COLONOSCOPY 2009 RIGHT BREAST BIOPSY 2010 GASTRIC BYPASS 04/2019 KIDNEY STONE REMOVAL 01/01 FAMILY HISTORY FATHER: UNKNOWN MOTHER: , INFLUENZA SIBLINGS: ALIVE SON(S): ALIVE DAUGHTER(S): , LUPUS, FIBROMYALGIA, ASTHMA, LYME DISEASE, DUE TO MVA 2 BROTHER(S) , 1 SISTER(S) - HEALTHY. 3 SON(S) , 1 DAUGHTER(S) . SISTER- MS\\NSON - ENLARGED HEART. SOCIAL HISTORY GENERAL: TOBACCO USE ARE YOU A:CURRENT SMOKER ARE YOU INTERESTED IN QUITTING?READY TO QUIT COUNSELED THE PATIENT ON TOBACCO USE, CESSATION [id number]/27/2020 HOW MANY CIGARETTES A DAY DO YOU SMOKE?21- PATIENT COUNSELED ON THE DANGERS OF TOBACCO USE AND URGED TO QUIT:01/08/2020 SMOKING CESSATION INFORMATION GIVEN11/14/2019 E-CIGARETTENO OTHERS AT HOME: SPOUSE. EDUCATION LEVEL OF EDUCATION:COLLEGE DIET: REGULAR. LANGUAGE LANGUAGES SPOKEN:WOLOF DOMESTIC VIOLENCE DO YOU FEEL SAFE IN YOUR ENVIRONMENT?YES BMI CARE GOAL FOLLOW-UP ABOVE NORMAL BMI FOLLOW-UPGIVING ENCOURAGEMENT TO EXERCISE RECREATIONAL DRUG USE DRUG USE?NO EXERCISE: NO REGULAR EXERCISE. LEARNING BARRIERS / SPECIAL NEEDS CHANGE FROM LAST VISIT?NO BARRIERS TO LEARNING?NO HEARING IMPAIRED?NO VISION IMPAIRED?YES :CORRECTIVE LENSES COGNITIVELY IMPAIRED?NO READINESS TO LEARN?YES LEARNING PREFERENCES?NO LEARNING CAPABILITIES PRESENT?YES EMOTIONAL BARRIERS?NO SPECIAL DEVICES?NO CAR WASH SUPERVISOR NEEDED?NO PAIN CLINIC PFS, CLERGY, PUBLIC HEALTH REFERRALS HAS THE PATIENT BEEN EDUCATED REGARDING HIS/HER PLAN OF CARE?YES HAS THE PATIENT BEEN EDUCATED REGARDING PAIN, THE RISK FOR PAIN, THE IMPORTANCE OF EFFECTIVE PAIN MANAGEMENT, AND THE PAIN ASSESSMENT PROCESS?YES LATEX QUESTIONNAIRE LATEX ALLERGY : HAVE YOU EVER DEVELOPED ANY TYPE OF REACTION AFTER HANDLING LATEX PRODUCTS SUCH RUBBER GLOVES, CONDOMS, DIAPHRAGMS, BALLOONS, SOCKS, OR UNDERWEAR?NO LATEX ALLERGY : HAVE YOU EVER DEVELOPED ANY TYPE OF REACTION DURING OR AFTER DENTAL APPOINTMENT, VAGINAL/RECTAL EXAMINATION, SURGICAL PROCEDURE, OR ANY OTHER EXPOSURE?NO LATEX RISK : HAVE YOU EVER HAD ANY DIFFICULTY BREATHING OR HIVES AFTER EATING OR HANDLING ANY FRUITS, OR VEGETABLES; SUCH KIWI, BANANAS, STONE FRUITS, OR CHESTNUTSYES - PLEASE INDICATE : BANANAS SOMETIMES CAUSES HIVES LATEX RISK : DO YOU HAVE A PREVIOUS PERSONAL HISTORY OF MORE THAN NINE SURGERIES, SPINA BIFIDA, OR REPEATED CATHERIZATIONS? NO LATEX RISK : ARE YOU FREQUENTLY EXPOSED TO LATEX PRODUCTS IN YOUR OCCUPATION?NO DATE ASKED : 01/08/2020 CAFFEINE CAFFEINE USE?YES COFFEE 2 CUPS A DAY ADVANCE DIRECTIVE ADVANCE DIRECTIVE DISCUSSED WITH PATIENT:YES 01/08/2020 PT STATES SHE HCP 1. EDUARDO PARTIDA [phone] 2. RADHA PONCHO [phone] FAITH [id number] YARSANISM NO ANGLICAN BELIEFS THAT WOULD IMPACT HEALTH CARE. MARITAL STATUS: . 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 SEXUAL HX HAD SEX IN THE LAST 12 MONTHS (VAGINAL, ORAL, OR ANAL)?YES , 4 ADULT KIDS. ALL LIVE TOGETHER....UNEMPLOYED...DOES NOT SMOKE OR DRINK.REVIEWED WITH PATIENT 08/26/18 1539 JSREVIEWED WITH PATIENT 01/10/19 1355 JSREVIEWED WITH PATIENT 05/12/19 1207 JSREVIEWED WITH PATIENT 08/12/2019 LAS. HOSPITALIZATION/MAJOR DIAGNOSTIC PROCEDURE [facility] - DEPRESSION 2012 CHILDBIRTH X 4 SURGERY RELATED 04/2019 KIDNEY STONE/ KIDNEY AND BLADDER INFECTION WITH SEPSIS 01/01-01/06/2020 REVIEW OF SYSTEMS REVIEWED BY: PROVIDER: MARTÍN MORALES . CONSTITUTIONAL: ANY CHANGE IN YOUR MEDICAL CONDITION? YES, JUST IN HOSPITAL FOR KIDNEY STONE, KIDNEY AND BLADDER INFECTION WITH SEPSIS . CHILLS NO . FEVER NO . INFECTION: DO YOU HAVE NEW INFECTIONS? YES, BLADDER AND KIDNEY INFECTION WITH SEPSIS . DO YOU HAVE HISTORY OF MRSA? NO . MUSCULOSKELETAL: ANY NEW PATTERNS OF PAIN OR NUMBNESS? NO . GASTROENTEROLOGY: ANY NEW CHANGE IN BOWEL CONTROL? NO . GENITOURINARY: ANY NEW CHANGE IN BLADDER CONTROL? NO . IS THERE A CHANCE YOU COULD BE ? NO . HEMATOLOGY/LYMPH: DO YOU TAKE ANY BLOOD THINNERS? (FOR EXAMPLE- COUMADIN, PLAVIX, AGGRENOX, PLATEL, PRADAXA, OR XARELTO) NO . WHEN WAS YOUR LAST DOSE? DATE: TIME: . NEUROLOGY: HAVE YOU FALLEN IN THE PAST 12 MONTHS? YES, 01/06 JUST SLIPPED AND FELL& YEST SLIPPED ON ICE LANDED ON TAIL BONE. HAS HAD AN INCREASE IN PAIN AFTER. NOT EVALUATED . ANY NEW EXTREMITY NUMBNESS OR WEAKNESS? NO . CARDIOLOGY: DO YOU HAVE A PACEMAKER OR DEFIBRILLATOR? NO . RESPIRATORY: HAVE YOU BEEN SICK IN THE PAST WEEK? YES, SEE ABOVE . FEVER YES-DUE TO SEPSIS . FLU LIKE SYMPTOMS? NO . COUGH NO . INTEGUMENTARY: DO YOU HAVE ANY RASHES OR OPEN SORES? NO . ALLERGIC/IMMUNO: ARE YOU ALLERGIC TO IV DYE? NO . ANY NEW ALLERGIES? NO . PSYCHIATRIC: DO YOU HAVE THOUGHTS OF HURTING YOURSELF OR SOMEONE ELSE? NO . ARE YOU ABUSED, NEGLECTED, OR IN AN UNSAFE ENVIRONMENT? NO . ENDOCRINOLOGY: ARE YOU DIABETIC? NO . OTHER: DO YOU NEED ANY PRESCRIPTIONS? NO . IF YES, PLEASE LIST: ____ . ANY NEW PROBLEMS WITH YOUR MEDICATIONS? NO . WHEN DID YOU LAST EAT? ____ . WHEN DID YOU LAST DRINK? ____ . WHAT DID YOU LAST DRINK? ____ . NAME OF PERSON DRIVING YOU HOME? ____ . DO YOU HAVE ANY OTHER QUESTIONS OR CONCERNS NO . VITAL SIGNS WT 132 LBS, HT 61 IN, BMI 24.94 INDEX, BP 151/90 MM HG, HR 103 /MIN, RR 16 /MIN, TEMP 97.6 F, OXYGEN SAT % 99%, SAFE IN ENV? (Y/N) Y, NA INITIALS AW 1056, REVIEWED BY: MIGUEL. EXAMINATION GENERAL EXAMINATION: GENERALNO ACUTE DISTRESS, WELL NOURISHED AND HYDRATED. PSYCHAPPROPRIATE MOOD AND AFFECT . LUNGS:CLEAR TO AUSCULTATION BILATERALLY, NO WHEEZES, RHONCHI, RALES. HEART:NO MURMURS, REGULAR RATE AND RHYTHM. ASSESSMENTS PAIN IN THORACIC SPINE - M54.6 (PRIMARY) TREATMENT PAIN IN THORACIC SPINE MRI : THORACIC [id number] CLINICAL NOTES: 59-YEAR-OLD FEMALE IN FOR CHRONIC PAIN FOLLOW-UP. PATIENT ADMITS TO INCREASED THORACIC PAIN. GIVEN PRESENTING SYMPTOMS RECOMMENDED THORACIC MRI WITH FOLLOW-UP STATUS POST DIAGNOSTIC IMAGING. PATIENT EXPRESSED UNDERSTANDING OF AND WAS IN AGREEMENT WITH TREATMENT PLAN. GIVEN TIME TO ASK QUESTIONS AND EXPRESS CONCERNS., ISTOP REGISTRY REVIEWED AND DEMONSTRATES COMPLLIANCE. (REF # [id number] ) BRINGS IN MEDICATIONS WHICH IS APPROPRIATE FOR WHAT WAS DISPENSED. RECENT URINE TOXICOLOGY REVIEWED. NO UNAUTHORIZED MEDICATIONS. NO ILLICIT SUBSTANCES AND PRESCRIBED MEDICATIONS WERE PRESENT. PROCEDURE CODES FA211 ESTABILISHED PATIENT [facility] FACILITY CHARGE DISPOSITION & COMMUNICATION FOLLOW UP AFTER IMAGING (REASON: THORACIC MRI ) ELECTRONICALLY SIGNED BY FINA MEYER ON 01/12/2020 AT 01:09 PM EST DISCLAIMER : THIS IS A VISIT SUMMARY EXTRACTED FROM THE [employer] CHART. IT IS NOT A COPY OF THE [employer] PROGRESS NOTE. ROVERTO
== END ==
LOC: M PAIN 10:45
PROVIDERS: ATTEND Family Medicine
DX: M54.6 Pain in thoracic spine (principal)

== ENCOUNTER → 2020-01-21 | Outpatient (REF) | payer OTHER ==
[~2020-01-21] MED LIST changes: -CITRTAB13 PO; +CITRTAB16 PO
== END ==
LOC: M LAB REF 20:17
PROVIDERS: ATTEND Urology
DX: N39.0 Urinary tract infection, site not specified (principal)

== ENCOUNTER → 2020-02-10 | Outpatient (CLI) | payer OTHER ==
--- NOTE | 2020-02-10 13:57 | REP ---
MRI THORACIC SPINE WITHOUT CONTRAST: HISTORY: Thoracic spine pain. Comparison thoracic spine CT study August 25, 2019. Comparison radiographs June 01, 2070. TECHNIQUE: Sagittal and axial T1- and T2-weighted scans are acquired in the usual fashion with and without fat saturation. Sequences include spin echo, turbo spin-echo, and STIR imaging sequences. MRI FINDINGS: No bony destructive lesion is seen. There is a large Schmorl's node in the superior endplate of the T12 vertebral body. This is unchanged from the August 25, 2019 study. There is a small amount of marrow edema associated with this. No other evidence of marrow edema or inflammation seen. No fracture or collapse is observed. The thoracic cord is normal in coarse, caliber and signal intensity. There is mild diffuse disc bulging at T11-12. At T4-5, there is a small central disc protrusion effacing the ventral subarachnoid space but not visibly contacting the cord. No other thoracic disc protrusion is seen. Incidental note is made of multinodular thyroid and a right renal cyst which measures 3.2 cm in greatest diameter. IMPRESSION: Mild degenerative disc changes as seen on CT study. Simple cyst right kidney. Small central disc protrusion T4-5. Diffuse disc bulging T11-12. Fairly large Schmorl's node at the superior endplate of T12. Electronically Signed by Ortega Rizo MD 02/10/2020 02:38 P
== END ==
LOC: M RAD 11:35
PROVIDERS: ATTEND Family Medicine
DX: M54.6 Pain in thoracic spine (principal)

== ENCOUNTER → 2020-02-24 | Outpatient (CLI) | payer OTHER, BC ==
--- NOTE | 2020-02-26 01:21 | ECWPNPC ---
PATIENT NAME: ROSANGELA CARUSO : 1960 GENDER: FEMALE VISIT DATE: 02/24/2020 DISCHARGE DATE: 02/24/20 1012 VISIT LOCKED DATE TIME: PHYSICIAN: SAMMIE MURILLO RESOURCE: SAMMIE MURILLO REASON FOR APPOINTMENT 1. REVIEW MRI-PATIENT RUNNING LATE HISTORY OF PRESENT ILLNESS HISTORY OF PRESENT ILLNESS: PAIN THE PATIENT DESCRIBES THE PAINDURING THE LAST MONTH SEVERITY - PAIN SCORE OF10/10 LOCATIONSTHORAX QUALITYSTABBING, SHOOTING DURATIONINTERMITTENT PAIN IS INCREASED BY:ACTIVITIES, PROLONGED STANDING 59-YEAR-OLD FEMALE IN FOR CHRONIC PAIN FOLLOW-UP. SHE RATES HER PAIN CURRENTLY AT A 10 OUT OF 10 AND DESCRIBES IT STABBING, AND SHOOTING. SHE DOES QUESTION IF AN INCREASE IN HER MEDICATION WOULD BE HELPFUL TO HELP ALLEVIATE HER SYMPTOMS. PATIENT HAD AN MRI RECENTLY WHICH WILL BE REVIEWED WITH PATIENT TODAY. FALL RISK SCREENING: SCREENING :NO FALLS REPORTED IN THE LAST YEAR CURRENT MEDICATIONS TAKING ONDANSETRON HCL 4 MG TABLET 1 TABLET ORALLY THREE TIMES DAILY NEEDED TAKING OMEPRAZOLE 40 MG CAPSULE DELAYED RELEASE 1 CAPSULE ORALLY TWICE DAILY NEEDED TAKING ZOLOFT 100 MG TABLET 1 1/2 TABLETS ORALLY ONCE A DAY TAKING KLONOPIN 1 MG TABLET 1 TABLET ORALLY BID NEEDED TAKING VITAMIN D (ERGOCALCIFEROL) 63230 UNIT CAPSULE 1 CAPSULE ORALLY WEEKLY TAKING VITAMIN B-12 500 MCG TABLET 1 TABLET ORALLY ONCE A DAY TAKING CITRACAL PLUS - TABLET 1 TAB ORALLY TWICE DAILY TAKING MULTIVITAMIN ADULT - TABLET 1 TAB ORALLY DAILY TAKING POTASSIUM 99 MG TABLET 1 TABLET ORALLY ONCE A DAY TAKING BIOTIN 5 MG CAPSULE 1 CAPSULE ORALLY DAILY TAKING PRAVASTATIN SODIUM 20 MG TABLET 1 TABLET ORALLY ONCE A DAY TAKING BACTRIM DS 800-160 MG TABLET 1 TABLET FOR YOUR CYSTOSCOPY TODAY ORALLY DIRECTED TAKING NORCO 10-325 MG TABLET 1 TABLET ORALLY EVERY 8-12 HRS PRN PAIN MDD=2 TAKING TIZANIDINE HCL 4 MG TABLET 1 TABLET NEEDED ORALLY FOR SPASMS AND PAIN EVERY 8 HRS NEEDED (PAIN CLINIC) MDD3, NOTES: W/C REFUSES TO REFILL TAKING LYRICA 200 MG CAPSULE 1 CAPSULE ORALLY FOR PAIN BID MDD=2 NOT-TAKING POTASSIUM & MAGNESIUM ASPARTAT 250-250 MG CAPSULE 1 CAPSULE WITH A MEAL ORALLY ONCE A DAY NOT-TAKING BUSPIRONE HCL 15 MG TABLET 1 TABLET ORALLY TWICE A DAY NOT-TAKING GLIPIZIDE 10 MG TABLET 1/2 TABLET ORALLY ONCE A DAY, NOTES: ON HOLD NOT-TAKING GABAPENTIN 100 MG CAPSULE 1 CAPSULE ORALLY TID, NOTES: 1 MONTH PRESCRIPTION NOT-TAKING CHILDRENS CHEWABLE VITAMINS - TABLET CHEWABLE 2 TABLETS ORALLY DAILY NOT-TAKING LOSARTAN POTASSIUM 100 MG TABLET 1 TABLET ORALLY ONCE A DAY NOT-TAKING IBUPROFEN 800 MG TABLET 1 TABLET ORALLY WITH FOOD THREE TIMES A DAY PRN FOR PAIN MDD3 NOT-TAKING AMBIEN 5 MG TABLET 1 TAB(S) ORAL AT BEDTIME NEEDED (PECK) MEDICATION LIST REVIEWED AND RECONCILED WITH THE PATIENT PAST MEDICAL HISTORY FIBROMYALGIA CHRONIC BACK PAIN ICD-9 724.5 POSITIVE LYME TITER DEPRESSION ICD-9 311.0 SLEEP APNEA- NO LONGER USES CPAP ACID REFLUX ENVIROMENTAL ALLERGIES MIXED HYPERLIPIDEMA? IBS CHRONIC DRY EYES HISTORY OF FIBROIDS S/P HYSTERECTOMY ASCVD 10 YR RISK: 17 ANXIETY HEART MURMUR KIDNEY STONE/KIDNEY AND BLADDER INFECTION WITH SEPSIS OBESITY ALLERGIES SEASONAL SURGICAL HISTORY TUBAL LIGATION 1983 APPENDECTOMY HYSTERECTOMY/ LAP ASSISTED VAGINAL --- DUE TO ADENOMYOSIS AND FIBROID UTERUS 11/21 COLONOSCOPY 2009 RIGHT BREAST BIOPSY 2010 GASTRIC BYPASS 04/2019 KIDNEY STONE REMOVAL 01/01 CYSTO WITH STENT REMOVAL 01/28/2020 FAMILY HISTORY FATHER: UNKNOWN MOTHER: , INFLUENZA SIBLINGS: ALIVE SON(S): ALIVE DAUGHTER(S): , LUPUS, FIBROMYALGIA, ASTHMA, LYME DISEASE, DUE TO MVA 2 BROTHER(S) , 1 SISTER(S) - HEALTHY. 3 SON(S) , 1 DAUGHTER(S) . SISTER- MS\\NSON - ENLARGED HEART. SOCIAL HISTORY GENERAL: TOBACCO USE ARE YOU A:CURRENT SMOKER HOW MANY CIGARETTES A DAY DO YOU SMOKE?21-30 ARE YOU INTERESTED IN QUITTING?READY TO QUIT PATIENT COUNSELED ON THE DANGERS OF TOBACCO USE AND URGED TO QUIT:01/08/2020 COUNSELED THE PATIENT ON TOBACCO USE, CESSATION [id number]/27/2020 E-CIGARETTENO SMOKING CESSATION INFORMATION GIVEN11/14/2019 OTHERS AT HOME: SPOUSE. EDUCATION LEVEL OF EDUCATION:COLLEGE DIET: REGULAR. LANGUAGE LANGUAGES SPOKEN:ICELANDIC DOMESTIC VIOLENCE DO YOU FEEL SAFE IN YOUR ENVIRONMENT?YES BMI CARE GOAL FOLLOW-UP ABOVE NORMAL BMI FOLLOW-UPGIVING ENCOURAGEMENT TO EXERCISE RECREATIONAL DRUG USE DRUG USE?NO EXERCISE: NO REGULAR EXERCISE. LEARNING BARRIERS / SPECIAL NEEDS CHANGE FROM LAST VISIT?NO BARRIERS TO LEARNING?NO HEARING IMPAIRED?NO VISION IMPAIRED?YES COGNITIVELY IMPAIRED?NO :CORRECTIVE LENSES READINESS TO LEARN?YES LEARNING PREFERENCES?NO LEARNING CAPABILITIES PRESENT?YES EMOTIONAL BARRIERS?NO SPECIAL DEVICES?NO SPECIFICATION WRITER NEEDED?NO PAIN CLINIC PFS, CLERGY, PUBLIC HEALTH REFERRALS HAS THE PATIENT BEEN EDUCATED REGARDING HIS/HER PLAN OF CARE?YES HAS THE PATIENT BEEN EDUCATED REGARDING PAIN, THE RISK FOR PAIN, THE IMPORTANCE OF EFFECTIVE PAIN MANAGEMENT, AND THE PAIN ASSESSMENT PROCESS?YES LATEX QUESTIONNAIRE LATEX ALLERGY : HAVE YOU EVER DEVELOPED ANY TYPE OF REACTION AFTER HANDLING LATEX PRODUCTS SUCH RUBBER GLOVES, CONDOMS, DIAPHRAGMS, BALLOONS, SOCKS, OR UNDERWEAR?NO LATEX ALLERGY : HAVE YOU EVER DEVELOPED ANY TYPE OF REACTION DURING OR AFTER DENTAL APPOINTMENT, VAGINAL/RECTAL EXAMINATION, SURGICAL PROCEDURE, OR ANY OTHER EXPOSURE?NO DATE ASKED : 01/28/2020 LATEX RISK : HAVE YOU EVER HAD ANY DIFFICULTY BREATHING OR HIVES AFTER EATING OR HANDLING ANY FRUITS, OR VEGETABLES; SUCH KIWI, BANANAS, STONE FRUITS, OR CHESTNUTSYES - PLEASE INDICATE : BANANAS SOMETIMES CAUSES HIVES LATEX RISK : DO YOU HAVE A PREVIOUS PERSONAL HISTORY OF MORE THAN NINE SURGERIES, SPINA BIFIDA, OR REPEATED CATHERIZATIONS? NO LATEX RISK : ARE YOU FREQUENTLY EXPOSED TO LATEX PRODUCTS IN YOUR OCCUPATION?NO CAFFEINE CAFFEINE USE?YES COFFEE 2 CUPS A DAY ADVANCE DIRECTIVE ADVANCE DIRECTIVE DISCUSSED WITH PATIENT:YES 01/08/2020 PT STATES SHE HCP 1. EDUARDO VÁZQUEZOZ [phone] 2. RADHA PONCHO [phone] RESTORATION [id number] CONFUCIANISM NO EVANGELICAL BELIEFS THAT WOULD IMPACT HEALTH CARE. MARITAL STATUS: . ALCOHOL SCREENING DID YOU HAVE A DRINK CONTAINING ALCOHOL IN THE PAST YEAR?NO POINTS0 INTERPRETATIONNEGATIVE OCCUPATION: [employer]. SEXUAL HX HAD SEX IN THE LAST 12 MONTHS (VAGINAL, ORAL, OR ANAL)?YES HOSPITALIZATION/MAJOR DIAGNOSTIC PROCEDURE [facility] - DEPRESSION 2012 CHILDBIRTH X 4 SURGERY RELATED 04/2019 KIDNEY STONE/ KIDNEY AND BLADDER INFECTION WITH SEPSIS 01/01-01/06/2020 REVIEW OF SYSTEMS REVIEWED BY: PROVIDER: MARTÍN MORALES . CONSTITUTIONAL: ANY CHANGE IN YOUR MEDICAL CONDITION? NO . CHILLS NO . FEVER NO . INFECTION: DO YOU HAVE NEW INFECTIONS? NO . DO YOU HAVE HISTORY OF MRSA? NO . MUSCULOSKELETAL: ANY NEW PATTERNS OF PAIN OR NUMBNESS? NO . GASTROENTEROLOGY: ANY NEW CHANGE IN BOWEL CONTROL? NO . GENITOURINARY: ANY NEW CHANGE IN BLADDER CONTROL? NO . IS THERE A CHANCE YOU COULD BE ? NO . HEMATOLOGY/LYMPH: DO YOU TAKE ANY BLOOD THINNERS? (FOR EXAMPLE- COUMADIN, PLAVIX, AGGRENOX, PLATEL, PRADAXA, OR XARELTO) NO . WHEN WAS YOUR LAST DOSE? DATE: TIME: . NEUROLOGY: HAVE YOU FALLEN IN THE PAST 12 MONTHS? NO . ANY NEW EXTREMITY NUMBNESS OR WEAKNESS? NO . CARDIOLOGY: DO YOU HAVE A PACEMAKER OR DEFIBRILLATOR? NO . RESPIRATORY: HAVE YOU BEEN SICK IN THE PAST WEEK? YES, ALLERGIES, SINUSES . FEVER NO . FLU LIKE SYMPTOMS? NO . COUGH NO . INTEGUMENTARY: DO YOU HAVE ANY RASHES OR OPEN SORES? NO . ALLERGIC/IMMUNO: ARE YOU ALLERGIC TO IV DYE? NO . ANY NEW ALLERGIES? NO . PSYCHIATRIC: DO YOU HAVE THOUGHTS OF HURTING YOURSELF OR SOMEONE ELSE? NO . ARE YOU ABUSED, NEGLECTED, OR IN AN UNSAFE ENVIRONMENT? NO . ENDOCRINOLOGY: ARE YOU DIABETIC? NO . OTHER: DO YOU NEED ANY PRESCRIPTIONS? YES, LYRICA, TIZANIDINE, HYDROCODONE . IF YES, PLEASE LIST: ____ . ANY NEW PROBLEMS WITH YOUR MEDICATIONS? NO . WHEN DID YOU LAST EAT? ____ . WHEN DID YOU LAST DRINK? ____ . WHAT DID YOU LAST DRINK? ____ . NAME OF PERSON DRIVING YOU HOME? ____ . DO YOU HAVE ANY OTHER QUESTIONS OR CONCERNS YES, DISCUSS MRI AND INCREASE IN PAIN . VITAL SIGNS WT 128.6 LBS, HT 61 IN, BMI 24.30 INDEX, BP 111/76 MM HG, HR 107 /MIN, RR 18 /MIN, TEMP 96.0 F, OXYGEN SAT % 100%, SAFE IN ENV? (Y/N) YES, NA INITIALS AW 0925, REVIEWED BY: ORALIA TOMLINSON LPN. EXAMINATION GENERAL EXAMINATION: GENERALNO ACUTE DISTRESS, WELL NOURISHED AND HYDRATED. PSYCHAPPROPRIATE MOOD AND AFFECT . LUNGS:CLEAR TO AUSCULTATION BILATERALLY, NO WHEEZES, RHONCHI, RALES. HEART:NO MURMURS, REGULAR RATE AND RHYTHM. ASSESSMENTS INTERVERTEBRAL DISC DISORDERS WITH RADICULOPATHY, LUMBOSACRAL REGION - M51.17 (PRIMARY) TREATMENT INTERVERTEBRAL DISC DISORDERS WITH RADICULOPATHY, LUMBOSACRAL REGION INCREASE NORCO TABLET, 10-325 MG, 1 TABLET, ORALLY, EVERY 8-12 HRS PRN PAIN MDD=2, 30 DAY(S), 60, REFILLS 0 REFILL LYRICA CAPSULE, 200 MG, 1 CAPSULE, ORALLY FOR PAIN, BID MDD=2, 30 DAY(S), 60, REFILLS 2 STOP TIZANIDINE HCL TABLET, 4 MG, 1 TABLET NEEDED, ORALLY FOR SPASMS AND PAIN, EVERY 8 HRS NEEDED (PAIN CLINIC) MDD3, NOTES: W/C REFUSES TO REFILL START BACLOFEN TABLET, 10 MG, 1 TABLET WITH FOOD OR MILK, ORALLY, THREE TIMES A DAY, 30 DAY(S), 90 NOTES: PRINTED INFORMATION FOR BACLOFEN PRINTED AND REVIEWED WITH PATIENT. [facility] 02/24/2020. CLINICAL NOTES: 59-YEAR-OLD FEMALE IN FOR CHRONIC PAIN FOLLOW-UP. GIVEN PRESENTING SYMPTOMS AND RESULTS OF PHYSICAL EXAMINATION RECOMMENDED INCREASING HYDROCODONE TO 60 TABS PER MONTH, STOPPING TIZANIDINE AND STARTING BACLOFEN, WITH FOLLOW-UP IN 2 MONTHS TO DETERMINE EFFICACY TREATMENT. PATIENT HAS EXPRESSED UNDERSTANDING OF AND WAS IN AGREEMENT WITH TREATMENT PLAN. GIVEN TIME TO ASK QUESTIONS AND EXPRESS CONCERNS., ISTOP REGISTRY REVIEWED AND DEMONSTRATES COMPLLIANCE. (REF # [id number] ) BRINGS IN MEDICATIONS WHICH IS APPROPRIATE FOR WHAT WAS DISPENSED. RECENT URINE TOXICOLOGY REVIEWED. NO UNAUTHORIZED MEDICATIONS. NO ILLICIT SUBSTANCES AND PRESCRIBED MEDICATIONS WERE PRESENT. PROCEDURE CODES FA211 ESTABILISHED PATIENT [facility] FACILITY CHARGE DISPOSITION & COMMUNICATION FOLLOW UP 2 MONTHS (REASON: BACK PAIN, NEW MEDICATION) ELECTRONICALLY SIGNED BY FINA MEYER ON 02/25/2020 AT 08:56 AM EDT DISCLAIMER : THIS IS A VISIT SUMMARY EXTRACTED FROM THE [employer] CHART. IT IS NOT A COPY OF THE [employer] PROGRESS NOTE. MTDD
== END ==
LOC: M PAIN 09:15
PROVIDERS: ATTEND Family Medicine
DX: M51.17 Intervertebral disc disorders with radiculopathy, lumbosacral region (principal)

== ENCOUNTER → 2020-04-12 | Outpatient (CLI) | payer BC, OTHER ==
--- NOTE | 2020-04-14 01:08 | ECWPNPC ---
PATIENT NAME: ROSANGELA CARUSO : 1960 GENDER: FEMALE VISIT DATE: 04/12/2020 DISCHARGE DATE: 04/12/20 1113 VISIT LOCKED DATE TIME: PHYSICIAN: SAMMIE MURILLO RESOURCE: SAMMIE MURILLO REASON FOR APPOINTMENT 1. 3 MONTH PAT DONE HISTORY OF PRESENT ILLNESS GENERAL: - PERMISSION REQUESTED AND RECEIVED FROM PATIENT TO PERFORM TELEHEALTH VISIT. 60-YEAR-OLD FEMALE IN FOR CHRONIC PAIN FOLLOW-UP. SHE RATES HER PAIN CURRENTLY AT A 5 OUT OF 10 AND DESCRIBES IT INTERMITTENT ACHING PAIN. SHE DOESN'T MEDICATIONS ARE HELPFUL AND DENIES MED SIDE EFFECTS THIS TIME. PAIN SCREENING: PATIENT HAS A COMPLAINT OF ACUTE OR CHRONIC PAIN :YES LOCATION OF PAIN:LOW BACK INTENSITY OF PAIN (SCALE OF 1 TO 10):7 WHAT DOES YOUR PAIN FEEL LIKE:ACHING, STABBING, THROBBING DURATION:INTERMITTENT PAIN IS INCREASED BY:ACTIVITIES, PROLONGED STANDING PAIN IS DECREASED BY:USE OF PAIN MEDICATIONS, SITTING STRETCH PAIN HAS INTERFERED WITH THE FOLLOWING:BATHING/DRESSING, MOOD, WALKING ABILITY, EMPLOYMENT, HOUSEWORK, SLEEP, RELATIONSHIP WITH OTHERS, ENJOYMENT OF LIFE PLAN/GOALS/TREATMENT/INTERVENTION/FOLLOW UP:SEE PLAN FALL RISK SCREENING: SCREENING :NO FALLS REPORTED IN THE LAST YEAR DEPRESSION SCREENING: PHQ-9 LITTLE INTEREST OR PLEASURE IN DOING THINGSNEARLY EVERY DAY FEELING DOWN, DEPRESSED, OR HOPELESSNEARLY EVERY DAY TROUBLE FALLING OR STAYING ASLEEP, OR SLEEPING TOO MUCHNEARLY EVERY DAY FEELING TIRED OR HAVING LITTLE ENERGYNEARLY EVERY DAY POOR APPETITE OR OVEREATING NEARLY EVERY DAY FEELING BAD ABOUT YOURSELF-OR THAT YOU ARE A FAILURE OR HAVE LET YOURSELF OR YOUR FAMILY DOWN NEARLY EVERY DAY TROUBLE CONCENTRATING ON THINGS, SUCH READING THE NEWSPAPER OR WATCHING TELEVISION NEARLY EVERY DAY MOVING OR SPEAKING SO SLOWLY THAT OTHER PEOPLE COULD HAVE NOTICED. OR THE OPPOSITE- BEING SO FIDGETY OR RESTLESS THAT YOU HAVE BEEN MOVING AROUND A LOT MORE THAN USUALNOT AT ALL THOUGHTS THAT YOU WOULD BE BETTER OFF , OR OF HURTING YOURSELF IN SOME WAY?NOT AT ALL TOTAL SCORE:21 INTERPRETATIONSEVERE DEPRESSION PHQ-2 (2015 EDITION) LITTLE INTEREST OR PLEASURE IN DOING THINGS?NEARLY EVERY DAY FEELING DOWN, DEPRESSED, OR HOPELESS?NEARLY EVERY DAY TOTAL SCORE6 PAIN CENTER INTAKE QUESTIONS: DO YOU HAVE A HISTORY OF MRSA? :NO DO YOU TAKE A BLOOD THINNERS? :NO DO YOU HAVE ANY BLEEDING DISORDERS? :NO ANY NEW NUMBNESS OR WEAKNESS IN YOUR LEGS OR ARMS? :NO ANY PACEMAKER,DEFIBRILLATOR, OR DORSAL COLUMN STIMULATOR? :NO DO YOU HAVE ANY RASHES OR OPEN SORES? :YES HEAT RASH ARE YOU ALLERGIC TO IV DYE? :NO ARE YOU DIABETIC? :NO ANY NEW PROBLEMS WITH YOUR MEDICATIONS? :NO HAVE YOU RECEIVED A VACCINE IN THE PAST 30 DAYS? :NO DO YOU PLAN TO RECEIVE A VACCINE IN THE NEXT 21 DAYS? :NO DO YOU NEED ANY PRESCRIPTION? :NO DO YOU TAKE ANY IMMUNOSUPPRESSIVE MEDICATIONS? :NO NURSING NOTE: -. CURRENT MEDICATIONS TAKING ONDANSETRON HCL 4 MG TABLET 1 TABLET ORALLY THREE TIMES DAILY NEEDED TAKING OMEPRAZOLE 40 MG CAPSULE DELAYED RELEASE 1 CAPSULE ORALLY TWICE DAILY NEEDED TAKING ZOLOFT 100 MG TABLET 1 1/2 TABLETS ORALLY ONCE A DAY TAKING KLONOPIN 1 MG TABLET 1 TABLET ORALLY BID NEEDED TAKING VITAMIN D (ERGOCALCIFEROL) 78912 UNIT CAPSULE 1 CAPSULE ORALLY WEEKLY TAKING VITAMIN B-12 500 MCG TABLET 1 TABLET ORALLY ONCE A DAY TAKING CITRACAL PLUS - TABLET 1 TAB ORALLY TWICE DAILY TAKING MULTIVITAMIN ADULT - TABLET 1 TAB ORALLY DAILY TAKING POTASSIUM 99 MG TABLET 1 TABLET ORALLY ONCE A DAY TAKING BIOTIN 5 MG CAPSULE 1 CAPSULE ORALLY DAILY TAKING PRAVASTATIN SODIUM 20 MG TABLET 1 TABLET ORALLY ONCE A DAY TAKING BACTRIM DS 800-160 MG TABLET 1 TABLET FOR YOUR CYSTOSCOPY TODAY ORALLY DIRECTED TAKING LYRICA 200 MG CAPSULE 1 CAPSULE ORALLY FOR PAIN BID MDD=2 TAKING NORCO 10-325 MG TABLET 1 TABLET ORALLY EVERY 8-12 HRS PRN PAIN MDD=2 TAKING BACLOFEN 10 MG TABLET 1 TABLET WITH FOOD OR MILK ORALLY THREE TIMES A DAY TAKING TIZANIDINE HCL 4 MG TABLET 1 TABLET NEEDED ORALLY FOR SPASMS AND PAIN EVERY 8 HRS NEEDED (PAIN CLINIC) MDD3, NOTES: W/C REFUSES TO REFILL NOT-TAKING POTASSIUM & MAGNESIUM ASPARTAT 250-250 MG CAPSULE 1 CAPSULE WITH A MEAL ORALLY ONCE A DAY NOT-TAKING BUSPIRONE HCL 15 MG TABLET 1 TABLET ORALLY TWICE A DAY NOT-TAKING GLIPIZIDE 10 MG TABLET 1/2 TABLET ORALLY ONCE A DAY, NOTES: ON HOLD NOT-TAKING GABAPENTIN 100 MG CAPSULE 1 CAPSULE ORALLY TID, NOTES: 1 MONTH PRESCRIPTION NOT-TAKING CHILDRENS CHEWABLE VITAMINS - TABLET CHEWABLE 2 TABLETS ORALLY DAILY NOT-TAKING LOSARTAN POTASSIUM 100 MG TABLET 1 TABLET ORALLY ONCE A DAY NOT-TAKING IBUPROFEN 800 MG TABLET 1 TABLET ORALLY WITH FOOD THREE TIMES A DAY PRN FOR PAIN MDD3 NOT-TAKING AMBIEN 5 MG TABLET 1 TAB(S) ORAL AT BEDTIME NEEDED (PECK) MEDICATION LIST REVIEWED AND RECONCILED WITH THE PATIENT PAST MEDICAL HISTORY FIBROMYALGIA CHRONIC BACK PAIN ICD-9 724.5 POSITIVE LYME TITER DEPRESSION ICD-9 311.0 SLEEP APNEA- NO LONGER USES CPAP ACID REFLUX ENVIROMENTAL ALLERGIES MIXED HYPERLIPIDEMA? IBS CHRONIC DRY EYES HISTORY OF FIBROIDS S/P HYSTERECTOMY ASCVD 12 YR RISK: 17 ANXIETY HEART MURMUR KIDNEY STONE/KIDNEY AND BLADDER INFECTION WITH SEPSIS OBESITY ALLERGIES SEASONAL SURGICAL HISTORY TUBAL LIGATION 1983 APPENDECTOMY HYSTERECTOMY/ LAP ASSISTED VAGINAL --- DUE TO ADENOMYOSIS AND FIBROID UTERUS 11/21 COLONOSCOPY 2009 RIGHT BREAST BIOPSY 2010 GASTRIC BYPASS 04/2019 KIDNEY STONE REMOVAL 01/01 CYSTO WITH STENT REMOVAL 01/28/2020 FAMILY HISTORY FATHER: UNKNOWN MOTHER: , INFLUENZA SIBLINGS: ALIVE SON(S): ALIVE DAUGHTER(S): , LUPUS, FIBROMYALGIA, ASTHMA, LYME DISEASE, DUE TO MVA 2 BROTHER(S) , 1 SISTER(S) - HEALTHY. 3 SON(S) , 1 DAUGHTER(S) . SISTER- MS\\NSON - ENLARGED HEART. SOCIAL HISTORY GENERAL: TOBACCO USE ARE YOU A:CURRENT SMOKER ARE YOU INTERESTED IN QUITTING?READY TO QUIT COUNSELED THE PATIENT ON TOBACCO USE, CESSATION XVODOVFC27/29/2020 HOW MANY CIGARETTES A DAY DO YOU SMOKE?21-30 PATIENT COUNSELED ON THE DANGERS OF TOBACCO USE AND URGED TO QUIT:04/09/2020 SMOKING CESSATION INFORMATION GIVEN04/09/2020 E-CIGARETTENO LATEX QUESTIONNAIRE LATEX ALLERGY : HAVE YOU EVER DEVELOPED ANY TYPE OF REACTION AFTER HANDLING LATEX PRODUCTS SUCH RUBBER GLOVES, CONDOMS, DIAPHRAGMS, BALLOONS, SOCKS, OR UNDERWEAR?NO LATEX ALLERGY : HAVE YOU EVER DEVELOPED ANY TYPE OF REACTION DURING OR AFTER DENTAL APPOINTMENT, VAGINAL/RECTAL EXAMINATION, SURGICAL PROCEDURE, OR ANY OTHER EXPOSURE?NO DATE ASKED : 01/28/2020 LATEX RISK : HAVE YOU EVER HAD ANY DIFFICULTY BREATHING OR HIVES AFTER EATING OR HANDLING ANY FRUITS, OR VEGETABLES; SUCH KIWI, BANANAS, STONE FRUITS, OR CHESTNUTSYES - PLEASE INDICATE : BANANAS SOMETIMES CAUSES HIVES LATEX RISK : DO YOU HAVE A PREVIOUS PERSONAL HISTORY OF MORE THAN NINE SURGERIES, SPINA BIFIDA, OR REPEATED CATHERIZATIONS? NO LATEX RISK : ARE YOU FREQUENTLY EXPOSED TO LATEX PRODUCTS IN YOUR OCCUPATION?NO BMI CARE GOAL FOLLOW-UP ABOVE NORMAL BMI FOLLOW-UPGIVING ENCOURAGEMENT TO EXERCISE ALCOHOL SCREENING DID YOU HAVE A DRINK CONTAINING ALCOHOL IN THE PAST YEAR?NO POINTS0 INTERPRETATIONNEGATIVE RECREATIONAL DRUG USE DRUG USE?NO CAFFEINE CAFFEINE USE?YES COFFEE 2 CUPS A DAY SEXUAL HX HAD SEX IN THE LAST 12 MONTHS (VAGINAL, ORAL, OR ANAL)?YES QUAKER [id number] SABIANISM NO LATTER-DAY BELIEFS THAT WOULD IMPACT HEALTH CARE. LANGUAGE LANGUAGES SPOKEN:SAMI EDUCATION LEVEL OF EDUCATION:COLLEGE LEARNING BARRIERS / SPECIAL NEEDS CHANGE FROM LAST VISIT?NO BARRIERS TO LEARNING?NO HEARING IMPAIRED?NO VISION IMPAIRED?YES COGNITIVELY IMPAIRED?NO :CORRECTIVE LENSES READINESS TO LEARN?YES LEARNING PREFERENCES?NO LEARNING CAPABILITIES PRESENT?YES EMOTIONAL BARRIERS?NO SPECIAL DEVICES?NO FARMHAND NEEDED?NO DOMESTIC VIOLENCE DO YOU FEEL SAFE IN YOUR ENVIRONMENT?YES OCCUPATION: [employer] WORKER. DIET: REGULAR. EXERCISE: NO REGULAR EXERCISE. MARITAL STATUS: . OTHERS AT HOME: SPOUSE. PAIN CLINIC PFS, CLERGY, PUBLIC HEALTH REFERRALS HAS THE PATIENT BEEN EDUCATED REGARDING HIS/HER PLAN OF CARE?YES HAS THE PATIENT BEEN EDUCATED REGARDING PAIN, THE RISK FOR PAIN, THE IMPORTANCE OF EFFECTIVE PAIN MANAGEMENT, AND THE PAIN ASSESSMENT PROCESS?YES ADVANCE DIRECTIVE ADVANCE DIRECTIVE DISCUSSED WITH PATIENT:YES 01/08/2020 PT STATES SHE HCP 1. EDUARDO PARTIDA [phone] 2Varinder ISAAC [phone] HOSPITALIZATION/MAJOR DIAGNOSTIC PROCEDURE [facility] - DEPRESSION 2012 CHILDBIRTH X 4 SURGERY RELATED 04/2019 KIDNEY STONE/ KIDNEY AND BLADDER INFECTION WITH SEPSIS 01/01-01/06/2020 REVIEW OF SYSTEMS CONSTITUTIONAL: ANY RECENT FEVER OR ILLNESS NO . CHILLS NO . GASTROENTEROLOGY: BOWEL INCONTINENCE NO . ANY NEW CHANGE IN BOWEL CONTROL? NO . ABDOMINAL PAIN NO . CONSTIPATION NO . GENITOURINARY: ANY NEW CHANGE IN BLADDER CONTROL? NO . IS THERE A CHANCE YOU COULD BE ? NO . URINARY INCONTINENCE NO . CARDIOLOGY: CHEST PRESSURE NO . CHEST PAIN NO . RESPIRATORY: COUGH NO . SHORTNESS OF BREATH NO . EXAMINATION GENERAL EXAMINATION: GENERALNO ACUTE DISTRESS, WELL NOURISHED AND HYDRATED. PSYCHAPPROPRIATE MOOD AND AFFECT , , ORIENTED X 3. ASSESSMENTS INTERVERTEBRAL DISC DISORDERS WITH RADICULOPATHY, LUMBOSACRAL REGION - M51.17 (PRIMARY) TREATMENT INTERVERTEBRAL DISC DISORDERS WITH RADICULOPATHY, LUMBOSACRAL REGION CLINICAL NOTES: 60 YEAR OLD FEMALE IN FOR CHRONIC PAIN FOLLOW UP. GIVEN PRESENTING SYMPTOMS RECOMMEND FOLLOW UP IN 2 MONTHS. PATIENT HAS EXPRESSED UNDERSTANDING OF AND WAS IN AGREEMENT WITH TX PLAN. GIVEN TIME TO ASK QUESTIONS AND EXPRESS CONCERNS. SPOKE WITH PATIENT REGARDING PHQ9 SCORE. SHE ADMITS TO A LOT OF LOSS RECENTLY AND THAT MARCH IS THE TIME OF YEAR THAT HER DAUGHTER WHICH MAKES THIS VERY HARD FOR HER. SHE WAS MADE AWARE OF WALK-IN SERVICES AND ADMITS TO HAVING A PSYCHIATRIST AND THERAPIST. OTHERS NOTES: VITALS NOT OBTAINED DUE TO VIRTUAL VISIT, PRE SCREENING COMPLETED, 04/09/20, NA. DISPOSITION & COMMUNICATION FOLLOW UP 2 MONTHS (REASON: LOW BACK PAIN) ELECTRONICALLY SIGNED BY FINA MEYER ON 04/13/2020 AT 01:43 PM EDT DISCLAIMER : THIS IS A VISIT SUMMARY EXTRACTED FROM THE [employer] CHART. IT IS NOT A COPY OF THE [employer] PROGRESS NOTE. ROVERTO
== END ==
LOC: M TMPAIN 09:45 → M PAIN 09:45
PROVIDERS: ATTEND Family Medicine
DX: M51.17 Intervertebral disc disorders with radiculopathy, lumbosacral region (principal)

== ENCOUNTER → 2020-05-05 | Outpatient (CLI) | payer BC, OTHER ==
[2020-05-05 14:28] LABS: BASO % 0.6 % (0.0-1.0); EOS # 0.2 10^3/uL (0.0-0.5); EOS % 4.6 % (0.0-3.0); HEMATOCRIT 38.7 % (36.0-47.0); HEMOGLOBIN 12.7 g/dl (12.0-15.5); LYMPH % 56.6 % (24.0-44.0); MEAN CORPUSCULAR HEMOGLOBIN 29.7 pg (27.0-33.0); MEAN CORPUSCULAR HGB CONC 32.8 g/dl (32.0-36.5); MEAN CORPUSCULAR VOLUME 90.6 fl (80.0-96.0); MONO # 0.2 10^3/uL (0.0-0.8); MONO % 5.2 % (0.0-5.0); NEUTROPHILS # 1.1 10^3/uL (1.5-8.5); PLATELET COUNT, AUTOMATED 175 10^3/uL (150-450); RED BLOOD COUNT 4.27 10^6/uL (4.00-5.40); WHITE BLOOD COUNT 3.5 10^3/uL (4.0-10.0)
[2020-05-05 14:47] LABS: HEMOGLOBIN A1c 5.7 %
[2020-05-05 14:51] LABS: ALBUMIN 3.9 GM/DL (3.2-5.2); ALT/SGPT 46 U/L (12-78); BILIRUBIN,TOTAL 0.2 MG/DL (0.2-1.0); BLOOD UREA NITROGEN 12 MG/DL (7-18); CALCIUM LEVEL 9.5 MG/DL (8.5-10.1); CARBON DIOXIDE LEVEL 24 MEQ/L (21-32); CHLORIDE LEVEL 112 MEQ/L (98-107); CREATININE FOR GFR 0.75 MG/DL (0.55-1.30); FERRITIN 24 NG/ML (8-252); GLOMERULAR FILTRATION RATE > 60.0 (>51); GLUCOSE, FASTING 89 MG/DL (70-100); IRON (FE) 51 UG/DL (50-170); PERCENT SATURATION 15.3 % (13.2-45.0); PHOSPHORUS LEVEL 3.5 MG/DL (2.5-4.9); POTASSIUM SERUM 3.3 MEQ/L (3.5-5.1); SODIUM LEVEL 144 MEQ/L (136-145); TOTAL IRON BINDING CAPACITY 334 UG/DL (250-450); TOTAL PROTEIN 6.8 GM/DL (6.4-8.2)
[2020-05-05 15:03] LABS: TOTAL 25(OH) VITAMIN D 104.3 NG/ML (30.0-100.0)
[2020-05-05 15:04] LABS: FOLATE > 24.0 NG/ML (>5.4); VITAMIN B12 LEVEL > 2000 PG/ML (247-911)
== END ==
LOC: M WUC 11:45
PROVIDERS: ATTEND Physician Assistant
DX: K91.2 Postsurgical malabsorption, not elsewhere classified (principal); E55.9 Vitamin D deficiency, unspecified; Z86.39 Personal history of other endocrine, nutritional and metabolic disease; Z98.84 Bariatric surgery status

== ENCOUNTER → 2020-06-24 | Outpatient (CLI) | payer BC | LOC: M PAIN 09:15 | PROVIDERS: ATTEND Family Medicine | DX: M54.2 Cervicalgia (principal) ==

== ENCOUNTER → 2020-08-06 | Outpatient (CLI) | payer OTHER | LOC: M LABSMTC 09:58 | PROVIDERS: ATTEND Anesthesiology | DX: Z11.59 Encounter for screening for other viral diseases (principal) | CPT/HCPCS: C9803; U0003 ==

== ENCOUNTER → 2020-08-11 | Outpatient (CLI) | payer BC, OTHER ==
[~2020-08-11] MED LIST changes: +BUPIVACAINE HCL 0.25% 30ML VIAL As Ordered ONE; +ISOVUE-M 300 61% 15ML VIAL As Ordered ONE; +LIDOCAINE 1% SDV 30ML VIAL As Ordered ONE; +NORCO, ANEXSIA 5/325MG TABLET (HYDROcodone/ACETAMINOPHEN) As Ordered ONE; +TRIAMCINOLONE ACETONIDE SUSP 40 MG/ML VIAL (J3301) As Ordered ONE; +diazePAM 5 MG TAB As Ordered ONE
--- NOTE | 2020-08-12 16:46 | ECWPNPC ---
PATIENT NAME: ROSANGELA CARUSO : 1960 GENDER: FEMALE VISIT DATE: 08/11/2020 DISCHARGE DATE: 08/11/20 1525 VISIT LOCKED DATE TIME: PHYSICIAN: BLANCA RODRIGUEZ MD PHYSICIAN PAGER NO: ACTIVE RESOURCE: BLANCA RODRIGUEZ MD REASON FOR APPOINTMENT 1. LUMBAR FACET L3-L4,L4-L5 HISTORY OF PRESENT ILLNESS GENERAL: -. FALL RISK SCREENING: SCREENING :ONE FALL WITH INJURY IN THE PAST YEAR PAIN SCREENING: PATIENT HAS A COMPLAINT OF ACUTE OR CHRONIC PAIN :YES LOCATION OF PAIN:LOW BACK INTENSITY OF PAIN (SCALE OF 1 TO 10):10 WHAT DOES YOUR PAIN FEEL LIKE:ACHING, CONTINOUS, SHARP, STABBING, THROBBING DURATION:CONTINOUS, CONSTANT, ALL DAY, AWAKENS FROM SLEEP PAIN IS INCREASED BY:ACTIVITIES, OTHERS SITTING, LAYING PAIN IS DECREASED BY:USE OF PAIN MEDICATIONS NURSING NOTE: -. PAIN CENTER INTAKE QUESTIONS: DO YOU HAVE A HISTORY OF MRSA? :NO DO YOU TAKE A BLOOD THINNERS? :NO DO YOU HAVE ANY BLEEDING DISORDERS? :NO ANY NEW NUMBNESS OR WEAKNESS IN YOUR LEGS OR ARMS? :YES NUMBNESS IN HANDS ANY PACEMAKER,DEFIBRILLATOR, OR DORSAL COLUMN STIMULATOR? :NO DO YOU HAVE ANY RASHES OR OPEN SORES? :NO ARE YOU ALLERGIC TO IV DYE? :NO ARE YOU DIABETIC? :NO ANY NEW PROBLEMS WITH YOUR MEDICATIONS? :NO HAVE YOU RECEIVED A VACCINE IN THE PAST 30 DAYS? :NO DO YOU PLAN TO RECEIVE A VACCINE IN THE NEXT 21 DAYS? :NO DO YOU TAKE ANY IMMUNOSUPPRESSIVE MEDICATIONS? :NO ANY HISTORY OF SEIZURES? :NO ANY HISTORY OF CARDIAC ISSUES OR EVENTS? :NO DO YOU HAVE SLEEP APNEA? :NO ANY RECENT HEAD INJURY? :NO DO YOU HAVE ANY NEW INFECTIONS? :NO IS THERE A CHANCE YOU COULD BE ? :NO ARE YOU BREAST FEEDING? :NO WHEN DID YOU LAST EAT? : 08/11/2020 0015 WHEN DID YOU LAST DRINK? : 08/11/2020 0700 WHAT DID YOU LAST DRINK? : COFFEE NAME OF PERSON DRIVING YOU HOME? : EDUARDO (SON) DO YOU HAVE ANY OTHER QUESTIONS OR CONCERNS? : - CURRENT MEDICATIONS TAKING ONDANSETRON HCL 4 MG TABLET 1 TABLET ORALLY THREE TIMES DAILY NEEDED, NOTES: NONE RECENT TAKING OMEPRAZOLE 40 MG CAPSULE DELAYED RELEASE 1 CAPSULE ORALLY TWICE DAILY NEEDED, NOTES: 08/10/20202199 TAKING ZOLOFT 100 MG TABLET 1 1/2 TABLETS ORALLY ONCE A DAY, NOTES: 08/10/2020699 TAKING KLONOPIN 1 MG TABLET 1 TABLET ORALLY BID NEEDED, NOTES: 08/10/20202199 TAKING VITAMIN B-12 500 MCG TABLET 1 TABLET ORALLY ONCE A DAY, NOTES: 08/10/2020699 TAKING CITRACAL PLUS - TABLET 1 TAB ORALLY TWICE DAILY, NOTES: 08/10/2020699 TAKING MULTIVITAMIN ADULT - TABLET 1 TAB ORALLY DAILY, NOTES: 08/10/2020699 TAKING POTASSIUM 99 MG TABLET 1 TABLET ORALLY ONCE A DAY, NOTES: 2 WEEKS AGO TAKING BIOTIN 42921 MCG TABLET DISINTEGRATING 1 CAPSULE ORALLY DAILY, NOTES: 08/10/2020699 TAKING PRAVASTATIN SODIUM 20 MG TABLET 1 TABLET ORALLY ONCE A DAY, NOTES: 08/10/2020699 TAKING TIZANIDINE HCL 4 MG TABLET 1 TABLET NEEDED ORALLY FOR SPASMS AND PAIN EVERY 8 HRS NEEDED (PAIN CLINIC) MDD3, NOTES: 08/10/20201999 TAKING NORCO 10-325 MG TABLET 1 TABLET ORALLY EVERY 8-12 HRS PRN PAIN MDD=2, NOTES: 08/10/20201999 TAKING LYRICA 200 MG CAPSULE 1 CAPSULE ORALLY FOR PAIN BID MDD=2, NOTES: 08/10/20201999 TAKING TOPAMAX 50 MG TABLET 1 TABLET ORALLY BID, NOTES: 08/10/2020699 NOT-TAKING VITAMIN D (ERGOCALCIFEROL) 49496 UNIT CAPSULE 1 CAPSULE ORALLY WEEKLY NOT-TAKING BACTRIM DS 800-160 MG TABLET 1 TABLET FOR YOUR CYSTOSCOPY TODAY ORALLY DIRECTED NOT-TAKING BACLOFEN 10 MG TABLET 1 TABLET WITH FOOD OR MILK ORALLY THREE TIMES A DAY NOT-TAKING POTASSIUM & MAGNESIUM ASPARTAT 250-250 MG CAPSULE 1 CAPSULE WITH A MEAL ORALLY ONCE A DAY NOT-TAKING BUSPIRONE HCL 15 MG TABLET 1 TABLET ORALLY TWICE A DAY NOT-TAKING GLIPIZIDE 10 MG TABLET 1/2 TABLET ORALLY ONCE A DAY, NOTES: ON HOLD NOT-TAKING GABAPENTIN 100 MG CAPSULE 1 CAPSULE ORALLY TID, NOTES: 1 MONTH PRESCRIPTION NOT-TAKING CHILDRENS CHEWABLE VITAMINS - TABLET CHEWABLE 2 TABLETS ORALLY DAILY NOT-TAKING LOSARTAN POTASSIUM 100 MG TABLET 1 TABLET ORALLY ONCE A DAY NOT-TAKING IBUPROFEN 800 MG TABLET 1 TABLET ORALLY WITH FOOD THREE TIMES A DAY PRN FOR PAIN MDD3 NOT-TAKING AMBIEN 5 MG TABLET 1 TAB(S) ORAL AT BEDTIME NEEDED (PECK) MEDICATION LIST REVIEWED AND RECONCILED WITH THE PATIENT PAST MEDICAL HISTORY FIBROMYALGIA CHRONIC BACK PAIN ICD-9 724.5 POSITIVE LYME TITER DEPRESSION ICD-9 311.0 SLEEP APNEA- NO LONGER USES CPAP ACID REFLUX ENVIROMENTAL ALLERGIES MIXED HYPERLIPIDEMA? IBS CHRONIC DRY EYES HISTORY OF FIBROIDS S/P HYSTERECTOMY ASCVD 10 YR RISK: 17 ANXIETY HEART MURMUR KIDNEY STONE/KIDNEY AND BLADDER INFECTION WITH SEPSIS OBESITY ALLERGIES SEASONAL SURGICAL HISTORY TUBAL LIGATION 1983 APPENDECTOMY HYSTERECTOMY/ LAP ASSISTED VAGINAL --- DUE TO ADENOMYOSIS AND FIBROID UTERUS 11/21 COLONOSCOPY 2009 RIGHT BREAST BIOPSY 2010 GASTRIC BYPASS 04/2019 KIDNEY STONE REMOVAL 01/01 CYSTO WITH STENT REMOVAL 01/28/2020 FAMILY HISTORY FATHER: UNKNOWN MOTHER: , INFLUENZA SIBLINGS: ALIVE SON(S): ALIVE DAUGHTER(S): , LUPUS, FIBROMYALGIA, ASTHMA, LYME DISEASE, DUE TO MVA 2 BROTHER(S) , 1 SISTER(S) - HEALTHY. 3 SON(S) , 1 DAUGHTER(S) . SISTER- MS\\NSON - ENLARGED HEART. SOCIAL HISTORY GENERAL: TOBACCO USE ARE YOU A:CURRENT SMOKER ARE YOU INTERESTED IN QUITTING?THINKING ABOUT QUITTING PREVIOUS QUIT ATTEMPTS?NO. COUNSELED THE PATIENT ON SMOKING CESSATION, EDUCATION [id number]/30/2020 PATIENT REFUSED EDUCATION HOW MANY CIGARETTES A DAY DO YOU SMOKE?6-10 HOW SOON AFTER YOU WAKE UP DO YOU SMOKE YOUR FIRST CIGARETTE?WITHIN 5 MIN HOW OFTEN DO YOU SMOKE CIGARETTES?EVERY DAY PATIENT COUNSELED ON THE DANGERS OF TOBACCO USE AND URGED TO QUIT:08/11/2020 SMOKING CESSATION INFORMATION GIVEN04/09/2020 E-CIGARETTENO LATEX QUESTIONNAIRE LATEX ALLERGY : HAVE YOU EVER DEVELOPED ANY TYPE OF REACTION AFTER HANDLING LATEX PRODUCTS SUCH RUBBER GLOVES, CONDOMS, DIAPHRAGMS, BALLOONS, SOCKS, OR UNDERWEAR?NO LATEX ALLERGY : HAVE YOU EVER DEVELOPED ANY TYPE OF REACTION DURING OR AFTER DENTAL APPOINTMENT, VAGINAL/RECTAL EXAMINATION, SURGICAL PROCEDURE, OR ANY OTHER EXPOSURE?NO LATEX RISK : HAVE YOU EVER HAD ANY DIFFICULTY BREATHING OR HIVES AFTER EATING OR HANDLING ANY FRUITS, OR VEGETABLES; SUCH KIWI, BANANAS, STONE FRUITS, OR CHESTNUTSYES - PLEASE INDICATE : BANANAS SOMETIMES CAUSES HIVES LATEX RISK : DO YOU HAVE A PREVIOUS PERSONAL HISTORY OF MORE THAN NINE SURGERIES, SPINA BIFIDA, OR REPEATED CATHERIZATIONS? NO LATEX RISK : ARE YOU FREQUENTLY EXPOSED TO LATEX PRODUCTS IN YOUR OCCUPATION?NO DATE ASKED : 08/11/2020 BMI CARE GOAL FOLLOW-UP ABOVE NORMAL BMI FOLLOW-UPGIVING ENCOURAGEMENT TO EXERCISE ALCOHOL SCREENING DID YOU HAVE A DRINK CONTAINING ALCOHOL IN THE PAST YEAR?NO POINTS0 INTERPRETATIONNEGATIVE RECREATIONAL DRUG USE DRUG USE?NO CAFFEINE CAFFEINE USE?YES COFFEE 2 CUPS A DAY SEXUAL HX HAD SEX IN THE LAST 12 MONTHS (VAGINAL, ORAL, OR ANAL)?YES [employer] [id number] LUTHERAN NO MORMON BELIEFS THAT WOULD IMPACT HEALTH CARE. 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 DIET: REGULAR, INCREASED PROTEIN. EXERCISE: NO REGULAR EXERCISE. MARITAL STATUS: . OTHERS AT HOME: SPOUSE. PAIN CLINIC PFS, CLERGY, PUBLIC HEALTH REFERRALS HAS THE PATIENT BEEN EDUCATED REGARDING HIS/HER PLAN OF CARE?YES HAS THE PATIENT BEEN EDUCATED REGARDING PAIN, THE RISK FOR PAIN, THE IMPORTANCE OF EFFECTIVE PAIN MANAGEMENT, AND THE PAIN ASSESSMENT PROCESS?YES ADVANCE DIRECTIVE ADVANCE DIRECTIVE DISCUSSED WITH PATIENT:YES 08/11/2020 PT STATES SHE HCP 1. EDUARDO PARTIDA [phone] 2. RADHA ISAAC [phone] HOSPITALIZATION/MAJOR DIAGNOSTIC PROCEDURE [facility] - DEPRESSION 2012 CHILDBIRTH X 4 SURGERY RELATED 04/2019 KIDNEY STONE/ KIDNEY AND BLADDER INFECTION WITH SEPSIS 01/01-01/06/2020 VITAL SIGNS WT 117.2 LBS, HT 61 IN, BMI 22.14 INDEX, BP 115/77 MM HG, HR 96 /MIN, RR 18 /MIN, TEMP 97.8 F, OXYGEN SAT % 99%, SAFE IN ENV? (Y/N) Y, NA INITIALS AW 1316, REVIEWED BY: MONIKA. EXAMINATION GENERAL EXAMINATION: THE PATIENT IS ALERT, ORIENTED TIMES THREE AND COOPERATIVE. HEART SHOWS REGULAR RHYTHM, NO MURMURS AND NO GALLOPS. LUNGS ARE CLEAR TO AUSCULTATION. ASSESSMENTS SPONDYLOSIS WITHOUT MYELOPATHY OR RADICULOPATHY, LUMBAR REGION - M47.816 (PRIMARY) TREATMENT SPONDYLOSIS WITHOUT MYELOPATHY OR RADICULOPATHY, LUMBAR REGION [facility] FACET BLOCK (PAIN)[id number] PROCEDURES PN LUMBAR FACET BLOCK THERAPEUTIC PRE PROCEDURE DIAGNOSIS LUMBAR SPONDYLOSIS POST PROCEDURE DIAGNOSIS LUMBAR SPONDYLOSIS PROCEDURE BILATERAL L3-L4, AND BILATERAL L4-L5 LUMBAR FACET THERAPEUTIC BLOCK SURGEON DR. BLANCA RODRIGUEZ SENIOR SOFTWARE DEVELOPMENT MANAGER NONE ANESTHESIA LOCAL PRE PROCEDURE NOTE THE PATIENT HAS A HISTORY OF CHRONIC LOW BACK PAIN. I EVALUATED THE PATIENT AND REVIEWED THE CHART. I WENT OVER THE RISKS, ALTERNATIVES, AND BENEFITS ASSOCIATED WITH THIS PROCEDURE. I DISCUSSED THAT THE USE OF STEROIDS MAY CONTRIBUTE TO IMMUNOSUPPRESSION OF THE PATIENT'S BODY AGAINST INFECTIONS SUCH COVID-19. THE PATIENT IS AWARE OF THE POTENTIAL COMPLICATIONS ASSOCIATED WITH THIS VIRUS, INCLUDING, BUT NOT LIMITED TO, . THE PATIENT WOULD LIKE TO PROCEED AND GIVES CONSENT TO PERFORM THE PROCEDURE. THE PATIENT DENIES UNEXPLAINABLE WEIGHT LOSS, FEVER, CHILLS, OR NEW CHANGES IN URINARY OR BOWEL CONTROL. THE PATIENT IS COVID-19 NEGATIVE DESCRIPTION OF PROCEDURE THE PATIENT WAS BROUGHT TO THE PROCEDURE ROOM AND PLACED IN THE PRONE POSITION. THE LUMBOSACRAL AREA WAS CLEANED WITH CHLORAPREP SOLUTION AND DRAPED ASEPTICALLY. THE PROCEDURE WAS DONE UNDER STERILE CONDITIONS. A TIMEOUT WAS PERFORMED WHERE LATERALITY AND THE SITE OF THE PROCEDURE WERE CHECKED AND CONFIRMED WITH EVERYONE IN THE ROOM. UNDER FLUOROSCOPIC GUIDANCE, THE TARGET POINT WAS SELECTED AT THE RIGHT AND LEFT L3-L4 AND RIGHT AND LEFT L4-L5 FACET JOINTS. TARGET POINT WAS SELECTED AFTER LATERAL ROTATION AND TILT OF THE MAGNIFIER OF THE C-ARM. I CONFIRMED AGAIN WITH EVERYONE IN THE ROOM THE LATERALITY OF THE TARGET. LIDOCAINE 0.5% WAS USED TO NUMB THE SKIN AND THE SUBCUTANEOUS TISSUE BELOW IT. SPINAL NEEDLES, 22-GAUGE, WERE ADVANCED UNDER FLUOROSCOPIC GUIDANCE AND FOLLOWING PATIENT FEEDBACK UNTIL THE TARGETS WERE TOUCHED. THE POSITION OF THE NEEDLES WAS VERIFIED WITH AP AND LATERAL VIEWS. AFTER PROPER POSITION OF THE NEEDLES WAS ACHIEVED, ISOVUE-M DYE 30%, 0.1 ML, WAS INJECTED SHOWING ADEQUATE SPREAD OF THE DYE. KENALOG 20 MG WAS INJECTED AT EACH SITE. THEN, A SOLUTION OF 1.0 ML OF BUPIVACAINE 0.125% OF WAS USED TO FLUSH EACH SITE. THE MEDICATION WAS VERIFIED WITH THE NURSE. THERE WAS NO EVIDENCE OF BLOOD, PARESTHESIA OR CEREBROSPINAL FLUID DURING THE PROCEDURE. THE PATIENT WAS SENT TO THE RECOVERY ROOM. THE PATIENT WAS MOVING THE EXTREMITIES AND DOING WELL. THERE WERE NO COMPLICATIONS DURING THE PROCEDURE. ESTIMATED BLOOD LOSS WAS LESS THAN 5 ML. FLUOROSCOPY TIME WAS 11 SECONDS POST PROCEDURE NOTE DEPENDING ON THE RESULTS, CONSIDER AN EPIDURAL AT L3-L4. THE PATIENT WILL BE SEEN IN A FOLLOW UP IN THE NEXT FEW WEEKS. I AM LOOKING FOR LONG LASTING RELIEF FOR THE PATIENT WITH THIS INTERVENTION. INSTRUCTIONS WERE GIVEN, QUESTIONS WERE ANSWERED, AND THE PATIENT EXPRESSED UNDERSTANDING AND AGREES WITH THE PLAN. I, GIOVANI KEATING, DOCUMENTED THE ABOVE INFORMATION ACTING A SCRIBE FOR DR. RODRIGUEZ. I HAVE REVIEWED THE ABOVE DOCUMENT, WRITTEN BY GIOVANI KEATING, MAT LINKER, AND I VERIFY THAT IT IS ACCURATE PREVENTIVE MEDICINE PAIN CLINIC TEACHING: THE PATIENT HAS BEEN EDUCATED REGARDING PAIN, THE RISK FOR PAIN, THE IMPORTANCE OF EFFECTIVE PAIN MANAGEMENT, AND THE PAIN ASSESSMENT PROCESS. : REVIEWED POST PROCEDURE INSTRUCTIONS WITH PATIENT, PT ACKNOWLEDGED UNDERSTANDING PROCEDURE CODES 01351 INJ PARAVERT F JNT L/S 1 LEV, MODIFIERS: 50 [id number] INJ PARAVERT F JNT L/S 2 LEV, MODIFIERS: 50 DISPOSITION & COMMUNICATION FOLLOW UP FOLLOW UP WITH WOOL FLEECE GRADER (REASON: POST THERAPEUTIC FACET BLOCK BILATERAL L3-L4, L4-L5) ELECTRONICALLY SIGNED BY BLANCA RODRIGUEZ MD, MD ON 08/12/2020 AT 04:38 PM EDT DISCLAIMER : THIS IS A VISIT SUMMARY EXTRACTED FROM THE [employer] CHART. IT IS NOT A COPY OF THE [employer] PROGRESS NOTE. ROVERTO
--- NOTE | 2020-08-17 13:01 | REP ---
C-ARM VIEWS OF LOWER LUMBAR SPINE CLINICAL HISTORY: Pain. FINDINGS: Two C-arm views lower lumbar spine performed during bilateral facet injection performed by Dr. Thompson. Bath are seen along the lower lumbar facet joints, and a small amount of contrast was injected. Fluoroscopy time is 12 seconds. MTDD
== END ==
LOC: M PAIN 13:00
PROVIDERS: ATTEND Anesthesiology
DX: M47.816 Spondylosis without myelopathy or radiculopathy, lumbar region (principal); M79.7 Fibromyalgia; Z86.59 Personal history of other mental and behavioral disorders; G47.30 Sleep apnea, unspecified; K21.9 Gastro-esophageal reflux disease without esophagitis; F17.210 Nicotine dependence, cigarettes, uncomplicated; Z98.84 Bariatric surgery status; Z79.891 Long term (current) use of opiate analgesic; Z79.899 Other long term (current) drug therapy
CPT/HCPCS: 64493; 64494; J3301; Q9967

== ENCOUNTER → 2020-08-20 | Outpatient (CLI) | payer BC ==
[~2020-08-20] MED LIST changes: -BUPIVACAINE HCL 0.25% 30ML VIAL As Ordered ONE; -ISOVUE-M 300 61% 15ML VIAL As Ordered ONE; -LIDOCAINE 1% SDV 30ML VIAL As Ordered ONE; -NORCO, ANEXSIA 5/325MG TABLET (HYDROcodone/ACETAMINOPHEN) As Ordered ONE; -TRIAMCINOLONE ACETONIDE SUSP 40 MG/ML VIAL (J3301) As Ordered ONE; -diazePAM 5 MG TAB As Ordered ONE
[2020-08-20 11:47] LABS: HEMATOCRIT 40.1 % (36.0-47.0); HEMOGLOBIN 13.3 g/dl (12.0-15.5); MEAN CORPUSCULAR HEMOGLOBIN 30.6 pg (27.0-33.0); MEAN CORPUSCULAR HGB CONC 33.2 g/dl (32.0-36.5); MEAN CORPUSCULAR VOLUME 92.2 fl (80.0-96.0); PLATELET COUNT, AUTOMATED 217 10^3/uL (150-450); RED BLOOD COUNT 4.35 10^6/uL (4.00-5.40)
[2020-08-20 12:24] LABS: ALBUMIN 4.1 GM/DL (3.2-5.2); ALT/SGPT 58 U/L (12-78); BILIRUBIN,TOTAL 0.4 MG/DL (0.2-1.0); BLOOD UREA NITROGEN 21 MG/DL (7-18); CALCIUM LEVEL 9.2 MG/DL (8.5-10.1); CARBON DIOXIDE LEVEL 27 MEQ/L (21-32); CHLORIDE LEVEL 108 MEQ/L (98-107); CHOLESTEROL LEVEL 184 MG/DL (<200); CHOLESTEROL RISK RATIO 2.453 (<5); CREATININE FOR GFR 0.78 MG/DL (0.55-1.30); GLOMERULAR FILTRATION RATE > 60.0 (>51); GLUCOSE, FASTING 77 MG/DL (70-100); HDL CHOLESTEROL 75 MG/DL (>40); IRON (FE) 62 UG/DL (50-170); LDL CHOLESTEROL 97 MG/DL (<100); MAGNESIUM LEVEL 2.3 MG/DL (1.8-2.4); NON-HDL-C 109 MG/DL; PERCENT SATURATION 13.9 % (13.2-45.0); POTASSIUM SERUM 3.9 MEQ/L (3.5-5.1); SODIUM LEVEL 141 MEQ/L (136-145); THYROID STIMULATING HORMONE 0.478 uIU/ML (0.358-3.740); TOTAL IRON BINDING CAPACITY 446 UG/DL (250-450); TOTAL PROTEIN 7.3 GM/DL (6.4-8.2); TRIGLYCERIDES LEVEL 61 MG/DL (<150)
[2020-08-20 12:25] LABS: TOTAL 25(OH) VITAMIN D 64.1 NG/ML (30.0-100.0); VITAMIN B12 LEVEL 1601 PG/ML (247-911)
[2020-08-20 13:30] LABS: HEMOGLOBIN A1c 5.5 %
== END ==
LOC: M LAB 10:40
PROVIDERS: ATTEND Family Medicine
DX: E03.9 Hypothyroidism, unspecified (principal); D64.9 Anemia, unspecified; R53.83 Other fatigue

== ENCOUNTER → 2020-08-31 | Outpatient (CLI) | payer BC, OTHER ==
--- NOTE | 2020-09-01 13:14 | ECWPNPC ---
PATIENT NAME: ROSANGELA CARUSO : 1960 GENDER: FEMALE VISIT DATE: 08/31/2020 DISCHARGE DATE: 08/31/20 1244 VISIT LOCKED DATE TIME: PHYSICIAN: SAMMIE MURILLO PHYSICIAN PAGER NO: ACTIVE RESOURCE: SAMMIE MURILLO REASON FOR APPOINTMENT 1. POST THERAPEUTIC FACET BLOCK BILATERAL L3-L4, L4-L5 HISTORY OF PRESENT ILLNESS DEPRESSION SCREENING: PHQ-2 (2015 EDITION) LITTLE INTEREST OR PLEASURE IN DOING THINGS?NOT AT ALL FEELING DOWN, DEPRESSED, OR HOPELESS?NOT AT ALL TOTAL SCORE0 GENERAL: 60-YEAR-OLD FEMALE IN FOR POST FACET BLOCK FOLLOW-UP. PATIENT FEELS THE PROCEDURE HELPED TIMES ONE WEEK. SHE RATES HER PAIN CURRENTLY AT AN 8 OUT OF 10. -. FALL RISK SCREENING: SCREENING :NO FALLS REPORTED IN THE LAST YEAR PAIN SCREENING: PATIENT HAS A COMPLAINT OF ACUTE OR CHRONIC PAIN :YES LOCATION OF PAIN:UPPER BACK, MID BACK, LOW BACK INTENSITY OF PAIN (SCALE OF 1 TO 10):8 WHAT DOES YOUR PAIN FEEL LIKE:ACHING, TENDER, SHOOTING DURATION:INTERMITTENT, AWAKENS FROM SLEEP PAIN IS INCREASED BY:ACTIVITIES, PROLONGED STANDING, OTHERS SITTING FOR LONG PERIODS OF TIME WILL INCREASE THE PAIN. PAIN IS DECREASED BY:USE OF PAIN MEDICATIONS, OTHERS BIOFREEZE HELPS TO REDUCE PAIN. NURSING NOTE: -. PAIN CENTER INTAKE QUESTIONS: DO YOU HAVE A HISTORY OF MRSA? :NO DO YOU TAKE A BLOOD THINNERS? :NO DO YOU HAVE ANY BLEEDING DISORDERS? :NO ANY NEW NUMBNESS OR WEAKNESS IN YOUR LEGS OR ARMS? :YES PATIENT HAS NUMBNESS BILATERAL HANDS. ANY PACEMAKER,DEFIBRILLATOR, OR DORSAL COLUMN STIMULATOR? :NO DO YOU HAVE ANY RASHES OR OPEN SORES? :NO ARE YOU ALLERGIC TO IV DYE? :NO ARE YOU DIABETIC? :NO ANY NEW PROBLEMS WITH YOUR MEDICATIONS? :NO HAVE YOU RECEIVED A VACCINE IN THE PAST 30 DAYS? :YES PATIENT HAD A FLU SHOT August DO YOU PLAN TO RECEIVE A VACCINE IN THE NEXT 21 DAYS? :NO DO YOU NEED ANY PRESCRIPTION? :YES LYRICA, TIZANIDINE, HYDROCODONE DO YOU TAKE ANY IMMUNOSUPPRESSIVE MEDICATIONS? :NO IS THERE A CHANCE YOU COULD BE ? :NO ARE YOU BREAST FEEDING? :NO CURRENT MEDICATIONS TAKING ONDANSETRON HCL 4 MG TABLET 1 TABLET ORALLY THREE TIMES DAILY NEEDED, NOTES: NONE RECENT TAKING OMEPRAZOLE 40 MG CAPSULE DELAYED RELEASE 1 CAPSULE ORALLY TWICE DAILY NEEDED, NOTES: 08/10/20202199 TAKING ZOLOFT 100 MG TABLET 1 1/2 TABLETS ORALLY ONCE A DAY, NOTES: 08/10/2020699 TAKING KLONOPIN 1 MG TABLET 1 TABLET ORALLY BID NEEDED, NOTES: 08/10/20202199 TAKING VITAMIN B-12 500 MCG TABLET 1 TABLET ORALLY ONCE A DAY, NOTES: 08/10/2020699 TAKING CITRACAL PLUS - TABLET 1 TAB ORALLY TWICE DAILY, NOTES: 08/10/2020699 TAKING MULTIVITAMIN ADULT - TABLET 1 TAB ORALLY DAILY, NOTES: 08/10/2020699 TAKING BIOTIN 91034 MCG TABLET DISINTEGRATING 1 CAPSULE ORALLY DAILY, NOTES: 08/10/2020699 TAKING PRAVASTATIN SODIUM 20 MG TABLET 1 TABLET ORALLY ONCE A DAY, NOTES: 08/10/2020699 TAKING TIZANIDINE HCL 4 MG TABLET 1 TABLET NEEDED ORALLY FOR SPASMS AND PAIN EVERY 8 HRS NEEDED (PAIN CLINIC) MDD3, NOTES: 08/10/20201999 TAKING NORCO 10-325 MG TABLET 1 TABLET ORALLY EVERY 8-12 HRS PRN PAIN MDD=2, NOTES: 08/10/20201999 TAKING LYRICA 200 MG CAPSULE 1 CAPSULE ORALLY FOR PAIN BID MDD=2, NOTES: 08/10/20201999 TAKING TOPAMAX 50 MG TABLET 1 TABLET ORALLY BID, NOTES: 08/10/2020699 NOT-TAKING POTASSIUM 99 MG TABLET 1 TABLET ORALLY ONCE A DAY, NOTES: 2 WEEKS AGO NOT-TAKING VITAMIN D (ERGOCALCIFEROL) 72307 UNIT CAPSULE 1 CAPSULE ORALLY WEEKLY NOT-TAKING BACTRIM DS 800-160 MG TABLET 1 TABLET FOR YOUR CYSTOSCOPY TODAY ORALLY DIRECTED NOT-TAKING BACLOFEN 10 MG TABLET 1 TABLET WITH FOOD OR MILK ORALLY THREE TIMES A DAY NOT-TAKING POTASSIUM & MAGNESIUM ASPARTAT 250-250 MG CAPSULE 1 CAPSULE WITH A MEAL ORALLY ONCE A DAY NOT-TAKING BUSPIRONE HCL 15 MG TABLET 1 TABLET ORALLY TWICE A DAY NOT-TAKING GLIPIZIDE 10 MG TABLET 1/2 TABLET ORALLY ONCE A DAY, NOTES: ON HOLD NOT-TAKING GABAPENTIN 100 MG CAPSULE 1 CAPSULE ORALLY TID, NOTES: 1 MONTH PRESCRIPTION NOT-TAKING CHILDRENS CHEWABLE VITAMINS - TABLET CHEWABLE 2 TABLETS ORALLY DAILY NOT-TAKING LOSARTAN POTASSIUM 100 MG TABLET 1 TABLET ORALLY ONCE A DAY NOT-TAKING IBUPROFEN 800 MG TABLET 1 TABLET ORALLY WITH FOOD THREE TIMES A DAY PRN FOR PAIN MDD3 NOT-TAKING AMBIEN 5 MG TABLET 1 TAB(S) ORAL AT BEDTIME NEEDED (PECK) MEDICATION LIST REVIEWED AND RECONCILED WITH THE PATIENT PAST MEDICAL HISTORY FIBROMYALGIA CHRONIC BACK PAIN ICD-9 724.5 POSITIVE LYME TITER DEPRESSION ICD-9 311.0 SLEEP APNEA- NO LONGER USES CPAP ACID REFLUX ENVIROMENTAL ALLERGIES MIXED HYPERLIPIDEMA? IBS CHRONIC DRY EYES HISTORY OF FIBROIDS S/P HYSTERECTOMY ASCVD 12 YR RISK: 17 ANXIETY HEART MURMUR KIDNEY STONE/KIDNEY AND BLADDER INFECTION WITH SEPSIS OBESITY ALLERGIES SEASONAL SURGICAL HISTORY TUBAL LIGATION 1983 APPENDECTOMY HYSTERECTOMY/ LAP ASSISTED VAGINAL --- DUE TO ADENOMYOSIS AND FIBROID UTERUS 11/21 COLONOSCOPY 2009 RIGHT BREAST BIOPSY 2010 GASTRIC BYPASS 04/2019 KIDNEY STONE REMOVAL 01/01 CYSTO WITH STENT REMOVAL 01/28/2020 FAMILY HISTORY FATHER: UNKNOWN MOTHER: , INFLUENZA SIBLINGS: ALIVE SON(S): ALIVE DAUGHTER(S): , LUPUS, FIBROMYALGIA, ASTHMA, LYME DISEASE, DUE TO MVA 2 BROTHER(S) , 1 SISTER(S) - HEALTHY. 3 SON(S) , 1 DAUGHTER(S) . SISTER- MS\\NSON - ENLARGED HEART. SOCIAL HISTORY GENERAL: TOBACCO USE ARE YOU A:CURRENT SMOKER ARE YOU INTERESTED IN QUITTING?THINKING ABOUT QUITTING PREVIOUS QUIT ATTEMPTS?NO. COUNSELED THE PATIENT ON SMOKING CESSATION, EDUCATION CNLFMBOI21/20/2020 PATIENT REFUSED EDUCATION HOW MANY CIGARETTES A DAY DO YOU SMOKE?6-10 HOW SOON AFTER YOU WAKE UP DO YOU SMOKE YOUR FIRST CIGARETTE?WITHIN 5 MIN HOW OFTEN DO YOU SMOKE CIGARETTES?EVERY DAY PATIENT COUNSELED ON THE DANGERS OF TOBACCO USE AND URGED TO QUIT:08/31/2020 SMOKING CESSATION INFORMATION GIVEN08/31/2020 E-CIGARETTENO LATEX QUESTIONNAIRE LATEX ALLERGY : HAVE YOU EVER DEVELOPED ANY TYPE OF REACTION AFTER HANDLING LATEX PRODUCTS SUCH RUBBER GLOVES, CONDOMS, DIAPHRAGMS, BALLOONS, SOCKS, OR UNDERWEAR?NO LATEX ALLERGY : HAVE YOU EVER DEVELOPED ANY TYPE OF REACTION DURING OR AFTER DENTAL APPOINTMENT, VAGINAL/RECTAL EXAMINATION, SURGICAL PROCEDURE, OR ANY OTHER EXPOSURE?NO LATEX RISK : HAVE YOU EVER HAD ANY DIFFICULTY BREATHING OR HIVES AFTER EATING OR HANDLING ANY FRUITS, OR VEGETABLES; SUCH KIWI, BANANAS, STONE FRUITS, OR CHESTNUTSYES - PLEASE INDICATE : BANANAS SOMETIMES CAUSES HIVES LATEX RISK : DO YOU HAVE A PREVIOUS PERSONAL HISTORY OF MORE THAN NINE SURGERIES, SPINA BIFIDA, OR REPEATED CATHERIZATIONS? NO LATEX RISK : ARE YOU FREQUENTLY EXPOSED TO LATEX PRODUCTS IN YOUR OCCUPATION?NO DATE ASKED : 08/31/2020 BMI CARE GOAL FOLLOW-UP ABOVE NORMAL BMI FOLLOW-UPGIVING ENCOURAGEMENT TO EXERCISE ALCOHOL SCREENING DID YOU HAVE A DRINK CONTAINING ALCOHOL IN THE PAST YEAR?NO POINTS0 INTERPRETATIONNEGATIVE RECREATIONAL DRUG USE DRUG USE?NO CAFFEINE CAFFEINE USE?YES COFFEE 2 CUPS A DAY SEXUAL HX HAD SEX IN THE LAST 12 MONTHS (VAGINAL, ORAL, OR ANAL)?YES MANDAEISM [id number] EPISCOPAL NO SAMARITAN BELIEFS THAT WOULD IMPACT HEALTH CARE. 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 DIET: REGULAR, INCREASED PROTEIN. EXERCISE: NO REGULAR EXERCISE. MARITAL STATUS: . OTHERS AT HOME: SPOUSE. PAIN CLINIC PFS, CLERGY, PUBLIC HEALTH REFERRALS HAS THE PATIENT BEEN EDUCATED REGARDING HIS/HER PLAN OF CARE?YES HAS THE PATIENT BEEN EDUCATED REGARDING PAIN, THE RISK FOR PAIN, THE IMPORTANCE OF EFFECTIVE PAIN MANAGEMENT, AND THE PAIN ASSESSMENT PROCESS?YES ADVANCE DIRECTIVE ADVANCE DIRECTIVE DISCUSSED WITH PATIENT:YES 08/11/2020 PT STATES SHE HCP 1. EDUARDO PARTIDA [phone] 2Varinder ISAAC [phone] HOSPITALIZATION/MAJOR DIAGNOSTIC PROCEDURE [facility] - DEPRESSION 2012 CHILDBIRTH X 4 SURGERY RELATED 04/2019 KIDNEY STONE/ KIDNEY AND BLADDER INFECTION WITH SEPSIS 01/01-01/06/2020 REVIEW OF SYSTEMS CONSTITUTIONAL: ANY RECENT FEVER NO . CHILLS NO . WEIGHT CHANGE OF UNKNOWN REASONS NO . GASTROENTEROLOGY: NEW UNEXPLAINABLE CHANGES IN BOWEL CONTROL NO . CONSTIPATION NO . GENITOURINARY: ANY NEW CHANGE IN BLADDER CONTROL? NO . NEUROLOGY: NEW ONSET DIZZINESS OR NEUROLOGICAL CHANGES NOT MENTIONED NO . NEW NUMBNESS OR PAIN PATTERNS NOT MENTIONED AND PERTINENT TO TODAY'S VISIT NO . CARDIOLOGY: NEW CHEST PRESSURE NO . NEW CHEST PAIN NO . RESPIRATORY: UNEXPLAINABLE COUGH NO . NEW SHORTNESS OF BREATH NO . VITAL SIGNS WT 113.6 LBS, HT 61 IN, BMI 21.46 INDEX, BP 117/64 MM HG, HR 100 /MIN, RR 18 /MIN, TEMP 97.6 F, OXYGEN SAT % 99%, SAFE IN ENV? (Y/N) YES, NA INITIALS AW 1207, REVIEWED BY: VINAYAK. EXAMINATION GENERAL EXAMINATION: GENERALNO ACUTE DISTRESS, WELL NOURISHED AND HYDRATED. PSYCHAPPROPRIATE MOOD AND AFFECT . LUNGS:CLEAR TO AUSCULTATION BILATERALLY, NO WHEEZES, RHONCHI, RALES. HEART:NO MURMURS, REGULAR RATE AND RHYTHM. BACK:POINT TENDER BILATERAL LUMBAR SPINE, STARTING SKIN SHOWS NO ERYTHEMA, ECCHYMOSIS, INCREASED WARMTH, AND/OR SKIN ERUPTIONS NOTED. POSITIVE MODIFIED SLR BILATERALLY . ASSESSMENTS OTHER CHRONIC PAIN - G89.29 (PRIMARY) INTERVERTEBRAL DISC DISORDERS WITH RADICULOPATHY, LUMBAR REGION - M51.16 TREATMENT OTHER CHRONIC PAIN PAIN PROCEDURE LOGHELPED TIMES ONE WEEKDATE OF [id number]/30/2020PROCEDURE:BILATERAL L3-L4, L4-L5 THERAPEUTIC FACET BLOCKAMOUNT OF PRE [id number] MG VALIUM AND 10 MG OXYCODONE PO NOTES: LESI L3-L4 L4-L5. CLINICAL NOTES: 60-YEAR-OLD FEMALE IN FOR POST FACET BLOCK FOLLOW-UP. GIVEN PRESENTING SYMPTOMS AND RESULTS OF PHYSICAL EXAMINATION RECOMMENDED LESI L3-L4 L4-L5 WITH POST PROCEDURAL FOLLOW-UP. PATIENT HAS EXPRESSED UNDERSTANDING OF AND WAS IN AGREEMENT WITH TREATMENT PLAN. GIVEN TIME TO ASK QUESTIONS AND EXPRESS CONCERNS. , ISTOP REGISTRY REVIEWED AND DEMONSTRATES COMPLLIANCE. (REF #[id number] ) BRINGS IN MEDICATIONS WHICH IS APPROPRIATE FOR WHAT WAS DISPENSED. RECENT URINE TOXICOLOGY REVIEWED. NO UNAUTHORIZED MEDICATIONS. NO ILLICIT SUBSTANCES AND PRESCRIBED MEDICATIONS WERE PRESENT. PREVENTIVE MEDICINE PAIN CLINIC TEACHING: THE PATIENT HAS BEEN EDUCATED REGARDING PAIN, THE RISK FOR PAIN, THE IMPORTANCE OF EFFECTIVE PAIN MANAGEMENT, AND THE PAIN ASSESSMENT PROCESS. : DISCUSSED PRE PROCEDURE INSTRUCTIONS, PATIENT CARE PLAN, AND TEACHING FOR: LUMBAR EPIDURAL STEROID INJECTION, PATIENT VERBALIZES UNDERSTANDING. PATIENT WAS GIVEN A NARCOTIC AGREEMENT AND UTOX SCREENING. PROCEDURE CODES FA211 ESTABILISHED PATIENT [facility] CHARGE DISPOSITION & COMMUNICATION FOLLOW UP POST PROCEDURE (REASON: LESI L3-L4 L4-L5) ELECTRONICALLY SIGNED BY FINA MEYER ON 09/01/2020 AT 10:07 AM EDT DISCLAIMER : THIS IS A VISIT SUMMARY EXTRACTED FROM THE [facility] CHART. IT IS NOT A COPY OF THE [facility] PROGRESS NOTE. MTDD
== END ==
LOC: M PAIN 11:30
PROVIDERS: ATTEND Family Medicine
DX: G89.29 Other chronic pain (principal); M51.16 Intervertebral disc disorders with radiculopathy, lumbar region; M79.7 Fibromyalgia; F32.9 Major depressive disorder, single episode, unspecified; K21.9 Gastro-esophageal reflux disease without esophagitis; J30.2 Other seasonal allergic rhinitis; F17.210 Nicotine dependence, cigarettes, uncomplicated; Z79.891 Long term (current) use of opiate analgesic; Z79.899 Other long term (current) drug therapy

== ENCOUNTER → 2020-09-22 | Outpatient (CLI) | payer BC, OTHER ==
--- NOTE | 2020-09-22 15:26 | REPVR ---
PROCEDURE INFORMATION: Exam: MR Cervical Spine Without Contrast Exam date and time: 09/22/2020 2:46 PM Age: 60 years old Clinical indication: Injury or trauma; Work related; Sprain or strain, cervical ligaments; Injury details: Injured at work. Pain in neck region. ; Additional info: Cervicalgia TECHNIQUE: Imaging protocol: Multiplanar magnetic resonance images of the cervical spine without contrast. COMPARISON: 1. MRI-Spine,Cervical without con 10/15/2015 8:[address] Spine,cervical w/o contrast 08/25/2019 7:02:20 PM FINDINGS: Vertebrae: There is straightening of cervical lordosis. There is slight anterolisthesis of C3 on C4. Vertebral body heights are maintained. There is disc desiccation. There is disc height loss greatest at C4-C5 and C5-C6 and milder at C6-C7. There are mild endplate degenerative marrow changes. No suspicious bone marrow lesions. Spinal cord: Cervical spinal cord signal is normal without intrinsic cord lesions. Craniocervical junction: Craniocervical junction appears unremarkable. Normal position of cerebellar tonsils without evidence of Chiari I malformation. C2-C3: There is central disc protrusion unchanged from CT. There is no significant cord compression. Although there is mild left uncinate and facet osteophytes causing slight narrowing of the neural foramen, overall the neural foramen is not compromised in diameter. No significant right neural foraminal narrowing. There is no spinal stenosis. C3-C4: There is posterior osteophyte disc complex. There is no significant cord compression or spinal stenosis. There are uncinate and facet osteophytes with a moderate left greater than right neural foraminal narrowing. C4-C5: There is posterior osteophyte disc complex. There is mild ventral cord flattening and spinal stenosis. There are uncinate and facet osteophytes with severe right and moderate left neural foraminal narrowing. C5-C6: There is posterior osteophyte disc complex. There is no significant cord compression and mild spinal stenosis. There are uncinate and facet osteophytes with moderate bilateral neural foraminal narrowing. C6-C7: There is posterior osteophyte disc complex. There is no significant cord compression or spinal stenosis. There are uncinate and facet osteophytes with moderate bilateral the neural foraminal narrowing. C7-T1: There is marginal osteophyte and disc bulge. There is no significant cord compression or spinal stenosis. Disc bulge in osteophyte projects into neural foramen likely with [id number] neural foraminal narrowing. There is left perineural cyst. T1-T2: There are bilateral perineural. No cord compression, spinal stenosis, or neural foraminal narrowing. Mild disc bulging. Vertebral arteries: Expected flow voids in the vertebral arteries. Soft tissues: There is no evidence of prevertebral or interspinous ligamentous edema. There is ossification of posterior longitudinal ligament at C5 and C7. IMPRESSION: 1. No evidence of edema to suggest ligamentous injury or bone marrow edema to suggest fracture. 2. Degenerative changes with multilevel neural foraminal narrowing as described. C4-C5 shows mild spinal stenosis and ventral cord flattening. Electronically signed by: Rosi Franklin On 09/22/2020 15:25:55 PM
== END ==
LOC: M RAD 14:05
PROVIDERS: ATTEND Family Medicine
DX: M54.2 Cervicalgia (principal); M50.23 Other cervical disc displacement, cervicothoracic region; M48.02 Spinal stenosis, cervical region

== ENCOUNTER → 2020-10-15 | Outpatient (CLI) | payer OTHER, BC | LOC: M LABSMTC 09:48 | PROVIDERS: ATTEND Anesthesiology | DX: Z20.828 Contact with and (suspected) exposure to other viral communicable diseases (principal) ==

== ENCOUNTER → 2020-10-20 | Outpatient (CLI) | payer OTHER, BC ==
[~2020-10-20] MED LIST changes: +ISOVUE-M 300 61% 15ML VIAL As Ordered ONE; +LIDOCAINE 1% SDV 30ML VIAL As Ordered ONE; +diazePAM 5MG TABLET As Ordered ONE; +methylPREDNISolone SUSP 40MG/ML 1ML VIAL (DEPO MEDROL) As Ordered ONE; +oxyCODONE 5MG TAB As Ordered ONE
--- NOTE | 2020-10-20 15:57 | REP ---
INDICATION: LUMBAR EPIDURAL STEROID INJECTION. COMPARISON: None. TECHNIQUE: Three views. 23.6 seconds of fluoroscopy time is reported. FINDINGS: A sequence of 3 last image hold fluoroscopically obtained spot radiograph(s) of the lumbar spine document(s) needle position(s) and contrast injection associated with injection procedure. IMPRESSION: Procedural imaging. <Electronically signed by Vincent Rizo > 10/20/20 7230
--- NOTE | 2020-10-22 02:21 | ECWPNPC ---
PATIENT NAME: ROSANGELA CARUSO : 1960 GENDER: FEMALE VISIT DATE: 10/20/2020 DISCHARGE DATE: 10/20/20 1322 VISIT LOCKED DATE TIME: PHYSICIAN: BLANCA RODRIGUEZ MD PHYSICIAN PAGER NO: ACTIVE RESOURCE: BLANCA RODRIGUEZ MD REASON FOR APPOINTMENT 1. LUMBAR EPIDRUAL STEROID INJECTION HISTORY OF PRESENT ILLNESS GENERAL: -. FALL RISK SCREENING: SCREENING :ONE FALL WITHOUT INJURY IN THE PAST YEAR JUST LOST HER BALANCE IN NOV. ONLY BRUISES PAIN SCREENING: PATIENT HAS A COMPLAINT OF ACUTE OR CHRONIC PAIN :YES LOCATION OF PAIN:LOW BACK, LEG(S) DOWN ENTIRE RIGHT LEG INTENSITY OF PAIN (SCALE OF 1 TO 10):6 AVERAGE 06/21 WHAT DOES YOUR PAIN FEEL LIKE:ACHING, CONTINOUS, SHARP, STABBING, TENDER, THROBBING, SORE, SHOOTING DURATION:CONTINOUS, AWAKENS FROM SLEEP PAIN IS INCREASED BY:PROLONGED STANDING, OTHERS PROLONGED SITTING AND LYING DOWN PAIN IS DECREASED BY: MEDS AND PROCEDURES NURSING NOTE: -. PAIN CENTER INTAKE QUESTIONS: DO YOU HAVE A HISTORY OF MRSA? :NO DO YOU TAKE A BLOOD THINNERS? :NO DO YOU HAVE ANY BLEEDING DISORDERS? :NO ANY NEW NUMBNESS OR WEAKNESS IN YOUR LEGS OR ARMS? :NO ANY PACEMAKER,DEFIBRILLATOR, OR DORSAL COLUMN STIMULATOR? :NO DO YOU HAVE ANY RASHES OR OPEN SORES? :NO ARE YOU ALLERGIC TO IV DYE? :NO ARE YOU DIABETIC? :NO ANY NEW PROBLEMS WITH YOUR MEDICATIONS? :NO HAVE YOU RECEIVED A VACCINE IN THE PAST 30 DAYS? :NO DO YOU PLAN TO RECEIVE A VACCINE IN THE NEXT 21 DAYS? :NO DO YOU TAKE ANY IMMUNOSUPPRESSIVE MEDICATIONS? :NO ANY HISTORY OF SEIZURES? :NO ANY HISTORY OF CARDIAC ISSUES OR EVENTS? :NO DO YOU HAVE SLEEP APNEA? :NO ANY RECENT HEAD INJURY? :NO DO YOU HAVE ANY NEW INFECTIONS? :NO IS THERE A CHANCE YOU COULD BE ? :NO ARE YOU BREAST FEEDING? :NO WHEN DID YOU LAST EAT? : 10/19 1930 WHEN DID YOU LAST DRINK? : 10/20 730 WHAT DID YOU LAST DRINK? : WATER NAME OF PERSON DRIVING YOU HOME? : EDUARDO DO YOU HAVE ANY OTHER QUESTIONS OR CONCERNS? : NONE CURRENT MEDICATIONS TAKING ONDANSETRON HCL 4 MG TABLET 1 TABLET ORALLY THREE TIMES DAILY NEEDED, NOTES: NONE RECENT TAKING OMEPRAZOLE 40 MG CAPSULE DELAYED RELEASE 1 CAPSULE ORALLY TWICE DAILY NEEDED, NOTES: 10/20 730 TAKING ZOLOFT 100 MG TABLET 2 TABLETS ORALLY ONCE A DAY, NOTES: 10/20 730 TAKING KLONOPIN 1 MG TABLET 1 TABLET ORALLY BID NEEDED, NOTES: 10/19 2000 TAKING VITAMIN B-12 500 MCG TABLET 1 TABLET ORALLY ONCE A DAY, NOTES: 10/18 TAKING CITRACAL PLUS - TABLET 1 TAB ORALLY TWICE DAILY, NOTES: NONE RECENT TAKING MULTIVITAMIN ADULT - TABLET 1 TAB ORALLY DAILY, NOTES: 10/19 TAKING BIOTIN 56267 MCG TABLET DISINTEGRATING 1 CAPSULE ORALLY DAILY, NOTES: 10/20 730 TAKING PRAVASTATIN SODIUM 20 MG TABLET 1 TABLET ORALLY ONCE A DAY, NOTES: 10/20 730 TAKING TOPAMAX 50 MG TABLET 1 TABLET ORALLY BID, NOTES: 10/20 730 TAKING TIZANIDINE HCL 4 MG TABLET 1 TABLET NEEDED ORALLY FOR SPASMS AND PAIN EVERY 8 HRS NEEDED (PAIN CLINIC) MDD3, NOTES: 10/19 2000 TAKING LYRICA 200 MG CAPSULE 1 CAPSULE ORALLY FOR PAIN BID MDD=2, NOTES: 10/19 2000 TAKING NORCO 10-325 MG TABLET 1 TABLET ORALLY EVERY 8-12 HRS PRN PAIN MDD=2, NOTES: 10/19 1800 TAKING FISH OIL 1000 MG CAPSULE 1 CAPSULE ORALLY TWICE DAILY, NOTES: 10/20 800 NOT-TAKING POTASSIUM 99 MG TABLET 1 TABLET ORALLY ONCE A DAY, NOTES: 2 WEEKS AGO NOT-TAKING VITAMIN D (ERGOCALCIFEROL) 21037 UNIT CAPSULE 1 CAPSULE ORALLY WEEKLY NOT-TAKING BACTRIM DS 800-160 MG TABLET 1 TABLET FOR YOUR CYSTOSCOPY TODAY ORALLY DIRECTED NOT-TAKING BACLOFEN 10 MG TABLET 1 TABLET WITH FOOD OR MILK ORALLY THREE TIMES A DAY NOT-TAKING POTASSIUM & MAGNESIUM ASPARTAT 250-250 MG CAPSULE 1 CAPSULE WITH A MEAL ORALLY ONCE A DAY NOT-TAKING BUSPIRONE HCL 15 MG TABLET 1 TABLET ORALLY TWICE A DAY NOT-TAKING GLIPIZIDE 10 MG TABLET 1/2 TABLET ORALLY ONCE A DAY, NOTES: ON HOLD NOT-TAKING GABAPENTIN 100 MG CAPSULE 1 CAPSULE ORALLY TID, NOTES: 1 MONTH PRESCRIPTION NOT-TAKING CHILDRENS CHEWABLE VITAMINS - TABLET CHEWABLE 2 TABLETS ORALLY DAILY NOT-TAKING LOSARTAN POTASSIUM 100 MG TABLET 1 TABLET ORALLY ONCE A DAY NOT-TAKING IBUPROFEN 800 MG TABLET 1 TABLET ORALLY WITH FOOD THREE TIMES A DAY PRN FOR PAIN MDD3 NOT-TAKING AMBIEN 5 MG TABLET 1 TAB(S) ORAL AT BEDTIME NEEDED (PECK) MEDICATION LIST REVIEWED AND RECONCILED WITH THE PATIENT PAST MEDICAL HISTORY FIBROMYALGIA CHRONIC BACK PAIN ICD-9 724.5 POSITIVE LYME TITER DEPRESSION ICD-9 311.0 SLEEP APNEA- NO LONGER USES CPAP ACID REFLUX ENVIROMENTAL ALLERGIES MIXED HYPERLIPIDEMA? IBS CHRONIC DRY EYES HISTORY OF FIBROIDS S/P HYSTERECTOMY ASCVD 10 YR RISK: 17 ANXIETY HEART MURMUR KIDNEY STONE/KIDNEY AND BLADDER INFECTION WITH SEPSIS OBESITY ALLERGIES SEASONAL: SINUS CONGESTION AND RUNNY NOSE - ALLERGY BANANAS: HIVES - ALLERGY SURGICAL HISTORY TUBAL LIGATION 1983 APPENDECTOMY HYSTERECTOMY/ LAP ASSISTED VAGINAL --- DUE TO ADENOMYOSIS AND FIBROID UTERUS 11/21 COLONOSCOPY 2009 RIGHT BREAST BIOPSY 2010 GASTRIC BYPASS 04/2019 KIDNEY STONE REMOVAL 01/01 CYSTO WITH STENT REMOVAL 01/28/2020 FAMILY HISTORY FATHER: UNKNOWN MOTHER: , INFLUENZA SIBLINGS: ALIVE SON(S): ALIVE DAUGHTER(S): , LUPUS, FIBROMYALGIA, ASTHMA, LYME DISEASE, DUE TO MVA 2 BROTHER(S) , 1 SISTER(S) - HEALTHY. 3 SON(S) , 1 DAUGHTER(S) . SISTER- MS\\NSON - ENLARGED HEART. SOCIAL HISTORY GENERAL: TOBACCO USE ARE YOU A:FORMER SMOKER HOW LONG HAS IT BEEN SINCE YOU LAST SMOKED?1-3 MONTHS SMOKING CESSATION INFORMATION GIVEN08/31/2020 E-CIGARETTENO LATEX QUESTIONNAIRE LATEX ALLERGY : HAVE YOU EVER DEVELOPED ANY TYPE OF REACTION AFTER HANDLING LATEX PRODUCTS SUCH RUBBER GLOVES, CONDOMS, DIAPHRAGMS, BALLOONS, SOCKS, OR UNDERWEAR?NO LATEX ALLERGY : HAVE YOU EVER DEVELOPED ANY TYPE OF REACTION DURING OR AFTER DENTAL APPOINTMENT, VAGINAL/RECTAL EXAMINATION, SURGICAL PROCEDURE, OR ANY OTHER EXPOSURE?NO LATEX RISK : HAVE YOU EVER HAD ANY DIFFICULTY BREATHING OR HIVES AFTER EATING OR HANDLING ANY FRUITS, OR VEGETABLES; SUCH KIWI, BANANAS, STONE FRUITS, OR CHESTNUTSYES - PLEASE INDICATE : BANANAS SOMETIMES CAUSES HIVES LATEX RISK : DO YOU HAVE A PREVIOUS PERSONAL HISTORY OF MORE THAN NINE SURGERIES, SPINA BIFIDA, OR REPEATED CATHERIZATIONS? NO LATEX RISK : ARE YOU FREQUENTLY EXPOSED TO LATEX PRODUCTS IN YOUR OCCUPATION?NO DATE ASKED : 10/20/2020 BMI CARE GOAL FOLLOW-UP ABOVE NORMAL BMI FOLLOW-UPGIVING ENCOURAGEMENT TO EXERCISE ALCOHOL SCREENING DID YOU HAVE A DRINK CONTAINING ALCOHOL IN THE PAST YEAR?NO POINTS0 INTERPRETATIONNEGATIVE RECREATIONAL DRUG USE DRUG USE?NO CAFFEINE CAFFEINE USE?YES COFFEE 2 CUPS A DAY SEXUAL HX HAD SEX IN THE LAST 12 MONTHS (VAGINAL, ORAL, OR ANAL)?YES [employer] [id number] [employer] NO ADVENTISM BELIEFS THAT WOULD IMPACT HEALTH CARE. 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 DIET: REGULAR, INCREASED PROTEIN. EXERCISE: NO REGULAR EXERCISE. MARITAL STATUS: . OTHERS AT HOME: SPOUSE. PAIN CLINIC PFS, CLERGY, PUBLIC HEALTH REFERRALS HAS THE PATIENT BEEN EDUCATED REGARDING HIS/HER PLAN OF CARE?YES HAS THE PATIENT BEEN EDUCATED REGARDING PAIN, THE RISK FOR PAIN, THE IMPORTANCE OF EFFECTIVE PAIN MANAGEMENT, AND THE PAIN ASSESSMENT PROCESS?YES ADVANCE DIRECTIVE ADVANCE DIRECTIVE DISCUSSED WITH PATIENT:YES 10/20/2020 PT STATES SHE HCP 1. EDUARDO PARTIDA [phone] 2. RADHABRITTANY ISAAC [phone] HOSPITALIZATION/MAJOR DIAGNOSTIC PROCEDURE FORMERLY [facility] - DEPRESSION 2012 CHILDBIRTH X 4 SURGERY RELATED 04/2019 KIDNEY STONE/ KIDNEY AND BLADDER INFECTION WITH SEPSIS 01/01-01/06/2020 VITAL SIGNS WT 107.0 LBS, HT 61 IN, BMI 20.22 INDEX, BP 109/73 MM HG, HR 75 /MIN, RR 18 /MIN, TEMP 97.3 F, OXYGEN SAT % 98%, SAFE IN ENV? (Y/N) Y, NA INITIALS AW 1129, REVIEWED BY: Torri GARCIA RN 1155. EXAMINATION GENERAL EXAMINATION: THE PATIENT IS ALERT, ORIENTED TIMES THREE AND COOPERATIVE. HEART SHOWS REGULAR RHYTHM, NO MURMURS AND NO GALLOPS. LUNGS ARE CLEAR TO AUSCULTATION. ASSESSMENTS SPONDYLOSIS WITHOUT MYELOPATHY OR RADICULOPATHY, LUMBAR REGION - M47.816 (PRIMARY), RISK: (NULL) TREATMENT SPONDYLOSIS WITHOUT MYELOPATHY OR RADICULOPATHY, LUMBAR REGION [facility] FLUORO GUIDE SPINE INJECTION (PAIN)[id number] HALEIGH CAMARGO 10/20/2020 12:15:54 PM > 22 GAUGE INSERTED IN LEFT AC ON 1ST ATTEMPT. SITE CLEAR, FLUSHING WITHOUT DIFFICULTY. MEDICATION: VALIUM TAB 10MG ORALLY (DIAZEPAM)JUAN JOSE GARCIAITA 10/20/2020 12:01:40 PM > LOT # [id number] EXP. 06/01 HALEIGH LAMB 10/20/2020 12:02:45 PM > VERIFIED. JOSEMARIA DOLORES 10/20/2020 12:04:16 PM > ADMINISTERED MEDICATION: OXYCODONE HCL TAB 10MG ORALLYDEJOMARIA DOLORES 10/20/2020 12:02:28 PM > LOT # [id number] EXP 12/2021 [facility]ALEIGH LAMB 10/20/2020 12:02:58 PM > VERIFIED. JOSEMARIA DOLORES 10/20/2020 12:04:41 PM > ADMINISTERED PROCEDURES PAIN NURSING RECORD PRE-PROCEDURE IV SITE LEFT ANTECUBITAL, IV STARTED # 22, IV STARTED BY: Fran LAMB RN, IV ATTEMPTS 1, PRE-PROCEDURE ORAL MEDICATIONS SEE MEDICATION ORDERS PROCEDURE IN ROOM 1225, PHYSICIAN IN ROOM 1240, START 1244, FINISH 1255, PHYSICIAN OUT OF ROOM 1257, OUT OF ROOM 1304, STEROID DEPOMEDROL, O2 RA, ECG NORMAL SINUS, PATIENT SHIELDED YES, SAFETY STRAP YES, PREP BETADINE BY Torri GARCIA RN, IV INFUSED N/A, DRESSING TEGADERM BY DR. RODRIGUEZ LOC: JOSEMARIA DOLORES 10/20/2020 12:10:52 PM > 1. ALERT, [facility]IENTED [facility] 1:15:37 PM > 1. ALERT, ORIENTED RESP: JOSECIMARRON 10/20/2020 12:10:55 PM > 1. REGULAR, NO [facility]2020 1:15:42 PM > 1. REGULAR, NO DYSPNEA COLOR: JOSEMARIA DOLORES 10/20/2020 12:10:58 PM > 1. PINK JOSECIMARRON 10/20/2020 1:15:48 PM > 1. PINK SKIN: JOSECIMARRON 10/20/2020 12:11:01 PM > 1. WARM, DRY JOSECIMARRON 10/20/2020 1:15:51 PM > 1. WARM, DRY POSITION: JOSEMARIA DOLORES 10/20/2020 12:25:23 PM > 1. PRONE JOSECIMARRON 10/20/2020 1:15:59 PM > 4. OTHER-SITTING VITALS: MARIA DOLORES GARCIA 10/20/2020 12:30:35 PM > 109/70,65,16,100% MARIA DOLORES GARCIA 10/20/2020 12:45:09 PM > 115/77,65,16,98% MARIA DOLORES GARCIA 10/20/2020 1:00:19 PM > 124/80,65,16,100% MARIA DOLORES GARCIA 10/20/2020 1:11:45 PM > 121/68,64,16,99% DISCHARGE: POST PAIN 0, DRESSING SITE DRY AND INTACT, IV DISCONTINUED, SITE CLEAR, CATHETER INTACT, GAIT STEADY, TEACHING COMPLETED, PATIENT ACKNOWLEDGES UNDERSTANDING YES, PATIENT DISCHARGED AT 1318 PRE PROCEDURE DIAGNOSIS LUMBAR DISC DISORDER WITH RADICULOPATHY POST PROCEDURE DIAGNOSIS LUMBAR DISC DISORDER WITH RADICULOPATHY PROCEDURE LUMBAR EPIDURAL STEROID INJECTION UNDER FLUOROSCOPIC GUIDANCE SURGEON DR. BLANCA RODRIGUEZ MULESER NONE ANESTHESIA LOCAL PRE PROCEDURE NOTE THE PATIENT HAS A HISTORY OF CHRONIC LOW BACK PAIN. I EVALUATED THE PATIENT AND REVIEWED THE CHART. I WENT OVER THE RISKS, ALTERNATIVES, AND BENEFITS ASSOCIATED WITH THIS PROCEDURE. I DISCUSSED THAT THE USE OF STEROIDS MAY CONTRIBUTE TO IMMUNOSUPPRESSION OF THE PATIENT'S BODY AGAINST INFECTIONS SUCH COVID-19. THE PATIENT IS AWARE OF THE POTENTIAL COMPLICATIONS ASSOCIATED WITH THIS VIRUS, INCLUDING, BUT NOT LIMITED TO, . THE PATIENT WOULD LIKE TO PROCEED AND GIVE CONSENT TO PERFORMED THE PROCEDURE. THE PATIENT DENIES UNEXPLAINABLE WEIGHT LOSS, FEVER, CHILLS, OR NEW CHANGES IN URINARY OR BOWEL CONTROL. THE PATIENT IS COVID-19 NEGATIVE DESCRIPTION OF PROCEDURE THE PATIENT WAS BROUGHT TO THE PROCEDURE ROOM AND PLACED IN THE PRONE POSITION. THE LUMBOSACRAL AREA WAS CLEANED WITH BETADINE SOLUTION AND DRAPED ASEPTICALLY. THE PROCEDURE WAS DONE UNDER STERILE CONDITIONS. A TIMEOUT WAS PERFORMED WHERE LATERALITY AND THE SITE OF THE PROCEDURE WERE CHECKED AND CONFIRMED WITH EVERYONE IN THE ROOM. UNDER FLUOROSCOPIC GUIDANCE, THE TARGET POINT WAS SELECTED AT THE INTERLAMINAR LEVEL OF L3-L4. I CONFIRMED AGAIN WITH EVERYONE IN THE ROOM THE LATERALITY OF THE TARGET AT 1244. LIDOCAINE WAS USED TO NUMB THE SKIN AND THE SUBCUTANEOUS TISSUE BELOW IT. EPIDURAL TUOHY NEEDLE, 17-GAUGE, WAS ADVANCED UNDER FLUOROSCOPIC GUIDANCE AND FOLLOWING PATIENT FEEDBACK UNTIL THE EPIDURAL SPACE WAS REACHED 5 CM DEEP INTO THE SKIN BY THE LOSS OF RESISTANCE TECHNIQUE. ISOVUE-M DYE 30%, 0.25 ML, WAS INJECTED SHOWING ADEQUATE SPREAD OF THE DYE. THEN, A SOLUTION OF 3 ML OF NORMAL SALINE WITH DEPO-MEDROL 80 MG WAS INJECTED SLOWLY FOLLOWING PATIENT FEEDBACK. THE MEDICATIONS WERE VERIFIED WITH THE NURSE. THERE WAS NO EVIDENCE OF BLOOD, PARESTHESIA OR CEREBROSPINAL FLUID DURING THE PROCEDURE. THE PATIENT WAS SENT TO THE RECOVERY ROOM. THE PATIENT WAS MOVING THE EXTREMITIES AND DOING WELL. THERE WERE NO COMPLICATIONS DURING THE PROCEDURE. ESTIMATED BLOOD LOSS WAS LESS THAN 5 ML. FLUOROSCOPY TIME WAS 23 SECONDS POST PROCEDURE NOTE THE PATIENT WILL BE SEEN IN A FOLLOW UP IN THE NEXT FEW WEEKS. I AM LOOKING FOR LONG LASTING RELIEF FOR THE PATIENT WITH THIS INTERVENTION. INSTRUCTIONS WERE GIVEN, QUESTIONS WERE ANSWERED, AND THE PATIENT EXPRESSED UNDERSTANDING AND AGREES WITH THE PLAN. I, GIOVANI KEATING, DOCUMENTED THE ABOVE INFORMATION ACTING A SCRIBE FOR DR. RODRIGUEZ. I HAVE REVIEWED THE ABOVE DOCUMENT, WRITTEN BY GIOVANI KEATING, CRM ADMINISTRATOR, AND I VERIFY THAT IT IS ACCURATE PROCEDURE CODES 63681 LUMBAR/SACRAL W/ IMAGING DISPOSITION & COMMUNICATION FOLLOW UP FOLLOW UP WITH EXPLOSIVES WORKER (REASON: POST LUMBAR EPIDURAL STEROID INJECTION) ELECTRONICALLY SIGNED BY BLANCA RODRIGUEZ MD, MD ON 10/21/2020 AT 12:17 PM EST DISCLAIMER : THIS IS A VISIT SUMMARY EXTRACTED FROM THE [employer] CHART. IT IS NOT A COPY OF THE [employer] PROGRESS NOTE. ROVERTO
== END ==
LOC: M PAIN 11:00
PROVIDERS: ATTEND Anesthesiology
DX: M47.816 Spondylosis without myelopathy or radiculopathy, lumbar region (principal); M79.7 Fibromyalgia; K21.9 Gastro-esophageal reflux disease without esophagitis; Z86.59 Personal history of other mental and behavioral disorders; Z98.84 Bariatric surgery status; Z87.891 Personal history of nicotine dependence; Z91.018 Allergy to other foods; Z79.891 Long term (current) use of opiate analgesic; Z79.899 Other long term (current) drug therapy
CPT/HCPCS: 62323; J1030; Q9967

== ENCOUNTER → 2020-11-16 | Outpatient (CLI) | payer OTHER, BC ==
[~2020-11-16] MED LIST changes: -ISOVUE-M 300 61% 15ML VIAL As Ordered ONE; -LIDOCAINE 1% SDV 30ML VIAL As Ordered ONE; -diazePAM 5MG TABLET As Ordered ONE; -methylPREDNISolone SUSP 40MG/ML 1ML VIAL (DEPO MEDROL) As Ordered ONE; -oxyCODONE 5MG TAB As Ordered ONE
--- NOTE | 2020-11-18 00:29 | ECWPNPC ---
PATIENT NAME: ROSANGELA ACRUSO : 1960 GENDER: FEMALE VISIT DATE: 11/16/2020 DISCHARGE DATE: 11/16/20 1254 VISIT LOCKED DATE TIME: PHYSICIAN: SAMMIE MURILLO PHYSICIAN PAGER NO: ACTIVE RESOURCE: SAMMIE MURILLO A HISTORY OF PRESENT ILLNESS DEPRESSION SCREENIN-YEAR-OLD FEMALE IN FOR CHRONIC PAIN FOLLOW-UP. SHE RATES HER PAIN CURRENTLY AT A 7 OUT OF 10. SHE FEELS THE MEDICATIONS ARE HELPFUL AND DENIES MED SIDE EFFECTS AT THIS TIME. PHQ-9 LITTLE INTEREST OR PLEASURE IN DOING THINGSMORE THAN HALF THE DAYS FEELING DOWN, DEPRESSED, OR HOPELESSMORE THAN HALF THE DAYS TROUBLE FALLING OR STAYING ASLEEP, OR SLEEPING TOO MUCHMORE THAN HALF THE DAYS FEELING TIRED OR HAVING LITTLE ENERGYMORE THAN HALF THE DAYS POOR APPETITE OR OVEREATING MORE THAN HALF THE DAYS FEELING BAD ABOUT YOURSELF-OR THAT YOU ARE A FAILURE OR HAVE LET YOURSELF OR YOUR FAMILY DOWN MORE THAN HALF THE DAYS TROUBLE CONCENTRATING ON THINGS, SUCH READING THE NEWSPAPER OR WATCHING TELEVISION NEARLY EVERY DAY MOVING OR SPEAKING SO SLOWLY THAT OTHER PEOPLE COULD HAVE NOTICED. OR THE OPPOSITE- BEING SO FIDGETY OR RESTLESS THAT YOU HAVE BEEN MOVING AROUND A LOT MORE THAN USUALNEARLY EVERY DAY THOUGHTS THAT YOU WOULD BE BETTER OFF , OR OF HURTING YOURSELF IN SOME WAY?NEARLY EVERY DAY(CONSIDER SUICIDE ASSESSMENT RISK) TOTAL SCORE:21 INTERPRETATIONSEVERE DEPRESSION PHQ-2 (2015 EDITION) LITTLE INTEREST OR PLEASURE IN DOING THINGS?MORE THAN HALF THE DAYS FEELING DOWN, DEPRESSED, OR HOPELESS?MORE THAN HALF THE DAYS TOTAL SCORE4 PAIN CENTER INTAKE QUESTIONS: DO YOU HAVE A HISTORY OF MRSA? :NO DO YOU TAKE A BLOOD THINNERS? :NO DO YOU HAVE ANY BLEEDING DISORDERS? :NO ANY NEW NUMBNESS OR WEAKNESS IN YOUR LEGS OR ARMS? :NO ANY PACEMAKER,DEFIBRILLATOR, OR DORSAL COLUMN STIMULATOR? :NO DO YOU HAVE ANY RASHES OR OPEN SORES? :NO ARE YOU ALLERGIC TO IV DYE? :NO ARE YOU DIABETIC? :NO ANY NEW PROBLEMS WITH YOUR MEDICATIONS? :NO HAVE YOU RECEIVED A VACCINE IN THE PAST 30 DAYS? :NO DO YOU PLAN TO RECEIVE A VACCINE IN THE NEXT 21 DAYS? :YES PATIENT IS HOPING TO RECEIVE THE SHINGLES SHOT AND COVID VACCINATION. DO YOU NEED ANY PRESCRIPTION? :NO DO YOU TAKE ANY IMMUNOSUPPRESSIVE MEDICATIONS? :NO IS THERE A CHANCE YOU COULD BE ? :NO ARE YOU BREAST FEEDING? :NO GENERAL: - - -. FALL RISK SCREENING: SCREENING :NO FALLS REPORTED IN THE LAST YEAR PAIN SCREENING: PATIENT HAS A COMPLAINT OF ACUTE OR CHRONIC PAIN :YES SACROILIAC. AVERAGE 7-10 LOCATION OF PAIN:RIGHT HIP, OTHER: RIGHT SACROILIAC. INTENSITY OF PAIN (SCALE OF 1 TO 10):7 WHAT DOES YOUR PAIN FEEL LIKE:ACHING, BURNING, CONTINOUS, STABBING, TENDER, THROBBING, SHOOTING DURATION:CONTINOUS, INTERMITTENT TOLERABLE WITH INCREASING PAIN WHEN SITTING AND LYING DOWN. PAIN IS INCREASED BY:ACTIVITIES, PROLONGED STANDING, OTHERS LIFTING LEG, CROSSING LEGS, BENDING, WALKING STAIRS. PAIN IS DECREASED BY:OTHERS STANDING. HEAT AND ICE TEMPORARY PAIN RELIEF. NURSING NOTE: - - -. CURRENT MEDICATIONS TAKING ONDANSETRON HCL 4 MG TABLET 1 TABLET ORALLY THREE TIMES DAILY NEEDED, NOTES: NONE RECENT TAKING OMEPRAZOLE 40 MG CAPSULE DELAYED RELEASE 1 CAPSULE ORALLY TWICE DAILY NEEDED, NOTES: 10/20 730 TAKING ZOLOFT 100 MG TABLET 2 TABLETS ORALLY ONCE A DAY, NOTES: 10/20 730 TAKING KLONOPIN 1 MG TABLET 1 TABLET ORALLY BID NEEDED, NOTES: 10/19 2000 TAKING VITAMIN B-12 500 MCG TABLET 1 TABLET ORALLY ONCE A DAY, NOTES: 10/18 TAKING CITRACAL PLUS - TABLET 1 TAB ORALLY TWICE DAILY, NOTES: NONE RECENT TAKING MULTIVITAMIN ADULT - TABLET 1 TAB ORALLY DAILY, NOTES: 10/19 TAKING BIOTIN 18487 MCG TABLET DISINTEGRATING 1 CAPSULE ORALLY DAILY, NOTES: 10/20 730 TAKING PRAVASTATIN SODIUM 20 MG TABLET 1 TABLET ORALLY ONCE A DAY, NOTES: 10/20 730 TAKING TOPAMAX 50 MG TABLET 1 TABLET ORALLY BID, NOTES: 10/20 730 TAKING FISH OIL 1000 MG CAPSULE 1 CAPSULE ORALLY TWICE DAILY, NOTES: 10/20 800 TAKING TIZANIDINE HCL 4 MG TABLET 1 TABLET NEEDED ORALLY FOR SPASMS AND PAIN EVERY 8 HRS NEEDED (PAIN CLINIC) MDD3, NOTES: 10/19 2000 TAKING LYRICA 200 MG CAPSULE 1 CAPSULE ORALLY FOR PAIN BID MDD=2, NOTES: 10/19 2000 TAKING NORCO 10-325 MG TABLET 1 TABLET ORALLY EVERY 8-12 HRS PRN PAIN MDD=2, NOTES: 10/19 1800 NOT-TAKING POTASSIUM 99 MG TABLET 1 TABLET ORALLY ONCE A DAY, NOTES: 2 WEEKS AGO NOT-TAKING VITAMIN D (ERGOCALCIFEROL) 64980 UNIT CAPSULE 1 CAPSULE ORALLY WEEKLY NOT-TAKING BACTRIM DS 800-160 MG TABLET 1 TABLET FOR YOUR CYSTOSCOPY TODAY ORALLY DIRECTED NOT-TAKING BACLOFEN 10 MG TABLET 1 TABLET WITH FOOD OR MILK ORALLY THREE TIMES A DAY NOT-TAKING POTASSIUM & MAGNESIUM ASPARTAT 250-250 MG CAPSULE 1 CAPSULE WITH A MEAL ORALLY ONCE A DAY NOT-TAKING BUSPIRONE HCL 15 MG TABLET 1 TABLET ORALLY TWICE A DAY NOT-TAKING GLIPIZIDE 10 MG TABLET 1/2 TABLET ORALLY ONCE A DAY, NOTES: ON HOLD NOT-TAKING GABAPENTIN 100 MG CAPSULE 1 CAPSULE ORALLY TID, NOTES: 1 MONTH PRESCRIPTION NOT-TAKING CHILDRENS CHEWABLE VITAMINS - TABLET CHEWABLE 2 TABLETS ORALLY DAILY NOT-TAKING LOSARTAN POTASSIUM 100 MG TABLET 1 TABLET ORALLY ONCE A DAY NOT-TAKING IBUPROFEN 800 MG TABLET 1 TABLET ORALLY WITH FOOD THREE TIMES A DAY PRN FOR PAIN MDD3 NOT-TAKING AMBIEN 5 MG TABLET 1 TAB(S) ORAL AT BEDTIME NEEDED (PECK) MEDICATION LIST REVIEWED AND RECONCILED WITH THE PATIENT PAST MEDICAL HISTORY FIBROMYALGIA CHRONIC BACK PAIN ICD-9 724.5 POSITIVE LYME TITER DEPRESSION ICD-9 311.0 SLEEP APNEA- NO LONGER USES CPAP ACID REFLUX ENVIROMENTAL ALLERGIES MIXED HYPERLIPIDEMA? IBS CHRONIC DRY EYES HISTORY OF FIBROIDS S/P HYSTERECTOMY ASCVD 12 YR RISK: 17 ANXIETY HEART MURMUR KIDNEY STONE/KIDNEY AND BLADDER INFECTION WITH SEPSIS OBESITY ALLERGIES SEASONAL: SINUS CONGESTION AND RUNNY NOSE - ALLERGY BANANAS: HIVES - ALLERGY SURGICAL HISTORY TUBAL LIGATION 1983 APPENDECTOMY HYSTERECTOMY/ LAP ASSISTED VAGINAL --- DUE TO ADENOMYOSIS AND FIBROID UTERUS 11/21 COLONOSCOPY 2009 RIGHT BREAST BIOPSY 2010 GASTRIC BYPASS 04/2019 KIDNEY STONE REMOVAL 01/01 CYSTO WITH STENT REMOVAL 01/28/2020 FAMILY HISTORY FATHER: UNKNOWN MOTHER: , INFLUENZA SIBLINGS: ALIVE SON(S): ALIVE DAUGHTER(S): , LUPUS, FIBROMYALGIA, ASTHMA, LYME DISEASE, DUE TO MVA 2 BROTHER(S) , 1 SISTER(S) - HEALTHY. 3 SON(S) , 1 DAUGHTER(S) . SISTER- MS\\NSON - ENLARGED HEART. SOCIAL HISTORY GENERAL: TOBACCO USE ARE YOU A:FORMER SMOKER HOW LONG HAS IT BEEN SINCE YOU LAST SMOKED?1-3 MONTHS E-CIGARETTENO SMOKING CESSATION INFORMATION GIVEN08/31/2020 LATEX QUESTIONNAIRE LATEX ALLERGY : HAVE YOU EVER DEVELOPED ANY TYPE OF REACTION AFTER HANDLING LATEX PRODUCTS SUCH RUBBER GLOVES, CONDOMS, DIAPHRAGMS, BALLOONS, SOCKS, OR UNDERWEAR?NO LATEX ALLERGY : HAVE YOU EVER DEVELOPED ANY TYPE OF REACTION DURING OR AFTER DENTAL APPOINTMENT, VAGINAL/RECTAL EXAMINATION, SURGICAL PROCEDURE, OR ANY OTHER EXPOSURE?NO DATE ASKED : 10/20/2020 LATEX RISK : HAVE YOU EVER HAD ANY DIFFICULTY BREATHING OR HIVES AFTER EATING OR HANDLING ANY FRUITS, OR VEGETABLES; SUCH KIWI, BANANAS, STONE FRUITS, OR CHESTNUTSYES - PLEASE INDICATE : BANANAS SOMETIMES CAUSES HIVES LATEX RISK : DO YOU HAVE A PREVIOUS PERSONAL HISTORY OF MORE THAN NINE SURGERIES, SPINA BIFIDA, OR REPEATED CATHERIZATIONS? NO LATEX RISK : ARE YOU FREQUENTLY EXPOSED TO LATEX PRODUCTS IN YOUR OCCUPATION?NO BMI CARE GOAL FOLLOW-UP ABOVE NORMAL BMI FOLLOW-UPGIVING ENCOURAGEMENT TO EXERCISE ALCOHOL SCREENING DID YOU HAVE A DRINK CONTAINING ALCOHOL IN THE PAST YEAR?NO POINTS0 INTERPRETATIONNEGATIVE RECREATIONAL DRUG USE DRUG USE?NO CAFFEINE CAFFEINE USE?YES COFFEE 2 CUPS A DAY SEXUAL HX HAD SEX IN THE LAST 12 MONTHS (VAGINAL, ORAL, OR ANAL)?YES LUTHERAN [id number] RASTAFARIAN NO MOSQUE BELIEFS THAT WOULD IMPACT HEALTH CARE. 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 DIET: REGULAR, INCREASED PROTEIN. EXERCISE: NO REGULAR EXERCISE. MARITAL STATUS: . OTHERS AT HOME: SPOUSE. PAIN CLINIC PFS, CLERGY, PUBLIC HEALTH REFERRALS PFS REFERRAL NEEDED?NO HAS THE PATIENT BEEN EDUCATED REGARDING HIS/HER PLAN OF CARE?YES HAS THE PATIENT BEEN EDUCATED REGARDING PAIN, THE RISK FOR PAIN, THE IMPORTANCE OF EFFECTIVE PAIN MANAGEMENT, AND THE PAIN ASSESSMENT PROCESS?YES ADVANCE DIRECTIVE ADVANCE DIRECTIVE DISCUSSED WITH PATIENT:YES 11/16/19. PT STATES SHE HCP 1. EDUARDO PARTIDA [phone] 2. RADHA ISAAC [phone] HOSPITALIZATION/MAJOR DIAGNOSTIC PROCEDURE [facility] - DEPRESSION 2012 CHILDBIRTH X 4 SURGERY RELATED 04/2019 KIDNEY STONE/ KIDNEY AND BLADDER INFECTION WITH SEPSIS 01/01-01/06/2020 REVIEW OF SYSTEMS CONSTITUTIONAL: ANY RECENT FEVER NO . CHILLS NO . WEIGHT CHANGE OF UNKNOWN REASONS NO . GASTROENTEROLOGY: NEW UNEXPLAINABLE CHANGES IN BOWEL CONTROL NO . CONSTIPATION NO . GENITOURINARY: ANY NEW CHANGE IN BLADDER CONTROL? NO . NEUROLOGY: NEW ONSET DIZZINESS OR NEUROLOGICAL CHANGES NOT MENTIONED NO . NEW NUMBNESS OR PAIN PATTERNS NOT MENTIONED AND PERTINENT TO TODAY'S VISIT NO . CARDIOLOGY: NEW CHEST PRESSURE NO . NEW CHEST PAIN NO . RESPIRATORY: UNEXPLAINABLE COUGH NO . NEW SHORTNESS OF BREATH NO . VITAL SIGNS WT 108.8 LBS, HT 61 IN, BMI 20.56 INDEX, BP 125/68 MM HG, HR 82 /MIN, RR 18 /MIN, TEMP 96.0 F, OXYGEN SAT % 98%, SAFE IN ENV? (Y/N) YES, NA INITIALS AW 1145, REVIEWED BY: EBONIE TERRY. EXAMINATION GENERAL EXAMINATION: GENERALNO ACUTE DISTRESS, WELL NOURISHED AND HYDRATED. PSYCHAPPROPRIATE MOOD AND AFFECT . LUNGS:CLEAR TO AUSCULTATION BILATERALLY, NO WHEEZES, RHONCHI, RALES. HEART:NO MURMURS, REGULAR RATE AND RHYTHM. MUSCULOSKELETAL:POINT TENDER RIGHT GREATER TROCHANTER . ASSESSMENTS TROCHANTERIC BURSITIS, RIGHT HIP - M70.61 (PRIMARY) TREATMENT TROCHANTERIC BURSITIS, RIGHT HIP NOTES: 60-YEAR-OLD FEMALE IN FOR CHRONIC PAIN FOLLOW-UP. GIVEN PRESENTING SYMPTOMS AND RESULTS OF PHYSICAL EXAMINATION RECOMMENDED RIGHT GREATER TROCHANTERIC BURSAL INJECTION WITH POST PROCEDURAL FOLLOW-UP. PATIENT GIVEN INFORMATION REGARDING BEHAVIORAL HEALTH WALK-IN HOURS. PATIENT HAS EXPRESSED UNDERSTANDING OF AND WAS IN AGREEMENT WITH TREATMENT PLAN. GIVEN TIME TO ASK QUESTIONS AND EXPRESS CONCERNS , ISTOP REGISTRY REVIEWED AND DEMONSTRATES COMPLLIANCE.(REF # ) BRINGS IN MEDICATIONS WHICH IS APPROPRIATE FOR WHAT WAS DISPENSED. RECENT URINE TOXICOLOGY REVIEWED. NO UNAUTHORIZED MEDICATIONS. NO ILLICIT SUBSTANCES AND PRESCRIBED MEDICATIONS WERE PRESENT. 11/16/20 1253 PATIENT GIVEN TEACHING ON TROCHANERIC BURSAL INJECTION, PRE PROCEDURE INSTRUCTIONS PROVIDED, PATIENT GIVEN [facility] BEHAVIORAL HEALTH WALK IN CLINIC INFORMATION AND ENCOURAGED TO CALL CRISIS HOTLINE OR 911 IF NEEDED. Annemarie FERRARI RN BSN. OTHERS NOTES: 11/16/20 1215 PATIENT SCORED POSITIVE ON PHQ2 AND PHQ9, SCORE OF 21, PATIENT REPORTS FOLOOWING WITH MENTAL HEALTH EVERY TWO WEEKS, PATIENT DOES ENDORSE SUICIDAL IDEATIONS, THOUGH IS ABLE TO CONTRACT FOR SAFETY, QMP AWARE. SREEDHAR MONTGOMERY MA . PROCEDURE CODES FA211 ESTABILISHED PATIENT [facility] CHARGE DISPOSITION & COMMUNICATION FOLLOW UP POSTPROCEDURE (REASON: RIGHT GREATER TROCHANTERIC BURSAL INJECTION) ELECTRONICALLY SIGNED BY FINA MEYER ON 11/17/2020 AT 01:53 PM EST DISCLAIMER : THIS IS A VISIT SUMMARY EXTRACTED FROM THE [employer] CHART. IT IS NOT A COPY OF THE [employer] PROGRESS NOTE. ROVERTO
== END ==
LOC: M PAIN 11:30
PROVIDERS: ATTEND Family Medicine
DX: M70.61 Trochanteric bursitis, right hip (principal); G89.29 Other chronic pain; M79.7 Fibromyalgia; G47.30 Sleep apnea, unspecified; K21.9 Gastro-esophageal reflux disease without esophagitis; Z86.59 Personal history of other mental and behavioral disorders; Z98.84 Bariatric surgery status; Z87.891 Personal history of nicotine dependence; Z91.018 Allergy to other foods; Z79.891 Long term (current) use of opiate analgesic; Z79.899 Other long term (current) drug therapy

== ENCOUNTER → 2020-11-24 | Outpatient (CLI) | payer BC ==
--- NOTE | 2020-11-24 18:02 | REPVR ---
PROCEDURE INFORMATION: Exam: CT Maxillofacial Without Contrast, Sinus Exam date and time: 11/24/2020 5:12 PM Age: 60 years old Clinical indication: Condition or disease; Other: Rhinitis; Additional info: Chronic rhinitis TECHNIQUE: Imaging protocol: CT Maxillofacial without contrast. Focus on the sinuses. Radiation optimization: All CT scans at this facility use at least one of these dose optimization techniques: automated exposure control; mA and/or kV adjustment per patient size (includes targeted exams where dose is matched to clinical indication); or iterative reconstruction. COMPARISON: CT Maxilofacial w/out contrast 06/01/2017 3:15 PM FINDINGS: Frontal sinuses: Unremarkable. No air-fluid levels. Ethmoid air cells: Unremarkable. No air-fluid levels. Sphenoid sinuses: Unremarkable. No air-fluid levels. Maxillary sinuses: A mucous retention cyst or polyp is identified within the left maxillary sinus, with improved aeration of the left maxillary sinus. A tiny mucous retention cyst or polyp is identified within the right maxillary sinus. Nasal cavity/Septum: Nasal septal deviation to the right. Orbital cavity: Orbits are normal. Globes are unremarkable. Bones/joints: The mandible is incompletely visualized on this study. No acute fracture of the visualized facial bones. Degenerative changes are identified within the upper cervical spine. Evaluation of the cervical spine is limited on this study. Soft tissues: A left nasal piercing is visualized. IMPRESSION: 1. No acute fracture of the visualized facial bones. 2. Paranasal sinus disease. There is improved aeration of the left maxillary sinus. Electronically signed by: Jose Irvin On 11/24/2020 18:02:13 PM
== END ==
LOC: M RAD 16:42
PROVIDERS: ATTEND Specialist
DX: J31.0 Chronic rhinitis (principal)

== ENCOUNTER → 2020-12-01 | Outpatient (CLI) | payer BC, OTHER | LOC: M LABSMTC 11:34 | PROVIDERS: ATTEND Anesthesiology | DX: Z01.812 Encounter for preprocedural laboratory examination (principal); Z20.828 Contact with and (suspected) exposure to other viral communicable diseases ==

== ENCOUNTER → 2020-12-06 | Outpatient (CLI) | payer BC, OTHER ==
[~2020-12-06] MED LIST changes: +BUPIVACAINE HCL 0.25% 30ML VIAL As Ordered ONE; +ISOVUE-M 300 61% 15ML VIAL As Ordered ONE; +LIDOCAINE 1% SDV 30ML VIAL As Ordered ONE; +TRIAMCINOLONE ACETONIDE SUSP 40 MG/ML VIAL (J3301) As Ordered ONE; +diazePAM 5MG TABLET As Ordered ONE; +oxyCODONE 5MG TAB As Ordered ONE
--- NOTE | 2020-12-06 16:36 | REP ---
INDICATION: RIGHT GREATER TROCHANTERIC BURSA INJECTION. COMPARISON: None. TECHNIQUE: Single-view. 5.9 seconds of fluoroscopy time is reported. FINDINGS: A single last image hold fluoroscopically obtained spot radiograph of the hips document needle position for injection procedure. IMPRESSION: Procedural imaging. <Electronically signed by Vincent Rizo > 12/06/20 [id number]
--- NOTE | 2020-12-08 01:55 | ECWPNPC ---
PATIENT NAME: ROSANGELA CARUSO : 1960 GENDER: FEMALE VISIT DATE: 12/06/2020 DISCHARGE DATE: 12/06/20 153 VISIT LOCKED DATE TIME: PHYSICIAN: BLANCA RODRIGUEZ MD PHYSICIAN PAGER NO: ACTIVE RESOURCE: BLANCA RODRIGUEZ MD REASON FOR APPOINTMENT 1. RIGHT GREATER TROCHANTER OF THE FEMUR BURSAL INJECTION HISTORY OF PRESENT ILLNESS GENERAL: - -. FALL RISK SCREENING: SCREENING :NO FALLS REPORTED IN THE LAST YEAR PAIN SCREENING: PATIENT HAS A COMPLAINT OF ACUTE OR CHRONIC PAIN :YES LOCATION OF PAIN:RIGHT HIP INTENSITY OF PAIN (SCALE OF 1 TO 10):9 WHAT DOES YOUR PAIN FEEL LIKE:ACHING, BURNING, INTERMITTENT, SHARP, STABBING DURATION:PERIODIC PAIN IS INCREASED BY:ACTIVITIES, PROLONGED STANDING PAIN IS DECREASED BY:OTHERS SHORT PERIODS OF STANDING NURSING NOTE: - -. PAIN CENTER INTAKE QUESTIONS: DO YOU HAVE A HISTORY OF MRSA? :NO DO YOU TAKE A BLOOD THINNERS? :NO DO YOU HAVE ANY BLEEDING DISORDERS? :NO ANY NEW NUMBNESS OR WEAKNESS IN YOUR LEGS OR ARMS? :NO ANY PACEMAKER,DEFIBRILLATOR, OR DORSAL COLUMN STIMULATOR? :NO DO YOU HAVE ANY RASHES OR OPEN SORES? :NO ARE YOU ALLERGIC TO IV DYE? :NO ARE YOU DIABETIC? :NO ANY NEW PROBLEMS WITH YOUR MEDICATIONS? :NO HAVE YOU RECEIVED A VACCINE IN THE PAST 30 DAYS? :NO DO YOU PLAN TO RECEIVE A VACCINE IN THE NEXT 21 DAYS? :NO DO YOU TAKE ANY IMMUNOSUPPRESSIVE MEDICATIONS? :NO ANY HISTORY OF SEIZURES? :NO ANY HISTORY OF CARDIAC ISSUES OR EVENTS? :NO DO YOU HAVE SLEEP APNEA? :NO ANY RECENT HEAD INJURY? :NO DO YOU HAVE ANY NEW INFECTIONS? :NO IS THERE A CHANCE YOU COULD BE ? :NO ARE YOU BREAST FEEDING? :NO WHEN DID YOU LAST EAT? : -12/05/2020 1900 WHEN DID YOU LAST DRINK? : -12/06/2020 0400 WHAT DID YOU LAST DRINK? : -COFFEE NAME OF PERSON DRIVING YOU HOME? : - KATHY DO YOU HAVE ANY OTHER QUESTIONS OR CONCERNS? : - CURRENT MEDICATIONS TAKING ONDANSETRON HCL 4 MG TABLET 1 TABLET ORALLY THREE TIMES DAILY NEEDED, NOTES: NONE RECENT TAKING OMEPRAZOLE 40 MG CAPSULE DELAYED RELEASE 1 CAPSULE ORALLY TWICE DAILY NEEDED TAKING ZOLOFT 100 MG TABLET 2 TABLETS ORALLY ONCE A DAY TAKING KLONOPIN 1 MG TABLET 1 TABLET ORALLY BID NEEDED TAKING VITAMIN B-12 500 MCG TABLET 1 TABLET ORALLY ONCE A DAY TAKING CITRACAL PLUS - TABLET 1 TAB ORALLY TWICE DAILY TAKING MULTIVITAMIN ADULT - TABLET 1 TAB ORALLY DAILY TAKING BIOTIN 57191 MCG TABLET DISINTEGRATING 1 CAPSULE ORALLY DAILY TAKING PRAVASTATIN SODIUM 20 MG TABLET 1 TABLET ORALLY ONCE A DAY TAKING TOPAMAX 50 MG TABLET 1 TABLET ORALLY BID TAKING FISH OIL 1000 MG CAPSULE 1 CAPSULE ORALLY TWICE DAILY TAKING TIZANIDINE HCL 4 MG TABLET 1 TABLET NEEDED ORALLY FOR SPASMS AND PAIN EVERY 8 HRS NEEDED (PAIN CLINIC) MDD3, NOTES: PM TAKING LYRICA 200 MG CAPSULE 1 CAPSULE ORALLY FOR PAIN BID MDD=2 TAKING NORCO 10-325 MG TABLET 1 TABLET ORALLY EVERY 8-12 HRS PRN PAIN MDD=2, NOTES: PM TAKING VITAMIN D (ERGOCALCIFEROL) 85939 UNIT CAPSULE 1 CAPSULE ORALLY WEEKLY NOT-TAKING POTASSIUM 99 MG TABLET 1 TABLET ORALLY ONCE A DAY NOT-TAKING BACTRIM DS 800-160 MG TABLET 1 TABLET FOR YOUR CYSTOSCOPY TODAY ORALLY DIRECTED NOT-TAKING BACLOFEN 10 MG TABLET 1 TABLET WITH FOOD OR MILK ORALLY THREE TIMES A DAY NOT-TAKING POTASSIUM & MAGNESIUM ASPARTAT 250-250 MG CAPSULE 1 CAPSULE WITH A MEAL ORALLY ONCE A DAY NOT-TAKING BUSPIRONE HCL 15 MG TABLET 1 TABLET ORALLY TWICE A DAY NOT-TAKING GLIPIZIDE 10 MG TABLET 1/2 TABLET ORALLY ONCE A DAY, NOTES: ON HOLD NOT-TAKING GABAPENTIN 100 MG CAPSULE 1 CAPSULE ORALLY TID, NOTES: 1 MONTH PRESCRIPTION NOT-TAKING CHILDRENS CHEWABLE VITAMINS - TABLET CHEWABLE 2 TABLETS ORALLY DAILY NOT-TAKING LOSARTAN POTASSIUM 100 MG TABLET 1 TABLET ORALLY ONCE A DAY NOT-TAKING IBUPROFEN 800 MG TABLET 1 TABLET ORALLY WITH FOOD THREE TIMES A DAY PRN FOR PAIN MDD3 NOT-TAKING AMBIEN 5 MG TABLET 1 TAB(S) ORAL AT BEDTIME NEEDED (PECK) MEDICATION LIST REVIEWED AND RECONCILED WITH THE PATIENT PAST MEDICAL HISTORY FIBROMYALGIA CHRONIC BACK PAIN ICD-9 724.5 POSITIVE LYME TITER DEPRESSION ICD-9 311.0 SLEEP APNEA- NO LONGER USES CPAP ACID REFLUX ENVIROMENTAL ALLERGIES MIXED HYPERLIPIDEMA? IBS CHRONIC DRY EYES HISTORY OF FIBROIDS S/P HYSTERECTOMY ASCVD 10 YR RISK: 17 ANXIETY HEART MURMUR KIDNEY STONE/KIDNEY AND BLADDER INFECTION WITH SEPSIS OBESITY ALLERGIES SEASONAL: SINUS CONGESTION AND RUNNY NOSE - ALLERGY BANANAS: HIVES - ALLERGY SURGICAL HISTORY TUBAL LIGATION 1983 APPENDECTOMY HYSTERECTOMY/ LAP ASSISTED VAGINAL --- DUE TO ADENOMYOSIS AND FIBROID UTERUS 11/21 COLONOSCOPY 2009 RIGHT BREAST BIOPSY 2010 GASTRIC BYPASS 04/2019 KIDNEY STONE REMOVAL 01/01 CYSTO WITH STENT REMOVAL 01/28/2020 SOCIAL HISTORY GENERAL: TOBACCO USE ARE YOU A:FORMER SMOKER HOW LONG HAS IT BEEN SINCE YOU LAST SMOKED?1-3 MONTHS E-CIGARETTENO SMOKING CESSATION INFORMATION GIVEN08/31/2020 LATEX QUESTIONNAIRE LATEX ALLERGY : HAVE YOU EVER DEVELOPED ANY TYPE OF REACTION AFTER HANDLING LATEX PRODUCTS SUCH RUBBER GLOVES, CONDOMS, DIAPHRAGMS, BALLOONS, SOCKS, OR UNDERWEAR?NO LATEX ALLERGY : HAVE YOU EVER DEVELOPED ANY TYPE OF REACTION DURING OR AFTER DENTAL APPOINTMENT, VAGINAL/RECTAL EXAMINATION, SURGICAL PROCEDURE, OR ANY OTHER EXPOSURE?NO LATEX RISK : HAVE YOU EVER HAD ANY DIFFICULTY BREATHING OR HIVES AFTER EATING OR HANDLING ANY FRUITS, OR VEGETABLES; SUCH KIWI, BANANAS, STONE FRUITS, OR CHESTNUTSYES - PLEASE INDICATE : BANANAS SOMETIMES CAUSES HIVES LATEX RISK : DO YOU HAVE A PREVIOUS PERSONAL HISTORY OF MORE THAN NINE SURGERIES, SPINA BIFIDA, OR REPEATED CATHERIZATIONS? NO LATEX RISK : ARE YOU FREQUENTLY EXPOSED TO LATEX PRODUCTS IN YOUR OCCUPATION?NO DATE ASKED : 12/06/2020 BMI CARE GOAL FOLLOW-UP ABOVE NORMAL BMI FOLLOW-UPGIVING ENCOURAGEMENT TO EXERCISE ALCOHOL SCREENING DID YOU HAVE A DRINK CONTAINING ALCOHOL IN THE PAST YEAR?NO POINTS0 INTERPRETATIONNEGATIVE RECREATIONAL DRUG USE DRUG USE?NO CAFFEINE CAFFEINE USE?YES COFFEE 2 CUPS A DAY SEXUAL HX HAD SEX IN THE LAST 12 MONTHS (VAGINAL, ORAL, OR ANAL)?YES SIKHISM [id number] CONFUCIANISM NO LATTER-DAY BELIEFS THAT WOULD IMPACT HEALTH CARE. 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 DIET: REGULAR, INCREASED PROTEIN. EXERCISE: NO REGULAR EXERCISE. MARITAL STATUS: . OTHERS AT HOME: SPOUSE. - PFS REFERRAL NEEDED?NO HAS THE PATIENT BEEN EDUCATED REGARDING HIS/HER PLAN OF CARE?YES HAS THE PATIENT BEEN EDUCATED REGARDING PAIN, THE RISK FOR PAIN, THE IMPORTANCE OF EFFECTIVE PAIN MANAGEMENT, AND THE PAIN ASSESSMENT PROCESS?YES ADVANCE DIRECTIVE ADVANCE DIRECTIVE DISCUSSED WITH PATIENT:YES 11/16/19. PT STATES SHE HCP 1. EDUARDO PARTIDA [phone] 2. RADHA ISAAC [phone] HOSPITALIZATION/MAJOR DIAGNOSTIC PROCEDURE [facility] - DEPRESSION 2012 CHILDBIRTH X 4 SURGERY RELATED 04/2019 KIDNEY STONE/ KIDNEY AND BLADDER INFECTION WITH SEPSIS 01/01-01/06/2020 VITAL SIGNS WT 118.0 LBS, HT 61 IN, BMI 22.29 INDEX, BP 104/61 MM HG, HR 74 /MIN, RR 18 /MIN, TEMP 97.8 F, OXYGEN SAT % 98%, NA INITIALS AW 1315, REVIEWED BY: DANO. EXAMINATION GENERAL EXAMINATION: THE PATIENT IS ALERT, ORIENTED TIMES THREE AND COOPERATIVE. LUNGS ARE CLEAR TO AUSCULTATION. HEART SHOWS REGULAR RHYTHM, NO MURMURS AND NO GALLOPS. ASSESSMENTS BURSITIS OF HIP, RIGHT - M70.71 (PRIMARY) TREATMENT BURSITIS OF HIP, RIGHT [facility] FLUORO GUIDANCE (PAIN)[id number] MEDICATION: VALIUM TAB 10MG ORALLY (DIAZEPAM)ALFREDO CHINCHILLA 12/06/2020 1:49:26 PM > VERIFIED LOT# [id number] EXP AUG 2022 GERALD RUIZ 12/06/2020 1:51:09 PM > ADMINISTERED MEDICATION: OXYCODONE HCL TAB 10MG ORALLYALFREDO CHINCHILLA 12/06/2020 1:49:58 PM > VERIFIED LOT # [id number] EXP 12/2021 GERALD RUIZ 12/06/2020 1:52:03 PM > ADMINISTERED COMPLETION OF PROCEDURAL VISIT WHEN MEETS CRITERIAALFREDO CHINCHILLA 12/06/2020 3:33:19 PM > CRITERIA MET PROCEDURES PAIN NURSING RECORD PROCEDURE IN ROOM 1437, PHYSICIAN IN ROOM 1452, START 1500, FINISH 1509, PHYSICIAN OUT OF ROOM 1510, OUT OF ROOM 1519, ECG NORMAL SINUS, PATIENT SHIELDED YES, SAFETY STRAP YES, PREP CHLOROPREP BY Ace GONZALEZ RN, DRESSING TEGADERM BY DR RODRIGUEZ LOC: IN ROOM 1437, PHYSICIAN IN ROOM 1452, START 1500, FINISH 1509, PHYSICIAN OUT OF ROOM 1510, OUT OF ROOM 1519, ECG NORMAL SINUS, PATIENT SHIELDED YES, SAFETY STRAP YES, PREP CHLOROPREP BY N CARLOS, RN, DRESSING TEGADERM BY DR RODRIGUEZ RESP: 1. ALERT, ORIENTED, ALFREDO CHINCHILLA 12/06/2020 2:51:49 PM > COLOR: 1. PINKAMOR NICOLE 12/06/2020 2:51:58 PM > SKIN: 1. WARM, DRY, ALFREDO CHINCHILLA 12/06/2020 2:52:01 PM > POSITION: 3. LATERAL, ALFREDO CHINCHILLA 12/06/2020 2:52:05 PM > VITALS: 1448 97/52-52-18-99% , ALFREDO CHINCHILLA 12/06/2020 3:04:57 PM > 98/56-53-18-99% 1527 114/58-63-18-10% NOTES Chandrakant GONZALEZ RN COMPLETION OF PROCEDURE APPOINTMENT: POST PAIN 0, DRESSING SITE DRY AND INTACT RIGHT HIP, IV N/A, GAIT STEADY, TEACHING COMPLETED, PATIENT ACKNOWLEDGES UNDERSTANDING YES, PROCEDURE APPOINTMENT COMPLETED AT 1531 BY: Chandrakant GONZALEZ RN PRE PROCEDURE DIAGNOSIS BURSITIS AT THE RIGHT GREATER TROCHANTER OF THE FEMUR POST PROCEDURE DIAGNOSIS BURSITIS AT THE RIGHT GREATER TROCHANTER OF THE FEMUR PROCEDURE INJECTION AT THE BURSA OF THE RIGHT GREATER TROCHANTER OF THE FEMUR UNDER FLUOROSCOPIC GUIDANCE. SURGEON DR. BLANCA RODRIGUEZ HOUSEKEEPING/LAUNDRY NONE ANESTHESIA LOCAL PRE PROCEDURE NOTE THE PATIENT HAS A HISTORY OF RIGHT HIP PAIN. I EVALUATED THE PATIENT AND REVIEWED THE CHART. WE BOTH AGREE ON INJECTING OVER THE BURSA OF THE RIGHT GREATER TROCHANTER OF THE FEMUR. I DISCUSSED THE RISKS, BENEFITS AND ALTERNATIVES ASSOCIATED WITH THIS PROCEDURE. THE PATIENT WOULD LIKE TO PROCEED AND GAVE CONSENT TO PERFORM THE PROCEDURE. THE PATIENT DENIES UNEXPLAINABLE WEIGHT LOSS, FEVERS, CHILLS, OR CHANGES IN HIS URINARY OR BOWEL CONTROL. THE PATIENT IS COVID-19 NEGATIVE DESCRIPTION OF PROCEDURE AFTER CONSENT WAS TAKEN, THE PATIENT WAS BROUGHT TO THE PROCEDURE ROOM AND PLACED IN THE LEFT LATERAL DECUBITUS POSITION. THE RIGHT HIP AREA WAS CLEANED WITH CHLORAPREP SOLUTION AND DRAPED ASEPTICALLY. THE PROCEDURE WAS DONE UNDER STERILE CONDITIONS. A TIMEOUT WAS PERFORMED WHERE LATERALITY AND THE SITE OF THE PROCEDURE WERE CHECKED AND CONFIRMED WITH EVERYONE IN THE ROOM. UNDER FLUOROSCOPIC GUIDANCE, TARGET WAS SELECTED AT THE RIGHT GREATER TROCHANTER OF THE FEMUR. I CONFIRMED AGAIN WITH EVERYONE IN THE ROOM THE LATERALITY OF THE TARGET. LIDOCAINE WAS USED TO NUMB THE SKIN AND THE SUBCUTANEOUS TISSUE BELOW IT. SPINAL NEEDLE, 22-GAUGE, WAS ADVANCED UNDER FLUOROSCOPIC GUIDANCE AND FOLLOWING PATIENT FEEDBACK UNTIL THE TARGET WAS TOUCHED. POSITION OF THE NEEDLE WAS VERIFIED WITH AP AND LATERAL VIEWS. AFTER PROPER POSITION OF THE NEEDLE WAS ACHIEVED, ISOVUE-M 30%, 1.0 ML, WAS INJECTED SHOWING ADEQUATE SPREAD OF THE DYE. KENALOG 40 MG WAS INJECTED. THEN, A SOLUTION OF 30 ML OF BUPIVACAINE 0.125% WAS USED TO FLUSH THE SITE. THE MEDICATIONS WERE VERIFIED WITH THE NURSE. THERE WAS NO EVIDENCE OF BLOOD OR PARESTHESIA. THE PATIENT WAS SENT TO THE RECOVERY ROOM. THE PATIENT WAS MOVING THE EXTREMITIES AND DOING WELL. THERE WERE NO COMPLICATIONS DURING THE PROCEDURE. ESTIMATED BLOOD LOSS WAS LESS THAN 5 ML. FLUOROSCOPIC TIME WAS 5 SECONDS POST PROCEDURE NOTE I DISCUSSED THE PROCEDURE WITH THE PATIENT. WE WILL SEE THE PATIENT BACK IN SEVERAL WEEKS FOR FOLLOWUP. I AM LOOKING FOR LONG-LASTING PAIN RELIEF WITH THIS INTERVENTION. I, GIOVANI KEATING, DOCUMENTED THE ABOVE INFORMATION ACTING A SCRIBE FOR DR. RODRIGUEZ. I HAVE REVIEWED THE ABOVE DOCUMENT, WRITTEN BY GIOVANI KEATING, NONPROFIT FINANCIAL CONTROLLER, AND I VERIFY THAT IT IS ACCURATE PROCEDURE CODES 47798 DRAIN/INJ JOINT/BURSA W/O US, MODIFIERS: RT [id number] NEEDLE LOCALIZATION BY XRAY, MODIFIERS: 26 DISPOSITION & COMMUNICATION FOLLOW UP FOLLOW UP WITH SUPERVISOR COUNSELING AND GUIDANCE (REASON: POST RIGHT GREAT TROCHANTER OF THE FEMUR BURSAL INJECTION) ELECTRONICALLY SIGNED BY BLANCA RODRIGUEZ MD, MD ON 12/07/2020 AT 01:53 PM EST DISCLAIMER : THIS IS A VISIT SUMMARY EXTRACTED FROM THE [employer] CHART. IT IS NOT A COPY OF THE [employer] PROGRESS NOTE. ROVERTO
== END ==
LOC: M PAIN 13:00
PROVIDERS: ATTEND Anesthesiology
DX: M70.71 Other bursitis of hip, right hip (principal); M79.7 Fibromyalgia; M54.5 Low back pain; F32.9 Major depressive disorder, single episode, unspecified; K21.9 Gastro-esophageal reflux disease without esophagitis; K58.9 Irritable bowel syndrome, unspecified; J30.2 Other seasonal allergic rhinitis; F41.9 Anxiety disorder, unspecified; Z87.891 Personal history of nicotine dependence; Z79.891 Long term (current) use of opiate analgesic; Z79.899 Other long term (current) drug therapy; Z91.018 Allergy to other foods
CPT/HCPCS: 20610; 77002; J3301; Q9967

== ENCOUNTER → 2020-12-29 | Outpatient (CLI) | payer BC ==
[~2020-12-29] MED LIST changes: -BUPIVACAINE HCL 0.25% 30ML VIAL As Ordered ONE; -ISOVUE-M 300 61% 15ML VIAL As Ordered ONE; -LIDOCAINE 1% SDV 30ML VIAL As Ordered ONE; -TRIAMCINOLONE ACETONIDE SUSP 40 MG/ML VIAL (J3301) As Ordered ONE; -diazePAM 5MG TABLET As Ordered ONE; -oxyCODONE 5MG TAB As Ordered ONE
[2020-12-29 18:31] LABS: BASO % 0.9 % (0.0-1.0); EOS # 0.1 10^3/uL (0.0-0.5); EOS % 2.7 % (0.0-3.0); HEMATOCRIT 36.8 % (36.0-47.0); HEMOGLOBIN 12.3 g/dl (12.0-15.5); LYMPH # 2.1 10^3/uL (1.5-5.0); MEAN CORPUSCULAR HGB CONC 33.4 g/dl (32.0-36.5); MEAN CORPUSCULAR VOLUME 92.7 fl (80.0-96.0); MONO # 0.4 10^3/uL (0.0-0.8); MONO % 8.4 % (2.0-8.0); NEUTROPHILS # 1.8 10^3/uL (1.5-8.5); NEUTROPHILS % 39.8 % (36.0-66.0); PLATELET COUNT, AUTOMATED 192 10^3/uL (150-450); RED BLOOD COUNT 3.97 10^6/uL (4.00-5.40); WHITE BLOOD COUNT 4.4 10^3/uL (4.0-10.0)
[2020-12-29 18:37] LABS: HEMATOCRIT 36.8 % (36.0-47.0)
[2020-12-29 19:03] LABS: HEMOGLOBIN A1c 5.4 %
[2020-12-29 19:05] LABS: ALT/SGPT 72 U/L (12-78); BILIRUBIN,TOTAL 0.2 MG/DL (0.2-1.0); BLOOD UREA NITROGEN 17 MG/DL (7-18); CALCIUM LEVEL 8.7 MG/DL (8.5-10.1); CARBON DIOXIDE LEVEL 26 MEQ/L (21-32); CHLORIDE LEVEL 111 MEQ/L (98-107); CREATININE FOR GFR 0.77 MG/DL (0.55-1.30); FERRITIN 23 NG/ML (8-252); GLOMERULAR FILTRATION RATE > 60.0 (>51); GLUCOSE, FASTING 65 MG/DL (70-100); IRON (FE) 68 UG/DL (50-170); MAGNESIUM LEVEL 2.1 MG/DL (1.8-2.4); PERCENT SATURATION 15.6 % (13.2-45.0); PHOSPHORUS LEVEL 4.2 MG/DL (2.5-4.9); POTASSIUM SERUM 4.1 MEQ/L (3.5-5.1); SODIUM LEVEL 143 MEQ/L (136-145); TOTAL IRON BINDING CAPACITY 437 UG/DL (250-450); TOTAL PROTEIN 6.8 GM/DL (6.4-8.2)
[2020-12-29 19:14] LABS: TOTAL 25(OH) VITAMIN D 53.6 NG/ML (30.0-100.0)
[2020-12-29 19:15] LABS: VITAMIN B12 LEVEL 1650 PG/ML (247-911)
== END ==
LOC: M LAB 17:53
PROVIDERS: ATTEND Physician Assistant
DX: K91.2 Postsurgical malabsorption, not elsewhere classified (principal)

== ENCOUNTER → 2021-01-19 | Outpatient (CLI) | payer OTHER, BC ==
--- NOTE | 2021-01-22 04:35 | ECWPNPC ---
PATIENT NAME: ROSANGELA CARUSO : 1960 GENDER: FEMALE VISIT DATE: 01/19/2021 DISCHARGE DATE: 01/19/21 1200 VISIT LOCKED DATE TIME: PHYSICIAN: SAMMIE MURILLO PHYSICIAN PAGER NO: ACTIVE RESOURCE: SAMMIE MURILLO REASON FOR APPOINTMENT 1. POST RIGHT GREATER TROCHANTERIC BURSAL INJECTION HISTORY OF PRESENT ILLNESS GENERAL: 52-YEAR-OLD FEMALE IN FOR POST RIGHT GREATER TROCHANTERIC BURSAL INJECTION FOLLOW-UP. AND CONTINUES TO HELP HER TODAY. SHE RATES HER PAIN CURRENTLY AT A 7 OUT OF 10 AND DESCRIBES IT CONTINUOUS AND SORE. FALL RISK SCREENING: SCREENING : NO FALLS REPORTED IN THE LAST YEAR. PAIN SCREENING: PATIENT HAS A COMPLAINT OF ACUTE OR CHRONIC PAIN :YES LOCATION OF PAIN:LEFT SHOULDER, UPPER BACK, MID BACK, LOW BACK INTENSITY OF PAIN (SCALE OF 1 TO 10):7 WHAT DOES YOUR PAIN FEEL LIKE:CONTINOUS, SORE DURATION:CONTINOUS, CONSTANT, AWAKENS FROM SLEEP PAIN IS INCREASED BY:ACTIVITIES, PROLONGED STANDING, OTHERS DRIVING PAIN IS DECREASED BY:USE OF PAIN MEDICATIONS, SITTING BIOFREEZE NURSING NOTE: -. PAIN CENTER INTAKE QUESTIONS: DO YOU HAVE A HISTORY OF MRSA? :NO DO YOU TAKE A BLOOD THINNERS? :NO DO YOU HAVE ANY BLEEDING DISORDERS? :NO ANY NEW NUMBNESS OR WEAKNESS IN YOUR LEGS OR ARMS? :YES NUMBNESS IN BILATERAL HANDS, MOSTLY LEFT ANY PACEMAKER,DEFIBRILLATOR, OR DORSAL COLUMN STIMULATOR? :NO DO YOU HAVE ANY RASHES OR OPEN SORES? :NO ARE YOU ALLERGIC TO IV DYE? :NO ARE YOU DIABETIC? :NO ANY NEW PROBLEMS WITH YOUR MEDICATIONS? :NO HAVE YOU RECEIVED A VACCINE IN THE PAST 30 DAYS? :NO DO YOU PLAN TO RECEIVE A VACCINE IN THE NEXT 21 DAYS? :YES IF SO WHAT VACCINE AND WHEN? WOULD LIKE THE COVID VACCINATION IF IT BECOMES AVAILABLE. DO YOU NEED ANY PRESCRIPTION? :NO DO YOU TAKE ANY IMMUNOSUPPRESSIVE MEDICATIONS? :YES LYRICA DO YOU HAVE ANY KIDNEY OR LIVER DISEASE? :NO IS THERE A CHANCE YOU COULD BE ? :NO ARE YOU BREAST FEEDING? :NO CURRENT MEDICATIONS TAKING ONDANSETRON HCL 4 MG TABLET 1 TABLET ORALLY THREE TIMES DAILY NEEDED, NOTES: NONE RECENT TAKING OMEPRAZOLE 40 MG CAPSULE DELAYED RELEASE 1 CAPSULE ORALLY TWICE DAILY NEEDED TAKING ZOLOFT 100 MG TABLET 2 TABLETS ORALLY ONCE A DAY TAKING KLONOPIN 1 MG TABLET 1 TABLET ORALLY BID NEEDED TAKING VITAMIN B-12 500 MCG TABLET 1 TABLET ORALLY ONCE A DAY TAKING CITRACAL PLUS - TABLET 1 TAB ORALLY TWICE DAILY TAKING MULTIVITAMIN ADULT - TABLET 1 TAB ORALLY DAILY TAKING PRAVASTATIN SODIUM 20 MG TABLET 1 TABLET ORALLY ONCE A DAY TAKING TOPAMAX 50 MG TABLET 1 TABLET ORALLY BID TAKING FISH OIL 1000 MG CAPSULE 1 CAPSULE ORALLY TWICE DAILY TAKING NORCO 10-325 MG TABLET 1 TABLET ORALLY EVERY 8-12 HRS PRN PAIN MDD=2, NOTES: PM TAKING VITAMIN D (ERGOCALCIFEROL) 16183 UNIT CAPSULE 1 CAPSULE ORALLY WEEKLY TAKING TIZANIDINE HCL 4 MG TABLET 1 TABLET NEEDED ORALLY FOR SPASMS AND PAIN EVERY 8 HRS NEEDED (PAIN CLINIC) MDD3, NOTES: PM TAKING LYRICA 200 MG CAPSULE 1 CAPSULE ORALLY FOR PAIN BID MDD=2 TAKING HYDROCODONE-ACETAMINOPHEN 10-325 MG TABLET 1 TABLET NEEDED ORALLY Q8-12HR PRN SEVERE PAIN MDD2 NOT-TAKING BIOTIN 38847 MCG TABLET DISINTEGRATING 1 CAPSULE ORALLY DAILY UNKNOWN POTASSIUM 99 MG TABLET 1 TABLET ORALLY ONCE A DAY UNKNOWN BACTRIM DS 800-160 MG TABLET 1 TABLET FOR YOUR CYSTOSCOPY TODAY ORALLY DIRECTED UNKNOWN BACLOFEN 10 MG TABLET 1 TABLET WITH FOOD OR MILK ORALLY THREE TIMES A DAY UNKNOWN POTASSIUM & MAGNESIUM ASPARTAT 250-250 MG CAPSULE 1 CAPSULE WITH A MEAL ORALLY ONCE A DAY UNKNOWN BUSPIRONE HCL 15 MG TABLET 1 TABLET ORALLY TWICE A DAY UNKNOWN GLIPIZIDE 10 MG TABLET 1/2 TABLET ORALLY ONCE A DAY, NOTES: ON HOLD UNKNOWN GABAPENTIN 100 MG CAPSULE 1 CAPSULE ORALLY TID, NOTES: 1 MONTH PRESCRIPTION UNKNOWN CHILDRENS CHEWABLE VITAMINS - TABLET CHEWABLE 2 TABLETS ORALLY DAILY UNKNOWN LOSARTAN POTASSIUM 100 MG TABLET 1 TABLET ORALLY ONCE A DAY UNKNOWN IBUPROFEN 800 MG TABLET 1 TABLET ORALLY WITH FOOD THREE TIMES A DAY PRN FOR PAIN MDD3 UNKNOWN AMBIEN 5 MG TABLET 1 TAB(S) ORAL AT BEDTIME NEEDED (PECK) MEDICATION LIST REVIEWED AND RECONCILED WITH THE PATIENT PAST MEDICAL HISTORY FIBROMYALGIA CHRONIC BACK PAIN ICD-9 724.5 POSITIVE LYME TITER DEPRESSION ICD-9 311.0 SLEEP APNEA- NO LONGER USES CPAP ACID REFLUX ENVIROMENTAL ALLERGIES MIXED HYPERLIPIDEMA? IBS CHRONIC DRY EYES HISTORY OF FIBROIDS S/P HYSTERECTOMY ASCVD 10 YR RISK: 17 ANXIETY HEART MURMUR KIDNEY STONE/KIDNEY AND BLADDER INFECTION WITH SEPSIS OBESITY ALLERGIES SEASONAL: SINUS CONGESTION AND RUNNY NOSE - ALLERGY BANANAS: HIVES - ALLERGY FAMILY HISTORY FATHER: UNKNOWN MOTHER: , INFLUENZA SIBLINGS: ALIVE SON(S): ALIVE DAUGHTER(S): , LUPUS, FIBROMYALGIA, ASTHMA, LYME DISEASE, DUE TO MVA 2 BROTHER(S) , 1 SISTER(S) - HEALTHY. 3 SON(S) , 1 DAUGHTER(S) . SISTER- MS\\NSON - ENLARGED HEART. SOCIAL HISTORY GENERAL: TOBACCO USE ARE YOU A:FORMER SMOKER HOW LONG HAS IT BEEN SINCE YOU LAST SMOKED?1-3 MONTHS E-CIGARETTENO SMOKING CESSATION INFORMATION GIVEN08/31/2020 LATEX QUESTIONNAIRE LATEX ALLERGY : HAVE YOU EVER DEVELOPED ANY TYPE OF REACTION AFTER HANDLING LATEX PRODUCTS SUCH RUBBER GLOVES, CONDOMS, DIAPHRAGMS, BALLOONS, SOCKS, OR UNDERWEAR?NO LATEX ALLERGY : HAVE YOU EVER DEVELOPED ANY TYPE OF REACTION DURING OR AFTER DENTAL APPOINTMENT, VAGINAL/RECTAL EXAMINATION, SURGICAL PROCEDURE, OR ANY OTHER EXPOSURE?NO LATEX RISK : HAVE YOU EVER HAD ANY DIFFICULTY BREATHING OR HIVES AFTER EATING OR HANDLING ANY FRUITS, OR VEGETABLES; SUCH KIWI, BANANAS, STONE FRUITS, OR CHESTNUTSYES - PLEASE INDICATE : BANANAS SOMETIMES CAUSES HIVES LATEX RISK : DO YOU HAVE A PREVIOUS PERSONAL HISTORY OF MORE THAN NINE SURGERIES, SPINA BIFIDA, OR REPEATED CATHERIZATIONS? NO LATEX RISK : ARE YOU FREQUENTLY EXPOSED TO LATEX PRODUCTS IN YOUR OCCUPATION?NO DATE ASKED : 01/19/2021 ALCOHOL USE: NO. BMI CARE GOAL FOLLOW-UP ABOVE NORMAL BMI FOLLOW-UPGIVING ENCOURAGEMENT TO EXERCISE ALCOHOL SCREENING DID YOU HAVE A DRINK CONTAINING ALCOHOL IN THE PAST YEAR?NO POINTS0 INTERPRETATIONNEGATIVE RECREATIONAL DRUG USE DRUG USE?NO CAFFEINE CAFFEINE USE?YES COFFEE 2 CUPS A DAY SEXUAL HX HAD SEX IN THE LAST 12 MONTHS (VAGINAL, ORAL, OR ANAL)?YES EPISCOPALIAN [id number] RELIGIOUS NO ZOROASTRIAN BELIEFS THAT WOULD IMPACT HEALTH CARE. 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 DIET: REGULAR, INCREASED PROTEIN. EXERCISE: NO REGULAR EXERCISE. MARITAL STATUS: . OTHERS AT HOME: SPOUSE. - PFS REFERRAL NEEDED?NO HAS THE PATIENT BEEN EDUCATED REGARDING HIS/HER PLAN OF CARE?YES HAS THE PATIENT BEEN EDUCATED REGARDING PAIN, THE RISK FOR PAIN, THE IMPORTANCE OF EFFECTIVE PAIN MANAGEMENT, AND THE PAIN ASSESSMENT PROCESS?YES ADVANCE DIRECTIVE ADVANCE DIRECTIVE DISCUSSED WITH PATIENT:YES 11/16/19. PT STATES SHE HCP 1. EDUARDO PARTIDA [phone] 2. RADHA ISAAC [phone] REVIEW OF SYSTEMS CONSTITUTIONAL: ANY RECENT FEVER NO . CHILLS NO . WEIGHT CHANGE OF UNKNOWN REASONS NO . GASTROENTEROLOGY: NEW UNEXPLAINABLE CHANGES IN BOWEL CONTROL NO . CONSTIPATION NO . GENITOURINARY: ANY NEW CHANGE IN BLADDER CONTROL? NO . NEUROLOGY: NEW ONSET DIZZINESS OR NEUROLOGICAL CHANGES NOT MENTIONED NO . NEW NUMBNESS OR PAIN PATTERNS NOT MENTIONED AND PERTINENT TO TODAY'S VISIT NO . CARDIOLOGY: NEW CHEST PRESSURE NO . PATIENT DENIES NO . RESPIRATORY: UNEXPLAINABLE COUGH NO . NEW SHORTNESS OF BREATH NO . VITAL SIGNS WT 118.0 LBS, HT 61 IN, BMI 22.29 INDEX, BP 116/61 MM HG, HR 86 /MIN, RR 18 /MIN, TEMP 96.0 F, OXYGEN SAT % 97%, SAFE IN ENV? (Y/N) YES, NA INITIALS AW 1125, REVIEWED BY: YOCASTA ALONZO MA. EXAMINATION GENERAL EXAMINATION: GENERALNO ACUTE DISTRESS, WELL NOURISHED AND HYDRATED. PSYCHAPPROPRIATE MOOD AND AFFECT . LUNGS:CLEAR TO AUSCULTATION BILATERALLY, NO WHEEZES, RHONCHI, RALES. HEART:NO MURMURS, REGULAR RATE AND RHYTHM. ASSESSMENTS OTHER CHRONIC PAIN - G89.29 (PRIMARY) TROCHANTERIC BURSITIS, RIGHT HIP - M70.61 TREATMENT OTHER CHRONIC PAIN PAIN PROCEDURE LOGPROCEDURE:RIGHT GREATER TROCHANTERIC BURSAL INJECTIONAMOUNT OF PRE SEDATEVALIUM 10MG; OXYCODONE 10MGRESULT:HELPFUL PATIENT REPORTS DECREASED PAIN AND INCREASED MOBILITY NOTES: 52-YEAR-OLD FEMALE IN FOR POST RIGHT GREATER TROCHANTERIC BURSAL INJECTION FOLLOW-UP. GIVEN PRESENTING SYMPTOMS AND RECOMMEND FOLLOW-UP IN 4 WEEKS. PATIENT EXPRESSED UNDERSTANDING OF AND WAS IN AGREEMENT WITH TREATMENT PLAN. GIVEN TIME TO ASK QUESTIONS AND EXPRESS CONCERNS. PROCEDURE CODES FA211 ESTABILISHED PATIENT [facility] FAC[facility] CHARGE DISPOSITION & COMMUNICATION FOLLOW UP 4 WEEKS (REASON: RIGHT HIP BURSITIS ) ELECTRONICALLY SIGNED BY FINA MEYER ON 01/21/2021 AT 08:19 AM EST DISCLAIMER : THIS IS A VISIT SUMMARY EXTRACTED FROM THE [employer] CHART. IT IS NOT A COPY OF THE [employer] PROGRESS NOTE. ROVERTO
== END ==
LOC: M PAIN 11:30
PROVIDERS: ATTEND Family Medicine
DX: G89.29 Other chronic pain (principal); M70.61 Trochanteric bursitis, right hip; M79.7 Fibromyalgia; F32.9 Major depressive disorder, single episode, unspecified; K21.9 Gastro-esophageal reflux disease without esophagitis; K58.9 Irritable bowel syndrome, unspecified; F41.9 Anxiety disorder, unspecified; J30.2 Other seasonal allergic rhinitis; G47.30 Sleep apnea, unspecified; Z87.891 Personal history of nicotine dependence; Z79.891 Long term (current) use of opiate analgesic; Z79.899 Other long term (current) drug therapy; Z91.018 Allergy to other foods

== ENCOUNTER → 2021-02-18 | Outpatient (CLI) | payer OTHER, BC ==
--- NOTE | 2021-03-16 04:10 | ECWPNPC ---
PATIENT NAME: ROSANGELA CARUSO : 1960 GENDER: FEMALE VISIT DATE: 02/18/2021 DISCHARGE DATE: 02/18/21 1137 VISIT LOCKED DATE TIME: PHYSICIAN: SAMMIE MURILLO PHYSICIAN PAGER NO: ACTIVE RESOURCE: SAMMIE MURILLO REASON FOR APPOINTMENT 1. F/U HISTORY OF PRESENT ILLNESS GENERAL: 60-YEAR-OLD FEMALE IN FOR CHRONIC PAIN FOLLOW-UP. SHE RATES HER PAIN CURRENTLY AT A 7 OUT OF 10 AND DESCRIBES IT ACHING, AND THROBBING. SHE FEELS HER MEDICATIONS ARE HELPFUL AND DENIES MED SIDE EFFECTS AT THIS TIME. -. FALL RISK SCREENING: SCREENING : ONE FALL REPORTED IN THE LAST YEAR WITH INJURY. PAIN SCREENING: PATIENT HAS A COMPLAINT OF ACUTE OR CHRONIC PAIN :YES LOCATION OF PAIN:LOW BACK, RIGHT HIP INTENSITY OF PAIN (SCALE OF 1 TO 10):7 WHAT DOES YOUR PAIN FEEL LIKE:ACHING, THROBBING DURATION:CONTINOUS, CONSTANT PAIN IS INCREASED BY:ACTIVITIES PAIN IS DECREASED BY:USE OF PAIN MEDICATIONS NURSING NOTE: -. PAIN CENTER INTAKE QUESTIONS: DO YOU HAVE A HISTORY OF MRSA? :NO DO YOU TAKE A BLOOD THINNERS? :NO DO YOU HAVE ANY BLEEDING DISORDERS? :NO ANY NEW NUMBNESS OR WEAKNESS IN YOUR LEGS OR ARMS? :YES BILAT HANDS ANY PACEMAKER,DEFIBRILLATOR, OR DORSAL COLUMN STIMULATOR? :NO DO YOU HAVE ANY RASHES OR OPEN SORES? :NO ARE YOU ALLERGIC TO IV DYE? :NO ARE YOU DIABETIC? :NO ANY NEW PROBLEMS WITH YOUR MEDICATIONS? :NO HAVE YOU RECEIVED A VACCINE IN THE PAST 30 DAYS? :YES IF SO WHAT VACCINE AND WHEN? COVID VACCINE #1 2 1/2 WEEKS AGO DO YOU PLAN TO RECEIVE A VACCINE IN THE NEXT 21 DAYS? :YES IF SO WHAT VACCINE AND WHEN? COVID VACCINE #2 02/28/21 DO YOU NEED ANY PRESCRIPTION? :NO DO YOU TAKE ANY IMMUNOSUPPRESSIVE MEDICATIONS? :NO DO YOU HAVE ANY KIDNEY OR LIVER DISEASE? :NO IS THERE A CHANCE YOU COULD BE ? :NO ARE YOU BREAST FEEDING? :NO CURRENT MEDICATIONS TAKING ONDANSETRON HCL 4 MG TABLET 1 TABLET ORALLY THREE TIMES DAILY NEEDED, NOTES: NONE RECENT TAKING OMEPRAZOLE 40 MG CAPSULE DELAYED RELEASE 1 CAPSULE ORALLY TWICE DAILY NEEDED TAKING ZOLOFT 100 MG TABLET 2 TABLETS ORALLY ONCE A DAY TAKING KLONOPIN 1 MG TABLET 1 TABLET ORALLY BID NEEDED TAKING VITAMIN B-12 500 MCG TABLET 1 TABLET ORALLY ONCE A DAY TAKING CITRACAL PLUS - TABLET 1 TAB ORALLY TWICE DAILY TAKING MULTIVITAMIN ADULT - TABLET 1 TAB ORALLY DAILY TAKING PRAVASTATIN SODIUM 20 MG TABLET 1 TABLET ORALLY ONCE A DAY TAKING TOPAMAX 50 MG TABLET 1 TABLET ORALLY BID TAKING FISH OIL 1000 MG CAPSULE 1 CAPSULE ORALLY TWICE DAILY TAKING VITAMIN D (ERGOCALCIFEROL) 76737 UNIT CAPSULE 1 CAPSULE ORALLY WEEKLY TAKING TIZANIDINE HCL 4 MG TABLET 1 TABLET NEEDED ORALLY FOR SPASMS AND PAIN EVERY 8 HRS NEEDED (PAIN CLINIC) MDD3, NOTES: PM TAKING LYRICA 200 MG CAPSULE 1 CAPSULE ORALLY FOR PAIN BID MDD=2 TAKING HYDROCODONE-ACETAMINOPHEN 10-325 MG TABLET 1 TABLET NEEDED ORALLY Q8-12HR PRN SEVERE PAIN MDD2 NOT-TAKING NORCO 10-325 MG TABLET 1 TABLET ORALLY EVERY 8-12 HRS PRN PAIN MDD=2, NOTES: PM NOT-TAKING BIOTIN 69703 MCG TABLET DISINTEGRATING 1 CAPSULE ORALLY DAILY NOT-TAKING POTASSIUM 99 MG TABLET 1 TABLET ORALLY ONCE A DAY NOT-TAKING BACTRIM DS 800-160 MG TABLET 1 TABLET FOR YOUR CYSTOSCOPY TODAY ORALLY DIRECTED NOT-TAKING BACLOFEN 10 MG TABLET 1 TABLET WITH FOOD OR MILK ORALLY THREE TIMES A DAY NOT-TAKING POTASSIUM & MAGNESIUM ASPARTAT 250-250 MG CAPSULE 1 CAPSULE WITH A MEAL ORALLY ONCE A DAY NOT-TAKING BUSPIRONE HCL 15 MG TABLET 1 TABLET ORALLY TWICE A DAY NOT-TAKING GLIPIZIDE 10 MG TABLET 1/2 TABLET ORALLY ONCE A DAY, NOTES: ON HOLD NOT-TAKING GABAPENTIN 100 MG CAPSULE 1 CAPSULE ORALLY TID, NOTES: 1 MONTH PRESCRIPTION NOT-TAKING CHILDRENS CHEWABLE VITAMINS - TABLET CHEWABLE 2 TABLETS ORALLY DAILY NOT-TAKING LOSARTAN POTASSIUM 100 MG TABLET 1 TABLET ORALLY ONCE A DAY NOT-TAKING IBUPROFEN 800 MG TABLET 1 TABLET ORALLY WITH FOOD THREE TIMES A DAY PRN FOR PAIN MDD3 NOT-TAKING AMBIEN 5 MG TABLET 1 TAB(S) ORAL AT BEDTIME NEEDED (PECK) MEDICATION LIST REVIEWED AND RECONCILED WITH THE PATIENT PAST MEDICAL HISTORY FIBROMYALGIA CHRONIC BACK PAIN ICD-9 724.5 POSITIVE LYME TITER DEPRESSION ICD-9 311.0 SLEEP APNEA- NO LONGER USES CPAP ACID REFLUX ENVIROMENTAL ALLERGIES MIXED HYPERLIPIDEMA? IBS CHRONIC DRY EYES HISTORY OF FIBROIDS S/P HYSTERECTOMY ASCVD 10 YR RISK: 17 ANXIETY HEART MURMUR KIDNEY STONE/KIDNEY AND BLADDER INFECTION WITH SEPSIS OBESITY ALLERGIES SEASONAL: SINUS CONGESTION AND RUNNY NOSE - ALLERGY BANANAS: HIVES - ALLERGY SOCIAL HISTORY GENERAL: TOBACCO USE ARE YOU A:FORMER SMOKER HOW LONG HAS IT BEEN SINCE YOU LAST SMOKED?1-3 MONTHS E-CIGARETTENO SMOKING CESSATION INFORMATION GIVEN08/31/2020 LATEX QUESTIONNAIRE LATEX ALLERGY : HAVE YOU EVER DEVELOPED ANY TYPE OF REACTION AFTER HANDLING LATEX PRODUCTS SUCH RUBBER GLOVES, CONDOMS, DIAPHRAGMS, BALLOONS, SOCKS, OR UNDERWEAR?NO LATEX ALLERGY : HAVE YOU EVER DEVELOPED ANY TYPE OF REACTION DURING OR AFTER DENTAL APPOINTMENT, VAGINAL/RECTAL EXAMINATION, SURGICAL PROCEDURE, OR ANY OTHER EXPOSURE?NO DATE ASKED : 01/19/2021 LATEX RISK : HAVE YOU EVER HAD ANY DIFFICULTY BREATHING OR HIVES AFTER EATING OR HANDLING ANY FRUITS, OR VEGETABLES; SUCH KIWI, BANANAS, STONE FRUITS, OR CHESTNUTSYES - PLEASE INDICATE : BANANAS SOMETIMES CAUSES HIVES LATEX RISK : DO YOU HAVE A PREVIOUS PERSONAL HISTORY OF MORE THAN NINE SURGERIES, SPINA BIFIDA, OR REPEATED CATHERIZATIONS? NO LATEX RISK : ARE YOU FREQUENTLY EXPOSED TO LATEX PRODUCTS IN YOUR OCCUPATION?NO ALCOHOL USE: NO. BMI CARE GOAL FOLLOW-UP ABOVE NORMAL BMI FOLLOW-UPGIVING ENCOURAGEMENT TO EXERCISE ALCOHOL SCREENING DID YOU HAVE A DRINK CONTAINING ALCOHOL IN THE PAST YEAR?NO POINTS0 INTERPRETATIONNEGATIVE RECREATIONAL DRUG USE DRUG USE?NO CAFFEINE CAFFEINE USE?YES COFFEE 2 CUPS A DAY SEXUAL HX HAD SEX IN THE LAST 12 MONTHS (VAGINAL, ORAL, OR ANAL)?YES JEW [id number] YAZIDISM NO CHRISTIANITY BELIEFS THAT WOULD IMPACT HEALTH CARE. 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 DIET: REGULAR, INCREASED PROTEIN. EXERCISE: NO REGULAR EXERCISE. MARITAL STATUS: . OTHERS AT HOME: SPOUSE. - PFS REFERRAL NEEDED?NO HAS THE PATIENT BEEN EDUCATED REGARDING HIS/HER PLAN OF CARE?YES HAS THE PATIENT BEEN EDUCATED REGARDING PAIN, THE RISK FOR PAIN, THE IMPORTANCE OF EFFECTIVE PAIN MANAGEMENT, AND THE PAIN ASSESSMENT PROCESS?YES ADVANCE DIRECTIVE ADVANCE DIRECTIVE DISCUSSED WITH PATIENT:YES 11/16/19. PT STATES SHE HCP 1. EDUARDO PARTIDA [phone] 2. RADHA ISAAC [phone] REVIEW OF SYSTEMS CONSTITUTIONAL: ANY RECENT FEVER NO . CHILLS NO . WEIGHT CHANGE OF UNKNOWN REASONS NO . GASTROENTEROLOGY: NEW UNEXPLAINABLE CHANGES IN BOWEL CONTROL NO . CONSTIPATION NO . GENITOURINARY: ANY NEW CHANGE IN BLADDER CONTROL? NO . NEUROLOGY: NEW ONSET DIZZINESS OR NEUROLOGICAL CHANGES NOT MENTIONED NO . NEW NUMBNESS OR PAIN PATTERNS NOT MENTIONED AND PERTINENT TO TODAY'S VISIT NO . CARDIOLOGY: NEW CHEST PRESSURE NO . PATIENT DENIES NO . RESPIRATORY: UNEXPLAINABLE COUGH NO . NEW SHORTNESS OF BREATH NO . VITAL SIGNS WT 113.6 LBS, HT 61 IN, BMI 21.46 INDEX, BP 123/75 MM HG, HR 92 /MIN, RR 16 /MIN, TEMP 96.9 F, OXYGEN SAT % 99%, SAFE IN ENV? (Y/N) Y, NA INITIALS SC 11:14, REVIEWED BY: JE. EXAMINATION GENERAL EXAMINATION: GENERALNO ACUTE DISTRESS, WELL NOURISHED AND HYDRATED. PSYCHAPPROPRIATE MOOD AND AFFECT . LUNGS:CLEAR TO AUSCULTATION BILATERALLY, NO WHEEZES, RHONCHI, RALES. HEART:NO MURMURS, REGULAR RATE AND RHYTHM. ASSESSMENTS TROCHANTERIC BURSITIS, RIGHT HIP - M70.61 (PRIMARY) TREATMENT TROCHANTERIC BURSITIS, RIGHT HIP NOTES: 60-YEAR-OLD FEMALE IN FOR CHRONIC PAIN FOLLOW-UP. GIVEN PRESENTING SYMPTOMS RECOMMEND FOLLOW-UP IN ONE MONTH. PATIENT HAS EXPRESSED UNDERSTANDING OF AND WAS IN AGREEMENT WITH TREATMENT PLAN. GIVEN TIME TO ASK QUESTIONS AND EXPRESS CONCERNS. , ISTOP REGISTRY REVIEWED AND DEMONSTRATES COMPLLIANCE. (REF # ) BRINGS IN MEDICATIONS WHICH IS APPROPRIATE FOR WHAT WAS DISPENSED. RECENT URINE TOXICOLOGY REVIEWED. NO UNAUTHORIZED MEDICATIONS. NO ILLICIT SUBSTANCES AND PRESCRIBED MEDICATIONS WERE PRESENT. PROCEDURE CODES FA211 ESTABILISHED PATIENT [facility] CHARGE DISPOSITION & COMMUNICATION FOLLOW UP 4 WEEKS (REASON: HIP PAIN) ELECTRONICALLY SIGNED BY FINA MEYER ON 03/15/2021 AT 08:32 AM EDT DISCLAIMER : THIS IS A VISIT SUMMARY EXTRACTED FROM THE [employer] CHART. IT IS NOT A COPY OF THE [employer] PROGRESS NOTE. ROVERTO
== END ==
LOC: M PAIN 10:45
PROVIDERS: ATTEND Family Medicine
DX: M70.61 Trochanteric bursitis, right hip (principal); M79.7 Fibromyalgia; F32.9 Major depressive disorder, single episode, unspecified; K21.9 Gastro-esophageal reflux disease without esophagitis; K58.9 Irritable bowel syndrome, unspecified; F41.9 Anxiety disorder, unspecified; M54.5 Low back pain; Z87.891 Personal history of nicotine dependence; J30.9 Allergic rhinitis, unspecified

== ENCOUNTER → 2021-03-04 | Outpatient (CLI) | payer BC ==
[2021-03-04 11:35] LABS: HEMATOCRIT 39.4 % (36.0-47.0); HEMOGLOBIN 12.7 g/dl (12.0-15.5); MEAN CORPUSCULAR HEMOGLOBIN 29.5 pg (27.0-33.0); MEAN CORPUSCULAR HGB CONC 32.2 g/dl (32.0-36.5); MEAN CORPUSCULAR VOLUME 91.4 fl (80.0-96.0); PLATELET COUNT, AUTOMATED 167 10^3/uL (150-450); RED BLOOD COUNT 4.31 10^6/uL (4.00-5.40); WHITE BLOOD COUNT 3.8 10^3/uL (4.0-10.0)
--- NOTE | 2021-03-04 11:46 | REP ---
INDICATION: SUPERIOR GLENOID LABRUM RIGHT SHOULDER- LABS FIRST COMPARISON: CT dated 08/25/2019 TECHNIQUE: AP, lateral, and swimmers views. FINDINGS: Alignment and kyphosis is maintained. Vertebral bodies intact. No acute fracture / compression injury or subluxation. Stable mild degenerative changes include endplate sclerosis with marginal spurring and minimal disc space narrowing at multiple thoracic level similar to prior CT. IMPRESSION: Mild degenerative changes similar to prior CT dated 2018. <Electronically signed by Tate Pascual > 03/04/21 114
--- NOTE | 2021-03-04 11:47 | REP ---
INDICATION: SUPERIOR GLENOID LABRUM RIGHT SHOULDER- LABS FIRST. COMPARISON: None. TECHNIQUE: AP, lateral, flexion/extension, bilateral oblique, and open-mouth views of the cervical spine. FINDINGS: Advanced multilevel degenerative changes include endplate sclerosis/heterogeneity, disc space narrowing, osteophytosis and hypertrophic facet changes primarily involving C3-4 through C7-T1. IMPRESSION: Advanced multilevel degenerative spondylosis. <Electronically signed by Tate Pascual > 03/04/21 1142
[2021-03-04 12:00] LABS: HEMOGLOBIN A1c 5.7 %
[2021-03-04 12:18] LABS: ALBUMIN 3.7 GM/DL (3.2-5.2); ALT/SGPT 49 U/L (12-78); BILIRUBIN,TOTAL 0.3 MG/DL (0.2-1.0); BLOOD UREA NITROGEN 16 MG/DL (7-18); CALCIUM LEVEL 9.8 MG/DL (8.5-10.1); CARBON DIOXIDE LEVEL 28 MEQ/L (21-32); CHLORIDE LEVEL 108 MEQ/L (98-107); CHOLESTEROL LEVEL 210 MG/DL (<200); CREATININE FOR GFR 0.65 MG/DL (0.55-1.30); GLOMERULAR FILTRATION RATE > 60.0 (>51); GLUCOSE, FASTING 105 MG/DL (70-100); HDL CHOLESTEROL 84 MG/DL (>40); LDL CHOLESTEROL 110 MG/DL (<100); NON-HDL-C 126 MG/DL; POTASSIUM SERUM 4.2 MEQ/L (3.5-5.1); SODIUM LEVEL 140 MEQ/L (136-145); THYROID STIMULATING HORMONE 0.394 uIU/ML (0.358-3.740); TOTAL 25(OH) VITAMIN D 47.8 NG/ML (30.0-100.0); TRIGLYCERIDES LEVEL 81 MG/DL (<150)
== END ==
LOC: M LAB 10:43
PROVIDERS: ATTEND Family Medicine
DX: D64.9 Anemia, unspecified (principal); R53.83 Other fatigue; M19.90 Unspecified osteoarthritis, unspecified site; K27.9 Peptic ulcer, site unspecified, unspecified as acute or chronic, without hemorrhage or perforation; M51.34 Other intervertebral disc degeneration, thoracic region; M25.78 Osteophyte, vertebrae; M47.812 Spondylosis without myelopathy or radiculopathy, cervical region

== ENCOUNTER → 2021-03-18 | Outpatient (CLI) | payer OTHER, BC ==
--- NOTE | 2021-03-22 05:57 | ECWPNPC ---
PATIENT NAME: ROSANGELA CARUSO : 1960 GENDER: FEMALE VISIT DATE: 03/18/2021 DISCHARGE DATE: 03/18/21 1159 VISIT LOCKED DATE TIME: PHYSICIAN: SAMMIE MURILLO PHYSICIAN PAGER NO: ACTIVE RESOURCE: SAMMIE MURILLO REASON FOR APPOINTMENT 1. HIP PAIN HISTORY OF PRESENT ILLNESS FALL RISK SCREENIN-YEAR-OLD FEMALE IN FOR CHRONIC PAIN FOLLOW-UP. SHE RATES HER PAIN CURRENTLY AT A 4 OUT OF 10 AND IS RATED ACHING, BURNING, AND THROBBING. SHE FEELS THE MEDICATIONS ARE HELPFUL AND DENIES MED SIDE EFFECTS AT THIS TIME. PATIENT DOES ADMIT TO RECEIVING HER SECOND VACCINATION ON FEBRUARY 28 SHE FURTHER ADMITS TO A UPCOMING SURGERY. SCREENING ONE FALL REPORTED IN THE LAST YEAR WITH INJURY. PATIENT DID NOT SEEK IMMEDIATE MEDICAL TREATMENT.. PAIN SCREENING: PATIENT HAS A COMPLAINT OF ACUTE OR CHRONIC PAIN :YES LOCATION OF PAIN:RIGHT HIP INTENSITY OF PAIN (SCALE OF 1 TO 10):4 WHAT DOES YOUR PAIN FEEL LIKE:ACHING, BURNING, THROBBING, OTHER PINCHING DURATION:CONTINOUS, AWAKENS FROM SLEEP SHOOTING PAIN WHEN LAYING DOWN, WALKING PAIN IS INCREASED BY:ACTIVITIES, PROLONGED STANDING PAIN IS DECREASED BY:USE OF PAIN MEDICATIONS, SITTING VICODEN HELPS THE PAIN IN BACK BUT NOT THE HIP NURSING NOTE: -. PAIN CENTER INTAKE QUESTIONS: DO YOU HAVE A HISTORY OF MRSA? :NO DO YOU TAKE A BLOOD THINNERS? :NO DO YOU HAVE ANY BLEEDING DISORDERS? :NO ANY NEW NUMBNESS OR WEAKNESS IN YOUR LEGS OR ARMS? :YES BILAT HANDS ANY PACEMAKER,DEFIBRILLATOR, OR DORSAL COLUMN STIMULATOR? :NO DO YOU HAVE ANY RASHES OR OPEN SORES? :NO ARE YOU ALLERGIC TO IV DYE? :NO ARE YOU DIABETIC? :NO ANY NEW PROBLEMS WITH YOUR MEDICATIONS? :NO HAVE YOU RECEIVED A VACCINE IN THE PAST 30 DAYS? :YES IF SO WHAT VACCINE AND WHEN? SECOND COVID VACCINE 02/28/2021 DO YOU PLAN TO RECEIVE A VACCINE IN THE NEXT 21 DAYS? :NO DO YOU NEED ANY PRESCRIPTION? :NO DO YOU TAKE ANY IMMUNOSUPPRESSIVE MEDICATIONS? :NO DO YOU HAVE ANY KIDNEY OR LIVER DISEASE? :NO IS THERE A CHANCE YOU COULD BE ? :NO ARE YOU BREAST FEEDING? :NO CURRENT MEDICATIONS TAKING ONDANSETRON HCL 4 MG TABLET 1 TABLET ORALLY THREE TIMES DAILY NEEDED, NOTES: NONE RECENT TAKING OMEPRAZOLE 40 MG CAPSULE DELAYED RELEASE 1 CAPSULE ORALLY TWICE DAILY NEEDED TAKING ZOLOFT 100 MG TABLET 2 TABLETS ORALLY ONCE A DAY TAKING KLONOPIN 1 MG TABLET 1 TABLET ORALLY BID NEEDED TAKING VITAMIN B-12 500 MCG TABLET 1 TABLET ORALLY ONCE A DAY TAKING CITRACAL PLUS - TABLET 1 TAB ORALLY TWICE DAILY TAKING MULTIVITAMIN ADULT - TABLET 1 TAB ORALLY DAILY TAKING PRAVASTATIN SODIUM 20 MG TABLET 1 TABLET ORALLY ONCE A DAY TAKING TOPAMAX 50 MG TABLET 1 TABLET ORALLY BID TAKING FISH OIL 1000 MG CAPSULE 1 CAPSULE ORALLY TWICE DAILY TAKING VITAMIN D (ERGOCALCIFEROL) 78734 UNIT CAPSULE 1 CAPSULE ORALLY WEEKLY TAKING LYRICA 200 MG CAPSULE 1 CAPSULE ORALLY FOR PAIN BID MDD=2 TAKING TIZANIDINE HCL 4 MG TABLET 1 TABLET NEEDED ORALLY FOR SPASMS AND PAIN EVERY 8 HRS NEEDED (PAIN CLINIC) MDD3, NOTES: PM TAKING HYDROCODONE-ACETAMINOPHEN 10-325 MG TABLET 1 TABLET NEEDED ORALLY Q8-12HR PRN SEVERE PAIN MDD2 NOT-TAKING NORCO 10-325 MG TABLET 1 TABLET ORALLY EVERY 8-12 HRS PRN PAIN MDD=2, NOTES: PM NOT-TAKING BIOTIN 92903 MCG TABLET DISINTEGRATING 1 CAPSULE ORALLY DAILY NOT-TAKING POTASSIUM 99 MG TABLET 1 TABLET ORALLY ONCE A DAY NOT-TAKING BACTRIM DS 800-160 MG TABLET 1 TABLET FOR YOUR CYSTOSCOPY TODAY ORALLY DIRECTED NOT-TAKING BACLOFEN 10 MG TABLET 1 TABLET WITH FOOD OR MILK ORALLY THREE TIMES A DAY NOT-TAKING POTASSIUM & MAGNESIUM ASPARTAT 250-250 MG CAPSULE 1 CAPSULE WITH A MEAL ORALLY ONCE A DAY NOT-TAKING BUSPIRONE HCL 15 MG TABLET 1 TABLET ORALLY TWICE A DAY NOT-TAKING GLIPIZIDE 10 MG TABLET 1/2 TABLET ORALLY ONCE A DAY, NOTES: ON HOLD NOT-TAKING GABAPENTIN 100 MG CAPSULE 1 CAPSULE ORALLY TID, NOTES: 1 MONTH PRESCRIPTION NOT-TAKING CHILDRENS CHEWABLE VITAMINS - TABLET CHEWABLE 2 TABLETS ORALLY DAILY NOT-TAKING LOSARTAN POTASSIUM 100 MG TABLET 1 TABLET ORALLY ONCE A DAY NOT-TAKING IBUPROFEN 800 MG TABLET 1 TABLET ORALLY WITH FOOD THREE TIMES A DAY PRN FOR PAIN MDD3 NOT-TAKING AMBIEN 5 MG TABLET 1 TAB(S) ORAL AT BEDTIME NEEDED (PECK) MEDICATION LIST REVIEWED AND RECONCILED WITH THE PATIENT PAST MEDICAL HISTORY FIBROMYALGIA CHRONIC BACK PAIN ICD-9 724.5 POSITIVE LYME TITER DEPRESSION ICD-9 311.0 SLEEP APNEA- NO LONGER USES CPAP ACID REFLUX ENVIROMENTAL ALLERGIES MIXED HYPERLIPIDEMA? IBS CHRONIC DRY EYES HISTORY OF FIBROIDS S/P HYSTERECTOMY ASCVD 10 YR RISK: 17 ANXIETY HEART MURMUR KIDNEY STONE/KIDNEY AND BLADDER INFECTION WITH SEPSIS OBESITY ALLERGIES SEASONAL: SINUS CONGESTION AND RUNNY NOSE - ALLERGY BANANAS: HIVES - ALLERGY SOCIAL HISTORY GENERAL: TOBACCO USE ARE YOU A:FORMER SMOKER HOW LONG HAS IT BEEN SINCE YOU LAST SMOKED?1-3 MONTHS E-CIGARETTENO SMOKING CESSATION INFORMATION GIVEN08/31/2020 LATEX QUESTIONNAIRE LATEX ALLERGY : HAVE YOU EVER DEVELOPED ANY TYPE OF REACTION AFTER HANDLING LATEX PRODUCTS SUCH RUBBER GLOVES, CONDOMS, DIAPHRAGMS, BALLOONS, SOCKS, OR UNDERWEAR?NO LATEX ALLERGY : HAVE YOU EVER DEVELOPED ANY TYPE OF REACTION DURING OR AFTER DENTAL APPOINTMENT, VAGINAL/RECTAL EXAMINATION, SURGICAL PROCEDURE, OR ANY OTHER EXPOSURE?NO LATEX RISK : HAVE YOU EVER HAD ANY DIFFICULTY BREATHING OR HIVES AFTER EATING OR HANDLING ANY FRUITS, OR VEGETABLES; SUCH KIWI, BANANAS, STONE FRUITS, OR CHESTNUTSYES - PLEASE INDICATE : BANANAS SOMETIMES CAUSES HIVES LATEX RISK : DO YOU HAVE A PREVIOUS PERSONAL HISTORY OF MORE THAN NINE SURGERIES, SPINA BIFIDA, OR REPEATED CATHERIZATIONS? NO LATEX RISK : ARE YOU FREQUENTLY EXPOSED TO LATEX PRODUCTS IN YOUR OCCUPATION?NO DATE ASKED : 03/18/2021 ALCOHOL USE: NO. BMI CARE GOAL FOLLOW-UP ABOVE NORMAL BMI FOLLOW-UPGIVING ENCOURAGEMENT TO EXERCISE ALCOHOL SCREENING DID YOU HAVE A DRINK CONTAINING ALCOHOL IN THE PAST YEAR?NO POINTS0 INTERPRETATIONNEGATIVE RECREATIONAL DRUG USE DRUG USE?NO CAFFEINE CAFFEINE USE?YES COFFEE 2 CUPS A DAY SEXUAL HX HAD SEX IN THE LAST 12 MONTHS (VAGINAL, ORAL, OR ANAL)?YES [employer] [id number] BUDDHIST NO CATHOLIC BELIEFS THAT WOULD IMPACT HEALTH CARE. 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 DIET: REGULAR, INCREASED PROTEIN. EXERCISE: NO REGULAR EXERCISE. MARITAL STATUS: . OTHERS AT HOME: SPOUSE. - PFS REFERRAL NEEDED?NO HAS THE PATIENT BEEN EDUCATED REGARDING HIS/HER PLAN OF CARE?YES HAS THE PATIENT BEEN EDUCATED REGARDING PAIN, THE RISK FOR PAIN, THE IMPORTANCE OF EFFECTIVE PAIN MANAGEMENT, AND THE PAIN ASSESSMENT PROCESS?YES ADVANCE DIRECTIVE ADVANCE DIRECTIVE DISCUSSED WITH PATIENT:YES 11/16/19. PT STATES SHE HCP 1. EDUARDO PARTIDA [phone] 2. RADHA ISAAC [phone] REVIEW OF SYSTEMS CONSTITUTIONAL: ANY RECENT FEVER NO . CHILLS NO . WEIGHT CHANGE OF UNKNOWN REASONS NO . GASTROENTEROLOGY: NEW UNEXPLAINABLE CHANGES IN BOWEL CONTROL NO . CONSTIPATION NO . GENITOURINARY: ANY NEW CHANGE IN BLADDER CONTROL? NO . NEUROLOGY: NEW ONSET DIZZINESS OR NEUROLOGICAL CHANGES NOT MENTIONED NO . NEW NUMBNESS OR PAIN PATTERNS NOT MENTIONED AND PERTINENT TO TODAY'S VISIT NO . CARDIOLOGY: NEW CHEST PRESSURE NO . PATIENT DENIES NO . RESPIRATORY: UNEXPLAINABLE COUGH NO . NEW SHORTNESS OF BREATH NO . VITAL SIGNS WT 120.6 LBS, HT 61 IN, BMI 22.78 INDEX, BP 115/67 MM HG, HR 91 /MIN, RR 18 /MIN, TEMP 97.6 F, OXYGEN SAT % 99%, SAFE IN ENV? (Y/N) YES, NA INITIALS SC 11:21, REVIEWED BY: YOCASTA ALONZO MA. EXAMINATION GENERAL EXAMINATION: GENERALNO ACUTE DISTRESS, WELL NOURISHED AND HYDRATED. PSYCHAPPROPRIATE MOOD AND AFFECT . LUNGS:CLEAR TO AUSCULTATION BILATERALLY, NO WHEEZES, RHONCHI, RALES. HEART:NO MURMURS, REGULAR RATE AND RHYTHM. ASSESSMENTS TROCHANTERIC BURSITIS, RIGHT HIP - M70.61 (PRIMARY) USE OF OPIATES FOR THERAPEUTIC PURPOSES - Z79.891, RISK: (NULL) TREATMENT TROCHANTERIC BURSITIS, RIGHT HIP NOTES: 52-YEAR-OLD FEMALE IN FOR CHRONIC PAIN FOLLOW-UP. GIVEN PRESENTING SYMPTOMS RECOMMEND CONTINUATION OF CURRENT MEDICATION REGIMEN WITH FOLLOW-UP IN 3 MONTHS. PATIENT HAS EXPRESSED UNDERSTANDING OF AND WAS IN AGREEMENT WITH TREATMENT PLAN. GIVEN TIME TO ASK QUESTIONS AND EXPRESS CONCERNS. ISTOP REGISTRY REVIEWED AND DEMONSTRATES COMPLLIANCE. (REF # ) BRINGS IN MEDICATIONS WHICH IS APPROPRIATE FOR WHAT WAS DISPENSED. RECENT URINE TOXICOLOGY REVIEWED. NO UNAUTHORIZED MEDICATIONS. NO ILLICIT SUBSTANCES AND PRESCRIBED MEDICATIONS WERE PRESENT. USE OF OPIATES FOR THERAPEUTIC PURPOSES LAB: URINE TEST GROUP SREEDHAR ALONZO 03/18/2021 11:55:04 AM > LAST DOSE: HYDROCODONE 03/17/2021 AT 2000 PROCEDURE CODES FA211 ESTABILISHED PATIENT [facility] CHARGE DISPOSITION & COMMUNICATION FOLLOW UP 3 MONTHS (REASON: HIP PAIN ) ELECTRONICALLY SIGNED BY FINA MEYER ON 03/21/2021 AT 12:25 PM EDT DISCLAIMER : THIS IS A VISIT SUMMARY EXTRACTED FROM THE [facility] CH[facility]. IT IS NOT A COPY OF THE [employer] PROGRESS NOTE. ROVERTO
== END ==
LOC: M PAIN 11:00
PROVIDERS: ATTEND Family Medicine
DX: G89.29 Other chronic pain (principal); M70.61 Trochanteric bursitis, right hip; M79.7 Fibromyalgia; K21.9 Gastro-esophageal reflux disease without esophagitis; F32.9 Major depressive disorder, single episode, unspecified; G47.30 Sleep apnea, unspecified; K58.9 Irritable bowel syndrome, unspecified; F41.9 Anxiety disorder, unspecified; E66.9 Obesity, unspecified; J30.9 Allergic rhinitis, unspecified; Z79.891 Long term (current) use of opiate analgesic; Z87.891 Personal history of nicotine dependence; Z91.018 Allergy to other foods; Z79.899 Other long term (current) drug therapy

== ENCOUNTER → 2021-04-20 | Outpatient (CLI) | payer BC ==
--- NOTE | 2021-04-20 08:07 | REP ---
INDICATION: HTN- LABS AND EKG FIRST COMPARISON: 01/02/2020 TECHNIQUE: PA and lateral. FINDINGS: The mediastinum and cardiac silhouette are normal. The lung wen are clear and without acute consolidation, effusion, or pneumothorax. The skeletal structures are intact and normal. IMPRESSION: No acute cardiopulmonary process. <Electronically signed by Tate Pascual > 04/20/21 0804
[2021-04-20 08:39] LABS: HEMATOCRIT 38.5 % (36.0-47.0); HEMOGLOBIN 12.4 g/dl (12.0-15.5); MEAN CORPUSCULAR HEMOGLOBIN 29.7 pg (27.0-33.0); MEAN CORPUSCULAR HGB CONC 32.2 g/dl (32.0-36.5); MEAN CORPUSCULAR VOLUME 92.1 fl (80.0-96.0); PLATELET COUNT, AUTOMATED 185 10^3/uL (150-450); RED BLOOD COUNT 4.18 10^6/uL (4.00-5.40); WHITE BLOOD COUNT 4.2 10^3/uL (4.0-10.0)
[2021-04-20 08:40] LABS: INR 0.89; PROTHROMBIN TIME 12.2 SECONDS (12.5-14.3)
[2021-04-20 09:01] LABS: ALBUMIN 4.1 GM/DL (3.2-5.2); ALT/SGPT 39 U/L (12-78); BILIRUBIN,TOTAL 0.3 MG/DL (0.2-1.0); BLOOD UREA NITROGEN 24 MG/DL (7-18); CALCIUM LEVEL 9.2 MG/DL (8.5-10.1); CARBON DIOXIDE LEVEL 27 MEQ/L (21-32); CHLORIDE LEVEL 109 MEQ/L (98-107); CHOLESTEROL LEVEL 219 MG/DL (<200); CHOLESTEROL RISK RATIO 2.517 (<5); CREATININE FOR GFR 0.72 MG/DL (0.55-1.30); GLOMERULAR FILTRATION RATE > 60.0 (>51); GLUCOSE, FASTING 79 MG/DL (70-100); HDL CHOLESTEROL 87 MG/DL (>40); LDL CHOLESTEROL 113 MG/DL (<100); NON-HDL-C 132 MG/DL; POTASSIUM SERUM 3.6 MEQ/L (3.5-5.1); SODIUM LEVEL 142 MEQ/L (136-145); TRIGLYCERIDES LEVEL 93 MG/DL (<150)
[2021-04-20 11:19] LABS: HEMOGLOBIN A1c 5.5 %
--- NOTE | 2021-04-21 06:00 | ECGEPIP ---
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
== END ==
LOC: M LAB 07:02
PROVIDERS: ATTEND Family Medicine
DX: I10 Essential (primary) hypertension (principal)

== ENCOUNTER → 2021-04-30 | Outpatient (CLI) | payer OTHER, BC ==
[~2021-04-30] MED LIST changes: +ERGO500029 PO; +OMEP10CASR PO
== END ==
LOC: M LABSMTC 11:12
PROVIDERS: ATTEND Anesthesiology
DX: Z01.818 Encounter for other preprocedural examination (principal); Z11.52 Encounter for screening for COVID-19

== ENCOUNTER 2021-05-05 08:48 | Day surgery (SDC) | payer BC ==
[~2021-05-05] VITALS: Ht 152.4 cm; Wt 53.1 kg
[~2021-05-05 08:48] MED LIST changes: +LIDOCAINE 1% MDV 20ML VIAL SQ PRN; +LR 1,000 ML IV ONE; +ceFAZolin SOD 1 GM in D5W MINI-BAG PLUS 50 ML IV ONE
[2021-05-05] MEDS ORDERED: BUPIVACAINE LIPOSOME/PF 1.3% 20ML VIAL (13.3MG/ML)(EXPAREL)(C9290 PER1MG) As Ordered ONE (12:15)
[2021-05-05] MEDS ORDERED: ceFAZolin 1GM VIAL (J0690 PER 500MG) As Ordered ONE (12:55)
[2021-05-05] MEDS ORDERED: MIDAZOLAM INJ 2MG/2ML VIAL (J2250 PER 1MG) As Ordered ONE (12:58)
[2021-05-05] MEDS ORDERED: fentaNYL 100 MCG/2 ML INJECTION (J3010) As Ordered ONE (12:58)
[2021-05-05] MEDS ORDERED: HYDROmorphone HCL 2 MG/ML 1ML VIAL (J1170) As Ordered ONE (12:58)
[2021-05-05] MEDS ORDERED: LIDOCAINE 2% 100MG/5ML SDV (FOR ANES.) As Ordered ONE (12:58)
[2021-05-05] MEDS ORDERED: SUGAMMADEX SODIUM 500 MG/5 ML VIAL (BRIDION) As Ordered ONE (12:58)
[2021-05-05] MEDS ORDERED: ONDANSETRON 4MG/2ML VIAL As Ordered ONE (12:58)
[2021-05-05] MEDS ORDERED: ROCURONIUM BROMIDE 50 MG/5 ML VIAL As Ordered ONE ×2 (12:58→13:21)
[2021-05-05] MEDS ORDERED: propofoL 200 MG/20 ML VIAL As Ordered ONE (12:58)
[2021-05-05] MEDS ORDERED: ACETAMINOPHEN 1000MG 100ML IV BTL (OFIRMEV) (J0131 PER 10MG) As Ordered ONE (12:58)
[2021-05-05] MEDS ORDERED: dexameTHASONE 4 MG/ML 1ML VIAL (J1100 PER 1MG) As Ordered ONE (12:58)
--- NOTE | 2021-05-05 15:19 | POST-OPPD ---
Postoperative Procedure Note Date Of Procedure: May 05, 2021 PREOPERATIVE DIAGNOSIS: Panniculitis POSTOPERATIVE DIAGNOSIS: same FINDINGS: pannus, multiple scars abdominal wall PROCEDURE: Extended panniculectomy with rectus muscle plication. SURGEON: Dr Mijares ANESTHESIA: General SPECIMENS: Pannus 863 gm ESTIMATED BLOOD LOSS: 50 cc REPLACED: none DRAINS: 10 mm x 2 COMPLICATIONS: none POSTOPERATIVE CONDITION: stable ZAKIA MIJARES DO May 05, 2021 15:19
--- NOTE | 2021-05-05 15:19 | ROOPDOC ---
[facility] Report Of Operation Report of Operation DATE OF PROCEDURE: 05/05/21 PREOPERATIVE DIAGNOSIS: Panniculitis POSTOPERATIVE DIAGNOSIS: same FINDINGS: pannus, multiple scars abdominal wall PROCEDURE: Extended panniculectomy with rectus muscle plication. SURGEON: Dr Mijares ANESTHESIA: General SPECIMENS: Pannus 863 gm ESTIMATED BLOOD LOSS: 50 cc REPLACED: none DRAINS: 10 mm x 2 COMPLICATIONS: none POSTOPERATIVE CONDITION: stable Procedure: This is a 61-year-old female status post significant weight loss. Patient has excessive pannus above and mostly below the umbilicus with large mons pubis ptosis. Patient is scheduled for extended panniculectomy with possible rectus muscle plication. Risks benefits and alternatives discussed with the patient in details. Informed consent confirmed and preoperative holding area. Patient was marked in upright position. She was brought into the operating room, placed in supine position, preoperative antibiotics given, sequential stockings placed in the lower calves, and then general anesthesia is induced. Carmen catheter introduced in the bladder without any difficulties with yellow clear urine present. She was prepped and draped in the usual sterile fashion. Lower abdominal incision was designed 7 cm above the labial crease. Incision carried out with 10 blade. Careful sharp dissection with electrocautery and peek cautery was done until the fascia of rectus muscle is identified. Vessels were identified throughout and either cauterized or suture ligated for hemostasis control. Significant scarring was encountered at the lower mid abdominal area status post total abdominal hysterectomy surgery. Fascia completely intact. Infraumbilical flap was divided in the middle to aid the dissection. We continued our dissection until umbilicus was encountered. Rhomboid incision made around the umbilicus and dissection continued to xiphoid process superiorly. Rectus muscle was evaluated and it hasn't moderate weakness. 5 cm diathesis identified. Rectus muscle was plicated with interrupted 0 Vicryl sutures followed by #1 PDS barbed suture. Then rectus muscle field block done with Exparel 10 cc. Wound is irrigated with normal saline. Areal of undermining was sprayed with aerosol Tissel for additional hemostasis control. Patient placed on placed in the reflex position and excess tissue was measured and scored. Then it was resected using electrocautery. Total weight of the pannus 863 g. Careful hemostasis was assured. Skin flaps were realigned and was started all closure with deep sutures of 0 Vicryl realigning the mons pubis and closing the lower abdominal incision. 3 mL Monocryl V lock suture used for subcutaneous closure followed by 3-0 Monocryl interrupted sutures as well. Two 10 mm Raad-Smart drains were placed throughout lower abdominal incision. New opening was created for the umbilical stump using electrocautery. The umbilicus was brought into view and sutured in place with interrupted 3-Monocryl sutures and 5-0 plain gut sutures . Remaining Exparel given into lower abdominal incision, totaling 20 cc for the procedure. Prinio dressing applied to lower abdominal incision, Xeroform to umbilicus, and bulky dressing throughout. Abdominal binder applied. Patient extubated in the operating room without any difficulties and transferred to recovery room in stable condition. ZAKIA MIJARES DO May 05, 2021 15:19
[2021-05-05] MEDS ORDERED: KETOROLAC TROMETHAMINE 10 MG TAB PO PRN (15:20)
[2021-05-05] MEDS ORDERED: ONDANSETRON 4MG/2ML VIAL IV PRN ×2 (15:20→15:30)
[2021-05-05] MEDS ORDERED: PERCOCET 5MG/325MG TAB PO PRN (15:30)
[2021-05-05] MEDS ORDERED: fentaNYL 100 MCG/2 ML INJECTION (J3010) IV PRN (15:30)
[2021-05-05] MEDS ORDERED: LR 1,000 ML IV SCH ×2 (15:30→16:00)
[2021-05-05] MEDS ORDERED: METOCLOPRAMIDE INJ 10MG/2ML VIAL (J2765 PER 1) IV PRN (15:30)
[2021-05-05] MEDS: HYDROMORPHONE HCL 0.5 MG/ 0.5 ML SYRINGE (J1170 PER 1) IV PRN ×3 (15:47→16:13)
[2021-05-05] MEDS ORDERED: DICYCLOMINE 10 MG CAP PO PRN (16:00)
[2021-05-05 16:30] VITALS: BP 90/56
[2021-05-05 17:00] VITALS: BP 97/53
[2021-05-05] MEDS ORDERED: VITMTA PO (17:04)
[2021-05-05] MEDS ORDERED: TOPI50TA9 PO (17:04)
[2021-05-05] MEDS ORDERED: REST0.05 OU (17:04)
[2021-05-05] MEDS ORDERED: OMEP1CAP73 PO (17:04)
[2021-05-05] MEDS ORDERED: MIRT1TAB PO (17:04)
[2021-05-05] MEDS ORDERED: DICY10CA13 PO (17:04)
[2021-05-05] MEDS ORDERED: BENA25CA4 PO (17:04)
[2021-05-05] MEDS ORDERED: BUSP10TA PO (17:04)
[2021-05-05] MEDS ORDERED: OMEG10002 PO (17:04)
[2021-05-05] MEDS ORDERED: [UNRECOGNIZED DRUG - CODE] OU (17:04)
[2021-05-05 18:00] VITALS: BP 98/54
[2021-05-05] MEDS: PRAVASTATIN 20 MG TAB PO SCH (18:39)
[2021-05-05] MEDS: tiZANidine 4 MG TAB PO PRN (18:39)
[2021-05-05] MEDS: SERTRALINE HCL 50 MG TAB PO SCH (18:39)
[2021-05-05 18:45] VITALS: BP 98/54
[2021-05-05] MEDS: clonazePAM 1 MG TAB PO SCH (20:19)
[2021-05-05] MEDS: ceFAZolin SOD 1 GM in D5W MINI-BAG PLUS 50 ML IV SCH (20:19)
[2021-05-05] MEDS: PERCOCET 5MG/325MG TAB PO PRN (20:20)
[2021-05-05 22:00] VITALS: BP 92/46
[2021-05-05] MEDS ORDERED: MORPHINE 4 MG/ML 1ML VIAL/SYRINGE (J2270) IV PRN (22:00)
[2021-05-05] MEDS ORDERED: NS 500 ML IV ONE ×2 (22:15→22:20)
[2021-05-06] MEDS: PERCOCET 5MG/325MG TAB PO PRN ×2 (00:41→05:45)
[2021-05-06 02:00] VITALS: BP 92/49
[2021-05-06] MEDS: ceFAZolin SOD 1 GM in D5W MINI-BAG PLUS 50 ML IV SCH ×3 (05:45→20:20)
[2021-05-06 06:00] VITALS: BP 107/65
[2021-05-06] MEDS ORDERED: oxyCODONE 5MG TAB PO PRN (07:40)
--- NOTE | 2021-05-06 07:57 | IPNPDOC ---
Subjective General Date Seen: May 06, 2021 Subject Chief Complaint/History The patient is a 61-year-old female admitted with a reason for visit of Panniculitis. Patient status post extended panniculectomy with rectus muscle plication postop day one. She is feeling better this morning, Carmen catheter discharge. Able to urinate. Pain controlled with multiple pain medications. Unable to freely move around yet. Current Medications Current Medications Current Medications Medications (Trade) Dose Ordered Sig/Felton Route PRN Reason Start Time Stop Time Status Last Admin Dose Admin Acetaminophen (Tylenol Tab) 650 mg Q6H PRN PO MILD PAIN (PS 1-4) 05/05/21 15:20 Cefazolin Sodium 1 gm/Dextrose 50 ml @ 100 mls/hr Q8H IV 05/05/21 21:00 05/06/21 05:45 Clonazepam (KlonoPIN) 1 mg QHS PO 05/05/21 21:00 05/05/21 20:19 Dicyclomine HCl (Bentyl) 10 mg TID PRN PO ABDOMINAL PAIN 05/05/21 16:00 Fentanyl Citrate (Sublimaze) 25 mcg Q5MP PRN IV PAIN LEVEL 5-10 05/05/21 15:30 05/05/21 17:30 DC Home Med (Med Rec Complete!) ASDIRECTED XX 05/05/21 17:05 05/05/21 17:06 DC Hydromorphone HCl (Dilaudid) 0.5 mg Q5MP PRN IV PAIN LEVEL 4-7 05/05/21 15:30 05/05/21 17:30 DC 05/05/21 16:13 Ketorolac Tromethamine (ToRADol) 10 mg Q6HP PRN PO MODERATE PAIN (PS 5-7) 05/05/21 15:20 05/05/21 20:14 DC 05/05/21 18:41 Lactated Ringer's 1,000 ml @ 75 mls/hr [id number] IV 05/05/21 16:00 05/06/21 07:44 DC 05/05/21 16:30 Lactated Ringer's 1,000 ml @ 100 mls/hr Q10H IV 05/05/21 15:30 05/05/21 17:30 DC Lidocaine HCl (LIDOCAINE 1% MDV 20ml) 0.1 ml ONCE PRN SQ DISCOMFORT BEFORE IV START 05/05/21 06:00 05/05/21 15:33 DC Metoclopramide HCl (REGLAN INJection) 10 mg Q6HP PRN IV NAUSEA OR VOMITING 05/05/21 15:30 05/05/21 17:30 DC Morphine Sulfate (Morphine Sulfate Inj) 4 mg Q6HP PRN IV SEVERE PAIN (PS 8-10) 05/05/21 22:00 Ondansetron HCl (ZOFRAN INJection) 4 mg Q4H PRN IV NAUSEA OR VOMITING 05/05/21 15:20 Ondansetron HCl (ZOFRAN INJection) 4 mg Q4HP PRN IV NAUSEA OR VOMITING 05/05/21 15:30 05/05/21 17:30 DC Oxycodone HCl (Roxicodone, Oxyir) 5 mg Q4HP PRN PO ABDOMINAL PAIN 05/06/21 07:40 UNV Oxycodone HCl (Roxicodone, Oxyir) 10 mg Q4HP PRN PO SEVERE PAIN (PS 8-10) 05/06/21 07:40 UNV Oxycodone/ Acetaminophen (Percocet 5mg/ 325mg Tablet) 1 tab ASDIRECTED PRN PO PAIN LEVEL 1-4 05/05/21 15:30 05/05/21 17:30 DC 05/05/21 15:47 Oxycodone/ Acetaminophen (Percocet 5mg/ 325mg Tablet) 2 tab Q4HP PRN PO PAIN LEVEL 5-7 05/05/21 15:20 05/06/21 07:41 DC 05/06/21 05:45 Pravastatin Sodium (Pravachol) 20 mg DAILY PO 05/05/21 09:00 05/05/21 18:39 Sertraline HCl (Zoloft) 150 mg DAILY PO 05/05/21 09:00 05/05/21 18:39 Tizanidine HCl (Zanaflex) 4 mg Q8H PRN PO MUSCLE SPASMS 05/05/21 15:20 05/05/21 18:39 Allergies Coded Allergies: No Known Allergies (Unverified , 04/17/05) Objective Physical Examination Examination GENERAL APPEARANCE:Patient seen, laying in bed, awake, alert, and oriented. Comfortable, in no acute distress. SKIN: Warm and moist. LUNGS: Clear to auscultation bilaterally. No wheezing appreciated. HEART: No chest wall abnormalities. Regular rate and rhythm with no murmurs appreciated. ABDOMEN: Abdomen is soft, non-tender, non-distended. Incision intact. Umbilicus viable. SOHEILA drains with serosanguinous drainage. 10/10 cc/24hr each drain. EXTREMITIES: No edema identified. No calf tenderness. Vital Signs Vital Signs Date Time Temp Pulse Resp B/P (MAP) Pulse Ox O2 Delivery O2 Flow Rate FiO2 05/06/21 06:00 98.3 75 20 107/65 (79) 96 Room Air 05/05/21 16:13 10.0 I&Os I&O- Last 24 Hours up to 6 AM 05/06/21 06:00 Intake Total 3750 ml Output Total 790 ml Balance 2960 ml Impression Status post extended panniculectomy with rectus muscle plication postop day one. Will improve today with walking and ability to getting out of the bed independently. Slowly increase activity. Pain control now will change to Tylenol 650 mg every 6 hours as needed and oxycodone 5 to 10 mg every 6 hours as needed. Morphine for severe pain. Incentive spirometer. Sequential stockings in bed. NM planning for tomorrow if continues to improve. Plan / VTE VTE Prophylaxis Ordered?: Yes ZAKIA MIJARES DO May 06, 2021 07:57
[2021-05-06] MEDS: SERTRALINE HCL 50 MG TAB PO SCH (08:25)
[2021-05-06] MEDS: oxyCODONE 5MG TAB PO PRN ×4 (08:28→20:21)
[2021-05-06] MEDS: PRAVASTATIN 20 MG TAB PO SCH (08:29)
[2021-05-06 10:00] VITALS: BP 99/62
[2021-05-06] MEDS: tiZANidine 4 MG TAB PO PRN ×2 (11:51→21:31)
[2021-05-06] MEDS: ACETAMINOPHEN TAB 650MG DOSE (2X325MG) PO PRN ×2 (11:52→16:17)
[2021-05-06 14:00] VITALS: BP 94/59
[2021-05-06] MEDS ORDERED: MORPHINE 4 MG/ML 1ML VIAL/SYRINGE (J2270) IV PRN (14:50)
[2021-05-06 18:00] VITALS: BP 92/59
[2021-05-06] MEDS: clonazePAM 1 MG TAB PO SCH (20:20)
[2021-05-06] MEDS ORDERED: MIRTAZAPINE 7.5MG PER 1/2 TABLET PO SCH (21:00)
[2021-05-06 22:00] VITALS: BP 101/52
[2021-05-07] MEDS: oxyCODONE 5MG TAB PO PRN ×2 (05:49→12:07)
[2021-05-07] MEDS: ceFAZolin SOD 1 GM in D5W MINI-BAG PLUS 50 ML IV SCH (05:49)
[2021-05-07 06:00] VITALS: BP 105/62
[2021-05-07] MEDS: PRAVASTATIN 20 MG TAB PO SCH (09:11)
[2021-05-07] MEDS: SERTRALINE HCL 50 MG TAB PO SCH (09:11)
--- NOTE | 2021-05-07 10:17 | IPNPDOC ---
Subjective General Date Seen: May 07, 2021 Subject Chief Complaint/History The patient is a 61-year-old female admitted with a reason for visit of Panniculitis. Patient s/p extended panniculectomy with rectus muscle plication POD 2. Much improved with pain control today. Ambulating. Tolerating regular diet. Current Medications Current Medications Current Medications Medications (Trade) Dose Ordered Sig/Felton Route PRN Reason Start Time Stop Time Status Last Admin Dose Admin Acetaminophen (Tylenol Tab) 650 mg Q6H PRN PO MILD PAIN (PS 1-4) 05/05/21 15:20 05/06/21 16:17 Cefazolin Sodium 1 gm/Dextrose 50 ml @ 100 mls/hr Q8H IV 05/05/21 21:00 05/07/21 05:49 Clonazepam (KlonoPIN) 1 mg QHS PO 05/05/21 21:00 05/06/21 20:20 Dicyclomine HCl (Bentyl) 10 mg TID PRN PO ABDOMINAL PAIN 05/05/21 16:00 05/06/21 16:40 Fentanyl Citrate (Sublimaze) 25 mcg Q5MP PRN IV PAIN LEVEL 5-10 05/05/21 15:30 05/05/21 17:30 DC Home Med (Med Rec Complete!) ASDIRECTED XX 05/05/21 17:05 05/05/21 17:06 DC Hydromorphone HCl (Dilaudid) 0.5 mg Q5MP PRN IV PAIN LEVEL 4-7 05/05/21 15:30 05/05/21 17:30 DC 05/05/21 16:13 Ketorolac Tromethamine (ToRADol) 10 mg Q6HP PRN PO MODERATE PAIN (PS 5-7) 05/05/21 15:20 05/05/21 20:14 DC 05/05/21 18:41 Lactated Ringer's 1,000 ml @ 75 mls/hr [id number] IV 05/05/21 16:00 05/06/21 07:44 DC 05/05/21 16:30 Lactated Ringer's 1,000 ml @ 100 mls/hr Q10H IV 05/05/21 15:30 05/05/21 17:30 DC Lidocaine HCl (LIDOCAINE 1% MDV 20ml) 0.1 ml ONCE PRN SQ DISCOMFORT BEFORE IV START 05/05/21 06:00 05/05/21 15:33 DC Metoclopramide HCl (REGLAN INJection) 10 mg Q6HP PRN IV NAUSEA OR VOMITING 05/05/21 15:30 05/05/21 17:30 DC Mirtazapine (Remeron) 7.5 mg QHS PO 05/06/21 21:00 05/06/21 21:31 Morphine Sulfate (Morphine Sulfate Inj) 2 mg Q4HP PRN IV BREAKTHROUGH PAIN 8-10 05/06/21 14:50 05/06/21 15:08 Morphine Sulfate (Morphine Sulfate Inj) 4 mg Q6HP PRN IV SEVERE PAIN (PS 8-10) 05/05/21 22:00 Cancel Ondansetron HCl (ZOFRAN INJection) 4 mg Q4H PRN IV NAUSEA OR VOMITING 05/05/21 15:20 05/06/21 16:39 Ondansetron HCl (ZOFRAN INJection) 4 mg Q4HP PRN IV NAUSEA OR VOMITING 05/05/21 15:30 05/05/21 17:30 DC Oxycodone HCl (Roxicodone, Oxyir) 5 mg Q4HP PRN PO ABDOMINAL PAIN(5-7) 05/06/21 07:40 Oxycodone HCl (Roxicodone, Oxyir) 10 mg Q4HP PRN PO SEVERE PAIN (PS 8-10) 05/06/21 07:40 05/07/21 05:49 Oxycodone/ Acetaminophen (Percocet 5mg/ 325mg Tablet) 1 tab ASDIRECTED PRN PO PAIN LEVEL 1-4 05/05/21 15:30 05/05/21 17:30 DC 05/05/21 15:47 Oxycodone/ Acetaminophen (Percocet 5mg/ 325mg Tablet) 2 tab Q4HP PRN PO PAIN LEVEL 5-7 05/05/21 15:20 05/06/21 07:41 DC 05/06/21 05:45 Pravastatin Sodium (Pravachol) 20 mg DAILY PO 05/05/21 09:00 05/07/21 09:11 Sertraline HCl (Zoloft) 150 mg DAILY PO 05/05/21 09:00 05/07/21 09:11 Tizanidine HCl (Zanaflex) 4 mg Q8H PRN PO MUSCLE SPASMS 05/05/21 15:20 05/06/21 21:31 Allergies Coded Allergies: No Known Allergies (Unverified , 04/17/05) Objective Physical Examination Examination GENERAL APPEARANCE:Patient seen, laying in bed, awake, alert, and oriented. Comfortable, in no acute distress. SKIN: Warm and moist. LUNGS: Clear to auscultation bilaterally. No wheezing appreciated. HEART: No chest wall abnormalities. Regular rate and rhythm with no murmurs appreciated. ABDOMEN: Abdomen is soft, non-tender, non-distended. Incision intact. Umbilicus viable. SOHEILA drains with serosanguinous drainage. 30/60 cc/24hr each drain. EXTREMITIES: No edema identified. No calf tenderness. Vital Signs Vital Signs Date Time Temp Pulse Resp B/P (MAP) Pulse Ox O2 Delivery O2 Flow Rate FiO2 05/07/21 06:28 18 05/07/21 06:00 97.3 67 105/62 (76) 96 Room Air 05/05/21 16:13 10.0 I&Os I&O- Last 24 Hours up to 6 AM 05/07/21 06:00 Intake Total 1610 ml Output Total 720 ml Balance 890 ml Impression S/p extended panniculectomy with rectus muscle plication. POD 2. Doing well. Stable for discharge. Instructions given. Dressings changed. Continue with compression binder. F/up plastic surgery. Plan / VTE VTE Prophylaxis Ordered?: Yes ZAKIA MIJARES DO May 07, 2021 10:17
[2021-05-07] MEDS ORDERED: OXYC-517 PO (10:24)
== END 2021-05-07 11:30 | disposition home or self-care (01) ==
LOC: M SDC 08:48 → M MS5PR 16:23 → M SDC 05-07 11:30
PROVIDERS: ATTEND Plastic Surgery Surgery of the Hand
DX: M79.3 Panniculitis, unspecified (principal); E65 Localized adiposity; Z98.84 Bariatric surgery status; K21.9 Gastro-esophageal reflux disease without esophagitis; E78.00 Pure hypercholesterolemia, unspecified; F41.9 Anxiety disorder, unspecified; F32.9 Major depressive disorder, single episode, unspecified; M79.7 Fibromyalgia; R51.9 Headache, unspecified; D64.9 Anemia, unspecified; Z86.79 Personal history of other diseases of the circulatory system; Z79.899 Other long term (current) drug therapy; Z79.891 Long term (current) use of opiate analgesic; Z91.018 Allergy to other foods; Z87.891 Personal history of nicotine dependence
CPT/HCPCS: 15830; 15847; 88300; 96365; 96366; 96375; 96376; C9290; J0131; J0690; J1100; J1170; J2250; J2270; J2405; J3010

== ENCOUNTER → 2021-07-13 | Outpatient (REF) | payer BC ==
[~2021-07-13] MED LIST changes: +BENA25CA4 PO; +BUSP10TA PO; +DICY10CA13 PO; -LIDOCAINE 1% MDV 20ML VIAL SQ PRN; -LR 1,000 ML IV ONE; +MIRT1TAB PO; +OMEG10002 PO; +OMEP1CAP73 PO; +OXYC-517 PO; +REST0.05 OU; +TOPI50TA9 PO; +VITMTA PO; +[UNRECOGNIZED DRUG - CODE] OU; -ceFAZolin SOD 1 GM in D5W MINI-BAG PLUS 50 ML IV ONE
== END ==
LOC: M SFHCDERM 10:21
PROVIDERS: ATTEND Physician Assistant
DX: L65.9 Nonscarring hair loss, unspecified (principal)

== ENCOUNTER → 2021-07-19 | Outpatient (CLI) | payer BC ==
[2021-07-19 16:33] LABS: BASO # 0.1 10^3/uL (0.0-0.2); BASO % 1.6 % (0.0-1.0); EOS # 0.2 10^3/uL (0.0-0.5); HEMOGLOBIN 12.2 g/dl (12.0-15.5); LYMPH # 1.6 10^3/uL (1.5-5.0); LYMPH % 42.8 % (24.0-44.0); MEAN CORPUSCULAR HEMOGLOBIN 28.8 pg (27.0-33.0); MEAN CORPUSCULAR HGB CONC 32.1 g/dl (32.0-36.5); MEAN CORPUSCULAR VOLUME 89.6 fl (80.0-96.0); MONO # 0.3 10^3/uL (0.0-0.8); NEUTROPHILS # 1.6 10^3/uL (1.5-8.5); NEUTROPHILS % 42.1 % (36.0-66.0); PLATELET COUNT, AUTOMATED 193 10^3/uL (150-450); RED BLOOD COUNT 4.24 10^6/uL (4.00-5.40); WHITE BLOOD COUNT 3.7 10^3/uL (4.0-10.0)
[2021-07-19 17:13] LABS: ALBUMIN 4.2 GM/DL (3.2-5.2); BLOOD UREA NITROGEN 11 MG/DL (7-18); CALCIUM LEVEL 9.7 MG/DL (8.5-10.1); CARBON DIOXIDE LEVEL 26 MEQ/L (21-32); CHLORIDE LEVEL 113 MEQ/L (98-107); CREATININE FOR GFR 0.83 MG/DL (0.55-1.30); FERRITIN 10 NG/ML (8-252); GLOMERULAR FILTRATION RATE > 60.0 (>51); GLUCOSE, FASTING 84 MG/DL (70-100); IRON (FE) 47 UG/DL (50-170); PHOSPHORUS LEVEL 3.6 MG/DL (2.5-4.9); POTASSIUM SERUM 3.6 MEQ/L (3.5-5.1); SODIUM LEVEL 142 MEQ/L (136-145); THYROID STIMULATING HORMONE 0.351 uIU/ML (0.358-3.740)
== END ==
LOC: M WUC 11:21
PROVIDERS: ATTEND Physician Assistant
DX: L65.9 Nonscarring hair loss, unspecified (principal)

== ENCOUNTER → 2021-08-04 | Outpatient (CLI) | payer OTHER | LOC: M PAIN 10:45 | PROVIDERS: ATTEND Anesthesiology | DX: M51.16 Intervertebral disc disorders with radiculopathy, lumbar region (principal); M25.551 Pain in right hip; M70.61 Trochanteric bursitis, right hip; F32.9 Major depressive disorder, single episode, unspecified; K21.9 Gastro-esophageal reflux disease without esophagitis; Z87.891 Personal history of nicotine dependence; Z79.891 Long term (current) use of opiate analgesic; Z79.899 Other long term (current) drug therapy; Z91.018 Allergy to other foods; J30.2 Other seasonal allergic rhinitis ==

== ENCOUNTER → 2021-09-13 | Outpatient (CLI) | payer BC, OTHER | LOC: M PAIN 15:45 | PROVIDERS: ATTEND Anesthesiology | DX: M25.551 Pain in right hip (principal); M51.16 Intervertebral disc disorders with radiculopathy, lumbar region; M79.7 Fibromyalgia; F32.9 Major depressive disorder, single episode, unspecified; G47.30 Sleep apnea, unspecified; K21.9 Gastro-esophageal reflux disease without esophagitis; E78.2 Mixed hyperlipidemia; K58.9 Irritable bowel syndrome, unspecified; H04.123 Dry eye syndrome of bilateral lacrimal glands; F41.9 Anxiety disorder, unspecified; Z87.891 Personal history of nicotine dependence; Z79.899 Other long term (current) drug therapy; Z91.018 Allergy to other foods; J30.1 Allergic rhinitis due to pollen ==

== ENCOUNTER → 2021-09-27 | Outpatient (CLI) | payer OTHER ==
--- NOTE | 2021-09-27 14:19 | REP ---
INDICATION: RIGHT HIP PAIN. COMPARISON: None. TECHNIQUE: Axial T1 and T2. Sagittal T2. Coronal T1, fat suppressed proton density, fat suppressed T2 and STIR. FINDINGS: There is mild rather symmetric appearing bilateral hip joint space narrowing. The femoral heads are spherical in shape and symmetric in appearance. There is no abnormal focal chondral or subchondral signal seen arising from the femoral or acetabular component of either hip. There is no hip joint effusion. The cortical and marrow signal seen throughout the examination is within normal limits. There is no abnormal signal seen in the trochanteric tendono bursal region of the left hip. There is mild patchy T2 hyper signal seen in the trochanteric tendono bursal region of the right hip. There is no evidence of a mass or mass effect. The signal and morphologic appearance of the imaged musculature is within normal limits. IMPRESSION: 1. There is slight to moderate right hip trochanteric tendono bursitis. 2. Slight bilateral hip degenerative change as described above. <Electronically signed by Jmimie Meraz > 09/27/21 [id number]
== END ==
LOC: M PLAIMG 13:11
PROVIDERS: ATTEND Anesthesiology
DX: M70.61 Trochanteric bursitis, right hip (principal)

== ENCOUNTER → 2021-10-19 | Outpatient (CLI) | payer BC, OTHER ==
[~2021-10-19] MED LIST changes: +GNP99TAB3 PO; +LOSA25TA13; -LOSA25TA14; +OMEP-173 PO; -OMEP-218 PO; -OMEP-221 PO; +OMEP40CA5 PO; -SM P99TA PO; +TIZA10TA PO; -TIZA4TAB4 PO
== END ==
LOC: M PAIN 14:45
PROVIDERS: ATTEND Anesthesiology
DX: M25.551 Pain in right hip (principal); M70.60 Trochanteric bursitis, unspecified hip; Z87.891 Personal history of nicotine dependence; Z79.891 Long term (current) use of opiate analgesic; Z79.899 Other long term (current) drug therapy

== ENCOUNTER → 2021-11-29 | Outpatient (CLI) | payer BC ==
[2021-11-29 13:32] LABS: FREE T4 0.94 NG/DL (0.76-1.46); THYROID STIMULATING HORMONE 0.521 uIU/ML (0.358-3.740)
== END ==
LOC: M LAB 09:44
PROVIDERS: ATTEND Physician Assistant
DX: L65.9 Nonscarring hair loss, unspecified (principal)

== ENCOUNTER → 2022-01-10 | Outpatient (CLI) | payer BC, OTHER ==
[~2022-01-10] MED LIST changes: +BUPIVACAINE HCL 0.25% 30ML VIAL As Ordered ONE; +LIDOCAINE 1% SDV 30ML VIAL As Ordered ONE; +TRIAMCINOLONE ACETONIDE SUSP 40 MG/ML VIAL (J3301) As Ordered ONE; +diazePAM 5MG TABLET As Ordered ONE; +diphenhydrAMINE 25MG CAP As Ordered ONE; +oxyCODONE 5MG TAB As Ordered ONE
== END ==
LOC: M PAIN 13:45
PROVIDERS: ATTEND Anesthesiology
DX: M71.9 Bursopathy, unspecified (principal); M79.7 Fibromyalgia; F32.A Depression, unspecified; G47.30 Sleep apnea, unspecified; K21.9 Gastro-esophageal reflux disease without esophagitis; K58.9 Irritable bowel syndrome, unspecified; F41.9 Anxiety disorder, unspecified; J30.1 Allergic rhinitis due to pollen; Z87.891 Personal history of nicotine dependence; Z91.018 Allergy to other foods; Z79.891 Long term (current) use of opiate analgesic; Z79.899 Other long term (current) drug therapy; H04.123 Dry eye syndrome of bilateral lacrimal glands
CPT/HCPCS: 20610; 77002; J3301

== ENCOUNTER → 2022-04-11 | Outpatient (CLI) | payer BC, OTHER ==
[~2022-04-11] MED LIST changes: -BUPIVACAINE HCL 0.25% 30ML VIAL As Ordered ONE; +CITRACAL MAXIMU1 TAB PO; -CITRTAB16 PO; -LIDOCAINE 1% SDV 30ML VIAL As Ordered ONE; -TRIAMCINOLONE ACETONIDE SUSP 40 MG/ML VIAL (J3301) As Ordered ONE; -diazePAM 5MG TABLET As Ordered ONE; -diphenhydrAMINE 25MG CAP As Ordered ONE; -oxyCODONE 5MG TAB As Ordered ONE
== END ==
LOC: M PAIN 14:45
PROVIDERS: ATTEND Nurse Practitioner Family
DX: G89.29 Other chronic pain (principal); M70.61 Trochanteric bursitis, right hip; Z79.891 Long term (current) use of opiate analgesic; M71.9 Bursopathy, unspecified; M79.7 Fibromyalgia; F32.A Depression, unspecified; G47.30 Sleep apnea, unspecified; K21.9 Gastro-esophageal reflux disease without esophagitis; K58.9 Irritable bowel syndrome, unspecified; F41.9 Anxiety disorder, unspecified; J30.1 Allergic rhinitis due to pollen; Z87.891 Personal history of nicotine dependence; Z91.018 Allergy to other foods; Z79.899 Other long term (current) drug therapy; H04.123 Dry eye syndrome of bilateral lacrimal glands

== ENCOUNTER → 2022-05-17 | Outpatient (CLI) | payer BC ==
[2022-05-17 12:42] LABS: HEMATOCRIT 39.1 % (36.0-47.0); HEMOGLOBIN 12.8 g/dl (12.0-15.5); MEAN CORPUSCULAR HEMOGLOBIN 31.4 pg (27.0-33.0); MEAN CORPUSCULAR HGB CONC 32.7 g/dl (32.0-36.5); MEAN CORPUSCULAR VOLUME 95.8 fl (80.0-96.0); PLATELET COUNT, AUTOMATED 170 10^3/uL (150-450); RED BLOOD COUNT 4.08 10^6/uL (4.00-5.40); WHITE BLOOD COUNT 3.5 10^3/uL (4.0-10.0)
[2022-05-17 14:12] LABS: ALBUMIN 3.8 GM/DL (3.2-5.2); ALT/SGPT 48 U/L (12-78); BILIRUBIN,TOTAL 0.3 MG/DL (0.2-1.0); BLOOD UREA NITROGEN 15 MG/DL (7-18); CALCIUM LEVEL 9.1 MG/DL (8.8-10.2); CARBON DIOXIDE LEVEL 25 MEQ/L (21-32); CHLORIDE LEVEL 109 MEQ/L (98-107); CHOLESTEROL LEVEL 176 MG/DL (<200); CHOLESTEROL RISK RATIO 2.146 (<5); CREATININE FOR GFR 0.89 MG/DL (0.55-1.30); GLOMERULAR FILTRATION RATE > 60.0 (>45); GLUCOSE, FASTING 141 MG/DL (70-100); HDL CHOLESTEROL 82 MG/DL (>40); LDL CHOLESTEROL 81 MG/DL (<100); NON-HDL-C 94 MG/DL; POTASSIUM SERUM 3.7 MEQ/L (3.5-5.1); SODIUM LEVEL 140 MEQ/L (136-145); TOTAL 25(OH) VITAMIN D 42.4 NG/ML (30.0-100.0); TOTAL PROTEIN 6.7 GM/DL (6.4-8.2); TRIGLYCERIDES LEVEL 66 MG/DL (<150)
[2022-05-17 16:36] LABS: HEMOGLOBIN A1c 5.2 %
== END ==
LOC: M RAD 10:24
PROVIDERS: ATTEND Family Medicine
DX: R53.83 Other fatigue (principal); J44.9 Chronic obstructive pulmonary disease, unspecified

== ENCOUNTER → 2022-08-14 | Outpatient (CLI) | payer BC | LOC: M EKG 09:30 | PROVIDERS: ATTEND Family Medicine | DX: I10 Essential (primary) hypertension (principal) ==

== ENCOUNTER → 2022-08-18 | Outpatient (CLI) | payer BC | LOC: M PAIN 10:30 | PROVIDERS: ATTEND Nurse Practitioner Family | DX: M25.551 Pain in right hip (principal); Z87.891 Personal history of nicotine dependence; Z79.891 Long term (current) use of opiate analgesic; Z79.899 Other long term (current) drug therapy ==

== ENCOUNTER → 2022-11-24 | Outpatient (REF) | payer OTHER ==
[2022-11-27 13:33] LABS: PERCENT SATURATION 3.8 % (13.2-45.0)
[2022-11-27 13:35] LABS: FERRITIN 4.4 NG/ML (7.3-270.7)
== END ==
LOC: M LAB REF 11:29
PROVIDERS: ATTEND Internal Medicine
DX: D64.9 Anemia, unspecified (principal)

== ENCOUNTER → 2022-11-27 | Outpatient (CLI) | payer OTHER | LOC: M PAIN 09:15 | PROVIDERS: ATTEND Anesthesiology | DX: M54.16 Radiculopathy, lumbar region (principal); M53.3 Sacrococcygeal disorders, not elsewhere classified; G89.29 Other chronic pain; M79.7 Fibromyalgia; G47.30 Sleep apnea, unspecified; K21.9 Gastro-esophageal reflux disease without esophagitis; Z86.59 Personal history of other mental and behavioral disorders; Z98.84 Bariatric surgery status; Z87.891 Personal history of nicotine dependence; Z91.018 Allergy to other foods; Z79.899 Other long term (current) drug therapy ==

== ENCOUNTER → 2023-01-04 | Outpatient (CLI) | payer BC | LOC: M RAD 14:33 | PROVIDERS: ATTEND Anesthesiology | DX: M53.3 Sacrococcygeal disorders, not elsewhere classified (principal) ==

== ENCOUNTER → 2023-01-08 | Outpatient (CLI) | payer BC, OTHER ==
[~2023-01-08] MED LIST changes: +TOPI-254 PO; -TOPI50TA9 PO
== END ==
LOC: M PAIN 14:00
PROVIDERS: ATTEND Nurse Practitioner Family
DX: M46.1 Sacroiliitis, not elsewhere classified (principal); G89.29 Other chronic pain; M79.7 Fibromyalgia; G47.30 Sleep apnea, unspecified; K21.9 Gastro-esophageal reflux disease without esophagitis; D50.9 Iron deficiency anemia, unspecified; Z86.59 Personal history of other mental and behavioral disorders; Z87.891 Personal history of nicotine dependence; Z91.018 Allergy to other foods; Z79.899 Other long term (current) drug therapy

== ENCOUNTER → 2023-02-20 | Outpatient (CLI) | payer OTHER, BC | LOC: M PAIN 14:00 | PROVIDERS: ATTEND Nurse Practitioner Family | DX: M46.1 Sacroiliitis, not elsewhere classified (principal); G89.29 Other chronic pain; F32.A Depression, unspecified; K21.9 Gastro-esophageal reflux disease without esophagitis; E78.2 Mixed hyperlipidemia; K58.9 Irritable bowel syndrome, unspecified; F41.9 Anxiety disorder, unspecified; J30.1 Allergic rhinitis due to pollen; D64.9 Anemia, unspecified; H04.123 Dry eye syndrome of bilateral lacrimal glands; Z87.891 Personal history of nicotine dependence; Z79.891 Long term (current) use of opiate analgesic; Z79.899 Other long term (current) drug therapy; Z91.018 Allergy to other foods ==

== ENCOUNTER → 2023-05-09 | Outpatient (CLI) | payer BC ==
[~2023-05-09] MED LIST changes: +E-Z-GAS II EFFERVESCENT PACKET (SODIUM BICARB./CITRIC ACID/SIMETHICONE) As Ordered ONE; +E-Z-HD 98% w/w 340GM SUSP BTL As Ordered ONE; +E-Z-PAQUE 96% w/w SUSP 176GM BTL As Ordered ONE
== END ==
LOC: M RAD 08:28
PROVIDERS: ATTEND Physician Assistant Medical
DX: R13.10 Dysphagia, unspecified (principal)

== ENCOUNTER → 2023-07-12 | Outpatient (CLI) | payer BC ==
[~2023-07-12] MED LIST changes: +BUSP15TA47 PO; +DICY-61 PO; -DICY10CA13 PO; -E-Z-GAS II EFFERVESCENT PACKET (SODIUM BICARB./CITRIC ACID/SIMETHICONE) As Ordered ONE; -E-Z-HD 98% w/w 340GM SUSP BTL As Ordered ONE; -E-Z-PAQUE 96% w/w SUSP 176GM BTL As Ordered ONE; +FERR324T21 PO; +HYDR50TA70 PO; +KLON1TAB PO; +LATU40TA2 PO; +LURA40TA2 PO; +MIRT-11 PO; +PANT40TA29 PO; +PROP40TA62 PO; +RISP-9 PO; +SPIR-10 PO
== END ==
LOC: M WUC 11:17
PROVIDERS: ATTEND Nurse Practitioner Family
DX: M46.1 Sacroiliitis, not elsewhere classified (principal)

== ENCOUNTER → 2023-07-12 | Outpatient (CLI) | payer OTHER, BC ==
[~2023-07-12] MED LIST changes: -PREG200C PO; +PREG200C2 PO
== END ==
LOC: M PAIN 09:45
PROVIDERS: ATTEND Nurse Practitioner Family
DX: M46.1 Sacroiliitis, not elsewhere classified (principal); G89.29 Other chronic pain; M79.7 Fibromyalgia; G47.30 Sleep apnea, unspecified; K21.9 Gastro-esophageal reflux disease without esophagitis; D50.9 Iron deficiency anemia, unspecified; Z86.59 Personal history of other mental and behavioral disorders; Z87.891 Personal history of nicotine dependence; Z91.018 Allergy to other foods; Z91.048 Other nonmedicinal substance allergy status; Z79.899 Other long term (current) drug therapy

== ENCOUNTER 2023-08-14 11:23 | Day surgery (SDC) | payer BC ==
[~2023-08-14] VITALS: Ht 152.4 cm; Wt 54.4 kg
[~2023-08-14 11:23] MED LIST changes: +FOLI1TAB11 PO; +HYDR1TAB33 PO; +LORA2TA PO; +NS 1,000 ML IV ONE; +OXAZ15CA4 PO; +PRAV40TA2 PO; +RISP-8 PO; +THIA100TA PO
[2023-08-14 13:45] VITALS: TEMP 98
[2023-08-14 14:04] VITALS: BP 117/80; O2SAT 99
== END 2023-08-14 14:18 | disposition home or self-care (01) ==
LOC: M OPP 11:23
PROVIDERS: ATTEND Internal Medicine Gastroenterology
DX: D12.7 Benign neoplasm of rectosigmoid junction (principal); K64.8 Other hemorrhoids; K57.30 Diverticulosis of large intestine without perforation or abscess without bleeding; D50.9 Iron deficiency anemia, unspecified; Z98.0 Intestinal bypass and anastomosis status; K29.70 Gastritis, unspecified, without bleeding; K28.9 Gastrojejunal ulcer, unspecified as acute or chronic, without hemorrhage or perforation; R13.14 Dysphagia, pharyngoesophageal phase; F17.290 Nicotine dependence, other tobacco product, uncomplicated; Z79.02 Long term (current) use of antithrombotics/antiplatelets; Z79.83 Long term (current) use of bisphosphonates; Z79.891 Long term (current) use of opiate analgesic; Z79.899 Other long term (current) drug therapy

== ENCOUNTER → 2023-08-20 | Outpatient (CLI) | payer BC ==
[~2023-08-20] MED LIST changes: +GLUCAGON INJ 1MG VIAL As Ordered ONE; +ISOVUE-370 76% 100ML VIAL As Ordered ONE; +NEULUMEX 0.1% SUSPENSION 450ML BOTTLE (FORMERLY VOLUMEN) As Ordered ONE; -NS 1,000 ML IV ONE
== END ==
LOC: M RAD 14:47
PROVIDERS: ATTEND Physician Assistant Medical
DX: D50.9 Iron deficiency anemia, unspecified (principal); R10.33 Periumbilical pain; N28.1 Cyst of kidney, acquired
CPT/HCPCS: 74177; J1610; Q9967

== ENCOUNTER → 2023-12-10 | Outpatient (CLI) | payer MEDICARE, MEDICAID ==
[~2023-12-10] MED LIST changes: -GLUCAGON INJ 1MG VIAL As Ordered ONE; -ISOVUE-370 76% 100ML VIAL As Ordered ONE; -NEULUMEX 0.1% SUSPENSION 450ML BOTTLE (FORMERLY VOLUMEN) As Ordered ONE; +RISP-105 PO; -RISP-8 PO; +TOPI-21 PO; -TOPI-254 PO
== END ==
LOC: M PAIN 15:30
PROVIDERS: ATTEND Nurse Practitioner Family
DX: M79.18 Myalgia, other site (principal); Z79.891 Long term (current) use of opiate analgesic; M79.12 Myalgia of auxiliary muscles, head and neck; M46.1 Sacroiliitis, not elsewhere classified; G89.29 Other chronic pain; F32.A Depression, unspecified; K21.9 Gastro-esophageal reflux disease without esophagitis; G47.30 Sleep apnea, unspecified; K58.9 Irritable bowel syndrome, unspecified; Z87.891 Personal history of nicotine dependence; Z79.899 Other long term (current) drug therapy; Z91.018 Allergy to other foods

== ENCOUNTER → 2023-12-11 | Outpatient (CLI) | payer MEDICAID, MEDICARE, OTHER | LOC: M PAIN 12:15 | PROVIDERS: ATTEND Nurse Practitioner Family | DX: Z79.891 Long term (current) use of opiate analgesic (principal) ==

== ENCOUNTER → 2024-01-04 | Outpatient (CLI) | payer MEDICARE, MEDICAID | LOC: M PLAIMG 08:35 | PROVIDERS: ATTEND Nurse Practitioner Family | DX: M46.1 Sacroiliitis, not elsewhere classified (principal) ==

== ENCOUNTER → 2024-02-15 | Outpatient (CLI) | payer MEDICARE, MEDICAID ==
[~2024-02-15] MED LIST changes: -KLON1TAB PO; +KLON1TAB13 PO; +RISP-106 PO; -RISP-9 PO
== END ==
LOC: M WHC 07:33
PROVIDERS: ATTEND Internal Medicine
DX: Z12.31 Encounter for screening mammogram for malignant neoplasm of breast (principal)

== ENCOUNTER → 2024-02-26 | Outpatient (REF) | payer MEDICARE, MEDICAID ==
[2024-02-26 14:35] LABS: IRON (FE) 152 UG/DL (50-170); PERCENT SATURATION 37.2 % (13.2-45.0); TOTAL IRON BINDING CAPACITY 409 UG/DL (250-425)
[2024-02-26 14:36] LABS: RHEUMATOID FACTOR QUANT < 3.5 IU/ML (<14)
[2024-02-26 14:37] LABS: FERRITIN 39.4 NG/ML (7.3-270.7)
[2024-02-27 23:29] LABS: CYCLIC CITRULLINATED PEPTIDE 6 units (0-19); IgG P18 AB Absent (.); IgG P23 AB Absent (.); IgG P28 AB Absent (.); IgG P30 AB Absent (.); IgG P39 AB Absent (.); IgG P41 AB Present (.); IgG P45 AB Absent (.); IgG P66 AB Absent (.); IgG P93 AB Absent (.); IgM P23 AB Absent (.); IgM P39 AB Absent (.); IgM P41 AB Absent (.); LYME IgG WB INTERPRETATION Negative (.); LYME IgM WB INTERPRETATION Negative (.)
== END ==
LOC: M LAB REF 13:29
PROVIDERS: ATTEND Internal Medicine
DX: M25.50 Pain in unspecified joint (principal); D50.9 Iron deficiency anemia, unspecified

== ENCOUNTER → 2024-04-28 | Outpatient (REF) | payer MEDICARE, MEDICAID ==
[~2024-04-28] MED LIST changes: +ONDA-282 PO; -ONDA4TAB6 PO
[2024-04-28 13:50] LABS: PERCENT SATURATION 19.1 % (13.2-45.0)
[2024-04-28 13:52] LABS: FERRITIN 30.3 NG/ML (7.3-270.7)
== END ==
LOC: M LAB REF 12:15
PROVIDERS: ATTEND Internal Medicine
DX: D50.9 Iron deficiency anemia, unspecified (principal)

== ENCOUNTER 2024-06-03 08:23 | Day surgery (SDC) | payer MEDICARE, MEDICAID ==
[~2024-06-03] VITALS: Ht 152.4 cm; Wt 55.3 kg
[~2024-06-03 08:23] MED LIST changes: +PANT20TA6 PO; +SERT50TA29 PO; +THERTAB52 PO
[2024-06-03] MEDS: NS 1,000 ML IV SCH (08:39)
[2024-06-03] MEDS ORDERED: propofoL 200 MG/20 ML VIAL As Ordered ONE (09:35)
[2024-06-03] MEDS ORDERED: fentaNYL 100 MCG/2 ML INJECTION As Ordered ONE (09:35)
[2024-06-03] MEDS ORDERED: LIDOCAINE 2% 100MG/5ML SDV (FOR ANES.) As Ordered ONE (09:35)
[2024-06-03 10:45] VITALS: BP 132/84; TEMP 97; O2SAT 99
== END 2024-06-03 11:30 | disposition home or self-care (01) ==
LOC: M OPP 08:23
PROVIDERS: ATTEND Internal Medicine Gastroenterology
DX: K28.7 Chronic gastrojejunal ulcer without hemorrhage or perforation (principal); Z98.0 Intestinal bypass and anastomosis status; R12 Heartburn; G47.9 Sleep disorder, unspecified; E78.00 Pure hypercholesterolemia, unspecified; M79.7 Fibromyalgia; F17.290 Nicotine dependence, other tobacco product, uncomplicated; Z79.02 Long term (current) use of antithrombotics/antiplatelets; Z79.1 Long term (current) use of non-steroidal anti-inflammatories (NSAID); Z79.83 Long term (current) use of bisphosphonates; Z79.891 Long term (current) use of opiate analgesic; Z79.899 Other long term (current) drug therapy; Z91.018 Allergy to other foods
CPT/HCPCS: 43239; 88305; J3010

== ENCOUNTER → 2024-07-11 | Outpatient (REF) | payer MEDICARE, MEDICAID, OTHER ==
[2024-07-11 13:53] LABS: PERCENT SATURATION 36.1 % (13.2-45.0)
[2024-07-11 13:55] LABS: FERRITIN 60.8 NG/ML (7.3-270.7)
== END ==
LOC: M LAB REF 13:08
PROVIDERS: ATTEND Internal Medicine
DX: D50.9 Iron deficiency anemia, unspecified (principal)

== ENCOUNTER → 2024-10-06 | Outpatient (CLI) | payer MEDICARE ==
[2024-10-06 19:38] LABS: HEMATOCRIT 41.1 % (36.0-47.0); HEMOGLOBIN 13.9 g/dl (12.0-15.5); MEAN CORPUSCULAR HGB CONC 33.8 g/dl (32.0-36.5); MEAN CORPUSCULAR VOLUME 94.7 fl (80.0-96.0); PLATELET COUNT, AUTOMATED 213 10^3/uL (150-450); RED BLOOD COUNT 4.34 10^6/uL (4.00-5.40); WHITE BLOOD COUNT 5.6 10^3/uL (4.0-10.0)
[2024-10-06 19:55] LABS: HEMOGLOBIN A1c 5.4 % (4.0-6.0)
[2024-10-06 20:20] LABS: FERRITIN 48.4 NG/ML (7.3-270.7)
[2024-10-06 20:21] LABS: THYROID STIMULATING HORMONE 1.801 uIU/ML (0.55-4.78); TOTAL 25(OH) VITAMIN D 29.3 NG/ML (20.0-100.0); VITAMIN B12 LEVEL 682 PG/ML (211-911)
[2024-10-06 20:28] LABS: ALBUMIN 4.3 G/DL (3.2-5.2); ALKALINE PHOSPHATASE 78 U/L (35-104); ALT/SGPT 37 U/L (7.0-40); AST/SGOT 26 U/L (<34); BILIRUBIN,TOTAL 0.3 MG/DL (0.3-1.2); BLOOD UREA NITROGEN 13 MG/DL (9-23); CALCIUM LEVEL 10.4 MG/DL (8.3-10.6); CARBON DIOXIDE LEVEL 24 MMOL/L (20-31); CHLORIDE LEVEL 112 MMOL/L (98-107); CHOLESTEROL LEVEL 271 MG/DL (<200); CHOLESTEROL RISK RATIO 3.61 (<5); CREATININE FOR GFR 0.91 MG/DL (0.55-1.30); GLOMERULAR FILTRATION RATE > 60.0 (>45); GLUCOSE, FASTING 103 MG/DL (74-106); IRON (FE) 83 UG/DL (50-170); LDL CHOLESTEROL 167.4 MG/DL (<100); PERCENT SATURATION 20.7 % (13.2-45.0); POTASSIUM SERUM 3.7 MMOL/L (3.5-5.1); SODIUM LEVEL 144 MMOL/L (136-145); TOTAL IRON BINDING CAPACITY 401 UG/DL (250-425); TOTAL PROTEIN 7.3 G/DL (5.7-8.2); TRIGLYCERIDES LEVEL 143 MG/DL (<150)
== END ==
LOC: M WUC 14:17
PROVIDERS: ATTEND Surgery
DX: K91.2 Postsurgical malabsorption, not elsewhere classified (principal); E07.9 Disorder of thyroid, unspecified

== ENCOUNTER → 2024-12-26 | Outpatient (CLI) | payer MEDICARE ==
[~2024-12-26] MED LIST changes: -LORA2TA PO; +LORA2TAB15 PO; +POTA10807 PO; -POTA10808 PO
== END ==
LOC: M RAD 13:12
PROVIDERS: ATTEND Internal Medicine
DX: Z12.72 Encounter for screening for malignant neoplasm of vagina (principal); R10.2 Pelvic and perineal pain

== ENCOUNTER → 2025-02-17 | Outpatient (REF) | payer MEDICARE, MEDICAID ==
[2025-02-17 14:42] LABS: FERRITIN 39.6 NG/ML (7.3-270.7); IRON (FE) 89 UG/DL (50-170)
[2025-02-17 14:44] LABS: PERCENT SATURATION 20.8 % (13.2-45.0); TOTAL IRON BINDING CAPACITY 428 UG/DL (250-425)
[2025-02-17 14:46] LABS: VITAMIN B12 LEVEL > 2000 PG/ML (211-911)
== END ==
LOC: M LAB REF 13:38
PROVIDERS: ATTEND Internal Medicine
DX: M25.50 Pain in unspecified joint (principal); D50.9 Iron deficiency anemia, unspecified

== ENCOUNTER → 2025-03-02 | Outpatient (CLI) | payer MEDICARE, MEDICAID ==
[~2025-03-02] MED LIST changes: +PROHANCE 279.3MG/ML 5ML VIAL ONE
== END ==
LOC: M PLAIMG 08:46
PROVIDERS: ATTEND Internal Medicine
DX: R51.9 Headache, unspecified (principal)
CPT/HCPCS: 70544; 70553; A9576

== ENCOUNTER → 2025-05-26 | Outpatient (REF) | payer MEDICARE, MEDICAID ==
[~2025-05-26] MED LIST changes: -AMBI10TA PO; -PRAV20TA2 PO; +PRAV20TA78 PO; -PRAV40TA2 PO; +PRAV40TA85 PO; -PROHANCE 279.3MG/ML 5ML VIAL ONE; +ZOLP-533 PO
== END ==
LOC: M LAB REF 17:31
PROVIDERS: ATTEND Internal Medicine
DX: Z98.84 Bariatric surgery status (principal)

== ENCOUNTER → 2025-05-26 | Outpatient (CLI) | payer MEDICARE, MEDICAID | LOC: M WUC 15:49 | PROVIDERS: ATTEND Internal Medicine | DX: R07.81 Pleurodynia (principal) ==

== ENCOUNTER → 2025-06-18 | Outpatient (CLI) | payer MEDICARE, MEDICAID | LOC: M RAD 12:43 | PROVIDERS: ATTEND Internal Medicine | DX: N28.1 Cyst of kidney, acquired (principal); K82.8 Other specified diseases of gallbladder ==

== ENCOUNTER → 2025-08-19 | Outpatient (CLI) | payer MEDICARE, MEDICAID ==
[~2025-08-19] MED LIST changes: -IBUP-1022 PO; +IBUP600T42 PO
== END ==
LOC: M RAD 10:49
PROVIDERS: ATTEND Pain Medicine Interventional Pain Medicine
DX: M47.814 Spondylosis without myelopathy or radiculopathy, thoracic region (principal); M54.16 Radiculopathy, lumbar region; M51.24 Other intervertebral disc displacement, thoracic region; M47.816 Spondylosis without myelopathy or radiculopathy, lumbar region

== ENCOUNTER → 2025-08-21 | Outpatient (CLI) | payer MEDICARE, MEDICAID | LOC: M RAD 15:33 | PROVIDERS: ATTEND Physician Assistant | DX: M48.02 Spinal stenosis, cervical region (principal) ==

== ENCOUNTER → 2025-08-21 | Outpatient (CLI) | payer MEDICARE, MEDICAID ==
[2025-08-21 16:18] LABS: BASO # 0.0 10^3/uL (0.0-0.2); BASO % 0.8 % (0.0-1.0); EOS # 0.4 10^3/uL (0.0-0.5); EOS % 7.8 % (0.0-3.0); LYMPH # 2.3 10^3/uL (1.5-5.0); LYMPH % 46.2 % (24.0-44.0); MONO # 0.4 10^3/uL (0.0-0.8); MONO % 7.0 % (2.0-8.0); NEUTROPHILS # 1.9 10^3/uL (1.5-8.5); NEUTROPHILS % 37.8 % (36.0-66.0); PLATELET COUNT, AUTOMATED 187 10^3/uL (150-450)
[2025-08-21 16:50] LABS: ALT/SGPT 16 U/L (7.0-40); AST/SGOT 19 U/L (<34); CALCIUM LEVEL 9.0 MG/DL (8.3-10.6); CARBON DIOXIDE LEVEL 28 MMOL/L (20-31); CHLORIDE LEVEL 107 MMOL/L (98-107); CREATININE FOR GFR 0.72 MG/DL (0.55-1.30); GLOMERULAR FILTRATION RATE > 90.0 (>45); POTASSIUM SERUM 4.0 MMOL/L (3.5-5.1); SODIUM LEVEL 143 MMOL/L (136-145)
== END ==
LOC: M LAB 15:35
PROVIDERS: ATTEND Psychiatry & Neurology Neurology
DX: R51.9 Headache, unspecified (principal); Z79.899 Other long term (current) drug therapy